=== PATIENT | female | born 1950 | race Caucasian/White ===

== ENCOUNTER 2018-04-03 22:12 | Emergency (ER) | payer MEDICAID ==
[~2018-04-03] VITALS: Ht 167.6 cm; Wt 90.7 kg
[~2018-04-03 22:12] MED LIST: ACHD5005 PO; ALBU8.5H4 IH; AMLO10TA2 PO; AMLO5TAB2 PO; AMOX-358 PO; AMOX500C2 PO; ASP81TEC PO; ATOR40TA PO; AZIT-21 PO; AZIT250T12 PO; Antivert; ENAL10TA PO; ENAL20TA76 PO; ENLP10T PO; FRSM20T PO; GLIP10TA13 PO; GLIP5TAB13 PO; HCT25T PO; HYDR-34 PO; HYDR200T46 PO; INSASP10V SC; INSU100C5 SC; INSU100I14 SQ; INSU100I16 SQ; INSU100V5 SQ; LEVE1U SQ; LEVO750T24 PO; METF500T8 PO; METH500T7 PO; METO10TA3 PO; MTF500T PO; MTP50T PO; OMEP20CA12 PO; POTA10TA36 PO; PRD10T PO; PRD20T PO; PRD50T PO; SERT50TA9 PO; SITA1TAB6; TICA90TA PO; TRAM50TA2 PO
[2018-04-03] MEDS ORDERED: KETOROLAC 30 MG/ML VIAL IVP STA (23:00)
[2018-04-03] MEDS ORDERED: NS IV 1000 ML 1,000 ML IV ONE (23:00)
[2018-04-03 23:15] LABS: BASOPHILS % (AUTO) 0 % (0-10); EOSINOPHILS # (AUTO) 0.1 10^3/uL (0.0-0.3); EOSINOPHILS % (AUTO) 1 % (0-10); HEMATOCRIT 36 % (35-52); HEMOGLOBIN 12.2 G/DL (11.5-16.0); LYMPHOCYTES # (AUTO) 0.7 X 10^3 (1.0-4.0); LYMPHOCYTES % (AUTO) 13 % (12-44); MEAN CORPUSCULAR HEMOGLOBIN 27 PG (25-34); MEAN CORPUSCULAR HGB CONC 34 G/DL (32-36); MEAN CORPUSCULAR VOLUME 79 FL (80-99); MEAN PLATELET VOLUME 9.9 FL (7.4-10.4); MONOCYTES # (AUTO) 0.6 X 10^3 (0.0-1.0); MONOCYTES % (AUTO) 11 % (0-12); NEUTROPHILS # (AUTO) 3.7 X 10^3 (1.8-7.8); NEUTROPHILS % (AUTO) 74 % (42-75); PLATELET COUNT 158 10^3/uL (130-400); RED BLOOD COUNT 4.57 10^6/uL (4.35-5.85); RED CELL DISTRIBUTION WIDTH 14.3 % (10.0-14.5)
--- OUTSIDE RECORDS SUMMARY | 2018-04-03 23:27 | XMS REPORT | Clinical Summary ---
Author Author [facility] Organization [facility] Address Unknown Phone Unavailable Care Team Providers Care Mental Health Specialist Name Role Phone Debo Dunne MD PCP Source Comments Some departments are not documenting in the electronic medical record. If you do not see the information that you expected, contact Release of Information in the Health Information Management department at [phone] for further assistance in locating additional records.[facility] Allergies Active Allergy Reactions Severity Noted Date Comments Metformin UNKNOWN Low 11/07/2017 Current Medications Prescription Sig. Disp. Refills Start End Date Status Date insulin detemir(+) Inject 60 Units under the Active (LEVEMIR) 100 unit/mL skin twice daily before soln meals. insulin aspart U-100 Inject 45 Units under the Active (NOVOLOG FLEXPEN U-100 skin three times daily INSULIN) 100 unit/mL with meals. injection PEN enalapril (VASOTEC) 10 mg Take 10 mg by mouth Active tablet daily. glipiZIDE (GLUCOTROL) 10 Take 10 mg by mouth twice Active mg tablet daily. sertraline (ZOLOFT) 50 mg Take 50 mg by mouth Active tablet daily. aspirin EC 81 mg tablet Take 81 mg by mouth Active daily. Take with food. omeprazole DR(+) Take 20 mg by mouth daily Active (PRILOSEC) 20 mg capsule before breakfast. QUEtiapine (SEROQUEL) 100 Take 100 mg by mouth at Active mg tablet bedtime daily. prednisone (DELTASONE) 5 Take 4 tabs po qd x 7 d, 109 tablet 1 Active mg tablet 3 tabs po qd x 7 d, then 18 2 tabs po qd until her follow up appointment. hydroxychloroquine Take with food. Take 1 60 tablet 2 12/03/19 Active (PLAQUENIL) 200 mg tablet tablet daily for 7 days 18 and then 1 tab BID. ergocalciferol (VITAMIN Take 1 capsule by mouth 12 capsule 0 12/03/19 Active D-2) 50,000 unit capsule every 7 days. 18 cholecalciferol(+) Take 1 tablet by mouth 90 tablet 0 12/03/19 Active (VITAMIN D3) 2,000 unit daily. 18 tablet Active Problems Problem Noted Date Coronary artery disease 11/18/2017 Type 2 diabetes mellitus (HCC) 11/18/2017 Fatigue 11/18/2017 Family History Medical History Relation Name Comments Cancer-Lung Other Coronary Artery Disease Other Diabetes Other Other Sister lupus Relation Name Status Comments Other Sister Social History Tobacco Use Types Packs/Day Years Used Date Current Every Day Smoker 1 45 Smokeless Tobacco: Never Used Sex Assigned at Date Recorded Not on file Last Filed Vital Signs Vital Sign Reading Time Taken Blood Pressure 161/77 11/18/2017 2:16 PM CDT Pulse 72 11/18/2017 2:16 PM CDT Temperature 36.5 C (97.7 F) 11/18/2017 2:16 PM CDT Respiratory Rate - - Oxygen Saturation - - Inhaled Oxygen - - Concentration Weight 80.3 kg (177 lb) 11/18/2017 2:16 PM CDT Height 160 cm (5' 3") 11/18/2017 2:16 PM CDT Body Mass Index 31.35 11/18/2017 2:16 PM CDT Plan of Treatment Health Maintenance Due Date Last Done Comments PHYSICAL (COMPREHENSIVE) 01/06/1959 EXAM PERTUSSIS VACCINE 01/06/1963 TETANUS VACCINE 01/06/1969 DILATED EYE EXAM 01/06/1970 FOOT EXAM 01/06/1970 HBA1C 01/06/1970 BREAST CANCER SCREENING 1992 COLORECTAL CANCER 01/06/2002 SCREENING SHINGLES RECOMBINANT 01/06/2002 VACCINE (1 of 2) OSTEOPOROSIS SCREENING 01/06/2017 PNEUMONIA (PCV13/PPSV23) 01/06/2017 VACCINES (1 of 2 - PCV13) INFLUENZA VACCINE 05/29/2018 HEPATITIS C SCREENING Completed 11/18/2017 Results Not on filefrom Last 3 Months
--- OUTSIDE RECORDS SUMMARY | 2018-04-03 23:32 | XMS REPORT | Continuity of Care Document ---
Author Author [facility] Organization [facility] Address Unknown Phone Unavailable Allergies Active Description Code Type Severity Reaction Onset Reported/Identified Relationship to Patient Clinical Status Yes METFORMIN UNKNOWN GI PROBLEMS - DIARRH Yes No Known Drug Allergies [id number] Drug Allergy Unknown N/A 10/02/2009 Yes atorvastatin [id number] Drug Allergy Unknown N/A 06/14/2015 Yes metformin [id number] Drug Allergy Unknown N/A 06/14/2015 Medications Medication Packaging Start Date Stop Date Route Dosage Sig AMOX-CLAV 875/125 TAB 875 MG-125MG (AUGMENTIN) TAB 07/07/2017 07/07/2017 ONCE&2115 KETOROLAC VIAL INJ 30 MG/CC (TORADOL VIAL) MG 07/07/2017 07/07/2017 PRN ONCE SMZ/TMP DS TAB (SEPTRA DS) (Bactrim DS) TAB 07/29/2017 07/29/2017 ONCE&2253 CEFTRIAXONE INJ 1 GM (ROCEPHIN) GM 07/29/2017 07/29/2017 ONCE&2258 Problems Date Dx Coded Attending Type Code Diagnosis Diagnosed By 09/06/2012 Ot 716.90 ARTHROPATHY NOS-UNSPEC 09/06/2012 Ot 723.5 TORTICOLLIS NOS 11/01/2012 Ot 250.00 DIAB ROJAS WO COMPL, TYPE II OR UNSPEC TY 11/01/2012 Ot 272.4 HYPERLIPIDEMIA NEC/NOS 11/01/2012 Ot 276.69 OTHER FLUID OVERLOAD 11/01/2012 Ot 278.00 OBESITY, NOS 11/01/2012 Ot 305.1 TOBACCO USE DISORDER 11/01/2012 Ot 401.9 HYPERTENSION NOS 11/01/2012 Ot 410.71 AC MYOCARDIAL INFARCT,SUBENDO INFARCT,IN 11/01/2012 Ot 414.01 CORONARY ATHEROSCLEROSIS OF [place] CORON 11/01/2012 Ot 486 PNEUMONIA, ORGANISM NOS 11/01/2012 Ot 496 CHR AIRWAY OBSTRUCT NEC 11/01/2012 Ot 716.90 ARTHROPATHY NOS-UNSPEC 11/01/2012 Ot V03.82 PROPHYLACTIC VACC AGAINST STREPTOCOCCUS 11/01/2012 Ot 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 11/01/2012 Ot V85.39 BODY MASS INDEX 39.0-39.9, ADULT 11/09/2012 Ot 719.42 JOINT PAIN- UP/ARM 11/09/2012 Ot 726.32 LATERAL EPICONDYLITIS 12/01/2012 Ot 780.79 OTH MALAISE FATIGUE 12/01/2012 Ot 924.8 MULTIPLE CONTUSIONS NEC 12/01/2012 Ot 959.4 HAND INJURY NOS 12/01/2012 Ot E000.8 OTHER EXTERNAL CAUSE STATUS 12/01/2012 Ot E849.0 ACCIDENT IN HOME 12/01/2012 Ot E885.9 FALL FROM SLIPPING, TRIPPING, OR STUMBLI 12/03/2012 Ot 276.8 HYPOPOTASSEMIA 12/03/2012 Ot 789.09 ABDOMINAL PAIN, OTHER SPECIFIED SITE 02/01/2013 FRANCESCA CHAVEZ MD Ot 240.9 GOITER NOS 02/01/2013 FRANCESCA CHAVEZ MD Ot 250.00 DIAB ROJAS WO COMPL, TYPE II OR UNSPEC TY 02/01/2013 FRANCESCA CHAVEZ MD Ot 272.4 HYPERLIPIDEMIA NEC/NOS 02/01/2013 FRANCESCA CHAVEZ MD Ot 276.1 HYPOSMOLALITY 02/01/2013 FRANCESCA CHAVEZ MD Ot 276.8 HYPOPOTASSEMIA 02/01/2013 FRANCESCA CHAVEZ MD Ot 278.00 OBESITY, NOS 02/01/2013 FRANCESCA CHAVEZ MD Ot 305.1 TOBACCO USE DISORDER 02/01/2013 FRANCESCA CHAVEZ MD Ot 311 DEPRESSIVE DISORDER NEC 02/01/2013 FRANCESCA CHAVEZ MD Ot 401.9 HYPERTENSION NOS 02/01/2013 FRANCESCA CHAVEZ MD Ot 412 OLD MYOCARDIAL INFARCT 02/01/2013 FRANCESCA CHAVEZ MD Ot 414.01 CORONARY ATHEROSCLEROSIS OF [place] CORON 02/01/2013 FRANCESCA CHAVEZ MD Ot 496 CHR AIRWAY OBSTRUCT NEC 02/01/2013 FRANCESCA CHAVEZ MD Ot 716.90 ARTHROPATHY NOS-UNSPEC 02/01/2013 FRANCESCA CHAVEZ MD Ot 728.88 RHABDOMYOLYSIS 02/01/2013 FRANCESCA CHAVEZ MD Ot V45.82 PERCUTANEOUS TRANSLUM CORON ANGIOPLASTY 02/01/2013 FRANCESCA CHAVEZ MD Ot V58.67 LONG-TERM (CURRENT) USE OF INSULIN 02/01/2013 FRANCESCA CHAVEZ MD Ot V85.37 BODY MASS INDEX 37.0-37.9, ADULT 02/08/2013 SINDY SIFUENTES OPAL E Ot 240.9 GOITER NOS 02/08/2013 SINDY SIFUENTES OPAL E Ot 250.00 DIAB ROJAS WO COMPL, TYPE II OR UNSPEC TY 02/08/2013 SINDY SIFUENTES OPAL E Ot 272.4 HYPERLIPIDEMIA NEC/NOS 02/08/2013 SINDY SIFUENTES OPAL E Ot 276.1 HYPOSMOLALITY 02/08/2013 SINDY SIFUENTES OPAL E Ot 276.8 HYPOPOTASSEMIA 02/08/2013 SINDY SIFUENTES OPAL E Ot 311 DEPRESSIVE DISORDER NEC 02/08/2013 SINDY SIFUENTES OPAL E Ot 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 02/08/2013 SINDY SIFUENTES OPAL E Ot 401.9 HYPERTENSION NOS 02/08/2013 SINDY SIFUENTES OPAL E Ot 414.01 CORONARY ATHEROSCLEROSIS OF [place] CORON 02/08/2013 SINDY SIFUENTES OPAL E Ot 710.0 SYST LUPUS ERYTHEMATOSIS 02/08/2013 SINDY SIFUENTES OPAL E Ot 715.35 LOC OSTEOARTH NOS-PELVIS 02/08/2013 SINDY SIFUENTES OPAL E Ot 781.2 ABNORMALITY OF GAIT 02/08/2013 MARLENE CALLAHAN MDIC E Ot 786.09 RESPIRATORY ABNORM NEC 02/08/2013 SINDY SIFUENTES OPAL E Ot 787.91 DIARRHEA 02/08/2013 MARLENE CALLAHAN MDIC E Ot V45.82 PERCUTANEOUS TRANSLUM CORON ANGIOPLASTY 02/08/2013 SINDY SIFUENTES OPAL E Ot V57.89 REHABILITATION PROC NEC 02/08/2013 OPAL CALLAHAN MD E Ot V58.67 LONG-TERM (CURRENT) USE OF INSULIN 08/23/2013 BHAVIN WRIGHT MD Ot 920 CONTUSION FACE/SCALP/NCK 08/23/2013 BHAVIN WRIGHT MD Ot 959.09 INJURY OF FACE AND NECK 08/23/2013 BHAVIN WRIGHT MD Ot E000.8 OTHER EXTERNAL CAUSE STATUS 08/23/2013 BRUEGGEMANN MD, BHAVIN T Ot E849.0 ACCIDENT IN HOME 08/23/2013 ADRIANA SIFUENTES, BHAVIN Davis Ot E880.9 FALL ON STAIR/STEP NEC 01/03/2015 HOLDEN DARBY MD Ot 719.49 JOINT PAIN-MULT JTS 01/03/2015 HOLDEN DARBY MD Ot V58.69 OTH MED,LT,CURRENT USE 02/10/2015 CONNIE DIEZ MD Ot 401.9 02/10/2015 CONNIE DIEZ MD Ot 414.00 02/10/2015 CONNIE DIEZ MD Ot 785.9 06/14/2015 Ot E11.9 TYPE 2 DIABETES MELLITUS WITHOUT COMPLIC 06/14/2015 Ot F17.210 NICOTINE DEPENDENCE, CIGARETTES, UNCOMPL 06/14/2015 Ot N93.9 ABNORMAL UTERINE AND VAGINAL BLEEDING, U 06/14/2015 Ot N95.0 POSTMENOPAUSAL BLEEDING 06/14/2015 Ot Z79.4 LONGTERM ( CURRENT) USE OF INSULIN 09/21/2015 MIAN YOON MD Ot 724.1 09/21/2015 MIAN YOON MD Ot V15.88 09/21/2015 CONNIE DIEZ MD Ot 401.9 09/21/2015 CONNIE DIEZ MD Ot 414.00 09/21/2015 CONNIE DIEZ MD Ot 785.9 09/21/2015 KATY WOLFE APRN Ot E11.65 TYPE 2 DIABETES MELLITUS WITH HYPERGLYCE 09/21/2015 KATY WOLFE APRN Ot F17.210 NICOTINE DEPENDENCE, CIGARETTES, UNCOMPL 09/21/2015 KATY WOLFE APRN Ot J40 BRONCHITIS, NOT SPECIFIED ACUTE OR CH 09/21/2015 KATY WOLFE APRN Ot Z79.4 CREDIT ADVISOR (CURRENT) USE OF INSULIN 09/21/2015 MIAN YOON MD Ot 724.1 09/21/2015 MIAN YOON MD Ot V15.88 09/21/2015 CONNIE DIEZ MD Ot 401.9 09/21/2015 CONNIE DIEZ MD Ot 414.00 09/21/2015 CONNIE DIEZ MD Ot 785.9 06/08/2016 MIAN YOON MD Ot 724.1 PAIN IN THORACIC SPINE 06/08/2016 MIAN YOON MD Ot V15.88 HISTORY OF FALL 06/08/2016 CONNIE DIEZ MD Ot 401.9 HYPERTENSION NOS 06/08/2016 CONNIE DIEZ MD Ot 414.00 CORON ATHEROSCLER NOS TYPE VESSEL, NATIV 06/08/2016 CONNIE DIEZ MD Ot 785.9 CARDIOVAS SYS SYMP NEC 06/08/2016 HOLDEN DARBY MD Ot E11.9 TYPE 2 DIABETES MELLITUS WITHOUT COMPLIC 06/08/2016 HOLDEN DARBY MD Ot F17.210 NICOTINE DEPENDENCE, CIGARETTES, UNCOMPL 06/08/2016 HOLDEN DARBY MD Ot H81.13 BENIGN PAROXYSMAL VERTIGO, BILATERAL 06/08/2016 HOLDEN DARBY MD Ot M32.9 SYSTEMIC LUPUS ERYTHEMATOSUS, UNSPECIFIE 06/08/2016 HOLDEN DARBY MD Ot R42 DIZZINESS AND GIDDINESS 06/08/2016 HOLDEN DARBY MD Ot Z79.4 CREDIT ADVISOR (CURRENT) USE OF INSULIN 06/08/2016 HOLDEN DARBY MD Ot Z79.82 CREDIT ADVISOR (CURRENT) USE OF ASPIRIN 06/08/2016 HOLDEN DARBY MD Ot Z79.899 OTHER LONGTERM (CURRENT) DRUG THERAPY 06/12/2016 HOLDEN DARBY MD Ot E11.9 TYPE 2 DIABETES MELLITUS WITHOUT COMPLIC 06/12/2016 HOLDEN DARBY MD Ot F17.210 NICOTINE DEPENDENCE, CIGARETTES, UNCOMPL 06/12/2016 HOLDEN DARBY MD Ot H81.13 BENIGN PAROXYSMAL VERTIGO, BILATERAL 06/12/2016 HOLDEN DARBY MD Ot M32.9 SYSTEMIC LUPUS ERYTHEMATOSUS, UNSPECIFIE 06/12/2016 HOLDEN DARBY MD Ot R42 DIZZINESS AND GIDDINESS 06/12/2016 HOLDEN DARBY MD Ot Z79.4 LONGTERM (CURRENT) USE OF INSULIN 06/12/2016 HOLDEN DARBY MD Ot Z79.82 CREDIT ADVISOR (CURRENT) USE OF ASPIRIN 06/12/2016 HOLDEN DARBY MD Ot Z79.899 OTHER LONGTERM (CURRENT) DRUG THERAPY 08/26/2016 MIAN YOON MD Ot 724.1 PAIN IN THORACIC SPINE 08/26/2016 MIAN YOON MD Ot V15.88 HISTORY OF FALL 08/26/2016 CONNIE DIEZ MD Ot 401.9 HYPERTENSION NOS 08/26/2016 CONNIE DIEZ MD Ot 414.00 CORON ATHEROSCLER NOS TYPE VESSEL, NATIV 08/26/2016 CONNIE DIEZ MD Ot 785.9 CARDIOVAS SYS SYMP NEC 08/26/2016 MIAN YOON MD Ot 724.1 PAIN IN THORACIC SPINE 08/26/2016 MIAN YOON MD Ot V15.88 HISTORY OF FALL 08/26/2016 CONNIE DIEZ MD Ot 401.9 HYPERTENSION NOS 08/26/2016 CONNIE DIEZ MD Ot 414.00 CORON ATHEROSCLER NOS TYPE VESSEL, NATIV 08/26/2016 CONNIE DIEZ MD Ot 785.9 CARDIOVAS SYS SYMP NEC 08/28/2016 YANG MIRELES MD, Ot B96.20 UNSP ESCHERICHIA COLI THE CAUSE OF DI 08/28/2016 YANG MIRELES MD, Ot E11.65 TYPE 2 DIABETES MELLITUS WITH HYPERGLYCE 08/28/2016 YANG MIRELES MD Ot E87.1 HYPO-OSMOLALITY AND HYPONATREMIA 08/28/2016 YANG MIRELES MD Ot K11.21 ACUTE SIALOADENITIS 08/28/2016 YANG MIRELES MD Ot N39.0 URINARY TRACT INFECTION, SITE NOT SPECIF 08/28/2016 YANG MIRELES MD Ot Z79.4 CREDIT ADVISOR (CURRENT) USE OF INSULIN 09/09/2016 YANG MIRELES MD Ot B96.20 UNSP ESCHERICHIA COLI THE CAUSE OF DI 09/09/2016 YANG MIRELES MD Ot E11.65 TYPE 2 DIABETES MELLITUS WITH HYPERGLYCE 09/09/2016 YANG MIRELES MD Ot E87.1 HYPO-OSMOLALITY AND HYPONATREMIA 09/09/2016 YANG MIRELES MD Ot K11.21 ACUTE SIALOADENITIS 09/09/2016 YANG MIRELES MD, Ot N39.0 URINARY TRACT INFECTION, SITE NOT SPECIF 09/09/2016 YANG MIRELES MD Ot Z79.4 CREDIT ADVISOR (CURRENT) USE OF INSULIN 09/09/2016 YANG MIRELES MD Ot B96.20 UNSP ESCHERICHIA COLI THE CAUSE OF DI 09/09/2016 YANG MIRELES MD Ot E11.65 TYPE 2 DIABETES MELLITUS WITH HYPERGLYCE 09/09/2016 YANG MIRELES MD Ot E87.1 HYPO-OSMOLALITY AND HYPONATREMIA 09/09/2016 YANG MIRELES MD Ot K11.21 ACUTE SIALOADENITIS 09/09/2016 YANG MIRELES MD Ot N39.0 URINARY TRACT INFECTION, SITE NOT SPECIF 09/09/2016 YANG MIRELES MD Ot Z79.4 CREDIT ADVISOR (CURRENT) USE OF INSULIN 07/07/2017 Elayne Lal W 241.0 NONTOXIC UNINODULAR GOITER 07/07/2017 Wesley Lalya W 250.01 DIABETES MELLITUS WITHOUT MENTION OF COMPLICATION, TYPE I [JUVENILE TYPE], NOT STATED UNCONTROLLED 07/07/2017 Wesley Lalya W 401.0 MALIGNANT ESSENTIAL HYPERTENSION 07/07/2017 Wesley Lalya A 527.2 SIALOADENITIS 07/07/2017 Elayne Lal W E04.1 NONTOXIC SINGLE THYROID NODULE 07/07/2017 Wesley Lalya W E10.9 TYPE 1 DIABETES MELLITUS WITHOUT COMPLICATIONS 07/07/2017 ZariabWesleyya W I10 ESSENTIAL (PRIMARY) HYPERTENSION 07/07/2017 Wesley Lalya A K11.21 ACUTE SIALOADENITIS 07/28/2017 ADIN OCONNELL W 250.80 DIABETES MELLITUS WITH OTHER SPECIFIED MANIFESTATIONS, TYPE II OR UNSPECIFIED TYPE, NOT STATED UNCONTROLLED 07/28/2017 ADIN OCONNELL W 272.4 OTHER AND UNSPECIFIED HYPERLIPIDEMIA 07/28/2017 ADIN OCONNELL W 401.0 MALIGNANT ESSENTIAL HYPERTENSION 07/28/2017 ADIN OCONNELL W E11.65 TYPE 2 DIABETES MELLITUS WITH HYPERGLYCEMIA 07/28/2017 ADIN OCONNELL W E78.5 HYPERLIPIDEMIA, UNSPECIFIED 07/28/2017 ADIN OCONNELL W I10 ESSENTIAL (PRIMARY) HYPERTENSION 07/28/2017 ADIN OCONNELL W 250.80 DIABETES MELLITUS WITH OTHER SPECIFIED MANIFESTATIONS, TYPE II OR UNSPECIFIED TYPE, NOT STATED UNCONTROLLED 07/28/2017 ADIN OCONNELL W 272.4 OTHER AND UNSPECIFIED HYPERLIPIDEMIA 07/28/2017 ADIN OCONNELL W 401.0 MALIGNANT ESSENTIAL HYPERTENSION 07/28/2017 ADIN OCONNELL W E11.65 TYPE 2 DIABETES MELLITUS WITH HYPERGLYCEMIA 07/28/2017 ADIN OCONNELL W E78.5 HYPERLIPIDEMIA, UNSPECIFIED 07/28/2017 ADIN OCONNELL W I10 ESSENTIAL (PRIMARY) HYPERTENSION 07/28/2017 LUIS OCONNELLHEL W 250.80 DIABETES MELLITUS WITH OTHER SPECIFIED MANIFESTATIONS, TYPE II OR UNSPECIFIED TYPE, NOT STATED UNCONTROLLED 07/28/2017 ADIN OCONNELL W 272.4 OTHER AND UNSPECIFIED HYPERLIPIDEMIA 07/28/2017 ADIN OCONNELL W 401.0 MALIGNANT ESSENTIAL HYPERTENSION 07/28/2017 LUIS OCONNELLHEL W E11.65 TYPE 2 DIABETES MELLITUS WITH HYPERGLYCEMIA 07/28/2017 ADIN OCONNELL W E78.5 HYPERLIPIDEMIA, UNSPECIFIED 07/28/2017 OCONNELLADIN LUNDBERG W I10 ESSENTIAL (PRIMARY) HYPERTENSION 07/29/2017 FRANNY JUNIOR A 599.0 URINARY TRACT INFECTION, SITE NOT SPECIFIED 07/29/2017 FRANNY JUNIOR A N39.0 URINARY TRACT INFECTION, SITE NOT SPECIFIED 02/02/2018 OCONNELLLUIS LUNDBERGHEL W 466.0 ACUTE BRONCHITIS 02/02/2018 OCONNELL, ADIN W 780.60 FEVER, UNSPECIFIED 02/02/2018 OCONNELL, ADIN W J20.9 ACUTE BRONCHITIS, UNSPECIFIED 02/02/2018 OCONNELL, ADIN W R50.9 FEVER, UNSPECIFIED 02/02/2018 OCONNELL, ADIN W 250.80 DIABETES MELLITUS WITH OTHER SPECIFIED MANIFESTATIONS, TYPE II OR UNSPECIFIED TYPE, NOT STATED UNCONTROLLED 02/02/2018 LUIS OCONNELLHEL W 401.0 MALIGNANT ESSENTIAL HYPERTENSION 02/02/2018 OCONNELLLUIS LUNDBERGHEL W 466.0 ACUTE BRONCHITIS 02/02/2018 OCONNELL, ADIN W 780.60 FEVER, UNSPECIFIED 02/02/2018 OCONNELLADIN LUNDBERG W E11.65 TYPE 2 DIABETES MELLITUS WITH HYPERGLYCEMIA 02/02/2018 OCONNELLLUIS LUNDBERGHEL W I10 ESSENTIAL (PRIMARY) HYPERTENSION 02/02/2018 OCONNELLLUIS LUNDBERGHEL W J20.9 ACUTE BRONCHITIS, UNSPECIFIED 02/02/2018 OCONNELL, ADIN W R50.9 FEVER, UNSPECIFIED 02/02/2018 OCONNELL, ADIN W 250.80 DIABETES MELLITUS WITH OTHER SPECIFIED MANIFESTATIONS, TYPE II OR UNSPECIFIED TYPE, NOT STATED UNCONTROLLED 02/02/2018 OCONNELLLUIS LUNDBERGHEL W 401.0 MALIGNANT ESSENTIAL HYPERTENSION 02/02/2018 OCONNELL, ADIN W 466.0 ACUTE BRONCHITIS 02/02/2018 OCONNELL, ADIN W 780.60 FEVER, UNSPECIFIED 02/02/2018 ADIN OCONNELL E11.65 TYPE 2 DIABETES MELLITUS WITH HYPERGLYCEMIA 02/02/2018 ADIN OCONNELL I10 ESSENTIAL (PRIMARY) HYPERTENSION 02/02/2018 ADIN OCONNELL J20.9 ACUTE BRONCHITIS, UNSPECIFIED 02/02/2018 ADIN OCONNELL R50.9 FEVER, UNSPECIFIED Procedures Code Description Performed By Performed On 00.40 PROCEDURE ON SINGLE VESSEL 10/30/2012 00.45 INSERTION OF ONE VASCULAR STENT 10/30/2012 00.66 PERCUTANEOUS TRANSLUMINAL CORONARY ANGIO 10/30/2012 36.07 INSRT OF DRUG-ELUTING CORON ARTERY STENT 10/30/2012 37.22 LEFT HEART CARDIAC CATH 10/30/2012 88.53 LT HEART ANGIOCARDIOGRAM 10/30/2012 88.56 CORONAR ARTERIOGR-2 CATH 10/30/2012 Results Test Result Range Complete blood count (CBC) with automated white blood cell (WBC) differential - 06/08/16 13:59 Blood leukocytes automated count (number/volume) 5.4 10*3/uL 4.3-11.0 Blood erythrocytes automated count (number/volume) 5.32 10*6/uL 4.35-5.85 Venous blood hemoglobin measurement (mass/volume) 13.7 g/dL 11.5-16.0 Blood hematocrit (volume fraction) 41 % 35-52 Automated erythrocyte mean corpuscular volume 76 [foz_us] 80-99 Automated erythrocyte mean corpuscular hemoglobin (mass per erythrocyte) 26 pg 25-34 Automated erythrocyte mean corpuscular hemoglobin concentration measurement ( mass/volume) 34 g/dL 32-36 Automated erythrocyte distribution width ratio 14.2 % 10.0-14.5 Automated blood platelet count (count/volume) 178 10*3/uL 130-400 Automated blood platelet mean volume measurement 11.5 [foz_us] 7.4-10.4 Automated blood neutrophils/100 leukocytes 76 % 42-75 Automated blood lymphocytes/100 leukocytes 12 % 12-44 Blood monocytes/100 leukocytes 11 % 0-12 Automated blood eosinophils/100 leukocytes 1 % 0-10 Automated blood basophils/100 leukocytes 0 % 0-10 Blood neutrophils automated count (number/volume) 4.1 10*3 1.8-7.8 Blood lymphocytes automated count (number/volume) 0.6 10*3 1.0-4.0 Blood monocytes automated count (number/volume) 0.6 10*3 0.0-1.0 Automated eosinophil count 0.1 10*3/uL 0.0-0.3 Automated blood basophil count (count/volume) 0.0 10*3/uL 0.0-0.1 Comprehensive metabolic panel - 06/08/16 13:59 Serum or plasma sodium measurement (moles/volume) 138 mmol/L 135-145 Serum or plasma potassium measurement (moles/volume) 4.0 mmol/L 3.6-5.0 Serum or plasma chloride measurement (moles/volume) 107 mmol/L 98-107 Carbon dioxide 19 mmol/L 21-32 Serum or plasma anion gap determination (moles/volume) 12 mmol/L 5-14 Serum or plasma urea nitrogen measurement (mass/volume) 11 mg/dL 7-18 Serum or plasma creatinine measurement (mass/volume) 0.80 mg/dL 0.60-1.30 Serum or plasma urea nitrogen/creatinine mass ratio 14 NRG Serum or plasma creatinine measurement with calculation of estimated glomerular filtration rate > NRG Serum or plasma glucose measurement (mass/volume) 322 mg/dL 70-105 Serum or plasma calcium measurement (mass/volume) 9.3 mg/dL 8.5-10.1 Serum or plasma total bilirubin measurement (mass/volume) 0.4 mg/dL 0.1-1.0 Serum or plasma alkaline phosphatase measurement (enzymatic activity/volume) 107 U/L 40-136 Serum or plasma aspartate aminotransferase measurement (enzymatic activity/ volume) 21 U/L 5-34 Serum or plasma alanine aminotransferase measurement (enzymatic activity/volume ) 20 U/L 0-55 Serum or plasma protein measurement (mass/volume) 7.1 g/dL 6.4-8.2 Serum or plasma albumin measurement (mass/volume) 3.9 g/dL 3.2-4.5 Complete blood count (CBC) with automated white blood cell (WBC) differential - 08/26/16 19:00 Blood leukocytes automated count (number/volume) 10.2 10*3/uL 4.3-11.0 Blood erythrocytes automated count (number/volume) 5.36 10*6/uL 4.35-5.85 Venous blood hemoglobin measurement (mass/volume) 13.6 g/dL 11.5-16.0 Blood hematocrit (volume fraction) 40 % 35-52 Automated erythrocyte mean corpuscular volume 75 [foz_us] 80-99 Automated erythrocyte mean corpuscular hemoglobin (mass per erythrocyte) 25 pg 25-34 Automated erythrocyte mean corpuscular hemoglobin concentration measurement ( mass/volume) 34 g/dL 32-36 Automated erythrocyte distribution width ratio 13.3 % 10.0-14.5 Automated blood platelet count (count/volume) 234 10*3/uL 130-400 Automated blood platelet mean volume measurement 10.5 [foz_us] 7.4-10.4 Automated blood neutrophils/100 leukocytes 79 % 42-75 Automated blood lymphocytes/100 leukocytes 10 % 12-44 Blood monocytes/100 leukocytes 11 % 0-12 Automated blood eosinophils/100 leukocytes 0 % 0-10 Automated blood basophils/100 leukocytes 0 % 0-10 Blood neutrophils automated count (number/volume) 8.0 10*3 1.8-7.8 Blood lymphocytes automated count (number/volume) 1.1 10*3 1.0-4.0 Blood monocytes automated count (number/volume) 1.1 10*3 0.0-1.0 Automated eosinophil count 0.0 10*3/uL 0.0-0.3 Automated blood basophil count (count/volume) 0.0 10*3/uL 0.0-0.1 Comprehensive metabolic panel - 08/26/16 19:00 Serum or plasma sodium measurement (moles/volume) 127 mmol/L 135-145 Serum or plasma potassium measurement (moles/volume) 3.7 mmol/L 3.6-5.0 Serum or plasma chloride measurement (moles/volume) 96 mmol/L 98-107 Carbon dioxide 19 mmol/L 21-32 Serum or plasma anion gap determination (moles/volume) 12 mmol/L 5-14 Serum or plasma urea nitrogen measurement (mass/volume) 14 mg/dL 7-18 Serum or plasma creatinine measurement (mass/volume) 0.86 mg/dL 0.60-1.30 Serum or plasma urea nitrogen/creatinine mass ratio 16 NRG Serum or plasma creatinine measurement with calculation of estimated glomerular filtration rate > NRG Serum or plasma glucose measurement (mass/volume) 367 mg/dL 70-105 Serum or plasma calcium measurement (mass/volume) 9.5 mg/dL 8.5-10.1 Serum or plasma total bilirubin measurement (mass/volume) 0.5 mg/dL 0.1-1.0 Serum or plasma alkaline phosphatase measurement (enzymatic activity/volume) 73 U/L 40-136 Serum or plasma aspartate aminotransferase measurement (enzymatic activity/ volume) 18 U/L 5-34 Serum or plasma alanine aminotransferase measurement (enzymatic activity/volume ) 13 U/L 0-55 Serum or plasma protein measurement (mass/volume) 7.8 g/dL 6.4-8.2 Serum or plasma albumin measurement (mass/volume) 3.6 g/dL 3.2-4.5 Serum or plasma amylase measurement (enzymatic activity/volume) - 08/26/16 19: 00 Serum or plasma amylase measurement (enzymatic activity/volume) 204 U/L 25-125 Lipase - 08/26/16 19:00 Lipase 17 U/L 8-78 MUMPS ANTIBODY IGG T M - 08/26/16 19:00 Serum mumps virus IgG antibody assay (units/volume) 2.93 0.00-0.89 Serum mumps virus IgM antibody assay (units/volume) <1:10 <1:10 Complete urinalysis with reflex to culture - 08/26/16 19:06 Urine color determination YELLOW NRG Urine clarity determination VERY CLOUDY NRG Urine pH measurement by test strip 6 5-9 Specific gravity of urine by test strip 1.015 1.016- 1.022 Urine protein assay by test strip, semi-quantitative 3+ NEGATIVE Urine glucose detection by automated test strip 4+ NEGATIVE Erythrocytes detection in urine sediment by light microscopy 2+ NEGATIVE Urine ketones detection by automated test strip 2+ NEGATIVE Urine nitrite detection by test strip POSITIVE NEGATIVE Urine total bilirubin detection by test strip NEGATIVE NEGATIVE Urine urobilinogen measurement by automated test strip (mass/volume) NORMAL NORMAL Urine leukocyte esterase detection by dipstick 3+ NEGATIVE Automated urine sediment erythrocyte count by microscopy (number/high power field) [HPF] NRG Automated urine sediment leukocyte count by microscopy (number/high power field ) > [HPF] NRG Bacteria detection in urine sediment by light microscopy LARGE NRG Crystals detection in urine sediment by light microscopy NONE NRG Casts detection in urine sediment by light microscopy NONE NRG Mucus detection in urine sediment by light microscopy NEGATIVE NRG Complete urinalysis with reflex to culture YES NRG Bacterial urine culture - 08/26/16 19:06 Bacterial urine culture [id number] NRG COLONY COUNT >100,000/ML NRG FTX;REPORTABLE SENSITIVITY REPORTED AT 1651, 08-27-16 NRG FREE TEXT ENTRY 2 PLUS, NRG FREE TEXT ENTRY 3 LACTOBACILLUS 10-100,000/ML NR Bacterial susceptibility panel - 08/26/16 19:06 Gentamicin susceptibility test by minimum inhibitory concentration < = NRG Trimethoprim/sulfamethoxazole susceptibility test by minimum inhibitoryconcentration <= NRG Ampicillin susceptibility test by minimum inhibitory concentration < = NRG Tobramycin susceptibility test by minimum inhibitory concentration < = NRG Cefazolin susceptibility test by minimum inhibitory concentration < = NRG Ceftriaxone susceptibility test by minimum inhibitory concentration <= NRG Ampicillin/sulbactam susceptibility test by minimum inhibitory concentration <= NRG Piperacillin/tazobactam susceptibility test by minimum inhibitory concentration <= NRG Ciprofloxacin susceptibility test by minimum inhibitory concentration <= NRG Meropenem susceptibility test by minimum inhibitory concentration < = NRG Nitrofurantoin susceptibility test by minimum inhibitory concentration <= NRG Aztreonam susceptibility test by minimum inhibitory concentration < = NRG Extended spectrum beta lactamase (ESBL) producing bacteria susceptibility test by minimum inhibitory concentration - NR Capillary blood glucose measurement by glucometer (mass/volume) - 08/26/16 23: 28 Capillary blood glucose measurement by glucometer (mass/volume) 327 mg/dL 70-110 Influenza virus A and B antigen detection - 08/26/16 23:41 FLU RESULT NEGATIVE FOR INFLUENZA A AND B ANTIGENS BY IA NR Capillary blood glucose measurement by glucometer (mass/volume) - 08/27/16 05: 47 Capillary blood glucose measurement by glucometer (mass/volume) 279 mg/dL 70-110 Complete blood count (CBC) with automated white blood cell (WBC) differential - 08/27/16 06:05 Blood leukocytes automated count (number/volume) 6.5 10*3/uL 4.3-11.0 Blood erythrocytes automated count (number/volume) 4.79 10*6/uL 4.35-5.85 Venous blood hemoglobin measurement (mass/volume) 12.3 g/dL 11.5-16.0 Blood hematocrit (volume fraction) 36 % 35-52 Automated erythrocyte mean corpuscular volume 75 [foz_us] 80-99 Automated erythrocyte mean corpuscular hemoglobin (mass per erythrocyte) 26 pg 25-34 Automated erythrocyte mean corpuscular hemoglobin concentration measurement ( mass/volume) 34 g/dL 32-36 Automated erythrocyte distribution width ratio 13.3 % 10.0-14.5 Automated blood platelet count (count/volume) 184 10*3/uL 130-400 Automated blood platelet mean volume measurement 10.6 [foz_us] 7.4-10.4 Automated blood neutrophils/100 leukocytes 75 % 42-75 Automated blood lymphocytes/100 leukocytes 11 % 12-44 Blood monocytes/100 leukocytes 13 % 0-12 Automated blood eosinophils/100 leukocytes 1 % 0-10 Automated blood basophils/100 leukocytes 0 % 0-10 Blood neutrophils automated count (number/volume) 4.9 10*3 1.8-7.8 Blood lymphocytes automated count (number/volume) 0.7 10*3 1.0-4.0 Blood monocytes automated count (number/volume) 0.8 10*3 0.0-1.0 Automated eosinophil count 0.1 10*3/uL 0.0-0.3 Automated blood basophil count (count/volume) 0.0 10*3/uL 0.0-0.1 Comprehensive metabolic panel - 08/27/16 06:05 Serum or plasma sodium measurement (moles/volume) 133 mmol/L 135-145 Serum or plasma potassium measurement (moles/volume) 3.2 mmol/L 3.6-5.0 Serum or plasma chloride measurement (moles/volume) 104 mmol/L 98-107 Carbon dioxide 19 mmol/L 21-32 Serum or plasma anion gap determination (moles/volume) 10 mmol/L 5-14 Serum or plasma urea nitrogen measurement (mass/volume) 13 mg/dL 7-18 Serum or plasma creatinine measurement (mass/volume) 0.79 mg/dL 0.60-1.30 Serum or plasma urea nitrogen/creatinine mass ratio 16 NRG Serum or plasma creatinine measurement with calculation of estimated glomerular filtration rate > NRG Serum or plasma glucose measurement (mass/volume) 275 mg/dL 70-105 Serum or plasma calcium measurement (mass/volume) 8.6 mg/dL 8.5-10.1 Serum or plasma total bilirubin measurement (mass/volume) 0.5 mg/dL 0.1-1.0 Serum or plasma alkaline phosphatase measurement (enzymatic activity/volume) 63 U/L 40-136 Serum or plasma aspartate aminotransferase measurement (enzymatic activity/ volume) 21 U/L 5-34 Serum or plasma alanine aminotransferase measurement (enzymatic activity/volume ) 12 U/L 0-55 Serum or plasma protein measurement (mass/volume) 6.2 g/dL 6.4-8.2 Serum or plasma albumin measurement (mass/volume) 3.0 g/dL 3.2-4.5 Serum or plasma amylase measurement (enzymatic activity/volume) - 08/27/16 06: 05 Serum or plasma amylase measurement (enzymatic activity/volume) 143 U/L 25-125 Lipase - 08/27/16 06:05 Lipase 13 U/L 8-78 Capillary blood glucose measurement by glucometer (mass/volume) - 08/27/16 10: 37 Capillary blood glucose measurement by glucometer (mass/volume) 311 mg/dL 70-110 Capillary blood glucose measurement by glucometer (mass/volume) - 08/27/16 17: 38 Capillary blood glucose measurement by glucometer (mass/volume) 236 mg/dL 70-110 Capillary blood glucose measurement by glucometer (mass/volume) - 08/27/16 20: 41 Capillary blood glucose measurement by glucometer (mass/volume) 172 mg/dL 70-110 Complete blood count (CBC) with automated white blood cell (WBC) differential - 08/28/16 05:08 Blood leukocytes automated count (number/volume) 4.9 10*3/uL 4.3-11.0 Blood erythrocytes automated count (number/volume) 4.67 10*6/uL 4.35-5.85 Venous blood hemoglobin measurement (mass/volume) 11.8 g/dL 11.5-16.0 Blood hematocrit (volume fraction) 35 % 35-52 Automated erythrocyte mean corpuscular volume 75 [foz_us] 80-99 Automated erythrocyte mean corpuscular hemoglobin (mass per erythrocyte) 25 pg 25-34 Automated erythrocyte mean corpuscular hemoglobin concentration measurement ( mass/volume) 34 g/dL 32-36 Automated erythrocyte distribution width ratio 13.6 % 10.0-14.5 Automated blood platelet count (count/volume) 201 10*3/uL 130-400 Automated blood platelet mean volume measurement 10.1 [foz_us] 7.4-10.4 Automated blood neutrophils/100 leukocytes 70 % 42-75 Automated blood lymphocytes/100 leukocytes 12 % 12-44 Blood monocytes/100 leukocytes 16 % 0-12 Automated blood eosinophils/100 leukocytes 1 % 0-10 Automated blood basophils/100 leukocytes 0 % 0-10 Blood neutrophils automated count (number/volume) 3.5 10*3 1.8-7.8 Blood lymphocytes automated count (number/volume) 0.6 10*3 1.0-4.0 Blood monocytes automated count (number/volume) 0.8 10*3 0.0-1.0 Automated eosinophil count 0.1 10*3/uL 0.0-0.3 Automated blood basophil count (count/volume) 0.0 10*3/uL 0.0-0.1 Whole blood basic metabolic panel - 08/28/16 05:08 Serum or plasma sodium measurement (moles/volume) 135 mmol/L 135-145 Serum or plasma potassium measurement (moles/volume) 3.4 mmol/L 3.6-5.0 Serum or plasma chloride measurement (moles/volume) 109 mmol/L 98-107 Carbon dioxide 19 mmol/L 21-32 Serum or plasma anion gap determination (moles/volume) 7 mmol/L 5-14 Serum or plasma urea nitrogen measurement (mass/volume) 8 mg/dL 7-18 Serum or plasma creatinine measurement (mass/volume) 0.67 mg/dL 0.60-1.30 Serum or plasma urea nitrogen/creatinine mass ratio 12 NRG Serum or plasma creatinine measurement with calculation of estimated glomerular filtration rate > NRG Serum or plasma glucose measurement (mass/volume) 125 mg/dL 70-105 Serum or plasma calcium measurement (mass/volume) 8.6 mg/dL 8.5-10.1 Sed Rate - 11/10/16 17:35 Sed Rate 25 mm/hr 9-15 Urinalysis - 03/22/17 15:35 Icotest Negative Negative Urine Volume Urine Volume Sufficient (10mL) Urine Yeast No Yeast present Urine-Appearance Cloudy Clear Urine-Bacteria 3+ Urine-Bilirubin 1+ Negative Urine-Blood Negative Negative Urine-Color Yellow Colorless-Lt. Yellow Urine-Epithelial Cells 0-5/HPF Urine-Glucose Trace Negative Urine-Ketones Trace Negative Urine-Leukocytes Negative Negative Urine-Nitrite Negative Negative Urine-Other Culture to follow Urine-pH 5.5 5-8.5 Urine-Protein 2+ Negative Urine-RBC Rare/HPF Urine-Specific [place] >1.030 1.000-1.030 Urine-WBC 0-2/HPF Urobilinogen 1.0 0.2-1.0 CBC with Auto Diff - 07/07/17 18:03 Baso% 0.20 % 0.00-2.50 Eos 0.0 K/uL 0.0-0.7 Eos% 0.4 % 0.0-7.0 Hct 37.3 % 36.0-46.0 Hgb 11.9 g/dL 13.0-15.0 Lym 0.68 K/uL 0.60-3.40 Lym% 13.7 % 10.0-50.0 MCH 25.6 pg 27.0-31.0 MCHC 31.9 g/dL 32.0-36.0 MCV 80.4 fL 80.0-97.0 [place]% 12.9 % 0.0-12.0 MPV 10.6 fL 7.4-10.0 [place]% 72.8 % 37.0-80.0 Plt 196 K/uL 150-400 RBC 4.64 M/uL 3.60-5.00 RDW 14.8 % 11.6-14.8 WBC 4.97 K/uL 5.00-10.00 [place] 3.62 K/uL 2.00-6.90 [place] 0.6 K/uL 0.0-0.9 Baso 0.0 K/uL 0.0-0.2 Comprehensive Metabolic Panel - 07/07/17 18:03 Albumin 3.3 g/dL 3.6-5.1 ALP 61 U/L 35-130 ALT 11 U/L 6-45 Anion Gap 14 6-14 AST 22 U/L 2-40 BUN 10 mg/dL 5-25 Calcium 8.8 mg/dL 8.3-10.4 Chloride 104 mmol/L 95-114 CO2 22 mEq/L 22-33 Creat 0.66 mg/dL 0.50-1.50 eGFR 90 mL/min/1.73m2 >59 Globulin 3.7 g/dL 2.3-3.5 Glucose 172 mg/dL 70-110 Osmo 284 280-295 Potassium 3.5 mmol/L 3.5-5.3 Sodium 136 mmol/L 134-148 TBil 0.5 mg/dL 0.2-1.2 TP 7.0 g/dL 6.0-8.3 Blood Culture - 07/07/17 18:03 PRELIM CULTURE RESULTS Blood Culture Negative, No Growth Day 1 FINAL CULTURE RESULTS Blood Culture Negative, No Growth Day 5 MEDIA PLATED Blood Culture Media Position B36 CULTURE SOURCE RIGHT ARM Blood Culture - 07/07/17 18:03 PRELIM CULTURE RESULTS Blood Culture Negative, No Growth Day 1 FINAL CULTURE RESULTS Blood Culture Negative, No Growth Day 5 MEDIA PLATED Blood Culture Media Position C43 CULTURE SOURCE IV START LEFT ARM Lipid Panel - 07/28/17 15:49 C/HDL 6.7 3.7-6.7 Cholesterol 154 mg/dL 100-240 HDL 23 mg/dL 30-85 LDL-Calculated 95 mg/dL 0-100 Trig 179 mg/dL 35-160 VLDL 36 mg/dL 0-42 Urinalysis - 07/29/17 22:40 Icotest N/A Negative Urine Volume Urine Volume Sufficient (10mL) Urine Yeast No Yeast present Urine-Appearance Slightly Cloudy Clear Urine-Bacteria 2+ Urine-Bilirubin Negative Negative Urine-Blood 3+ Negative Urine-Color Yellow Colorless-Lt. Yellow Urine-Epithelial Cells 0-5/HPF Urine-Glucose Negative Negative Urine-Ketones Negative Negative Urine-Leukocytes 1+ Negative Urine-Nitrite Negative Negative Urine-Other Culture to follow Urine-pH 6.0 5-8.5 Urine-Protein 1+ Negative Urine-RBC TNTC Urine-Specific [place] 1.015 1.000-1.030 Urine-WBC 10-20/HPF Urobilinogen 0.2 0.2-1.0 Urine Culture - 07/29/17 22:40 PRELIM CULTURE RESULTS >100,000 Gram Negative CARLOZ / ID to Follow FINAL CULTURE RESULTS >100,000 mixed gram pos and gram neg [id number] to obtain [id number] recollect if needed MEDIA PLATED Setup at 22:53 on 07/29/2017 CULTURE SOURCE void Hemoglobin A1C - 02/02/18 13:50 % A1C 6.60 % 5.40-6.60 AvGlu 158 mg/dL 70-110 Encounters ACCT No. Visit Date/Time Discharge Status Pt. Type Provider Facility Loc./Unit Complaint [id number] 08/26/2016 17:07:00 08/28/2016 09:44:00 DIS Inpatient CHI SIFUENTES, YANG Meneses [facility] CSD BRONCHITIS; COUGH; PAROTITIS [id number] 06/08/2016 13:29:00 06/08/2016 16:29:00 DIS Emergency MEHNAZ SIFUENTES, HOLDEN Ledesma [facility] ER DIZZINESS VOMITING [id number] 09/21/2015 16:59:00 09/21/2015 20:38:00 DIS Emergency WOLFEKATY APRN [facility] ER COUGH/HOARSE THROAT [id number] 02/05/2015 12:15:00 02/05/2015 23:59:59 CLS Preadmit SHIREEN HASKINS, BORIS Ledesma [facility] CARD HTN,CAROTID BRUIT [id number] 01/16/2015 13:35:00 01/16/2015 23:59:59 CLS Outpatient RG SIFUENTES, CONNIE Keller [facility] CARD CAROTID BRUIT,HTN,CAD [id number] 01/03/2015 15:28:00 01/03/2015 18:03:00 DIS Emergency HOLDEN DARBY MD [facility] ER JOINT PAIN [id number] 09/18/2013 15:27:00 09/18/2013 23:59:59 CLS Outpatient KARRIE SIFUENTES, MIAN Wallace [facility] RAD MID BACK PAIN,RECENT FALL [id number] 08/23/2013 00:06:00 08/23/2013 02:35:00 DIS Emergency ADRIANA SIFUENTES, BHAVIN Davis [facility] ER FALL,FACIAL INJURY [id number] 02/01/2013 14:58:00 02/08/2013 14:15:00 DIS Inpatient SINDY SIFUENTES, OPAL Long [facility] IRF WEAKNESS [id number] 01/23/2013 13:10:00 02/01/2013 12:50:00 DIS Inpatient SCOTT SIFUENTES, FRANCESCA Calderon [facility] 4TH RHABDOMYOLYSIS GENERALIZED WEAKNESS [id number] 06/15/2015 03:13:00 Document Registration [id number] 12/03/2012 19:21:00 Document Registration [id number] 12/01/2012 21:26:00 Document Registration [id number] 11/09/2012 09:52:00 Document Registration [id number] 10/29/2012 19:36:00 Document Registration [id number] 09/06/2012 13:11:00 Document Registration [id number] 02/02/2018 17:25:00 02/02/2018 23:59:00 DIS Outpatient ADIN OCONNELL [id number] 07/29/2017 21:48:00 07/29/2017 23:26:00 DIS Outpatient FRANNY JUNIOR [id number] 07/28/2017 19:10:00 07/28/2017 23:59:00 DIS Outpatient ADIN OCONNELL [id number] 07/07/2017 17:29:00 07/07/2017 21:39:00 DIS Outpatient [facility] [id number] 03/31/2017 15:44:00 03/31/2017 23:59:00 DIS Outpatient ADIN OCONNELL [id number] 03/22/2017 16:33:00 03/22/2017 23:59:00 DIS Outpatient ADIN OCONNELL [id number] 11/10/2016 17:35:00 11/10/2016 23:59:00 DIS Outpatient ADIN OCONNELL [id number] 07/07/2017 21:19:44 Document Registration
[2018-04-03 23:33] LABS: ALANINE AMINOTRANSFERASE 21 U/L (0-55); ALBUMIN 3.6 GM/DL (3.2-4.5); ALKALINE PHOSPHATASE 77 U/L (40-136); AMYLASE 95 U/L (25-125); BILIRUBIN,TOTAL 0.2 MG/DL (0.1-1.0); BUN/CREATININE RATIO 23; CALCIUM 9.5 MG/DL (8.5-10.1); CARBON DIOXIDE 24 MMOL/L (21-32); CHLORIDE 106 MMOL/L (98-107); CREATININE SERUM 0.66 MG/DL (0.60-1.30); GFR ESTIMATED > 60; GLUCOSE 111 MG/DL (70-105); LIPASE 24 U/L (8-78); POTASSIUM 3.9 MMOL/L (3.6-5.0); SODIUM 138 MMOL/L (135-145)
[2018-04-04 00:24] LABS: BILIRUBIN,URINE NEGATIVE (NEGATIVE); CLARITY,URINE SLIGHTLY CLOUDY; COLOR,URINE YELLOW; GLUCOSE, URINE (UA) NEGATIVE (NEGATIVE); KETONES,URINE NEGATIVE (NEGATIVE); LEUKOCYTE ESTERASE ,URINE 2+ (NEGATIVE); NITRITE,URINE NEGATIVE (NEGATIVE); PH,URINE 6 (5-9); PROTEIN,URINE 2+ (NEGATIVE); UROBILINOGEN,URINE NORMAL (NORMAL)
[2018-04-04 00:31] LABS: BACTERIA,URINE TRACE /HPF; RBC,URINE 25-50 /HPF; WBC,URINE RARE /HPF
[2018-04-04] MEDS ORDERED: RX-NITROFURANTOIN 100 MG (MACROBID) CAP PPK#2 PO STA (00:41)
[2018-04-04] MEDS ORDERED: RX-NAPROXEN (NAPROSYN) 250 MG TAB PPK#4 PO STA (00:41)
[2018-04-04] MEDS ORDERED: NITR-65 PO (00:45)
[2018-04-04] MEDS ORDERED: KETO10TA PO (00:45)
--- NOTE | 2018-04-04 00:45 | ED Back Pain ---
General Chief Complaint: Back Problems Stated Complaint: BACK AND SIDE PAIN Nursing Triage Note: PT VERBALIZED RT FLANK PAIN SINCE LAST NIGHT. DENIES URINARY ISSUES Nursing Sepsis Screen: No Definite Risk Allergies and Home Medications Allergies Coded Allergies: atorvastatin (Unverified Adverse Reaction, Unknown, 06/14/15) metformin (Unverified Adverse Reaction, Unknown, 06/14/15) Home Medications Amoxicillin/Potassium Clav 1 Each Tablet, 1 EACH PO BID Prescribed by: CHRISTINA THOMAS on 08/28/16 0942 Enalapril Maleate 10 Mg Tablet, 10 MG PO DAILY, (Reported) Insulin Determir 1,000 Units/10 Ml Soln, 25 UNIT SQ HS Prescribed by: CHRISTINA THOMAS on 08/28/16 0942 Sertraline HCl 50 Mg Tablet, 50 MG PO DAILY, (Reported) Past Oisufmz-Ofjkeh-Mwmhme Hx Patient Social History Type Used: Cigarettes Recent Foreign Travel: No Contact w/Someone Who Travel: No Recent Infectious Disease Expo: No Recent Hopitalizations: No Immunizations Up To Date Tetanus Booster (TDap): More than 5yrs Date of Pneumonia Vaccine: Oct 29, 2012 Date of Influenza Vaccine: May 31, 2013 Seasonal Allergies Seasonal Allergies: No Past Medical History Appendectomy, Cardiac, Section, Coronary Stent, Gallbladder Pneumonia, Chronic Bronchitis Currently Using CPAP: No Currently Using BIPAP: No Heart Attack, Hypertension Reproductive Disorders: No Female Reproductive Disorders: Ovarian Cyst Gastroesophageal Reflux, Chronic Constipation, Hemorrhoids, Chronic Diarrhea, Polyps, Gall Bladder Disease Arthritis, Back Injury, Chronic Back Pain, Fractures Diabetes, Insulin dep, Lupus Tinnitis Skin Depression Family Medical History Diabetes mellitus 19 MOTHER FH: lung cancer 19 FATHER Hypertension 19 MOTHER Heart Disease, Cancer, CAD Under 55 Years Old, Diabetes, Hypertension Physical Exam Vital Signs Vital Signs - First Documented 04/03/18 22:57 Temp 98.9 Pulse 89 Resp 20 B/P (MAP) 154/72 (99) Pulse Ox 99 O2 Delivery Room Air Capillary Refill : Less Than 3 Seconds Height, Weight, BMI Height: 5'6.00" Weight: 200lbs. 0.0oz. [id number]; 34.8 BMI Method:Estimated Progress/Results/Core Measures Results/Orders Lab Results Laboratory Tests Test 04/03/18 23:05 04/04/18 00:15 Range/Units White Blood Count 5.0 4.3-11.0 10^3/uL Red Blood Count 4.57 4.35-5.85 10^6/uL Hemoglobin 12.2 11.5-16.0 G/DL Hematocrit 36 35-52 % Mean Corpuscular Volume 79 L 80-99 FL Mean Corpuscular Hemoglobin 27 25-34 PG Mean Corpuscular Hemoglobin Concent 34 32-36 G/DL Red Cell Distribution Width 14.3 10.0-14.5 % Platelet Count 158 130-400 10^3/uL Mean Platelet Volume 9.9 7.4-10.4 FL Neutrophils (%) (Auto) 74 42-75 % Lymphocytes (%) (Auto) 13 12-44 % Monocytes (%) (Auto) 11 0-12 % Eosinophils (%) (Auto) 1 0-10 % Basophils (%) (Auto) 0 0-10 % Neutrophils # (Auto) 3.7 1.8-7.8 X 10^3 Lymphocytes # (Auto) 0.7 L 1.0-4.0 X 10^3 Monocytes # (Auto) 0.6 0.0-1.0 X 10^3 Eosinophils # (Auto) 0.1 0.0-0.3 10^3/uL Basophils # (Auto) 0.0 0.0-0.1 10^3/uL Sodium Level 138 135-145 MMOL/L Potassium Level 3.9 3.6-5.0 MMOL/L Chloride Level 106 98-107 MMOL/L Carbon Dioxide Level 24 21-32 MMOL/L Anion Gap 8 5-14 MMOL/L Blood Urea Nitrogen 15 7-18 MG/DL Creatinine 0.66 0.60-1.30 MG/DL Estimat Glomerular Filtration Rate > 60 BUN/Creatinine Ratio 23 Glucose Level 111 H 70-105 MG/DL Calcium Level 9.5 8.5-10.1 MG/DL Total Bilirubin 0.2 0.1-1.0 MG/DL Aspartate Amino Transf (AST/SGOT) 20 5-34 U/L Alanine Aminotransferase (ALT/SGPT) 21 0-55 U/L Alkaline Phosphatase 77 40-136 U/L Total Protein 7.0 6.4-8.2 GM/DL Albumin 3.6 3.2-4.5 GM/DL Amylase Level 95 25-125 U/L Lipase 24 8-78 U/L Urine Color YELLOW Urine Clarity SLIGHTLY CLOUDY Urine pH 6 5-9 Urine Specific [place] 1.020 1.016-1.022 Urine Protein 2+ H NEGATIVE Urine Glucose (UA) NEGATIVE NEGATIVE Urine Ketones NEGATIVE NEGATIVE Urine Nitrite NEGATIVE NEGATIVE Urine Bilirubin NEGATIVE NEGATIVE Urine Urobilinogen NORMAL NORMAL MG/DL Urine Leukocyte Esterase 2+ H NEGATIVE Urine RBC (Auto) 5+ H NEGATIVE Urine RBC 25-50 H /HPF Urine WBC RARE /HPF Urine Squamous Epithelial Cells 2-5 /HPF Urine Crystals NONE /LPF Urine Bacteria TRACE /HPF Urine Casts NONE /LPF Urine Mucus SMALL H /LPF Urine Culture Indicated NO My Orders Orders - ARCHIE APONTE DO Saline Lock/Iv-Start (04/03/18 22:50) Ct Abd/Pelvis Wo(Kidney Stone) (04/03/18 22:50) Amylase (04/03/18 22:50) Cbc With Automated Diff (04/03/18 22:50) Comprehensive Metabolic Panel (04/03/18 22:50) Lipase (04/03/18 22:50) Ua Culture If Indicated (04/03/18 22:50) Abdomen, Flat & Upright/Decub (04/03/18 22:50) Ketorolac Injection (Toradol Injection) (04/03/18 23:00) Saline Lock/Iv-Start (04/03/18 23:00) Ns Iv 1000 Ml (Sodium Chloride 0.9%) (04/03/18 23:00) Urine Culture (04/04/18 00:41) Medications Given in ED Current Medications Medications Dose Ordered Sig/Arnold Route Start Time Stop Time Status Last Admin Dose Admin Sodium Chloride 1,000 ml @ 0 mls/hr Q0M ONCE IV 04/03/18 23:00 04/03/18 23:01 DC 04/03/18 23:11 0 MLS/HR Vital Signs/I&O 04/03/18 22:57 Temp 98.9 Pulse 89 Resp 20 B/P (MAP) 154/72 (99) Pulse Ox 99 O2 Delivery Room Air Blood Pressure Mean: 99 Departure Impression Primary Impression: Right flank pain Additional Impressions: UTI (urinary tract infection) Microscopic hematuria Disposition: HOME, SELF-CARE Condition: Improved Departure-Patient Inst. Referrals: [facility] (PCP/Family) Primary Care Physician Patient Instructions: Blood in the Urine (Hematuria), Adult (DC), Flank Pain ( DC), Urinary Tract Infection, Adult (DC) Add. Discharge Instructions: LOTS OF CLEAR LIQUIDS TYLENOL NEEDED FOR PAIN FOLLOW UP WITH [facility] THIS WEEK FOR FURTHER CARE All discharge instructions reviewed with patient and/or family. Voiced understanding. Scripts Ketorolac Tromethamine (Ketorolac Tromethamine) 10 Mg Tablet 10 MG PO Q6H for Pain, #15 TAB Prov: ARCHIE APONTE DO 04/04/18 Nitrofurantoin Monohyd/M-Cryst (Macrobid 100 mg Capsule) 100 Mg Capsule 100 MG PO BID, #20 CAP Prov: ARCHIE APONTE DO 04/04/18 ARCHIE APONTE DO Apr 04, 2018 00:45
[2018-04-04] MEDS ORDERED: RX-NITROFURANTOIN 100 MG (MACROBID) CAP PPK#2 PO ONE (00:48)
[2018-04-04] MEDS ORDERED: RX-NAPROXEN (NAPROSYN) 250 MG TAB PPK#4 PO ONE (00:48)
[2018-04-04 00:57] VITALS: BP 154/72
--- NOTE | 2018-04-04 06:50 | Diagnostic Imaging Report ---
PROCEDURE: CT urinary tract, rule out kidney stone. TECHNIQUE: Multiple contiguous axial images were obtained through the abdomen and pelvis without the use of intravenous contrast. INDICATION: One-day history of right flank pain. Exam compared 12/03/2012 FINDINGS: There is a minute nonobstructing stone within the left renal upper pole calyx seen on image 36. I cannot identify an opaque right renal stone. No opaque ureteral calculi are apparent. There are multiple pelvic and gonadal vein phleboliths. The unopacified urinary bladder had an unremarkable appearance. Uterus unremarkable. Some chronic appearing adnexal calcifications and surgical changes in the right lower quadrant. The gallbladder absent. No pathological bile duct dilatation. There is a small hiatal hernia. The spleen, adrenals and pancreas were unremarkable. The aorta is nonaneurysmal. There is no ascites, abscess, hematoma, fluid collection or free air. IMPRESSION: Punctate nonobstructing left renal upper pole calculus, negative nonfocal right kidney. No opaque ureteral stone or hydronephrosis. Small hiatal hernia. No obstructive features, inflammatory process or acute abnormalities are identified. I agree with preliminary with the exception I believed the preliminary report confuses left and right regarding the tiny nonobstructing kidney stone mentioned above. Dictated by: Dictated on workstation # [id number]
--- NOTE | 2018-04-04 07:19 | Diagnostic Imaging Report ---
EXAMINATION: Abdomen flat and upright at 1140 PM INDICATION: Abdominal pain Supine and erect views were obtained. There is some gas in both the large and small bowel in a nonspecific fashion. This appearance is similar to the prior CT abdomen/pelvis exam of 12/03/2012. There is no evidence for bowel obstruction. There is no mass, organomegaly or pathological calcification. The small calculus within the right kidney seen on the CT abdomen/pelvis exam performed prior to the study is not well visualized. The osseous structures are intact. Surgical clips are evident overlying the right upper quadrant consistent with a prior cholecystectomy. IMPRESSION: The bowel gas pattern is nonspecific. There is no acute abnormality identified. Dictated by: Dictated on workstation # [id number]
== END 2018-04-04 00:58 | disposition home or self-care (01) ==
LOC: EDUNIT# 22:12 → ER 22:13
DX: N39.0 Urinary tract infection, site not specified (principal); I10 Essential (primary) hypertension; I25.2 Old myocardial infarction; K21.9 Gastro-esophageal reflux disease without esophagitis; E11.9 Type 2 diabetes mellitus without complications; F32.9 Major depressive disorder, single episode, unspecified; Z87.19 Personal history of other diseases of the digestive system; Z87.448 Personal history of other diseases of urinary system; Z79.4 Long term (current) use of insulin; Z88.8 Allergy status to other drugs, medicaments and biological substances; Z80.1 Family history of malignant neoplasm of trachea, bronchus and lung; Z87.59 Personal history of other complications of pregnancy, childbirth and the puerperium; Z95.5 Presence of coronary angioplasty implant and graft; Z87.01 Personal history of pneumonia (recurrent)
CPT/HCPCS: 36415; 74019; 74176; 80053; 81000; 82150; 83690; 85025; 87088; 96361; 96374

== ENCOUNTER 2018-06-28 16:14 | Emergency (ER) | payer MEDICAID ==
[~2018-06-28] VITALS: Ht 160 cm; Wt 82.6 kg
[~2018-06-28 16:14] MED LIST changes: -AMLO10TA2 PO; +AMLO10TA6 PO; +KETO10TA PO; +NITR-65 PO
[2018-06-28] MEDS ORDERED: meTOprolol TARTRATE 50 MG (LOPRESSOR) TAB PO ONE (16:45)
[2018-06-28] MEDS ORDERED: lisINopril 20 MG (PRINIVIL) TABLET PO ONE (16:45)
[2018-06-28 16:55] LABS: BASOPHILS % (AUTO) 0 % (0-10); EOSINOPHILS % (AUTO) 1 % (0-10); HEMATOCRIT 41 % (35-52); HEMOGLOBIN 13.4 G/DL (11.5-16.0); LYMPHOCYTES # (AUTO) 0.5 X 10^3 (1.0-4.0); LYMPHOCYTES % (AUTO) 15 % (12-44); MEAN CORPUSCULAR HEMOGLOBIN 26 PG (25-34); MEAN CORPUSCULAR HGB CONC 33 G/DL (32-36); MEAN CORPUSCULAR VOLUME 79 FL (80-99); MEAN PLATELET VOLUME 11.1 FL (7.4-10.4); MONOCYTES # (AUTO) 0.4 X 10^3 (0.0-1.0); MONOCYTES % (AUTO) 12 % (0-12); NEUTROPHILS # (AUTO) 2.6 X 10^3 (1.8-7.8); NEUTROPHILS % (AUTO) 72 % (42-75); PLATELET COUNT 153 10^3/uL (130-400); RED BLOOD COUNT 5.16 10^6/uL (4.35-5.85); RED CELL DISTRIBUTION WIDTH 13.8 % (10.0-14.5); WHITE BLOOD COUNT 3.6 10^3/uL (4.3-11.0)
[2018-06-28 17:13] LABS: ALANINE AMINOTRANSFERASE 14 U/L (0-55); ALBUMIN 3.7 GM/DL (3.2-4.5); ALKALINE PHOSPHATASE 68 U/L (40-136); BILIRUBIN,TOTAL 0.5 MG/DL (0.1-1.0); BUN/CREATININE RATIO 12; CALCIUM 9.7 MG/DL (8.5-10.1); CARBON DIOXIDE 24 MMOL/L (21-32); CHLORIDE 103 MMOL/L (98-107); CREATININE SERUM 0.78 MG/DL (0.60-1.30); GFR ESTIMATED > 60; GLUCOSE 233 MG/DL (70-105); POTASSIUM 3.7 MMOL/L (3.6-5.0); SODIUM 137 MMOL/L (135-145); TOTAL PROTEIN 7.3 GM/DL (6.4-8.2)
[2018-06-28 17:14] LABS: FIBRIN DEGRADATION PRODUCTS 2.16 UG/ML (0.00-0.49); PROTHROMBIN TIME PATIENT 13.2 SEC (12.2-14.7)
[2018-06-28] MEDS ORDERED: IOHEXOL 350 MG/ML 100 ML (OMNIPAQUE 350) VIAL IV ONE (17:30)
[2018-06-28] MEDS ORDERED: NS 250 ML (IVPB) BAG IV ONE (17:30)
[2018-06-28] MEDS ORDERED: RECEIVED CONTRAST (Hold Metformin) IV SCH (17:30)
--- NOTE | 2018-06-28 17:30 | ED Neurological Problem ---
General Chief Complaint: Neurological Problems Stated Complaint: HIGH BP, WORRIED ABOUT STROKE Source: patient Exam Limitations: no limitations (LIDIA HERNANDEZ MD) History of Present Illness Date Seen by Provider: Jun 28, 2018 Time Seen by Provider: 16:31 Initial Comments Here with family members were worried about the patient because she has had some difficulty with walking with her right leg not moving as well over the past couple weeks and she seems more confused. Also her blood pressure was quite high and this was noted in the clinic today. Patient admits that she did not take her blood pressure medicines this morning because she was in a hurry to get to the doctor to talk to her about the other things mentioned. She went to the clinic today and they referred her here due to the blood pressure problems. Denies dysuria or diarrhea. Denies breathing problems or chest pain. Does admit to some confusion. Also admits to increased stress about family members. Complains about chronic neck pain that seems to be worse over the last several days. Timing/Duration: other Severity: moderate Associated Symptoms: confusion; No fever/chills, No nausea/vomiting, No slurred speech; trouble walking; No vision changes; weakness (LIDIA HERNANDEZ MD) Allergies and Home Medications Allergies Coded Allergies: atorvastatin (Unverified Adverse Reaction, Unknown, 06/14/15) metformin (Unverified Adverse Reaction, Unknown, 06/14/15) Home Medications Enalapril Maleate 10 Mg Tablet, 10 MG PO DAILY, (Reported) Insulin Determir 1,000 Units/10 Ml Soln, 25 UNIT SQ HS Prescribed by: CHRISTINA THOMAS on 08/28/16 0942 Ketorolac Tromethamine 10 Mg Tablet, 10 MG PO Q6H Prescribed by: ARCHIE APONTE on 04/04/18 0045 Sertraline HCl 50 Mg Tablet, 50 MG PO DAILY, (Reported) Patient Home Medication List Home Medication List Reviewed: Yes (LIDIA HERNANDEZ MD) Home Medication List Reviewed: Yes (ARCHIE APONTE DO) Review of Systems Review of Systems Constitutional: see HPI; No chills, No fever Eyes: No Symptoms Reported Ears, Nose, Mouth, Throat: no symptoms reported Respiratory: no symptoms reported Cardiovascular: see HPI; No chest pain, No edema Gastrointestinal: No abdominal pain, No nausea, No vomiting Genitourinary: no symptoms reported Musculoskeletal: see HPI, muscle weakness, neck pain Skin: no symptoms reported Psychiatric/Neurological: See HPI, Headache, Weakness Endocrine: No Symptoms Reported (LIDIA HERNANDEZ MD) All Other Systems Reviewed Negative Unless Noted: Yes (LIDIA HERNANDEZ MD) Past Vnvfcjp-Tsmhya-Mbayvz Hx Past Med/Social Hx: Reviewed Nursing Past Med/Soc Hx (LIDIA HERNANDEZ MD) Patient Social History Alcohol Use: Denies Use Recreational Drug Use: No Smoking Status: Current Everyday Smoker Type Used: Cigarettes Recent Foreign Travel: No Contact w/Someone Who Travel: No Recent Hopitalizations: No (LIDIA HERNANDEZ MD) Immunizations Up To Date Tetanus Booster (TDap): More than 5yrs Date of Pneumonia Vaccine: Oct 29, 2012 Date of Influenza Vaccine: May 31, 2013 (LIDIA HERNANDEZ MD) Seasonal Allergies Seasonal Allergies: No (LIDIA HERNANDEZ MD) Past Medical History Surgeries: Yes (CARDIAC CATH--STENT X 1) Appendectomy, Cardiac, Section, Coronary Stent, Gallbladder Respiratory: Yes Pneumonia, Chronic Bronchitis Currently Using CPAP: No Currently Using BIPAP: No Cardiac: Yes Coronary Artery Disease, Heart Attack, Hypertension Neurological: Yes Neuropathy Reproductive Disorders: No Female Reproductive Disorders: Ovarian Cyst Genitourinary: No Gastrointestinal: Yes Gastroesophageal Reflux, Chronic Constipation, Hemorrhoids, Chronic Diarrhea, Polyps, Gall Bladder Disease Musculoskeletal: Yes (LUPUS; CHRONIC NECK AND BACK PAIN AND KNEE PAIN ) Arthritis, Back Injury, Chronic Back Pain, Fractures Endocrine: Yes Diabetes, Insulin dep, Lupus HEENT: Yes Tinnitis Cancer: No Skin Psychosocial: Yes Depression Integumentary: No Blood Disorders: No (LIDIA HERNANDEZ MD) Family Medical History Reviewed Nursing Family Hx (LIDIA HERNANDEZ MD) Diabetes mellitus 19 MOTHER FH: lung cancer 19 FATHER Hypertension 19 MOTHER Heart Disease, Cancer, CAD Under 55 Years Old, Diabetes, Hypertension (LIDIA HERNANDEZ MD) Physical Exam Vital Signs Vital Signs - First Documented 06/28/18 16:23 Temp 98.9 Pulse 87 Resp 18 B/P (MAP) 201/91 (127) Pulse Ox 97 O2 Delivery Room Air (FAY,ARCHIE K DO) Vital Signs Capillary Refill : (LIDIA HERNANDEZ MD) Height, Weight, BMI Height: 5'6.00" Weight: 200lbs. 0.0oz. [id number]; 34.8 BMI Method:Estimated General Appearance: WD/WN, no apparent distress HEENT: PERRL/EOMI, pharynx normal Neck: supple, tender lateral (left greater than right); No tender midline Respiratory: lungs clear, normal breath sounds Cardiovascular: regular rate, rhythm, no murmur Peripheral Pulses: 2+ Dorsalis Pedis (R), 2+ Left Dors-Pedis (L), 2+ Radial Pulses (R), 2+ Radial Pulses (L) Gastrointestinal: non tender, soft Back: normal inspection, no CVA tenderness, no vertebral tenderness Extremities: non-tender, normal inspection Neurologic/Psychiatric: alert, oriented x 3 Crainal Nerves: normal hearing, normal speech, PERRL Coordination/Gait: normal finger to nose, abnormal gait (weak but able to move from wheelchair to bed with minimal assistance.) Motor/Sensory: no sensory deficit, no pronator drift, weak motor strength RUE, weak motor strength LUE, weak motor strength RLE, weak motor strength LLE Skin: normal color, warm/dry (LIDIA HERNANDEZ MD) Progress/Results/Core Measures Results/Orders Lab Results Laboratory Tests Test 06/28/18 16:41 06/28/18 16:43 06/28/18 18:00 Range/Units White Blood Count 3.6 L 4.3-11.0 10^3/uL Red Blood Count 5.16 4.35-5.85 10^6/uL Hemoglobin 13.4 11.5-16.0 G/DL Hematocrit 41 35-52 % Mean Corpuscular Volume 79 L 80-99 FL Mean Corpuscular Hemoglobin 26 25-34 PG Mean Corpuscular Hemoglobin Concent 33 32-36 G/DL Red Cell Distribution Width 13.8 10.0-14.5 % Platelet Count 153 130-400 10^3/uL Mean Platelet Volume 11.1 H 7.4-10.4 FL Neutrophils (%) (Auto) 72 42-75 % Lymphocytes (%) (Auto) 15 12-44 % Monocytes (%) (Auto) 12 0-12 % Eosinophils (%) (Auto) 1 0-10 % Basophils (%) (Auto) 0 0-10 % Neutrophils # (Auto) 2.6 1.8-7.8 X 10^3 Lymphocytes # (Auto) 0.5 L 1.0-4.0 X 10^3 Monocytes # (Auto) 0.4 0.0-1.0 X 10^3 Eosinophils # (Auto) 0.0 0.0-0.3 10^3/uL Basophils # (Auto) 0.0 0.0-0.1 10^3/uL Prothrombin Time 13.2 12.2-14.7 SEC INR Comment 1.0 0.8-1.4 Activated Partial Thromboplast Time 31 24-35 SEC D-Dimer 2.16 H 0.00-0.49 UG/ML Sodium Level 137 135-145 MMOL/L Potassium Level 3.7 3.6-5.0 MMOL/L Chloride Level 103 98-107 MMOL/L Carbon Dioxide Level 24 21-32 MMOL/L Anion Gap 10 5-14 MMOL/L Blood Urea Nitrogen 9 7-18 MG/DL Creatinine 0.78 0.60-1.30 MG/DL Estimat Glomerular Filtration Rate > 60 BUN/Creatinine Ratio 12 Glucose Level 233 H 70-105 MG/DL Calcium Level 9.7 8.5-10.1 MG/DL Corrected Calcium 9.9 8.5-10.1 MG/DL Total Bilirubin 0.5 0.1-1.0 MG/DL Aspartate Amino Transf (AST/SGOT) 18 5-34 U/L Alanine Aminotransferase (ALT/SGPT) 14 0-55 U/L Alkaline Phosphatase 68 40-136 U/L Troponin I < 0.30 <0.30 NG/ML Total Protein 7.3 6.4-8.2 GM/DL Albumin 3.7 3.2-4.5 GM/DL Glucometer 209 H 70-110 MG/DL Urine Color YELLOW Urine Clarity SLIGHTLY CLOUDY Urine pH 6.5 5-9 Urine Specific Shubert 1.015 L 1.016-1.022 Urine Protein 3+ H NEGATIVE Urine Glucose (UA) NEGATIVE NEGATIVE Urine Ketones NEGATIVE NEGATIVE Urine Nitrite NEGATIVE NEGATIVE Urine Bilirubin NEGATIVE NEGATIVE Urine Urobilinogen NORMAL NORMAL MG/DL Urine Leukocyte Esterase 1+ H NEGATIVE Urine RBC (Auto) NEGATIVE NEGATIVE Urine RBC NONE /HPF Urine WBC 2-5 /HPF Urine Squamous Epithelial Cells 10-25 H /HPF Urine Crystals PRESENT H /LPF Urine Amorphous Sediment MOD MARLON URATES H /LPF Urine Bacteria NONE /HPF Urine Casts NONE /LPF Urine Mucus NEGATIVE /LPF Urine Culture Indicated NO (ARCHIE APONTE DO) My Orders Orders - ARCHIE APONTE DO Hydralazine Injection (Apresoline Inject (06/28/18 19:30) (ARCHIE APONTE DO) Medications Given in ED Current Medications Medications Dose Ordered Sig/Arnold Route Start Time Stop Time Status Last Admin Dose Admin Iohexol 75 ml ONCE ONCE IV 06/28/18 17:30 06/28/18 17:31 DC 06/28/18 17:37 75 ML Lisinopril 40 mg ONCE ONCE PO 06/28/18 16:45 06/28/18 16:46 DC 06/28/18 17:12 40 MG Metoprolol Tartrate 50 mg ONCE ONCE PO 06/28/18 16:45 06/28/18 16:46 DC 06/28/18 17:12 50 MG Sodium Chloride 250 ml ONCE ONCE IV 06/28/18 17:30 06/28/18 17:31 DC 06/28/18 17:37 80 ML (ARCHIE APONTE DO) Vital Signs/I&O 06/28/18 06/28/18 06/28/18 16:23 18:07 18:54 Temp 98.9 Pulse 87 68 68 Resp 18 18 18 B/P (MAP) 201/91 (127) 187/80 (115) 186/78 (114) Pulse Ox 97 96 95 O2 Delivery Room Air Room Air (ARCHIE APONTE DO) Progress Progress Note : Progress Note Seen and evaluated. IV, labs, EKG and chest x-ray ordered. CT head and C- spine ordered given neck pain and patient reports history of chronic neck problems. Patient did not take her blood pressure medicines today so we will go ahead and give her her normal dose of lisinopril 40 mg by mouth and metoprolol 50 mg by mouth. Monitor patient. 0730: D-dimer is markedly elevated. She does not have shortness of breath and is not hypoxic nor is she tachycardic. We will get CT angiogram of the head and neck. (LDIIA HERNANDEZ MD) Progress Note : Progress Note BP DOWN, PT STATES SHE FEELS MUCH BETTER PT ABLE TO WALK TO AND FROM BATHROOM WITH OUT DIFFICULTY PT AND DAUGHTER ANXIOUS TO GO HOME. PT WILL BE STAYING WITH DAUGHTER [facility] (ARCHIE APONTE DO) Initial ECG Impression Date: Jun 28, 2018 Initial ECG Impression Time: 16:56 Initial ECG Rate: 77 Initial ECG Rhythm: Normal Sinus Comment Sinus rhythm with left axis deviation. No evidence of ST elevation IA. Left axis deviation new from previous of 23 Jan 2013. Interpreted by me. (LIDIA HERNANDEZ MD) Diagnostic Imaging Comments CT ANGIOGRAM HEAD/NECK --NO ACUTE PROCESS, OR LARGE VESSEL OCCLUSION --PER RADIOLOGIST REPORT @ 1924 Reviewed: Reviewed by Me (ARCHIE APONTE DO) Departure Impression Primary Impression: Generalized weakness Additional Impression: Uncontrolled hypertension Disposition: HOME, SELF-CARE Condition: Improved Departure-Patient Inst. Referrals: [facility] (PCP/Family) Primary Care Physician Patient Instructions: Controlling Your Blood Pressure Through Lifestyle, DASH Diet, Generalized Weakness (DC), High Blood Pressure (DC) Add. Discharge Instructions: TAKE YOUR MEDICATIONS PRESCRIBED--DO NOT MISS DOSES FOLLOW UP WITH YOUR DR THIS WEEK FOR RECHECK RETURN TO ER IF SYMPTOMS WORSEN All discharge instructions reviewed with patient and/or family. Voiced understanding. LIDIA HERNANDEZ MD Jun 28, 2018 17:30 ARCHIE APONTE DO Jun 28, 2018 19:29
[2018-06-28] MEDS ORDERED: GLIP10TA13 (17:34)
[2018-06-28] MEDS ORDERED: LISI40TA (17:34)
[2018-06-28] MEDS ORDERED: ASPI-983 (17:34)
[2018-06-28] MEDS ORDERED: METO50TA15 (17:34)
[2018-06-28] MEDS ORDERED: QUET100T69 (17:37)
[2018-06-28] MEDS ORDERED: OMEP20CA12 (17:37)
[2018-06-28] MEDS ORDERED: INSU100I29 (17:37)
--- NOTE | 2018-06-28 17:47 | Diagnostic Imaging Report ---
PROCEDURE: CT head and neck without contrast. TECHNIQUE: Contiguous axial images were obtained from the skull base through the vertex. Noncontrast axial images were then obtained of the soft tissue of the neck. INDICATION: Hypertension. Dizziness with altered mental status. Aphasia. COMPARISON: 08/26/2016. CT HEAD: There is diffuse cortical atrophy. There is no intracranial hemorrhage or mass effect. No extra-axial fluid collection. Basal cisterns are clear. Mastoid air cells are clear. No evidence of calvarial lesions. IMPRESSION: Diffuse cortical atrophy and chronic white matter changes. There has been no significant change when compared with previous exam. CT CERVICAL SPINE: Sagittal and coronal reformatted images. Good alignment of the vertebral bodies. Body heights are well maintained as well as disc spaces. The atlantoaxial joint appears normal. Facets are in good alignment. There are mild degenerative changes. The surrounding soft tissues are normal. IMPRESSION: Degenerative cervical disc and facet disease without acute change. Dictated by: Dictated on workstation # [id number]
--- NOTE | 2018-06-28 18:06 | Diagnostic Imaging Report ---
PROCEDURE: CT angiography of the head and CT angiography of the neck with and without contrast. TECHNIQUE: Contiguous noncontrast images were obtained from the skull base through the vertex. After intravenous contrast administration, helical CT angiography of the neck was performed. Source data was reformatted into multiple MIP projections. Delayed post contrast acquisition was also obtained. INDICATION: Dizziness and confusion. Altered mental status. FINDINGS: There is good opacification of the carotid and vertebral arteries with normal takeoff from the arch. There is no evidence of hemodynamic stenosis. No evidence of carotid or vertebral dissection. Both vertebral arteries supply the basilar artery with the left vertebral artery dominant. Both internal carotid arteries are widely patent to the carotid siphon. Intracranial images show normal-appearing [place]. The anterior, middle and posterior cerebral arteries show good opacification. There are no occlusive lesions. No evidence of spasm or stenosis. The cerebellar arteries appear normal. There is noted a large goiter with large complex mass in the left lobe of the thyroid. IMPRESSION: 1. No hemodynamic changes noted throughout the neck. 2. Intracranial vessels are widely patent with no evidence of stenosis or aneurysm. Dictated by: Dictated on workstation # [id number]
[2018-06-28 18:07] VITALS: BP 187/80
--- NOTE | 2018-06-28 18:07 | Diagnostic Imaging Report ---
INDICATION: Respiratory distress. FINDINGS: The lungs are clear. Heart and vessels are normal. There is no effusion or pneumothorax. IMPRESSION: No acute appearing abnormality. Dictated by: Dictated on workstation # [id number]
[2018-06-28 18:08] LABS: BILIRUBIN,URINE NEGATIVE (NEGATIVE); CLARITY,URINE SLIGHTLY CLOUDY; COLOR,URINE YELLOW; GLUCOSE, URINE (UA) NEGATIVE (NEGATIVE); KETONES,URINE NEGATIVE (NEGATIVE); LEUKOCYTE ESTERASE ,URINE 1+ (NEGATIVE); NITRITE,URINE NEGATIVE (NEGATIVE); PH,URINE 6.5 (5-9); PROTEIN,URINE 3+ (NEGATIVE); UROBILINOGEN,URINE NORMAL (NORMAL)
[2018-06-28 18:18] LABS: AMORPHOUS SEDIMENT,UR MOD AMOR URATES /LPF
[2018-06-28 18:54] VITALS: BP 186/78
[2018-06-28] MEDS ORDERED: hydrALAZINE (APESOLINE) 20 MG/ML VIAL IV ONE (19:30)
[2018-06-28 19:42] VITALS: BP 176/85
== END 2018-06-28 19:42 | disposition home or self-care (01) ==
LOC: EDUNIT# 16:14 → ER 16:15
DX: R53.1 Weakness (principal); I10 Essential (primary) hypertension; I25.10 Atherosclerotic heart disease of native coronary artery without angina pectoris; I25.2 Old myocardial infarction; K21.9 Gastro-esophageal reflux disease without esophagitis; E11.40 Type 2 diabetes mellitus with diabetic neuropathy, unspecified; M32.9 Systemic lupus erythematosus, unspecified; F32.9 Major depressive disorder, single episode, unspecified; F17.210 Nicotine dependence, cigarettes, uncomplicated; Z88.8 Allergy status to other drugs, medicaments and biological substances; Z85.828 Personal history of other malignant neoplasm of skin; Z80.1 Family history of malignant neoplasm of trachea, bronchus and lung; Z82.49 Family history of ischemic heart disease and other diseases of the circulatory system; Z87.19 Personal history of other diseases of the digestive system; Z86.010 Personal history of colon polyps; Z87.448 Personal history of other diseases of urinary system; Z79.4 Long term (current) use of insulin; Z98.890 Other specified postprocedural states; Z95.5 Presence of coronary angioplasty implant and graft; Z90.89 Acquired absence of other organs; Z87.01 Personal history of pneumonia (recurrent)
CPT/HCPCS: 36415; 70450; 70490; 70496; 70498; 71045; 80053; 81000; 82962; 84484; 85025; 85379; 85610; 85730; 93005; 93041

== ENCOUNTER 2018-08-15 10:35 | Day surgery (SDC) | payer MEDICAID ==
[2018-08-15] VITALS (15 sets, daily range): BP systolic 123–212; BP diastolic 49–85
[~2018-08-15] VITALS: Ht 160 cm; Wt 85.8 kg
[~2018-08-15 10:35] MED LIST changes: +ASPI-983 PO; +INSU100I29 SC; +LISI40TA PO; +METO50TA15 PO; +QUET100T69 PO
--- OUTSIDE RECORDS SUMMARY | 2018-08-15 10:38 | XMS REPORT | Clinical Summary ---
Author Author [facility] Organization [facility] Address Unknown Phone Unavailable Care Team Providers Care Director Of Restaurants Name Role Phone Debo Dunne MD PCP Source Comments Some departments are not documenting in the electronic medical record. If you do not see the information that you expected, contact Release of Information in the Health Information Management department at [phone] for further assistance in locating additional records.[facility] Allergies Comments Active Allergy Reactions Severity Noted Date Metformin UNKNOWN Low 11/07/2017 Medications End Date Status Medication Sig Dispensed Refills Start Date Active insulin detemir(+) Inject 60 0 (LEVEMIR) 100 unit/mL Units under soln the skin twice daily before meals. Active insulin aspart U-100 Inject 45 0 (NOVOLOG FLEXPEN U-100 Units under INSULIN) 100 unit/mL the skin injection PEN three times daily with meals. Active enalapril (VASOTEC) 10 mg Take 10 mg by 0 tablet mouth daily. Active glipiZIDE (GLUCOTROL) 10 Take 10 mg by 0 mg tablet mouth twice daily. Active sertraline (ZOLOFT) 50 mg Take 50 mg by 0 tablet mouth daily. Active aspirin EC 81 mg tablet Take 81 mg by 0 mouth daily. Take with food. Active omeprazole DR(+) Take 20 mg by 0 (PRILOSEC) 20 mg capsule mouth daily before breakfast. Active QUEtiapine (SEROQUEL) 100 Take 100 mg 0 mg tablet by mouth at bedtime daily. Active prednisone (DELTASONE) 5 Take 4 tabs 109 tablet 1 11/18/201 mg tablet po qd x 7 d, 8 3 tabs po qd x 7 d, then 2 tabs po qd until her follow up appointment. Active hydroxychloroquine Take with 60 tablet 2 (PLAQUENIL) 200 mg tablet food. Take 1 8 tablet daily for 7 days and then 1 tab BID. Active ergocalciferol (VITAMIN Take 1 12 capsule 0 D-2) 50,000 unit capsule capsule by 8 mouth every 7 days. Active cholecalciferol(+) Take 1 tablet 90 tablet 0 (VITAMIN D3) 2,000 unit by mouth 8 tablet daily. Active Problems Problem Noted Date Coronary artery disease 11/18/2017 Type 2 diabetes mellitus 11/18/2017 Fatigue 11/18/2017 Family History Medical History Relation Name Comments Cancer-Lung Other Coronary Artery Disease Other Diabetes Other Other Sister lupus Relation Name Status Comments Other Sister Social History Date Tobacco Use Types Packs/Day Years Used Current Every Day Smoker 1 45 Smokeless Tobacco: Never Used Sex Assigned at Date Recorded Not on file Industry Job Start Date Occupation Not on file Not on file Not on file Travel End Travel History Travel Start No recent travel history available. Last Filed Vital Signs Time Taken Vital Sign Reading 11/18/2017 2:16 PM CDT Blood Pressure 161/77 11/18/2017 2:16 PM CDT Pulse 72 11/18/2017 2:16 PM CDT Temperature 36.5 C (97.7 F) - Respiratory Rate - - Oxygen Saturation - - Inhaled Oxygen - Concentration 11/18/2017 2:16 PM CDT Weight 80.3 kg (177 lb) 11/18/2017 2:16 PM CDT Height 160 cm (5' 3") 11/18/2017 2:16 PM CDT Body Mass Index 31.35 Plan of Treatment Health Maintenance Due Date Last Done Comments PHYSICAL (COMPREHENSIVE) 01/06/1959 EXAM DILATED EYE EXAM 01/06/1970 DTAP/TDAP VACCINES (1 - 01/06/1970 Tdap) FOOT EXAM 01/06/1970 HBA1C 01/06/1970 BREAST CANCER SCREENING 1992 COLORECTAL CANCER 01/06/2002 SCREENING SHINGLES RECOMBINANT 01/06/2002 VACCINE (1 of 2) OSTEOPOROSIS 01/06/2017 SCREENING/MONITORING PNEUMONIA (PCV13/PPSV23) 01/06/2017 VACCINES (1 of 2 - PCV13) INFLUENZA VACCINE 03/29/2018 HEPATITIS C SCREENING Completed 11/18/2017 Results Not on filefrom Last 3 Months Insurance Payer Benefit Subscriber ID Type Phone Address Plan / Group [employer] [place] [employer] xxxxxxxxxxx Medicaid [employer] Advance Directives Patient has advance care planning documents on file. For more information, please contact: [facility] [address] [place] [address]
--- OUTSIDE RECORDS SUMMARY | 2018-08-15 10:42 | XMS REPORT | Continuity of Care Document ---
Author Author [facility] Organization [facility] Address Unknown Phone Unavailable Allergies Active Description Code Type Severity Reaction Onset Reported/Identified Relationship to Patient Clinical Status Yes METFORMIN UNKNOWN GI PROBLEMS - DIARRH Yes No Known Drug Allergies [id number] Drug Allergy Unknown N/A 10/02/2009 Yes atorvastatin [id number] Drug Allergy Unknown N/A 06/14/2015 Yes metformin [id number] Drug Allergy Unknown N/A 06/14/2015 Medications Medication [...] INFARCT,IN 11/01/2012 Ot 414.01 CORONARY ATHEROSCLEROSIS OF AUGUSTINE CORON 11/01/2012 Ot 486 PNEUMONIA, ORGANISM NOS [...] CHAVEZ MD Ot 240.9 GOITER NOS 02/01/2013 FRACNESCA CHAVEZ MD Ot 250.00 DIAB ROJAS WO [...] Ot 412 OLD MYOCARDIAL INFARCT 02/01/2013 FRANCESCA CHAEVZ MD Ot 414.01 CORONARY ATHEROSCLEROSIS OF AUGUSTINE CORON 02/01/2013 FRANCESCA CHAVEZ MD Ot 496 [...] E Ot 272.4 HYPERLIPIDEMIA NEC/NOS 02/08/2013 SINDY SIFUENETS OPAL E Ot 276.1 HYPOSMOLALITY 02/08/2013 SINDY SIFUENTES OPAL E Ot 276.8 HYPOPOTASSEMIA 02/08/2013 SINDY SIFUENTES OPAL E Ot 311 DEPRESSIVE DISORDER NEC 02/08/2013 SINDY SIFUENTES OPAL E Ot 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 02/08/2013 SINDY SIFUENTES OPAL E Ot 401.9 HYPERTENSION NOS 02/08/2013 SINDY SIFUENTES OPAL E Ot 414.01 CORONARY ATHEROSCLEROSIS OF AUGUSTINE CORON 02/08/2013 SINDY SIFUENTES OPAL E Ot [...] Ot N95.0 POSTMENOPAUSAL BLEEDING 06/14/2015 Ot Z79.4 [facility] ( CURRENT) USE OF INSULIN 09/21/2015 MIAN [...] CH 09/21/2015 KATY WOLFE APRN Ot Z79.4 [employer] (CURRENT) USE OF INSULIN 09/21/2015 MIAN YOON [...] Ot H81.13 BENIGN PAROXYSMAL VERTIGO, BILATERAL 06/08/2016 HLODEN DARBY MD Ot M32.9 SYSTEMIC LUPUS ERYTHEMATOSUS, UNSPECIFIE 06/08/2016 HOLDEN DARBY MD Ot R42 DIZZINESS AND GIDDINESS 06/08/2016 HOLDEN DARBY MD Ot Z79.4 [employer] (CURRENT) USE OF INSULIN 06/08/2016 HOLDEN DARBY MD Ot Z79.82 [employer] (CURRENT) USE OF ASPIRIN 06/08/2016 HOLDEN DARBY MD Ot Z79.899 OTHER [facility] (CURRENT) DRUG THERAPY 06/12/2016 HOLDEN DARBY MD Ot E11.9 TYPE 2 DIABETES MELLITUS WITHOUT COMPLIC 06/12/2016 HOLDEN DARBY MD Ot F17.210 NICOTINE DEPENDENCE, CIGARETTES, UNCOMPL 06/12/2016 HOLDEN DARBY MD Ot H81.13 BENIGN PAROXYSMAL VERTIGO, BILATERAL 06/12/2016 HOLDEN DARBY MD Ot M32.9 SYSTEMIC LUPUS ERYTHEMATOSUS, UNSPECIFIE 06/12/2016 HOLDEN DARBY MD Ot R42 DIZZINESS AND GIDDINESS 06/12/2016 HOLDEN DARBY MD Ot Z79.4 [facility] (CURRENT) USE OF INSULIN 06/12/2016 HOLDEN DARBY MD Ot Z79.82 [employer] (CURRENT) USE OF ASPIRIN 06/12/2016 HOLDEN DARBY MD Ot Z79.899 OTHER [facility] (CURRENT) DRUG THERAPY 08/26/2016 MIAN YOON MD [...] SPECIF 08/28/2016 YANG MIRELES MD Ot Z79.4 [employer] (CURRENT) USE OF INSULIN 09/09/2016 YANG MIRELES [...] SPECIF 09/09/2016 YANG MIRELES MD Ot Z79.4 [employer] (CURRENT) USE OF INSULIN 09/09/2016 YANG MIRELES [...] SPECIF 09/09/2016 YANG MIRELES MD Ot Z79.4 [employer] (CURRENT) USE OF INSULIN 07/07/2017 Elayne Lal [...] culture - 08/26/16 19:06 Bacterial urine culture [id number] NRG COLONY COUNT >100,000/ML NRG FTX;REPORTABLE SENSITIVITY [...] 5-8.5 Urine-Protein 2+ Negative Urine-RBC Rare/HPF Urine-Specific [place] >1.030 1.000-1.030 Urine-WBC 0-2/HPF Urobilinogen 1.0 0.2-1.0 CBC with Auto Diff - 07/07/17 18:03 Baso% 0.20 % 0.00-2.50 Eos 0.0 K/uL 0.0-0.7 Eos% 0.4 % 0.0-7.0 Hct 37.3 % 36.0-46.0 Hgb 11.9 g/dL 13.0-15.0 Lym 0.68 K/uL 0.60-3.40 Lym% 13.7 % 10.0-50.0 MCH 25.6 pg 27.0-31.0 MCHC 31.9 g/dL 32.0-36.0 MCV 80.4 fL 80.0-97.0 [place]% 12.9 % 0.0-12.0 MPV 10.6 fL 7.4-10.0 [place]% 72.8 % 37.0-80.0 Plt 196 K/uL 150-400 RBC 4.64 M/uL 3.60-5.00 RDW 14.8 % 11.6-14.8 WBC 4.97 K/uL 5.00-10.00 [place] 3.62 K/uL 2.00-6.90 [place] 0.6 K/uL 0.0-0.9 Baso 0.0 K/uL 0.0-0.2 [...] 5-8.5 Urine-Protein 1+ Negative Urine-RBC TNTC Urine-Specific [place] 1.015 1.000-1.030 Urine-WBC 10-20/HPF Urobilinogen 0.2 0.2-1.0 Urine Culture - 07/29/17 22:40 PRELIM CULTURE RESULTS >100,000 Gram Negative CARLOZ / ID to Follow FINAL CULTURE RESULTS >100,000 mixed gram pos and gram neg [id number] to obtain [id number] recollect if needed MEDIA PLATED Setup at 22:53 on 07/29/2017 CULTURE SOURCE void Hemoglobin A1C - 02/02/18 13:50 % A1C 6.60 % 5.40-6.60 AvGlu 158 mg/dL 70-110 Complete blood count (CBC) with automated white blood cell (WBC) differential - 04/03/18 23:05 Blood leukocytes automated count (number/volume) 5.0 10*3/uL 4.3-11.0 Blood erythrocytes automated count (number/volume) 4.57 10*6/uL 4.35-5.85 Venous blood hemoglobin measurement (mass/volume) 12.2 g/dL 11.5-16.0 Blood hematocrit (volume fraction) 36 % 35-52 Automated erythrocyte mean corpuscular volume 79 [foz_us] 80-99 Automated erythrocyte mean corpuscular hemoglobin (mass per erythrocyte) 27 pg 25-34 Automated erythrocyte mean corpuscular hemoglobin concentration measurement ( mass/volume) 34 g/dL 32-36 Automated erythrocyte distribution width ratio 14.3 % 10.0-14.5 Automated blood platelet count (count/volume) 158 10*3/uL 130-400 Automated blood platelet mean volume measurement 9.9 [foz_us] 7.4-10.4 Automated blood neutrophils/100 leukocytes 74 % 42-75 Automated blood lymphocytes/100 leukocytes 13 % 12-44 Blood monocytes/100 leukocytes 11 % 0-12 Automated blood eosinophils/100 leukocytes 1 % 0-10 Automated blood basophils/100 leukocytes 0 % 0-10 Blood neutrophils automated count (number/volume) 3.7 10*3 1.8-7.8 Blood lymphocytes automated count (number/volume) 0.7 10*3 1.0-4.0 Blood monocytes automated count (number/volume) 0.6 10*3 0.0-1.0 Automated eosinophil count 0.1 10*3/uL 0.0-0.3 Automated blood basophil count (count/volume) 0.0 10*3/uL 0.0-0.1 Comprehensive metabolic panel - 04/03/18 23:05 Serum or plasma sodium measurement (moles/volume) 138 mmol/L 135-145 Serum or plasma potassium measurement (moles/volume) 3.9 mmol/L 3.6-5.0 Serum or plasma chloride measurement (moles/volume) 106 mmol/L 98-107 Carbon dioxide 24 mmol/L 21-32 Serum or plasma anion gap determination (moles/volume) 8 mmol/L 5-14 Serum or plasma urea nitrogen measurement (mass/volume) 15 mg/dL 7-18 Serum or plasma creatinine measurement (mass/volume) 0.66 mg/dL 0.60-1.30 Serum or plasma urea nitrogen/creatinine mass ratio 23 NRG Serum or plasma creatinine measurement with calculation of estimated glomerular filtration rate > NRG Serum or plasma glucose measurement (mass/volume) 111 mg/dL 70-105 Serum or plasma calcium measurement (mass/volume) 9.5 mg/dL 8.5-10.1 Serum or plasma total bilirubin measurement (mass/volume) 0.2 mg/dL 0.1-1.0 Serum or plasma alkaline phosphatase measurement (enzymatic activity/volume) 77 U/L 40-136 Serum or plasma aspartate aminotransferase measurement (enzymatic activity/ volume) 20 U/L 5-34 Serum or plasma alanine aminotransferase measurement (enzymatic activity/volume ) 21 U/L 0-55 Serum or plasma protein measurement (mass/volume) 7.0 g/dL 6.4-8.2 Serum or plasma albumin measurement (mass/volume) 3.6 g/dL 3.2-4.5 Serum or plasma amylase measurement (enzymatic activity/volume) - 04/03/18 23: 05 Serum or plasma amylase measurement (enzymatic activity/volume) 95 U /L 25-125 Lipase - 04/03/18 23:05 Lipase 24 U/L 8-78 Complete urinalysis with reflex to culture - 04/04/18 00:15 Urine color determination YELLOW NRG Urine clarity determination SLIGHTLY CLOUDY NRG Urine pH measurement by test strip 6 5-9 Specific gravity of urine by test strip 1.020 1.016- 1.022 Urine protein assay by test strip, semi-quantitative 2+ NEGATIVE Urine glucose detection by automated test strip NEGATIVE NEGATIVE Erythrocytes detection in urine sediment by light microscopy 5+ NEGATIVE Urine ketones detection by automated test strip NEGATIVE NEGATIVE Urine nitrite detection by test strip NEGATIVE NEGATIVE Urine total bilirubin detection by test strip NEGATIVE NEGATIVE Urine urobilinogen measurement by automated test strip (mass/volume) NORMAL NORMAL Urine leukocyte esterase detection by dipstick 2+ NEGATIVE Automated urine sediment erythrocyte count by microscopy (number/high power field) [HPF] NRG Automated urine sediment leukocyte count by microscopy (number/high power field ) RARE NRG Bacteria detection in urine sediment by light microscopy TRACE NRG Squamous epithelial cells detection in urine sediment by light microscopy 2-5 NRG Crystals detection in urine sediment by light microscopy NONE NRG Casts detection in urine sediment by light microscopy NONE NRG Mucus detection in urine sediment by light microscopy SMALL NRG Complete urinalysis with reflex to culture NO NRG Bacterial urine culture - 04/04/18 00:15 Bacterial urine culture RML NRG COLONY COUNT . NRG Complete blood count (CBC) with automated white blood cell (WBC) differential - 06/28/18 16:41 Blood leukocytes automated count (number/volume) 3.6 10*3/uL 4.3-11.0 Blood erythrocytes automated count (number/volume) 5.16 10*6/uL 4.35-5.85 Venous blood hemoglobin measurement (mass/volume) 13.4 g/dL 11.5-16.0 Blood hematocrit (volume fraction) 41 % 35-52 Automated erythrocyte mean corpuscular volume 79 [foz_us] 80-99 Automated erythrocyte mean corpuscular hemoglobin (mass per erythrocyte) 26 pg 25-34 Automated erythrocyte mean corpuscular hemoglobin concentration measurement ( mass/volume) 33 g/dL 32-36 Automated erythrocyte distribution width ratio 13.8 % 10.0-14.5 Automated blood platelet count (count/volume) 153 10*3/uL 130-400 Automated blood platelet mean volume measurement 11.1 [foz_us] 7.4-10.4 Automated blood neutrophils/100 leukocytes 72 % 42-75 Automated blood lymphocytes/100 leukocytes 15 % 12-44 Blood monocytes/100 leukocytes 12 % 0-12 Automated blood eosinophils/100 leukocytes 1 % 0-10 Automated blood basophils/100 leukocytes 0 % 0-10 Blood neutrophils automated count (number/volume) 2.6 10*3 1.8-7.8 Blood lymphocytes automated count (number/volume) 0.5 10*3 1.0-4.0 Blood monocytes automated count (number/volume) 0.4 10*3 0.0-1.0 Automated eosinophil count 0.0 10*3/uL 0.0-0.3 Automated blood basophil count (count/volume) 0.0 10*3/uL 0.0-0.1 Comprehensive metabolic panel - 06/28/18 16:41 Serum or plasma sodium measurement (moles/volume) 137 mmol/L 135-145 Serum or plasma potassium measurement (moles/volume) 3.7 mmol/L 3.6-5.0 Serum or plasma chloride measurement (moles/volume) 103 mmol/L 98-107 Carbon dioxide 24 mmol/L 21-32 Serum or plasma anion gap determination (moles/volume) 10 mmol/L 5-14 Serum or plasma urea nitrogen measurement (mass/volume) 9 mg/dL 7-18 Serum or plasma creatinine measurement (mass/volume) 0.78 mg/dL 0.60-1.30 Serum or plasma urea nitrogen/creatinine mass ratio 12 NRG Serum or plasma creatinine measurement with calculation of estimated glomerular filtration rate > NRG Serum or plasma glucose measurement (mass/volume) 233 mg/dL 70-105 Serum or plasma calcium measurement (mass/volume) 9.7 mg/dL 8.5-10.1 Serum or plasma total bilirubin measurement (mass/volume) 0.5 mg/dL 0.1-1.0 Serum or plasma alkaline phosphatase measurement (enzymatic activity/volume) 68 U/L 40-136 Serum or plasma aspartate aminotransferase measurement (enzymatic activity/ volume) 18 U/L 5-34 Serum or plasma alanine aminotransferase measurement (enzymatic activity/volume ) 14 U/L 0-55 Serum or plasma protein measurement (mass/volume) 7.3 g/dL 6.4-8.2 Serum or plasma albumin measurement (mass/volume) 3.7 g/dL 3.2-4.5 CALCIUM CORRECTED 9.9 mg/dL 8.5-10.1 PT panel in platelet poor plasma by coagulation assay - 06/28/18 16:41 Prothrombin time (PT) in platelet poor plasma by coagulation assay 13.2 s 12.2-14.7 INR in platelet poor plasma or blood by coagulation assay 1.0 0.8-1.4 Activated partial thromboplastin time (aPTT) in platelet poor plasma bycoagulation assay - 06/28/18 16:41 Activated partial thromboplastin time (aPTT) in platelet poor plasma bycoagulation assay 31 s 24-35 Fibrin D-dimer FEU measurement in platelet poor plasma (mass/volume) - 16:41 Fibrin D-dimer FEU measurement in platelet poor plasma (mass/volume) 2.16 ug/mL 0.00-0.49 Serum or plasma troponin i.cardiac measurement (mass/volume) - 06/28/18 16:41 Serum or plasma troponin i.cardiac measurement (mass/volume) < ng/ mL <0.30 Capillary blood glucose measurement by glucometer (mass/volume) - 06/28/18 16: 43 Capillary blood glucose measurement by glucometer (mass/volume) 209 mg/dL 70-110 Complete urinalysis with reflex to culture - 06/28/18 18:00 Urine color determination YELLOW NRG Urine clarity determination SLIGHTLY CLOUDY NRG Urine pH measurement by test strip 6.5 5-9 Specific gravity of urine by test strip 1.015 1.016- 1.022 Urine protein assay by test strip, semi-quantitative 3+ NEGATIVE Urine glucose detection by automated test strip NEGATIVE NEGATIVE Erythrocytes detection in urine sediment by light microscopy NEGATIVE NEGATIVE Urine ketones detection by automated test strip NEGATIVE NEGATIVE Urine nitrite detection by test strip NEGATIVE NEGATIVE Urine total bilirubin detection by test strip NEGATIVE NEGATIVE Urine urobilinogen measurement by automated test strip (mass/volume) NORMAL NORMAL Urine leukocyte esterase detection by dipstick 1+ NEGATIVE Automated urine sediment erythrocyte count by microscopy (number/high power field) NONE NRG Automated urine sediment leukocyte count by microscopy (number/high power field ) [HPF] NRG Bacteria detection in urine sediment by light microscopy NONE NRG Squamous epithelial cells detection in urine sediment by light microscopy 10-25 NRG Crystals detection in urine sediment by light microscopy PRESENT NRG Casts detection in urine sediment by light microscopy NONE NRG Mucus detection in urine sediment by light microscopy NEGATIVE NRG Complete urinalysis with reflex to culture NO NRG Amorphous sediment detection in urine sediment by light microscopy MOD MARLON URATES NRG Encounters ACCT No. Visit Date/Time Discharge Status Pt. Type Provider Facility Loc./Unit Complaint [id number] 06/28/2018 16:15:00 06/28/2018 19:42:00 DIS Emergency FAY DO, ARCHIE K [facility] ER HIGH BP, WORRIED ABOUT STROKE [id number] 08/26/2016 17:07:00 08/28/2016 09:44:00 DIS Inpatient YANG MIRELES MD [facility] CSD BRONCHITIS; COUGH; PAROTITIS [id number] 06/08/2016 13:29:00 06/08/2016 16:29:00 DIS Emergency HOLDEN DARBY MD [facility] ER DIZZINESS VOMITING [id number] 09/21/2015 16:59:00 09/21/2015 20:38:00 DIS Emergency KATY WOLFE APRN [facility] ER COUGH/HOARSE THROAT [id number] 02/05/2015 12:15:00 02/05/2015 23:59:59 CLS Preadmit BORIS RODRIGUEZ [facility] CARD HTN,CAROTID BRUIT [id number] 01/16/2015 13:35:00 01/16/2015 23:59:59 CLS Outpatient RG SIFUENTES, CONNIE Keller [facility] CARD CAROTID BRUIT,HTN,CAD [id number] 01/03/2015 15:28:00 01/03/2015 18:03:00 DIS Emergency MEHNAZ SIFUENTES, HOLDEN Ledesma [facility] ER JOINT PAIN [id number] 09/18/2013 15:27:00 09/18/2013 23:59:59 CLS Outpatient KARRIE SIFUENTES, MIAN Wallace [facility] RAD MID BACK PAIN,RECENT FALL [id number] 08/23/2013 00:06:00 08/23/2013 02:35:00 DIS Emergency ADRIANA SIFUENTES, BHAVIN Davis [facility] ER FALL,FACIAL INJURY [id number] 02/01/2013 14:58:00 02/08/2013 14:15:00 DIS Inpatient SINDY SIFUENTES, OPAL Long [facility] IRF WEAKNESS [id number] 01/23/2013 13:10:00 02/01/2013 12:50:00 DIS Inpatient SCOTT SIFUENTES, FRANCESCA Calderon [facility] 4TH RHABDOMYOLYSIS GENERALIZED WEAKNESS [id number] 04/03/2018 23:15:00 Document Registration [id number] 06/15/2015 03:13:00 Document Registration [id number] 12/03/2012 19:21:00 Document Registration [id number] 12/01/2012 21:26:00 Document Registration [id number] 11/09/2012 09:52:00 Document Registration [id number] 10/29/2012 19:36:00 Document Registration [id number] 09/06/2012 13:11:00 Document Registration [id number] 02/02/2018 17:25:00 02/02/2018 23:59:00 DIS Outpatient ADIN OCONNELL [id number] 07/29/2017 21:48:00 07/29/2017 23:26:00 DIS Outpatient FRANNY JUNIOR [id number] 07/28/2017 19:10:00 07/28/2017 23:59:00 DIS Outpatient ADIN OCONNELL [id number] 07/07/2017 17:29:00 07/07/2017 21:39:00 DIS Outpatient Brokob, [facility] [id number] 03/31/2017 15:44:00 03/31/2017 23:59:00 DIS Outpatient ADIN OCONNELL [id number] 03/22/2017 16:33:00 03/22/2017 23:59:00 DIS Outpatient ADIN OCONNELL [id number] 11/10/2016 17:35:00 11/10/2016 23:59:00 DIS Outpatient ADIN OCONNELL [id number] 07/07/2017 21:19:44 Document Registration
[2018-08-15] MEDS ORDERED: LIDOCAINE 1% INJ 20 ML 20 ML VIAL ONE (10:52)
[2018-08-15] MEDS ORDERED: NS IV 1000 ML 1,000 ML ONE (10:52)
[2018-08-15] MEDS ORDERED: HEParin (CATH LAB) 2,000 ML IV ONE (10:52)
[2018-08-15] MEDS: NS IV 1000 ML 1,000 ML IV SCH ×3 (11:00→21:29)
[2018-08-15 11:29] LABS: HEMOGLOBIN 13.6 G/DL (11.5-16.0); MEAN PLATELET VOLUME 10.5 FL (7.4-10.4); RED BLOOD COUNT 5.09 10^6/uL (4.35-5.85); RED CELL DISTRIBUTION WIDTH 14.5 % (10.0-14.5); WHITE BLOOD COUNT 4.6 10^3/uL (4.3-11.0)
[2018-08-15 11:38] LABS: PROTHROMBIN TIME PATIENT 13.3 SEC (12.2-14.7)
[2018-08-15 11:48] LABS: ALANINE AMINOTRANSFERASE 18 U/L (0-55); ALBUMIN 3.7 GM/DL (3.2-4.5); ALKALINE PHOSPHATASE 72 U/L (40-136); BILIRUBIN,TOTAL 0.5 MG/DL (0.1-1.0); BUN/CREATININE RATIO 15; CALCIUM 9.4 MG/DL (8.5-10.1); CARBON DIOXIDE 24 MMOL/L (21-32); CHLORIDE 105 MMOL/L (98-107); CHOLESTEROL 147 MG/DL (< 200); CREATININE SERUM 0.73 MG/DL (0.60-1.30); GFR ESTIMATED > 60; GLUCOSE 192 MG/DL (70-105); HDL CHOLESTEROL 30 MG/DL (40-60); POTASSIUM 4.1 MMOL/L (3.6-5.0); SODIUM 138 MMOL/L (135-145); TOTAL PROTEIN 7.4 GM/DL (6.4-8.2); TRIGLYCERIDES 129 MG/DL (<150); VLDL CHOLESTEROL 26 MG/DL (5-40)
[2018-08-15] MEDS ORDERED: FLU QUADRIvalent (5+ YOA) 2018-2019 (AFLURIA) 0.5 ML IM ONE (12:00)
[2018-08-15] MEDS ORDERED: CLON0.1T PO (12:21)
[2018-08-15] MEDS ORDERED: MELO15TA39 PO (12:21)
[2018-08-15] MEDS ORDERED: AMLO10TA6 PO (12:21)
[2018-08-15] MEDS ORDERED: INSU100I14 SQ (12:21)
[2018-08-15] MEDS ORDERED: INSU100I13 SQ (12:32)
[2018-08-15] MEDS ORDERED: fentaNYL INJECTION 100 MCG/2 ML AMP ONE (13:06)
[2018-08-15] MEDS ORDERED: MIDAZOLAM 5 MG/5 ML (VERSED) VIAL ONE (13:06)
--- NOTE | 2018-08-15 13:14 | Cardiac Procedure Note-CS/ASA ---
Pre-Procedure Note Pre-Op Procedure Note H&P Reviewed The H&P was reviewed, patient examined and no changes noted. Date H&P Reviewed: Aug 15, 2018 Time H&P Reviewed: 13:14 Conscious Sedation Pre-Proced Time 13:14 ASA Score 3 For ASA 3 and 4: Consider anesthesia and medical clearance. Also, for patients with a history of failed moderate sedation consider anesthesia. Airway Lungs Heart ASA score ASA 1: a normal healthy patient ASA 2: a patient with a mild systemic disease (mid diabetes, controlled hypertension, obesity ASA 3: a patient with a severe systemic disease that limits activity (angina , COPD, prior Myocardial infarction) ASA 4: a patient with an incapacitating disease that is a constant threat to life (CHF, renal failure) ASA 5: a moribund patient not expected to survive 24 hrs. (ruptured aneurysm) ASA 6: a declared brain patient whose organs are being harvested. For emergent operations, add the letter E after the classification Mallampati Classification Grade 2 Sedation Plan Analgesia, Amnesia, Plan communicated to team members, Discussed options with patient/fam, Discussed risks with patient/fam The patient is an appropriate candidate to undergo the planned procedure, sedation, and anesthesia. The patient immediately re-assessed prior to indication. HELEN ADKINS MD FACP FAC CCDS Aug 15, 2018 13:14
[2018-08-15] MEDS ORDERED: EPTIFIBATIDE BOLUS 20 ML IV ONE (13:41)
[2018-08-15] MEDS ORDERED: NITRO DRIP 25000 MCG/D5W 250 ML IV ONE (13:41)
[2018-08-15] MEDS ORDERED: HEParin 1000 UNIT/ML (10ML VIAL) FOR BOLUS ONE (13:41)
[2018-08-15] MEDS ORDERED: meTOprolol 5 MG/5 ML (LOPRESSOR) VIAL ONE (14:23)
[2018-08-15] MEDS ORDERED: ENALAPRILAT 2.5 MG/2 ML (VASOTEC) VIAL IV ONE (14:24)
[2018-08-15] MEDS ORDERED: CLOPIDOGREL 300 MG (PLAVIX) TABLET PO ONE (14:38)
[2018-08-15] MEDS ORDERED: ASPIRIN 81 MG CHEW (CHILDREN'S ASA) ONE (14:38)
[2018-08-15] MEDS ORDERED: ACETAMINOPHEN 325 MG TABLET PO PRN (15:15)
[2018-08-15] MEDS ORDERED: PATIENT MAY USE OWN MEDS, ALL PO SCH (15:15)
[2018-08-15] MEDS ORDERED: NON-FORMULARY MEDICATION 1 EA EA (Insuln Asp Prt/Insulin Aspart (Novolog Mix 70-30 Flexpen SQ SCH (16:00)
--- NOTE | 2018-08-15 17:41 | CARDIAC CATHETERIZATION ---
DATE OF SERVICE: 08/15/2018 CARDIAC CATHETERIZATION AND CORONARY INTERVENTION REPORT The patient is a 68-year-old lady with known coronary artery disease and multiple continuing coronary artery disease risk factors. She also has severe uncontrolled hypertension despite multiple medications and has symptoms of bilateral leg claudication. Cardiac catheterization was recommended. We also recommended abdominal aortic angiography with renal artery evaluation and bilateral leg artery angiography for evaluation of leg claudication. Informed consent was also obtained for ad hoc percutaneous intervention, if needed. PROCEDURE: She was brought to the cardiac catheterization laboratory in a fasting state. Right groin was prepared and draped in the usual sterile fashion. Lidocaine 1% was used for local anesthesia. Modified Seldinger technique was used to advance a 5-Emirati sheath into the left femoral artery. A 5-Emirati JL4 catheter was used for left coronary angiography. A 5-Emirati JR4 catheter was used for right coronary angiography. A 5-Emirati pigtail catheter was used for left heart catheterization and left ventricular angiography. Subsequently, percutaneous intervention was carried out to the left anterior descending artery that is described below. Following completion of the interventional procedure, we carried out abdominal aortic angiography with 5-Emirati pigtail catheter placed at the level of L1. We then performed bilateral leg artery angiography with the pigtail catheter placed just cephalic to the aortoiliac bifurcation. Runoff was performed down to the level of the ankles. The catheter was removed and angiography of the left femoral artery was carried out through the sheath and Mynx was used to achieve hemostasis. She tolerated the procedure well. PERCUTANEOUS INTERVENTION TO THE LEFT ANTERIOR DESCENDING ARTERY: Following completion of the diagnostic coronary angiography and left ventricular angiography, we carried out percutaneous intervention of the left anterior descending artery. We exchanged the sheath over a wire for a 6-Emirati sheath in the left femoral artery. We used a 6-Emirati JL4 guide catheter to engage the left coronary artery. We advanced a BMW wire across the lesions in the proximal left anterior descending artery and the tip was placed in the distal vessel. We carried out balloon angioplasty with Emerge 2.5 x 30 mm balloon. This reduced the stenosis (originally up to 95%) to less than 70%. The balloon was removed. We advanced a Xience Sinai 2.75 x 33 mm stent. Decision was made to slightly overlap the proximal edge of an old stent in the mid left anterior descending artery and the stent was deployed at 16 atmospheres within the proximal left anterior descending artery. The site of slight overlap was again ballooned with the stent balloon. After the stent balloon had been advanced a little more such that it was partly in the old stent with this middle at the overlap and the rest of balloon in the new stent. The balloon was inflated to 20 atmospheres. The balloon was then collapsed and removed. Subsequent angiography revealed 0% residual stenosis at the site of up to 95% stenosis in the proximal left anterior descending artery. Flow throughout the vessel is normal. The distal left anterior descending artery has multiple moderate to moderately severe stenoses, but the vessel is of a small caliber at the site and these were not intervened on. LEFT VENTRICULAR ANGIOGRAPHY: Left ventricular angiography was carried out in the right anterior oblique projection. Global left ventricular systolic function was normal. Left ventricular ejection fraction is estimated to be 65 to 70%. There does not appear to be significant mitral regurgitation. HEMODYNAMICS: Left ventricular end-diastolic pressure following coronary angiography was 10 mmHg. There was no significant pressure gradient on pullback across the aortic valve. Ascending aortic pressure was 180/66 with a mean of 106 mmHg. CORONARY ANGIOGRAPHY: Coronary calcification is seen involving all coronary vessels. Left main coronary artery is free of significant disease. Left anterior descending artery had a long up to 95% stenosis in its proximal portion, proximal to a stent in the mid left anterior descending artery that is known to be a drug-eluting stent measuring 2.75 x 16 mm that was placed several years ago. This stenosis was successfully intervened on, following deployment of Xience Sinai 2.75 x 33 mm stent, there is 0% residual stenosis. The new stent slightly overlaps the old stent. The left circumflex artery is dominant and has diffuse mild to moderate disease. The right coronary artery is small and nondominant and has a long stenosis in its proximal and mid portions and that is up to 80%. ABDOMINAL AORTIC ANGIOGRAPHY: Abdominal aortic angiography did not indicate any abdominal aortic aneurysm or any significant enlargement. No significant calcification is seen. Renal arteries are identified and do not exhibit any significant stenosis. The aortoiliac bifurcation is intact and does not exhibit significant disease. BILATERAL LEG ARTERY ANGIOGRAPHY: Bilateral leg artery angiography was performed. The iliac arteries, femoral arteries, popliteal arteries are intact on both sides without significant stenosis. A 30 to 40% stenosis is seen in the distal portion of the right superficial femoral artery. Both popliteal arteries trifurcate normally into three vessels and the vessels have a good runoff. CONCLUSIONS: 1. Coronary artery disease, multivessel. The most significant lesion was a long stenosis in the proximal left anterior descending artery (up to 95%) that was successfully stented with Sinai 2.75 x 33 mm stent and this stent slightly overlaps an old stent that is known to be a drug-eluting stent measuring 2.75 x 16 mm. The distal left anterior descending artery has moderate to moderately severe disease and is of a small caliber. The left circumflex artery is dominant and has mild disease. The right coronary artery is small and nondominant and has a long stenosis in its proximal and mid portion of up to 80%. 2. Normal global left ventricular systolic function with ejection fraction of 65 to 70%. 3. Normal left ventricular end-diastolic pressure. 4. No significant mitral regurgitation. 5. No significant renal artery stenosis. 6. Mild peripheral arterial disease consisting of 30 to 40% stenosis in the right superficial femoral artery. DISCUSSION AND RECOMMENDATIONS: Dual antiplatelet therapy has been initiated. Previous cardiac regimen is being continued. She has once again been advised to quit smoking immediately and completely. She is being hospitalized for overnight observation after today's procedure. Job ID: [id number] DocumentID: [id number] Dictated Date: 08/15/2018 14:57:30 [employer] Date: 08/15/2018 17:40:34 Dictated By: HELEN ADKINS MD, MA, FACP, FACC, MTDD
[2018-08-15] MEDS ORDERED: MELOXICAM 7.5 MG (MOBIC) TABLET PO PRN (18:15)
[2018-08-15] MEDS: cloNIDine 0.1 MG (CATAPRES) TAB PO SCH (20:22)
[2018-08-15] MEDS: meTOprolol TARTRATE 50 MG (LOPRESSOR) TAB PO SCH (20:22)
[2018-08-15] MEDS ORDERED: QUEtiapine 25 MG (SEROquel) TAB IMMEDIATE RELEASE PO PRN (21:00)
[2018-08-15] MEDS ORDERED: inSUlin DETERMIR 1 UNIT/0.01 ML (LEVEMIR) CHARGE PER UNIT SQ SCH (21:00)
[2018-08-15] MEDS: glipiZIDE 5 MG (GLUCOTROL) TAB PO SCH (21:10)
[2018-08-16 00:22] VITALS: BP 178/73
[2018-08-16] MEDS: NS IV 1000 ML 1,000 ML IV SCH ×2 (01:09→06:33)
[2018-08-16 03:52] LABS: HEMOGLOBIN 12.6 G/DL (11.5-16.0); MEAN PLATELET VOLUME 10.9 FL (7.4-10.4); RED BLOOD COUNT 4.71 10^6/uL (4.35-5.85); RED CELL DISTRIBUTION WIDTH 14.4 % (10.0-14.5); WHITE BLOOD COUNT 4.6 10^3/uL (4.3-11.0)
[2018-08-16 04:04] VITALS: BP_SYST 179; BP_SYST 196; BP_DIAS 84; BP_DIAS 85
[2018-08-16 04:16] LABS: BUN/CREATININE RATIO 18; CALCIUM 9.1 MG/DL (8.5-10.1); CARBON DIOXIDE 18 MMOL/L (21-32); CHLORIDE 106 MMOL/L (98-107); CREATININE SERUM 0.72 MG/DL (0.60-1.30); GFR ESTIMATED > 60; GLUCOSE 169 MG/DL (70-105); POTASSIUM 4.2 MMOL/L (3.6-5.0); SODIUM 134 MMOL/L (135-145)
[2018-08-16] MEDS: inSUlin ASPART (NovoLOG) 1 UNIT/0.01 ML (CHARGE PER UNIT) SC SCH ×2 (06:33→11:48)
--- NOTE | 2018-08-16 08:03 | Progress Note-Cardiology ---
Cardiology SOAP Progress Note Subjective: Sitting up in a recliner at the bedside. No c/o CP, dyspnea or palpitations. No c/o groin pain. Objective: I&O/Vital Signs Weight (Pounds): 189 Weight (Ounces): 3.2 Weight (Calculated Kilograms): 85.601300 Side: left Condition: DP/PT pulses palpable, extremity w/d/p Bruising: mild bruising Constitutional: AAO x 3, well-developed, well-nourished Respiratory: No accessory muscle use, No respiratory distress; chest expansion is symmetric, chest is bilaterally symmetric, lungs clear to auscultation Cardiovascular: regular rate-rhythm; No JVD; S1 and S2, systolic murmur Gastrointestional: No tender; soft, round, audible bowel sounds Extremities: no lower extremity edema bilateral Neurologic/Psychiatric: power is 5/5 both on sides Skin: No rash, No ulcerations Results/Procedures: Labs Microbiology 08/15/18 MRSA Screen - Final, Complete MRSA not isolated Procedures S/P cardiac cath with successful intervention on 08-15-18. Please refer to Dr. Tee's cardiac cath for details. A/P: Assessment: CAD. Coronary artery disease, multivessel. The most significant lesion was a long stenosis in the proximal left anterior descending artery (up to 95%) that was successfully stented with Sinai 2.75 x 33 mm stent and this stent slightly overlaps an old stent that is known to be a drug-eluting stent measuring 2.75 x 16 mm. The distal left anterior descending artery has moderate to moderately severe disease that is of a small caliber. The left circumflex artery is dominant and has mild disease. The right coronary artery is small and nondominant and has a long stenosis in its proximal and mid portion of up to 80% . Normal global left ventricular systolic function with ejection fraction of 65 to 70%. Normal left ventricular end diastolic pressure. No significant mitral regurgitation. No significant renal artery stenosis. Per cardiac cath of Jul Mild peripheral arterial disease consisting of 30 to 40% stenosis in the right superficial femoral artery per peripheral angiogram of Aug 15, 2018 Reported intolerance to statin tx Last echo of 01/16/15: LVEF 50%, mild to mod conc LVH, mild MR, mild TR, PASP 20 mmHg DM II Chronic tobacco use (smoking) SLE, by history, on chronic low dose prednisone Hypertension, uncontrolled Abnormal ECG: ECG of 08/11/18 shows NSR with nonspecific ST-T abn in the lateral leads Plan: S/P cardiac cath with successful intervention OK to discharge home today Continue current medication regimen Ideally we would like to have her on statin tx, but she has been unable to tolerate them Out pt f/u ALEX HERRERA Aug 16, 2018 08:03
[2018-08-16 08:21] VITALS: BP 159/72
[2018-08-16 09:00] VITALS: BP 159/72
[2018-08-16] MEDS ORDERED: PANTOPRAZOLE 20 MG TABLET (PROTONIX) PO SCH (09:00)
[2018-08-16] MEDS ORDERED: lisINopril 40 MG (PRINIVIL) TABLET PO SCH (09:00)
[2018-08-16] MEDS ORDERED: SERTRALINE 50 MG (ZOLOFT) TABLET PO SCH (09:00)
[2018-08-16] MEDS ORDERED: CLOPIDOGREL 75 MG (PLAVIX) TABLET PO SCH (09:00)
[2018-08-16] MEDS ORDERED: amLODIPine 10 MG (NORVASC) TAB PO SCH (09:00)
[2018-08-16] MEDS ORDERED: CLOP75TA28 PO (09:19)
[2018-08-16] MEDS ORDERED: ASPI-999 PO (09:19)
--- NOTE | 2018-08-16 09:21 | Discharge Inst-Cardiology ---
Discharge Inst-Cardiac Discharge Medications New Medications: Aspirin (Aspirin) 81 Mg Tab.chew 81 MG PO DAILY, #30 TAB Clopidogrel Bisulfate (Clopidogrel) 75 Mg Tablet 75 MG PO DAILY, #30 TAB 5 Refills Continued Medications: Amlodipine Besylate (Amlodipine Besylate) 10 Mg Tablet 10 MG PO DAILY, TAB NOT PICKED UP YET Clonidine HCl (Clonidine HCl) 0.1 Mg Tablet 0.1 MG PO BID, TAB LAST FILLED #60 07-05-18 Glipizide (Glipizide) 10 Mg Tablet 10 MG PO BID, TAB LAST FILLED #60 18 Insulin Detemir (Levemir Flextouch) 100 Unit/1 Ml Insuln.pen 30 UNITS SC HS, EA LAST FILLED 07-05-18 Insuln Asp Prt/Insulin Aspart (Novolog Mix 70-30 Flexpen Syrn) 300 Units/3 Ml Solution 20-30 UNITS SQ AC, EA LAST FILLED 07-05-18 Lisinopril (Lisinopril) 40 Mg Tablet 40 MG PO DAILY, TAB LAST FILLED #30 18 Meloxicam (Meloxicam) 15 Mg Tablet 15 MG PO DAILY PRN for NECK PAIN, TAB Metoprolol Tartrate (Metoprolol Tartrate) 50 Mg Tablet 100 MG PO BID, TAB Omeprazole (Omeprazole) 20 Mg Capsule.dr 20 MG PO DAILY, CAP LAST FILLED #30 18 Quetiapine Fumarate (Quetiapine Fumarate) 100 Mg Tablet 50 MG PO HS PRN for SLEEP, TAB Sertraline HCl (Sertraline HCl) 50 Mg Tablet 50 MG PO DAILY, TAB LAST FILLED #30 06-15-18 Discontinued Medications: Aspirin (Aspirin EC) 81 Mg Tablet.dr 81 MG PO DAILY, TAB LAST FILLED #30 18 New, Converted or Re-Newed RX: Transmitted to Pharmacy Patient Instructions Patient Instructions: Please schedule follow up appointment to see Dr. Tee in 3-4 weeks Orders-Post D/C & Referrals Pneu Vac Indicated: Yes ALEX HERRERA Aug 16, 2018 09:21
[2018-08-16] MEDS: glipiZIDE 5 MG (GLUCOTROL) TAB PO SCH (09:31)
[2018-08-16] MEDS: cloNIDine 0.1 MG (CATAPRES) TAB PO SCH (09:31)
[2018-08-16] MEDS: meTOprolol TARTRATE 50 MG (LOPRESSOR) TAB PO SCH (09:32)
[2018-08-16] MEDS: ASPIRIN 81 MG CHEW (CHILDREN'S ASA) PO SCH ×2 (09:32→10:02)
--- NOTE | 2018-08-16 12:55 | Progress Note-Cardiology ---
Cardiology SOAP Progress Note Subjective: No cp or palp or syncope or shortness of breath at rest. Mild soreness in the R groin. Able to ambulate w/o difficulty. Wishes to go home Objective: I&O/Vital Signs 08/16/18 08/16/18 08/16/18 08/16/18 01:00 04:00 04:04 04:09 Temp 99.0 Pulse 56 62 Resp 18 B/P (MAP) 179/85 (116) Pulse Ox 100 93 O2 Delivery Room Air Room Air 08/16/18 08/16/18 08/16/18 08/16/18 07:00 08:00 08:21 09:00 Temp 100.5 Pulse 64 68 Resp 24 B/P (MAP) 159/72 (101) Pulse Ox 100 98 98 O2 Delivery Room Air Room Air Room Air 08/16/18 08/16/18 09:00 11:03 Pulse 75 58 Resp 29 B/P (MAP) 159/72 (101) O2 Delivery Room Air 08/16/18 00:00 Intake Total 150 ml Output Total 700 ml Balance -550 ml Weight (Pounds): 189 Weight (Ounces): 3.2 Weight (Calculated Kilograms): 85.016352 Side: left Condition: DP/PT pulses palpable, extremity w/d/p Bruising: mild bruising Constitutional: AAO x 3, well-developed, well-nourished Respiratory: No accessory muscle use, No respiratory distress; chest expansion is symmetric, chest is bilaterally symmetric, lungs clear to auscultation Cardiovascular: regular rate-rhythm; No JVD; S1 and S2, systolic murmur Gastrointestional: No tender; soft, round, audible bowel sounds Extremities: no lower extremity edema bilateral Neurologic/Psychiatric: power is 5/5 both on sides Skin: No rash, No ulcerations Results/Procedures: Labs Laboratory Tests 08/15/18 17:34: Glucometer 124H 08/15/18 20:58: Glucometer 141H 08/16/18 03:35: White Blood Count 4.6, Red Blood Count 4.71, Hemoglobin 12.6, Hematocrit 37, Mean Corpuscular Volume 79L, Mean Corpuscular Hemoglobin 27, Mean Corpuscular Hemoglobin Concent 34, Red Cell Distribution Width 14.4, Platelet Count 154, Mean Platelet Volume 10.9H, Sodium Level 134L, Potassium Level 4.2, Chloride Level 106, Carbon Dioxide Level 18L, Anion Gap 10, Blood Urea Nitrogen 13, Creatinine 0.72, Estimat Glomerular Filtration Rate > 60, BUN/Creatinine Ratio 18, Glucose Level 169H, Calcium Level 9.1 08/16/18 06:30: Glucometer 148H Laboratory Tests 08/15/18 11:22 08/16/18 03:35 A/P: Assessment: CAD. Card cath of 08/15/18: Coronary artery disease, multivessel. The most significant lesion was a long stenosis in the proximal left anterior descending artery (up to 95%) that was successfully stented with Sinai 2.75 x 33 mm stent and this stent slightly overlaps an old stent that is known to be a drug- eluting stent measuring 2.75 x 16 mm. The distal left anterior descending artery has moderate to moderately severe disease and is of a small caliber. The left circumflex artery is dominant and has mild disease. The right coronary artery is small and nondominant and has a long stenosis in its proximal and mid portion of up to 80%. Normal global left ventricular systolic function with ejection fraction of 65 to 70%. Normal left ventricular end diastolic pressure. No significant mitral regurgitation. No significant renal artery stenosis Mild peripheral arterial disease consisting of 30 to 40% stenosis in the right superficial femoral artery per peripheral angiogram of Aug 15, 2018 Reported intolerance to statin tx Last echo of 01/16/15: LVEF 50%, mild to mod conc LVH, mild MR, mild TR, PASP 20 mmHg DM II Chronic tobacco use (smoking) SLE, by history, on chronic low dose prednisone Hypertension, uncontrolled Abnormal ECG: ECG of 08/11/18 shows NSR with nonspecific ST-T abn in the lateral leads Plan: We reviewed and discussed cath findings and interventions undertaken We reviewed risk factor mod Continue current medication regimen. We advised compliance with meds, in particular the extreme importance of compliance with DAP We have advised immediate and complete smoking cessation Ideally we would like to have her on statin tx, but she has been unable to tolerate them We answered questions in detail and advised outpt f/u HELEN ADKINS MD FACP [facility] Aug 16, 2018 12:54
== END 2018-08-16 11:30 | disposition home or self-care (01) ==
LOC: CARD 10:35 → ICU 15:04 → CATH 08-16 11:30
PROVIDERS: ATTEND Internal Medicine Cardiovascular Disease
DX: I25.10 Atherosclerotic heart disease of native coronary artery without angina pectoris (principal); I70.203 Unspecified atherosclerosis of native arteries of extremities, bilateral legs; E11.9 Type 2 diabetes mellitus without complications; F17.210 Nicotine dependence, cigarettes, uncomplicated; M32.9 Systemic lupus erythematosus, unspecified; I10 Essential (primary) hypertension; J44.9 Chronic obstructive pulmonary disease, unspecified; E78.5 Hyperlipidemia, unspecified; R53.83 Other fatigue
CPT/HCPCS: 36415; 75625; 75716; 80048; 80053; 80061; 82962; 85027; 85610; 85730; 87081; 93005; 93458

== ENCOUNTER 2018-08-26 14:08 | Emergency (ER) | payer MEDICAID ==
[~2018-08-26] VITALS: Ht 160 cm; Wt 85.3 kg
[~2018-08-26 14:08] MED LIST changes: +ASPI-999 PO; +CLON0.1T PO; +CLOP75TA28 PO; +INSU100I13 SQ; +MELO15TA39 PO
[2018-08-26] MEDS ORDERED: hydrALAZINE (APESOLINE) 20 MG/ML VIAL IV ONE (15:15)
--- NOTE | 2018-08-26 15:21 | ED General ---
General Stated Complaint: HIGH BP Source of Information: Patient Exam Limitations: No Limitations History of Present Illness Date Seen by Provider: Aug 26, 2018 Time Seen by Provider: 15:19 Initial Comments To ER for vertigo reports hypertension. This is been ongoing for about a week. She states that she took all of her medications at noon. I discussed with her that her medication list includes lisinopril 40 mg, amlodipine 10 mg, clonidine 0.1 mg and metoprolol 50 mg. All of these are for blood pressure. Patient states she only took 2 of these but she is not sure which two she took. She denies any chest pain or shortness of breath. She does complain of a headache. She follows with Dr. Salvador. Timing/Duration: 1 Week Severity: Moderate Associated Systoms: No Chest Pain Allergies and Home Medications Allergies Coded Allergies: atorvastatin (Unverified Adverse Reaction, Unknown, 06/14/15) metformin (Unverified Adverse Reaction, Unknown, 06/14/15) Home Medications Amlodipine Besylate 10 Mg Tablet, 10 MG PO DAILY, (Reported) NOT PICKED UP YET Aspirin 81 Mg Tab.chew, 81 MG PO DAILY Prescribed by: ALEX HERRERA on 08/16/18918 Clonidine HCl 0.1 Mg Tablet, 0.1 MG PO BID, (Reported) LAST FILLED #60 07-05-18 Clopidogrel Bisulfate 75 Mg Tablet, 75 MG PO DAILY Prescribed by: ALEX HERRERA on 08/16/18918 Glipizide 10 Mg Tablet, 10 MG PO BID, (Reported) LAST FILLED #60 06-15-18 Insulin Detemir 100 Unit/1 Ml Insuln.pen, 30 UNITS SC HS, (Reported) LAST FILLED 07-05-18 Insuln Asp Prt/Insulin Aspart 300 Units/3 Ml Solution, 20-30 UNITS SQ AC, ( Reported) LAST FILLED 07-05-18 Lisinopril 40 Mg Tablet, 40 MG PO DAILY, (Reported) LAST FILLED #30 06-15-18 Meloxicam 15 Mg Tablet, 15 MG PO DAILY PRN for NECK PAIN, (Reported) Metoprolol Tartrate 50 Mg Tablet, 100 MG PO BID, (Reported) Omeprazole 20 Mg Capsule.dr, 20 MG PO DAILY, (Reported) LAST FILLED #30 06-15-18 Quetiapine Fumarate 100 Mg Tablet, 50 MG PO HS PRN for SLEEP, (Reported) Sertraline HCl 50 Mg Tablet, 50 MG PO DAILY, (Reported) LAST FILLED #30 06-15-18 Patient Home Medication List Home Medication List Reviewed: Yes Review of Systems Review of Systems Constitutional: see HPI EENTM: see HPI Respiratory: no symptoms reported Cardiovascular: no symptoms reported Genitourinary: no symptoms reported Musculoskeletal: no symptoms reported Skin: no symptoms reported Psychiatric/Neurological: See HPI, Headache Hematologic/Lymphatic: No Symptoms Reported Past Xsbnjwn-[id number] Hx Patient Social History Type Used: Cigarettes Recent Foreign Travel: No Contact w/Someone Who Travel: No Recent Hopitalizations: No Immunizations Up To Date Tetanus Booster (TDap): More than 5yrs Date of Pneumonia Vaccine: Oct 29, 2012 Date of Influenza Vaccine: May 31, 2013 Seasonal Allergies Seasonal Allergies: No Past Medical History Surgeries: Yes (CARDIAC CATH--STENT X 1) Appendectomy, Cardiac, Section, Coronary Stent, Gallbladder Respiratory: Yes Pneumonia, Chronic Bronchitis Currently Using CPAP: No Currently Using BIPAP: No Cardiac: Yes Coronary Artery Disease, Heart Attack, Hypertension Neurological: Yes Neuropathy Reproductive Disorders: No Female Reproductive Disorders: Ovarian Cyst Genitourinary: No Gastrointestinal: Yes Gastroesophageal Reflux, Chronic Constipation, Hemorrhoids, Chronic Diarrhea, Polyps, Gall Bladder Disease Musculoskeletal: Yes (LUPUS; CHRONIC NECK AND BACK PAIN AND KNEE PAIN ) Arthritis, Back Injury, Chronic Back Pain, Fractures Endocrine: Yes Diabetes, Insulin dep, Lupus HEENT: Yes Tinnitis Cancer: No Skin Psychosocial: Yes Depression Integumentary: No Blood Disorders: No Family Medical History Diabetes mellitus 19 MOTHER FH: lung cancer 19 FATHER Hypertension 19 MOTHER Heart Disease, Cancer, CAD Under 55 Years Old, Diabetes, Hypertension Physical Exam Vital Signs Vital Signs - First Documented 08/26/18 14:31 Temp 98.4 Pulse 58 Resp 10 B/P (MAP) 228/96 (140) Pulse Ox 95 O2 Delivery Room Air Capillary Refill : Height, Weight, BMI Height: 5'3.00" Weight: 189lbs. 3.2oz. [id number]; 33.3 BMI Method:Stated General Appearance: No Apparent Distress, WD/WN Eyes: Bilateral Eye Normal Inspection, Bilateral Eye PERRL (your welcome), Bilateral Eye EOMI HEENT: PERRL/EOMI, TMs Normal Neck: Full Range of Motion, Normal Inspection Respiratory: Normal Breath Sounds, No Accessory Muscle Use, No Respiratory Distress Cardiovascular: Regular Rate, Rhythm, Normal Peripheral Pulses Gastrointestinal: Normal Bowel Sounds, Non Tender, Soft Extremity: Normal Capillary Refill, Normal Inspection Neurologic/Psychiatric: Alert, Oriented x3 Skin: Normal Color, Warm/Dry, Other (erythematous patchy pruritic rash to both upper extremities and chest) Progress/Results/Core Measures Suspected Sepsis SIRS Temperature: Pulse: Respiratory Rate: Laboratory Tests 08/26/18 15:15: White Blood Count 3.3L Blood Pressure / Mean: Laboratory Tests 08/26/18 15:15: Creatinine 0.74, Platelet Count 192, Total Bilirubin 0.5 Results/Orders Lab Results Laboratory Tests Test 08/26/18 15:15 08/26/18 16:16 Range/Units White Blood Count 3.3 L 4.3-11.0 10^3/uL Red Blood Count 4.62 4.35-5.85 10^6/uL Hemoglobin 12.1 11.5-16.0 G/DL Hematocrit 36 35-52 % Mean Corpuscular Volume 78 L 80-99 FL Mean Corpuscular Hemoglobin 26 25-34 PG Mean Corpuscular Hemoglobin Concent 34 32-36 G/DL Red Cell Distribution Width 14.4 10.0-14.5 % Platelet Count 192 130-400 10^3/uL Mean Platelet Volume 10.3 7.4-10.4 FL Neutrophils (%) (Auto) 67 42-75 % Lymphocytes (%) (Auto) 16 12-44 % Monocytes (%) (Auto) 13 H 0-12 % Eosinophils (%) (Auto) 3 0-10 % Basophils (%) (Auto) 0 0-10 % Neutrophils # (Auto) 2.2 1.8-7.8 X 10^3 Lymphocytes # (Auto) 0.5 L 1.0-4.0 X 10^3 Monocytes # (Auto) 0.4 0.0-1.0 X 10^3 Eosinophils # (Auto) 0.1 0.0-0.3 10^3/uL Basophils # (Auto) 0.0 0.0-0.1 10^3/uL Sodium Level 138 135-145 MMOL/L Potassium Level 3.9 3.6-5.0 MMOL/L Chloride Level 106 98-107 MMOL/L Carbon Dioxide Level 22 21-32 MMOL/L Anion Gap 10 5-14 MMOL/L Blood Urea Nitrogen 10 7-18 MG/DL Creatinine 0.74 0.60-1.30 MG/DL Estimat Glomerular Filtration Rate > 60 BUN/Creatinine Ratio 14 Glucose Level 223 H 70-105 MG/DL Calcium Level 9.4 8.5-10.1 MG/DL Corrected Calcium 9.6 8.5-10.1 MG/DL Total Bilirubin 0.5 0.1-1.0 MG/DL Aspartate Amino Transf (AST/SGOT) 26 5-34 U/L Alanine Aminotransferase (ALT/SGPT) 17 0-55 U/L Alkaline Phosphatase 68 40-136 U/L Total Protein 7.5 6.4-8.2 GM/DL Albumin 3.7 3.2-4.5 GM/DL Urine Color YELLOW Urine Clarity SLIGHTLY CLOUDY Urine pH 6.5 5-9 Urine Specific [place] 1.010 L 1.016-1.022 Urine Protein 2+ H NEGATIVE Urine Glucose (UA) NEGATIVE NEGATIVE Urine Ketones NEGATIVE NEGATIVE Urine Nitrite NEGATIVE NEGATIVE Urine Bilirubin NEGATIVE NEGATIVE Urine Urobilinogen NORMAL NORMAL MG/DL Urine Leukocyte Esterase NEGATIVE NEGATIVE Urine RBC (Auto) NEGATIVE NEGATIVE Urine RBC NONE /HPF Urine WBC NONE /HPF Urine Squamous Epithelial Cells 0-2 /HPF Urine Crystals PRESENT H /LPF Urine Amorphous Sediment MOD MARLON URATES H /LPF Urine Bacteria FEW H /HPF Urine Casts NONE /LPF Urine Mucus NEGATIVE /LPF Urine Culture Indicated NO My Orders Orders - KATY WOLFE APRN Cbc With Automated Diff (08/26/18 15:09) Comprehensive Metabolic Panel (08/26/18 15:09) Ua Culture If Indicated (08/26/18 15:09) Iv Heplock-Insert (Order) (08/26/18 15:09) Hydralazine Injection (Apresoline Inject (08/26/18 15:15) Chest 1 View, Ap/Pa Only (08/26/18 15:11) Methylprednisolone Sod Succ (Solu-Medrol (08/26/18 15:30) Diphenhydramine Injection (Benadryl Inje (08/26/18 15:30) Hydrochlorothiazide Cap/Tablet (Hctz Cap (08/26/18 16:00) Clonidine Tablet (Catapres Tablet) (08/26/18 16:15) Ct Abdomen/Pelvis Wo (08/26/18 16:08) Medications Given in ED Current Medications Medications Dose Ordered Sig/Arnold Route Start Time Stop Time Status Last Admin Dose Admin Clonidine HCl 0.2 mg ONCE ONCE PO 08/26/18 16:15 08/26/18 16:16 DC 08/26/18 16:25 0.2 MG Diphenhydramine HCl 25 mg ONCE ONCE IVP 08/26/18 15:30 08/26/18 15:31 DC 08/26/18 16:01 25 MG Hydralazine HCl 10 mg ONCE ONCE IV 08/26/18 15:15 08/26/18 15:16 DC 08/26/18 15:23 10 MG Hydrochlorothiazide 25 mg ONCE ONCE PO 08/26/18 16:00 08/26/18 16:01 DC 08/26/18 16:19 25 MG Methylprednisolone Sodium Succinate 125 mg ONCE ONCE IVP 08/26/18 15:30 08/26/18 15:31 DC 08/26/18 16:03 125 MG Vital Signs/I&O 08/26/18 14:31 Temp 98.4 Pulse 58 Resp 10 B/P (MAP) 228/96 (140) Pulse Ox 95 O2 Delivery Room Air Capillary Refill : Diagnostic Imaging Diagonstic Imaging: CT Comments NAME: ANJU CABRERA Arianna [facility] REC#: [id number] PT STATUS: REG ER : 1950 PHYSICIAN: KATY WOLFE IN HOME SALES REPRESENTATIVE ADMIT DATE: 08/26/18/ER Draft Date of Exam:08/26/18 CT ABDOMEN/PELVIS WO PROCEDURE: CT abdomen and pelvis without contrast. TECHNIQUE: Multiple contiguous axial images were obtained through the abdomen and pelvis without the use of intravenous contrast. INDICATION: Hypertension began last night along with hives beginning this morning. Confusion. Groin pain post recent cardiac stent placement 1-1/2 weeks ago. CORRELATION STUDY: 04/03/2018. FINDINGS: Limited by lack of contrast. LOWER THORAX: Minimal dependent atelectasis. Small hiatal hernia. LIVER: Unremarkable. GALLBLADDER: Cholecystectomy. SPLEEN: Mildly elongated, 13.3 cm in craniocaudal length. PANCREAS: Unremarkable. ADRENAL GLANDS: Unremarkable. KIDNEYS: Normal configuration. No hydronephrosis. There are calcifications adjacent to the distal left ureter which appears to be vascular. No definitive ureteral calcification. ABDOMINAL AORTA: Unremarkable, nonaneurysmal. GASTROINTESTINAL TRACT: Stomach with a small amount of fluid. Small bowel without obstruction. There is mild severity fecal retention. No obstruction or inflammation. No findings to suggest acute appendicitis. No significant abdominal ascites. Uncomplicated retro-umbilical fat-containing hernia. URINARY BLADDER: Unremarkable. REPRODUCTIVE: The uterus is mildly prominent. In addition, the adnexal structures, likely ovaries, are also prominent for the patient's age. However, this appears relatively stable from prior imaging. No significant free pelvic fluid. OSSEOUS STRUCTURES: No acute abnormality. OTHER: There is slight haziness about the left inguinal region. However, definitive fluid collection or hematoma is not otherwise suggested. Additionally, there is no significant retroperitoneal fluid collection. Prominent vessel is noted in this region. IMPRESSION: 1. Slight haziness about the left inguinal region along with slightly prominent vessels. The possibility of small pseudoaneurysm would be difficult to exclude. No appreciable hematoma or significant retroperitoneal fluid collection. If further assessment is desired, left inguinal ultrasound imaging recommended. 2. Borderline splenomegaly. 3. Incidental note made of a somewhat prominent uterus and adnexal structures for the patient's age. Consideration should be given to nonemergent follow-up pelvic ultrasound evaluation. Dictated on workstation # [id number] Dict: 08/26/18 1702 Trans: 08/26/18 1756 [facility] [id number] Interpreted by: SHANNON JAMES DO Electronically signed by: Departure Communication (Admissions) 5563- CT scan shows inflammation of the left inguinal region which would make it difficult to exclude a pseudoaneurysm. Patient did have a recent cardiac catheterization using the left femoral artery as access. Her pain is gone in the left side of the abdomen. She has little tender in the left inguinal region but there is no palpable hematoma or mass, no thrill. We do not have ultrasound available currently. Discussed with her that if she has any pain in this area again she should have this evaluated with ultrasound. Her blood pressures down to 141/87. Impression Primary Impression: High blood pressure Qualified Codes: I10 - Essential (primary) hypertension Disposition: 01 HOME, SELF-CARE Condition: Stable Departure-Patient Inst. Decision time for Depature: 17:18 Referrals: NO,LOCAL PHYSICIAN (PCP) Primary Care Physician ELISA,PATRICIA R IN HOME SALES REPRESENTATIVE (Family) Primary Care Physician Patient Instructions: High Blood Pressure (DC) Add. Discharge Instructions: 1.. Take all of your blood pressure medications as directed. Your uterus is a bit more prominent than expected for age, follow-up with primary care doctor to obtain a pelvic ultrasound in the next few weeks. KATY WOLFE APRN Aug 26, 2018 15:20
[2018-08-26 15:25] LABS: BASOPHILS % (AUTO) 0 % (0-10); EOSINOPHILS # (AUTO) 0.1 10^3/uL (0.0-0.3); EOSINOPHILS % (AUTO) 3 % (0-10); HEMATOCRIT 36 % (35-52); HEMOGLOBIN 12.1 G/DL (11.5-16.0); LYMPHOCYTES # (AUTO) 0.5 X 10^3 (1.0-4.0); LYMPHOCYTES % (AUTO) 16 % (12-44); MEAN CORPUSCULAR HEMOGLOBIN 26 PG (25-34); MEAN CORPUSCULAR HGB CONC 34 G/DL (32-36); MEAN CORPUSCULAR VOLUME 78 FL (80-99); MEAN PLATELET VOLUME 10.3 FL (7.4-10.4); MONOCYTES # (AUTO) 0.4 X 10^3 (0.0-1.0); MONOCYTES % (AUTO) 13 % (0-12); NEUTROPHILS # (AUTO) 2.2 X 10^3 (1.8-7.8); NEUTROPHILS % (AUTO) 67 % (42-75); PLATELET COUNT 192 10^3/uL (130-400); RED BLOOD COUNT 4.62 10^6/uL (4.35-5.85); RED CELL DISTRIBUTION WIDTH 14.4 % (10.0-14.5); WHITE BLOOD COUNT 3.3 10^3/uL (4.3-11.0)
[2018-08-26] MEDS ORDERED: diphenhydrAMINE 50 MG/ML INJ (BENADRYL) IVP ONE (15:30)
[2018-08-26] MEDS ORDERED: methylPREDNISolone 125 MG (Solu-MEDROL) VIAL IVP ONE (15:30)
[2018-08-26 15:42] LABS: ALANINE AMINOTRANSFERASE 17 U/L (0-55); ALBUMIN 3.7 GM/DL (3.2-4.5); ALKALINE PHOSPHATASE 68 U/L (40-136); BILIRUBIN,TOTAL 0.5 MG/DL (0.1-1.0); BUN/CREATININE RATIO 14; CALCIUM 9.4 MG/DL (8.5-10.1); CARBON DIOXIDE 22 MMOL/L (21-32); CHLORIDE 106 MMOL/L (98-107); CREATININE SERUM 0.74 MG/DL (0.60-1.30); GFR ESTIMATED > 60; GLUCOSE 223 MG/DL (70-105); POTASSIUM 3.9 MMOL/L (3.6-5.0); SODIUM 138 MMOL/L (135-145); TOTAL PROTEIN 7.5 GM/DL (6.4-8.2)
--- NOTE | 2018-08-26 15:53 | Diagnostic Imaging Report ---
CHEST 1 VIEW, AP/PA ONLY Indication: Elevated blood pressure with hives. Altered mental status Comparison: 06/28/2018 Findings: No focal airspace disease in the visualized lungs. Please note that the posterior lower lobes are poorly evaluated by portable radiography. No pleural effusion or pneumothorax. Normal cardiomediastinal silhouette. Impression: No acute cardiopulmonary process by portable radiography. Dictated by: Dictated on workstation # [id number]
[2018-08-26] MEDS ORDERED: HYDROCHLOROTHIAZIDE 25 MG (HCTZ) TAB PO ONE (16:00)
[2018-08-26] MEDS ORDERED: cloNIDine 0.1 MG (CATAPRES) TAB PO ONE (16:15)
[2018-08-26 16:20] LABS: BILIRUBIN,URINE NEGATIVE (NEGATIVE); CLARITY,URINE SLIGHTLY CLOUDY; COLOR,URINE YELLOW; GLUCOSE, URINE (UA) NEGATIVE (NEGATIVE); KETONES,URINE NEGATIVE (NEGATIVE); LEUKOCYTE ESTERASE ,URINE NEGATIVE (NEGATIVE); NITRITE,URINE NEGATIVE (NEGATIVE); PH,URINE 6.5 (5-9); PROTEIN,URINE 2+ (NEGATIVE); UROBILINOGEN,URINE NORMAL (NORMAL)
[2018-08-26 16:27] LABS: BACTERIA,URINE FEW /HPF; SQUAMOUS EPITHELIAL CELL,UR 0-2 /HPF
[2018-08-26 16:28] LABS: AMORPHOUS SEDIMENT,UR MOD AMOR URATES /LPF
--- NOTE | 2018-08-26 17:56 | Diagnostic Imaging Report ---
PROCEDURE: CT abdomen and pelvis without contrast. TECHNIQUE: Multiple contiguous axial images were obtained through the abdomen and pelvis without the use of intravenous contrast. INDICATION: Hypertension began last night along with hives beginning this morning. Confusion. Groin pain post recent cardiac stent placement 1-1/2 weeks ago. CORRELATION STUDY: 04/03/2018. FINDINGS: Limited by lack of contrast. LOWER THORAX: Minimal dependent atelectasis. Small hiatal hernia. LIVER: Unremarkable. GALLBLADDER: Cholecystectomy. SPLEEN: Mildly elongated, 13.3 cm in craniocaudal length. PANCREAS: Unremarkable. ADRENAL GLANDS: Unremarkable. KIDNEYS: Normal configuration. No hydronephrosis. There are calcifications adjacent to the distal left ureter which appears to be vascular. No definitive ureteral calcification. ABDOMINAL AORTA: Unremarkable, nonaneurysmal. GASTROINTESTINAL TRACT: Stomach with a small amount of fluid. Small bowel without obstruction. There is mild severity fecal retention. No obstruction or inflammation. No findings to suggest acute appendicitis. No significant abdominal ascites. Uncomplicated retro-umbilical fat-containing hernia. URINARY BLADDER: Unremarkable. REPRODUCTIVE: The uterus is mildly prominent. In addition, the adnexal structures, likely ovaries, are also prominent for the patient's age. However, this appears relatively stable from prior imaging. No significant free pelvic fluid. OSSEOUS STRUCTURES: No acute abnormality. OTHER: There is slight haziness about the left inguinal region. However, definitive fluid collection or hematoma is not otherwise suggested. Additionally, there is no significant retroperitoneal fluid collection. Prominent vessel is noted in this region. IMPRESSION: 1. Slight haziness about the left inguinal region along with slightly prominent vessels. The possibility of small pseudoaneurysm would be difficult to exclude. No appreciable hematoma or significant retroperitoneal fluid collection. If further assessment is desired, left inguinal ultrasound imaging recommended. 2. Borderline splenomegaly. 3. Incidental note made of a somewhat prominent uterus and adnexal structures for the patient's age. Consideration should be given to nonemergent follow-up pelvic ultrasound evaluation. Dictated by: Dictated on workstation # [id number]
[2018-08-26 18:05] VITALS: BP 146/61
== END 2018-08-26 18:15 | disposition home or self-care (01) ==
LOC: EDUNIT# 14:08 → ER 14:09
DX: I10 Essential (primary) hypertension (principal); I25.10 Atherosclerotic heart disease of native coronary artery without angina pectoris; I25.2 Old myocardial infarction; K21.9 Gastro-esophageal reflux disease without esophagitis; E11.40 Type 2 diabetes mellitus with diabetic neuropathy, unspecified; M32.9 Systemic lupus erythematosus, unspecified; Z86.010 Personal history of colon polyps; Z80.1 Family history of malignant neoplasm of trachea, bronchus and lung; Z82.49 Family history of ischemic heart disease and other diseases of the circulatory system; Z85.828 Personal history of other malignant neoplasm of skin; Z87.19 Personal history of other diseases of the digestive system; Z88.8 Allergy status to other drugs, medicaments and biological substances; Z87.448 Personal history of other diseases of urinary system; Z79.82 Long term (current) use of aspirin; Z79.02 Long term (current) use of antithrombotics/antiplatelets; Z79.4 Long term (current) use of insulin; Z95.5 Presence of coronary angioplasty implant and graft; Z90.49 Acquired absence of other specified parts of digestive tract; Z98.890 Other specified postprocedural states; Z87.01 Personal history of pneumonia (recurrent); Z87.09 Personal history of other diseases of the respiratory system
CPT/HCPCS: 36415; 71045; 74176; 80053; 81000; 85025

== ENCOUNTER → 2019-07-04 | Outpatient (CLI) | payer MEDICAID ==
[~2019-07-04] MED LIST changes: -AMLO10TA6 PO; +AMLO10TA7 PO; +OMEP20CA13 PO; +RT-ALBUTEROL SULF 2.5 MG/3 ML PRE-MIX VIAL INH ONE
== END ==
LOC: RAD 11:00
PROVIDERS: ATTEND Internal Medicine Cardiovascular Disease
DX: I25.10 Atherosclerotic heart disease of native coronary artery without angina pectoris (principal); J44.9 Chronic obstructive pulmonary disease, unspecified; E11.9 Type 2 diabetes mellitus without complications; Z72.0 Tobacco use
CPT/HCPCS: 94060; 94726; 94729

== ENCOUNTER → 2019-07-04 | Outpatient (CLI) | payer MEDICAID ==
[~2019-07-04] MED LIST changes: -RT-ALBUTEROL SULF 2.5 MG/3 ML PRE-MIX VIAL INH ONE
[2019-07-04 12:29] LABS: ALANINE AMINOTRANSFERASE 15 U/L (0-55); ALBUMIN 3.8 GM/DL (3.2-4.5); ALKALINE PHOSPHATASE 73 U/L (40-136); BILIRUBIN,TOTAL 0.3 MG/DL (0.1-1.0); BUN/CREATININE RATIO 25; CALCIUM 9.5 MG/DL (8.5-10.1); CARBON DIOXIDE 26 MMOL/L (21-32); CHLORIDE 106 MMOL/L (98-107); CHOLESTEROL 143 MG/DL (< 200); CREATININE SERUM 0.73 MG/DL (0.60-1.30); GFR ESTIMATED > 60; GLUCOSE 127 MG/DL (70-105); HDL CHOLESTEROL 34 MG/DL (40-60); POTASSIUM 4.5 MMOL/L (3.6-5.0); SODIUM 140 MMOL/L (135-145); TOTAL PROTEIN 7.1 GM/DL (6.4-8.2); TRIGLYCERIDES 130 MG/DL (<150); VLDL CHOLESTEROL 26 MG/DL (5-40)
== END ==
LOC: LAB 11:03
PROVIDERS: ATTEND Nurse Practitioner Family
DX: I25.10 Atherosclerotic heart disease of native coronary artery without angina pectoris (principal); E78.5 Hyperlipidemia, unspecified
CPT/HCPCS: 36415; 80053; 80061

== ENCOUNTER 2021-01-04 23:34 | Emergency (ER) | payer MEDICAID ==
[~2021-01-04] VITALS: Ht 157 cm; Wt 77.0 kg
[~2021-01-04 23:34] MED LIST changes: +AMLO-251 PO; -AMLO10TA7 PO; +ASPI-1238 PO; -ASPI-983 PO; +CLN.1T PO; -CLON0.1T PO; +ENAL10TA16 PO; -LISI40TA PO; +LISI40TA9 PO; -OMEP20CA13 PO; +OMEP20CA18 PO; +QUET100T33 PO; -QUET100T69 PO; +SERT-413 PO
[2021-01-04] MEDS ORDERED: LIDOCAINE 2% VISCOUS 15 ML UDC PO ONE (23:45)
--- NOTE | 2021-01-05 00:20 | ED Cardiac General ---
History of Present Illness General Chief Complaint: Cardiac/General Problems Stated Complaint: HIGH BP;SOB Source: patient Exam Limitations: no limitations (YOKASTA HOOKER STUDENT) History of Present Illness Date Seen by Provider: January 05, 2021 Time Seen by Provider: 00:05 Initial Comments Pt presents to ED via private vehicle with complaint of high blood pressure. She says that just prior to arriving she measured her BP at home with SBP in the 230's. She feels depressed and feels like the high BP is due to anxiety from the holiday and thinking about her children and her mortality. She also states that there is a 30yo male in her neighborhood that comes around her house and brings her anxiety. She takes Amlodipine and state that she took her medication before arriving. She has history of HTN, [place] 6years ago with 2x stents placed, depression, SLE. She denies current symptoms of chest pain, abd pain, N/V, palpitations, lightheadedness. Timing/Duration: 1-3 hours Severity: severe (severely elevated BP, asymptomatic) Location: other (denies pain) Activities at Onset: emotional stress Prior CP/Workup: heart attack (6 years ago) Associated Systoms: Denies Symptoms (YOKASTA HOOKER STUDENT) Allergies and Home Medications Allergies Coded Allergies: atorvastatin (Unverified Adverse Reaction, Unknown, 06/14/15) metformin (Unverified Adverse Reaction, Unknown, 06/14/15) Home Medications Amlodipine Besylate 10 Mg Tablet, 10 MG PO DAILY, (Reported) NOT PICKED UP YET Aspirin 81 Mg Tab.chew, 81 MG PO DAILY Prescribed by: ALEX HERRERA on 08/16/18918 Clonidine HCl 0.1 Mg Tablet, 0.1 MG PO BID, (Reported) LAST FILLED #60 07-05-18 Clopidogrel Bisulfate 75 Mg Tablet, 75 MG PO DAILY Prescribed by: ALEX HERRERA on 08/16/18918 Glipizide 10 Mg Tablet, 10 MG PO BID, (Reported) LAST FILLED #60 06-15-18 Insulin Detemir 100 Unit/1 Ml Insuln.pen, 30 UNITS SC HS, (Reported) LAST FILLED 07-05-18 Insuln Asp Prt/Insulin Aspart 300 Units/3 Ml Solution, 20-30 UNITS SQ AC, (Reported) LAST FILLED 07-05-18 Lisinopril 40 Mg Tablet, 40 MG PO DAILY, (Reported) LAST FILLED #30 06-15-18 Meloxicam 15 Mg Tablet, 15 MG PO DAILY PRN for NECK PAIN, (Reported) Metoprolol Tartrate 50 Mg Tablet, 100 MG PO BID, (Reported) Omeprazole 20 Mg Capsule.dr, 20 MG PO DAILY, (Reported) LAST FILLED #30 06-15-18 Quetiapine Fumarate 100 Mg Tablet, 50 MG PO HS PRN for SLEEP, (Reported) Sertraline HCl 50 Mg Tablet, 50 MG PO DAILY, (Reported) LAST FILLED #30 06-15-18 Patient Home Medication List Home Medication List Reviewed: Yes (WESTLEY SAWANT) Review of Systems Review of Systems Constitutional: No chills, No fever EENTM: No Blurred Vision, No Double Vision, No Eye Pain, No Ear Pain Respiratory: Denies Cough, Denies Shortness of Air Cardiovascular: Denies Chest Pain, Denies Edema, Denies Lightheadedness, Denies Palpitations Gastrointestinal: Denies Abdominal Pain, Denies Constipated, Denies Diarrhea, Denies Nausea, Denies Vomiting Genitourinary: Denies Burning, Denies Frequency, Denies Hematuria Musculoskeletal: No back pain, No muscle pain Skin: No change in color, No lesions, No rash Psychiatric/Neurological: Anxiety, Depressed; Denies Headache, Denies Numbness, Denies Paresthesia, Denies Tingling, Denies Weakness Endocrine: Denies Excessive Sweating, Denies Flushing (YOKASTA HOOKER) All Other Systems Reviewed Negative Unless Noted: Yes (YOKASTA HOOKER) Past Nenokla-Dsgpmr-Pedzkq Hx Past Med/Social Hx: Reviewed Nursing Past Med/Soc Hx (YOKASTA HOOKER) Patient Social History Alcohol Use: Denies Use Type Used: Cigarettes 2nd Hand Smoke Exposure: Yes Recent Hopitalizations: No (YOKASTA HOOKER) Alcohol Use: Denies Use Smoking Status: Never a Smoker (WESTLEY SAWANT) Immunizations Up To Date Tetanus Booster (TDap): More than 5yrs Date of Pneumonia Vaccine: Oct 29, 2012 Date of Influenza Vaccine: May 31, 2013 (YOKASTA HOOKER) Seasonal Allergies Seasonal Allergies: No (YOKASTA HOOKER) Past Medical History Surgeries: Yes (CARDIAC CATH--STENT X 1, EXCISION OF LESION LEFT NOSTRIL WITH FS AND GRAFT) Appendectomy, Cardiac, Section, Coronary Stent, Gallbladder Respiratory: Yes ("BREATHING PROBLEMS" ) Pneumonia, Chronic Bronchitis Currently Using CPAP: No Currently Using BIPAP: No Cardiac: Yes (STENT IN GROIN rt side, cardiac stent x 1) Coronary Artery Disease, Heart Attack, Hypertension Neurological: Yes Neuropathy Reproductive Disorders: No Female Reproductive Disorders: Ovarian Cyst Genitourinary: No Gastrointestinal: Yes Gastroesophageal Reflux, Chronic Constipation, Hemorrhoids, Chronic Diarrhea, Polyps, Gall Bladder Disease Musculoskeletal: Yes (LUPUS; CHRONIC NECK AND BACK PAIN AND KNEE PAIN ) Arthritis, Back Injury, Chronic Back Pain, Fractures Endocrine: Yes Diabetes, Insulin dep, Lupus HEENT: Yes Tinnitis Cancer: No Skin Psychosocial: Yes Depression Integumentary: No Blood Disorders: No (YOKASTA HOOKER STUDENT) Family Medical History Diabetes mellitus 19 MOTHER FH: lung cancer 19 FATHER Hypertension 19 MOTHER Heart Disease, Cancer, CAD Under 55 Years Old, Diabetes, Hypertension (YOKASTA HOOKER) Physical Exam Vital Signs Vital Signs - First Documented 01/05/21 00:30 Temp 36.0 Pulse 88 Resp 16 B/P (MAP) 186/83 (117) Pulse Ox 93 O2 Delivery Room Air (WESTLEY SAWANT) Vital Signs Capillary Refill : (YOKASTA HOOKER STUDENT) Height, Weight, BMI Height: 5'3.00" Weight: 188lbs. 3.2oz. [id number]; 33.3 BMI Method:Stated General Appearance: No Apparent Distress, Chronically ill, Obese HEENT: PERRL/EOMI, Normal ENT Inspection Neck: Full Range of Motion, Normal Inspection, Non Tender, Supple Respiratory: Chest Non Tender, Lungs Clear, Normal Breath Sounds, No Accessory Muscle Use, No Respiratory Distress Cardiovascular: Regular Rate, Rhythm, No Edema, Normal Peripheral Pulses Gastrointestinal: Normal Bowel Sounds, Non Tender, Soft Rectal: Deferred Extremity: Normal Capillary Refill, Normal Inspection, Normal Range of Motion, Non Tender, No Pedal Edema Neurologic/Psychiatric: Alert, Oriented x3, No Motor/Sensory Deficits, Depressed Affect Skin: Normal Color, Warm/Dry Lymphatic: No Adenopathy (YOKASTA HOOKER STUDENT) Progress/Results/Core Measures Results/Orders My Orders Orders - WESTLEY SAWANT Lidocaine 2% Viscous 15 Ml (Xylocaine Vi (01/04/21 23:45) Continuous Ekg Monitoring (01/04/21 23:54) Ekg Tracing (01/04/21 23:54) (WESTLYE SAWANT) Vital Signs/I&O 01/05/21 01/05/21 00:30 01:27 Temp 36.0 Pulse 88 83 Resp 16 16 B/P (MAP) 186/83 (117) 187/96 Pulse Ox 93 100 O2 Delivery Room Air Room Air (WESTLEY SAWANT) Progress Progress Note #1: Time: 00:41 Progress Note I attest that I saw this patient alongside the medical student and agree with his documented history, physical exam and review of systems except as otherwise noted. History hypertension, depression, coronary artery disease with stents. Letter psychiatric issues including depression and she checked her blood pressure it was elevated. She did take 10 mg of amlodipine and now her blood pressure is apparently lower than what she reported at home. Progress Note #2: Time: 00:58 Progress Note Did offer to do some labs chest x-ray EKG. Patient says she is asymptomatic. She was having a little shortness of air earlier and when she demonstrated it kind of look like she was sighing more than being short of air. She certainly has no evidence of shortness of air at this time. We did recommend to her that if she is asymptomatic and her blood pressure has stayed consistently for the past half hour around 180s about a 10% drop after she took the amlodipine then this needs to be addressed outpatient. She declined doing any lab at this time saying she just want to go home and go to bed. We discussed return precautions. Patient and her son are okay with this plan for now. (WESTLEY SAWANT) Initial ECG Impression Date: January 04, 2021 Initial ECG Impression Time: 23:52 Initial ECG Rate: 82 Initial ECG Rhythm: Normal Sinus Initial ECG Intervals: QT (482) Initial ECG Impression: Normal, Nonspecific Changes Comment Right bundle branch block with normal sinus rhythm. No clinically relevant ST changes (WESTLEY SAWANT) Departure Impression Primary Impression: Asymptomatic hypertension Disposition: 01 HOME, SELF-CARE Condition: Stable Departure-Patient Inst. Decision time for Depature: 01:00 (WESTLEY SAWANT) Referrals: NO,LOCAL PHYSICIAN (PCP) Primary Care Physician PATRICIA PÉREZ APRN (Family) Primary Care Physician Patient Instructions: High Blood Pressure (DC) Add. Discharge Instructions: Your blood pressure is significantly elevated tonight. It is important that you and family work together over the next week to make sure that your medications are being set up and taken correctly and that they are correct times. When you first get up out of bed in the morning before you do anything else would be a good time to check your resting blood pressure. Write that number down 3-5 times a week and take that information with you to your appointment in the next couple weeks with Dr. North. You will have to call for a follow-up appointment. Promptly return to the nearest ER if you experience any chest pain, nausea, shortness of breath, weakness, slurred speech or other emergent, worrisome symptoms. All discharge instructions reviewed with patient and/or family. Voiced understanding. Copy Copies To 1: CHRISTINA THOMAS JOHNNY MED STUDENT January 05, 2021 00:20 WETSLEY SAWANT January 05, 2021 00:46
[2021-01-05 01:27] VITALS: BP 187/96
== END 2021-01-05 01:15 | disposition home or self-care (01) ==
LOC: EDUNIT# 23:34 → ER 23:35
DX: I10 Essential (primary) hypertension (principal); E66.9 Obesity, unspecified; F32.9 Major depressive disorder, single episode, unspecified; I25.2 Old myocardial infarction; K21.9 Gastro-esophageal reflux disease without esophagitis; E11.9 Type 2 diabetes mellitus without complications; I25.10 Atherosclerotic heart disease of native coronary artery without angina pectoris; Z68.33 Body mass index [BMI] 33.0-33.9, adult; Z77.22 Contact with and (suspected) exposure to environmental tobacco smoke (acute) (chronic); Z88.8 Allergy status to other drugs, medicaments and biological substances; Z79.82 Long term (current) use of aspirin; Z79.4 Long term (current) use of insulin; Z79.899 Other long term (current) drug therapy
CPT/HCPCS: 93005

== ENCOUNTER 2022-02-03 21:31 | Emergency (ER) | payer MEDICAID ==
[~2022-02-03] VITALS: Ht 160 cm; Wt 72.6 kg
--- NOTE | 2022-02-03 21:56 | ED Upper Extremity ---
General Stated Complaint: HAND INJURY Source: patient History of Present Illness Date Seen by Provider: Feb 03, 2022 Time Seen by Provider: 21:45 Initial Comments PT ARRIVES VIA POV FROM HOME WITH SON STATES YESTERDAY AFTERNOON, SHE WAS WALKING TO THE BATHROOM AND LOST HER BALANCE AND FELL ON HER RIGHT ARM C/O PAIN AROUND RIGHT WRIST AND DISTAL FOREARM. NO PARESTHESIAS OR MOTOR DEFICITS NO HEAD INJURY OR LOSS OF CONSCIOUSNESS NO OTHER INJURIES FROM THE INCIDENT OR AREAS OF PAIN PT IS RIGHT HANDED NO PRIOR INJURY OR SURGERY TO THIS HAND/WRIST/ARM PT HAS NOT TAKEN ANYTHING FOR PAIN OR APPLIED ICE, ETC. SYMPTOMS NO DIFFERENT TONIGHT HAS NOT SOUGHT CARE UNTIL TONIGHT PT TAKES 81 MG ASPIRIN DAILY, NO OTHER BLOOD THINNERS PCP:DR. YOON AT [facility] Allergies and Home Medications Allergies Coded Allergies: atorvastatin (Unverified Adverse Reaction, Unknown, 06/14/15) metformin (Unverified Adverse Reaction, Unknown, 06/14/15) Patient Home Medication List Home Medication List Reviewed: Yes Amlodipine Besylate (Amlodipine Besylate) 10 Mg Tablet, 10 MG PO DAILY, (Reported) Entered as Reported by: PEPITO FRANZ on 08/15/18 1221 Aspirin (Aspirin) 81 Mg Tab.chew, 81 MG PO DAILY Prescribed by: ALEX HERRERA on 08/16/18 0919 Clonidine HCl (Clonidine HCl) 0.1 Mg Tablet, 0.1 MG PO BID, (Reported) Entered as Reported by: PEPITO FRANZ on 08/15/18 1221 Clopidogrel Bisulfate (Clopidogrel) 75 Mg Tablet, 75 MG PO DAILY Prescribed by: ALEX HERRERA on 08/16/18 0919 Glipizide (Glipizide) 10 Mg Tablet, 10 MG PO BID, (Reported) Entered as Reported by: CHRISS GA on 06/28/18 1734 Hydrocodone/Acetaminophen (Hydrocodone-Acetamin 5-325 mg) 5 Mg-325 Mg Tablet, 1 EACH PO Q4-6 HOURS PRN for PAIN Prescribed by: ARCHIE APONTE on 02/03/22 2215 Insulin Detemir (Levemir Flextouch) 100 Unit/1 Ml Insuln.pen, 30 UNITS SC HS, (Reported) Entered as Reported by: CHRISS GA on 06/28/18 1737 Insuln Asp Prt/Insulin Aspart (Novolog Mix 70-30 Flexpen Syrn) 300 Units/3 Ml Solution, 20-30 UNITS SQ AC, (Reported) Entered as Reported by: PEPITO FRANZ on 08/15/18 1232 Lisinopril (Lisinopril) 40 Mg Tablet, 40 MG PO DAILY, (Reported) Entered as Reported by: CHRISS GA on 06/28/18 1734 Meloxicam (Meloxicam) 15 Mg Tablet, 15 MG PO DAILY PRN for NECK PAIN, (Reported) Entered as Reported by: PEPITO FRANZ on 08/15/18 1221 Metoprolol Tartrate (Metoprolol Tartrate) 50 Mg Tablet, 100 MG PO BID, (Reported) Entered as Reported by: CHRISS GA on 06/28/18 173 Omeprazole (Omeprazole) 20 Mg Capsule.dr, 20 MG PO DAILY, (Reported) Entered as Reported by: CHRISS GA on 06/28/18 173 Quetiapine Fumarate (Quetiapine Fumarate) 100 Mg Tablet, 50 MG PO HS PRN for SLEEP, (Reported) Entered as Reported by: CHRISS GA on 06/28/18 173 Sertraline HCl (Sertraline HCl) 50 Mg Tablet, 50 MG PO DAILY, (Reported) Entered as Reported by: JOVI SOL on 08/27/16 1042 Review of Systems Constitutional: no symptoms reported Musculoskeletal: see HPI Skin: no symptoms reported Psychiatric/Neurological: No Symptoms Reported Past Ojqecuu-Bmszwc-Mxvdto Hx Patient Social History Tobacco Use?: Yes Tobacco type used: Cigarettes Smoking Status: Current Everyday Smoker Substance use?: No Alcohol Use?: No Immunizations Up To Date Tetanus Booster (TDap): More than 5yrs Seasonal Allergies Seasonal Allergies: No Past Medical History Surgeries: Yes (CARDIAC CATH--STENT X 2; EXCISION OF LESION LEFT NOSTRIL WITH FS & GRAFT) Appendectomy, Cardiac, Section, Coronary Stent, Gallbladder, Vascular Surgery Respiratory: Yes ("BREATHING PROBLEMS" ) Pneumonia, Chronic Bronchitis Currently Using CPAP: No Currently Using BIPAP: No Cardiac: Yes (CARDIAC CATHS WITH STENTS X 2 TO LAD) Coronary Artery Disease, Heart Attack, Hypertension, Peripheral Vascular Neurological: Yes Neuropathy Reproductive Disorders: No Female Reproductive Disorders: 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 Genitourinary: No Gastrointestinal: Yes Gastroesophageal Reflux, Chronic Constipation, Hemorrhoids, Chronic Diarrhea, Polyps, Gall Bladder Disease Musculoskeletal: Yes (LUPUS; CHRONIC NECK AND BACK PAIN AND KNEE PAIN ) Arthritis, Back Injury, Chronic Back Pain, Fractures Endocrine: Yes Diabetes, Insulin dep, Lupus HEENT: Yes Tinnitis Cancer: No Skin Psychosocial: Yes Depression Integumentary: No Blood Disorders: No Family Medical History Diabetes mellitus 19 MOTHER FH: lung cancer 19 FATHER Hypertension 19 MOTHER Heart Disease, Cancer, CAD Under 55 Years Old, Diabetes, Hypertension PT WITH HISTORY OF NON-COMPLIANCE IN ALL ASPECTS OF CARE SOCIAL HISTORY: -SMOKES 1 PPD -DENIES ETOH USE -DENIES DRUG USE PAST SURGICAL HISTORY: -CARDIAC CATH 10/[address] DIEZ: ANGIOPLASTY + STENT X 1 TO LAD -CARDIAC CATH 07/[address] ADIKNS MULTIVESSEL DISEASE ANGIOOPLASTY + STENT X 1 TO LAD EF 65-70% MILD PERIPHERAL ARTERY DISEASE 30-40% STENOSIS TO RIGHT [place]A. NO INTERVENTION NO SIGNIFICANT RENAL ARTERY DISEASE Physical Exam Vital Signs Vital Signs - First Documented 02/03/22 02/03/22 21:41 22:25 Temp 36.0 Pulse 85 Resp 16 B/P (MAP) 189/117 (141) Pulse Ox 98 O2 Delivery Room Air Capillary Refill : Height, Weight, BMI Height: 5'3.00" Weight: 188lbs. 3.2oz. [id number]; 31.00 BMI Method:Stated General Appearance: WD/WN, no apparent distress Shoulder: normal inspection Elbow/Forearm: Right (TENDERNESS AND SWELLING AND MILD ERYTHEMA TO DISTAL RIGHT FOREARM AND WRIST AND PROXIMAL HAND AREA. MOTOR/SENSORY/VASCULAR INTACT DISTALLY. LIMITED ROM AT WRIST DUE TO PAIN. ) Wrist: Yes bone tenderness, Yes limited ROM, Yes pain, Yes soft tissue tenderness, Yes swelling Hand: bone tenderness, limited ROM, soft tissue tenderness, swelling Neurologic/Tendon: normal sensation, normal motor functions, normal tendon functions Neurologic/Psychiatric: speech pathologist assistant II-XII nml as tested, no motor/sensory deficits, alert, normal mood/affect, oriented x 3 Skin: normal color, warm/dry Procedures/Interventions Splinting and Joint Reduction : Arm Sling: [place] Hand-Made Type: orthoglass Splint Application: Short Arm Progress/Results/Core Measures Results/Orders My Orders Orders - ARCHIE APONTE DO Forearm, Right, 2 Views (02/03/22 21:49) Hand, Right, 3 Views (02/03/22 21:49) Ed Ortho/Other Supplies Order (02/03/22 22:05) Rx-Hydrocodone/Apap 5-325 Mg (Rx-Vicodin (02/03/22 22:15) Vital Signs/I&O 02/03/22 02/03/22 21:41 22:25 Temp 36.0 36.0 Pulse 85 74 Resp 16 16 B/P (MAP) 189/117 (141) 175/99 Pulse Ox 98 O2 Delivery Room Air Room Air Progress Progress Note : Progress Note SPLINT AND SLING APPLIED SON IS WITH PT AND PT CAN STAY WITH HIM AND HIS FAMILY. Diagnostic Imaging Comments XRAYS RIGHT HAND AND FOREARM--PER RADIOLOGIST REPORT AT 2216 AP and lateral views of the right forearm show an impacted fracture of the distal radius at the level of the growth plate scar. The ulna appears to be intact. There is no displacement or angular deformity. IMPRESSION: Transverse impacted fracture of the distal radius. FINDINGS: Three views of the right hand show an impacted fracture of the distal radius which is nondisplaced and not evaluated. The hand appears to be grossly intact. IMPRESSION: Impacted transverse fracture of the distal radius. Reviewed: Reviewed by Me Departure Impression Primary Impression: Closed fracture of right distal radius Disposition: 01 HOME, SELF-CARE Condition: Stable Departure-Patient Inst. Decision time for Depature: 22:13 Referrals: NO,LOCAL PHYSICIAN (PCP) Primary Care Physician PATRICIA PÉREZ APRN (Family) Primary Care Physician MIAN YOON MD, JUSTIN S MD Patient Instructions: Forearm and Wrist Fractures ED, How to Use a Shoulder Sli ng, SPLINT CARE Add. Discharge Instructions: WEAR SPLINT AND SLING AT ALL TIMES ICE TO AREA AT 20 MINUTE INTERVALS. FOLLOW UP WITH DR. MANSFIELD, ORTHOPEDIC SURGEON, THIS WEEK FOR FURTHER CARE--CALL IN THE MORNING TO SCHEDULE APPOINTMENT Scripts Hydrocodone/Acetaminophen (Hydrocodone-Acetamin 5-325 mg) 5 Mg-325 Mg Tablet 1 EACH PO Q4-6 HOURS PRN for PAIN, #20 TAB Prov: ARCHIE APONTE DO 02/03/22 ARCHIE APONTE DO Feb 03, 2022 21:56
--- NOTE | 2022-02-03 22:13 | Diagnostic Imaging Report ---
INDICATION: Right hand pain. FINDINGS: Three views of the right hand show an impacted fracture of the distal radius which is nondisplaced and not evaluated. The hand appears to be grossly intact. IMPRESSION: Impacted transverse fracture of the distal radius. Dictated by: Dictated on workstation # [id number]
[2022-02-03] MEDS ORDERED: ACHD5005 PO (22:14)
--- NOTE | 2022-02-03 22:14 | Diagnostic Imaging Report ---
INDICATION: Right forearm injury. AP and lateral views of the right forearm show an impacted fracture of the distal radius at the level of the growth plate scar. The ulna appears to be intact. There is no displacement or angular deformity. IMPRESSION: Transverse impacted fracture of the distal radius. Dictated by: Dictated on workstation # [id number]
[2022-02-03 22:25] VITALS: BP 175/99
== END 2022-02-03 22:25 | disposition home or self-care (01) ==
LOC: EDUNIT# 21:31 → ER 21:33
DX: S52.591A Other fractures of lower end of right radius, initial encounter for closed fracture (principal); E11.40 Type 2 diabetes mellitus with diabetic neuropathy, unspecified; F17.210 Nicotine dependence, cigarettes, uncomplicated; Z79.82 Long term (current) use of aspirin; Z79.4 Long term (current) use of insulin; W18.30XA Fall on same level, unspecified, initial encounter
CPT/HCPCS: 29125; 73090; 73130

== ENCOUNTER → 2022-02-09 | Outpatient (CLI) | payer MEDICAID | LOC: ORTHO 13:36 | PROVIDERS: ATTEND Orthopaedic Surgery | DX: S52.531A Colles' fracture of right radius, initial encounter for closed fracture (principal); X58.XXXA Exposure to other specified factors, initial encounter | CPT/HCPCS: 29075; G0463 ==

== ENCOUNTER → 2022-02-23 | Outpatient (CLI) | payer MEDICAID ==
--- NOTE | 2022-02-23 15:47 | Diagnostic Imaging Report ---
INDICATION: Followup wrist fracture. COMPARISON: 02/03/2022. FINDINGS: Multiple radiographic views of the right wrist were obtained. Since the previous exam, there has been interval placement of radiopaque cast material. As a result, there is partial obscuration of the underlying osseous structures. The nonacute fracture of the distal radius is again noted. The fracture fragments appear to be stable in alignment. The radiocarpal joint space is maintained. No unexpected radiopaque foreign bodies are seen. IMPRESSION: Redemonstration of nonacute fracture of the right wrist as above. Dictated by: Dictated on workstation # [id number]
== END ==
LOC: ORTHO 14:41
PROVIDERS: ATTEND Orthopaedic Surgery
DX: S52.531A Colles' fracture of right radius, initial encounter for closed fracture (principal); X58.XXXA Exposure to other specified factors, initial encounter
CPT/HCPCS: 73110; G0463; 99213

== ENCOUNTER → 2022-04-06 | Outpatient (CLI) | payer MEDICAID ==
--- NOTE | 2022-04-06 13:18 | Diagnostic Imaging Report ---
INDICATION: Followup right wrist fracture. TIME OF EXAM: 11:15 AM. COMPARISON: Correlation is made with the prior radiograph from 02/23/2022. FINDINGS: Overlying cast material obscures bone detail. Continued healing of the distal radius fracture is noted. There appears to be some increase in the amount of sclerosis as well as blurring of the fracture line. The fracture line does remain partially visible. Overall alignment is anatomic. The distal ulna is intact. The carpal bones do suggest some slight widening of the scapholunate space. No fractures are seen. The metacarpals are intact. IMPRESSION: Continued healing distal radius fracture since the exam from 02/23/2022. Dictated by: Dictated on workstation # [id number]
== END ==
LOC: ORTHO 11:08
PROVIDERS: ATTEND Orthopaedic Surgery
DX: S52.501D Unspecified fracture of the lower end of right radius, subsequent encounter for closed fracture with routine healing (principal); X58.XXXD Exposure to other specified factors, subsequent encounter
CPT/HCPCS: 73110; G0463; 99213

== ENCOUNTER → 2022-05-11 | Outpatient (CLI) | payer MEDICAID ==
--- NOTE | 2022-05-11 16:31 | Diagnostic Imaging Report ---
INDICATION: Followup fracture. EXAMINATION: Right wrist 05/11/2022 COMPARISON: 04/06/2022. FINDINGS: 3 views of the wrist. The overlying cast has been removed in the interval. There is a predominantly transverse dorsally angulated fracture of the distal radius with surrounding callus formation. Vague residual lucency is noted. There is a displaced ulnar styloid fracture fragment also present. The remaining osseous structures intact. No dislocations. A small mechanical erosion is noted along the ulnar border of the distal radius. There are mild degenerative changes at the 1st carpal metacarpal joint. IMPRESSION: 1. Healing distal radius and ulnar fractures. Dictated by: Dictated on workstation # [id number]
== END ==
LOC: ORTHO 12:49
PROVIDERS: ATTEND Orthopaedic Surgery
DX: S52.601D Unspecified fracture of lower end of right ulna, subsequent encounter for closed fracture with routine healing (principal); S52.501D Unspecified fracture of the lower end of right radius, subsequent encounter for closed fracture with routine healing; X58.XXXD Exposure to other specified factors, subsequent encounter
CPT/HCPCS: 73110; G0463; 99213

== ENCOUNTER 2022-08-14 18:54 | Inpatient (IN) | payer MEDICAID ==
[~2022-08-14] VITALS: Ht 160 cm; Wt 60.0 kg
[2022-08-14] MEDS ORDERED: NITROGLYCERIN 0.4 MG SL TABS BTL 25'S SL PRN ×2 (19:00→22:00)
[2022-08-14] MEDS ORDERED: ASPIRIN 81 MG CHEW (CHILDREN'S ASA) PO ONE (19:00)
--- NOTE | 2022-08-14 19:05 | ED Chest Pain ---
General Chief Complaint: Chest Pain Stated Complaint: CHEST PAIN Nursing Triage Note: patient states chest pain started 1700 this evening. hx of heart stents. 1 baby ASA today Source: patient Exam Limitations: no limitations (SARITA CHAHAL APRN) History of Present Illness Date Seen by Provider: Aug 14, 2022 Time Seen by Provider: 19:05 Initial Comments Patient is a 9-year-old female who presents to the emergency department for evaluation of chest pain that began approximately 2 hours prior to arrival. Patient states she is also having some shortness of air. Patient has a history of coronary artery disease and has had 2 stents placed in the past. Her primary viscosity inspector is Dr. Tee. Denies any diaphoresis. States the pain waxes and wanes seemingly spontaneously. Patient has had no medicines today for the symptoms other than her normal 81 mg aspirin. Patient currently is a smoker and has a history of diabetes. (SARITA CHAHAL APRN) Allergies and Home Medications Allergies Coded Allergies: atorvastatin (Unverified Adverse Reaction, Unknown, 06/14/15) metformin (Unverified Adverse Reaction, Unknown, 06/14/15) Patient Home Medication List Home Medication List Reviewed: Yes (SARITA CHAHAL APRN) Amlodipine Besylate (Amlodipine Besylate) 10 Mg Tablet, 10 MG PO DAILY, (Reported) Entered as Reported by: PEPITO FRANZ on 08/15/18 1221 Aspirin (Aspirin) 81 Mg Tab.chew, 81 MG PO DAILY Prescribed by: ALEX HERRERA on 08/16/18918 Atorvastatin Calcium (Atorvastatin Calcium) 40 Mg Tablet, 40 MG PO DAILY Prescribed by: HELEN TEE on 08/16/22 0928 Clopidogrel Bisulfate (Clopidogrel) 75 Mg Tablet, 75 MG PO DAILY Prescribed by: ALEX HERRERA on 08/16/18918 Glipizide (Glipizide) 10 Mg Tablet, 10 MG PO BID, (Reported) Entered as Reported by: CHRISS GA on 06/28/18 1734 Hydrocodone/Acetaminophen (Hydrocodone-Acetamin 5-325 mg) 5 Mg-325 Mg Tablet, 1 EACH PO Q4-6 HOURS PRN for PAIN Prescribed by: ARCHIE APONTE on 02/03/22 2215 Insulin Detemir (Levemir Flextouch) 100 Unit/1 Ml Insuln.pen, 30 UNITS SC HS, (Reported) Entered as Reported by: CHRISS GA on 06/28/18 173 Insuln Asp Prt/Insulin Aspart (Novolog Mix 70-30 Flexpen Syrn) 300 Units/3 Ml Solution, 20-30 UNITS SQ AC, (Reported) Entered as Reported by: PEPITO FRANZ on 08/15/18 1232 Lisinopril (Lisinopril) 40 Mg Tablet, 40 MG PO DAILY, (Reported) Entered as Reported by: CHRISS GA on 06/28/18 173 Metoprolol Tartrate (Metoprolol Tartrate) 50 Mg Tablet, 100 MG PO BID, (Reported) Entered as Reported by: CHRISS GA on 06/28/18 173 Omeprazole (Omeprazole) 20 Mg Capsule.dr, 20 MG PO DAILY, (Reported) Entered as Reported by: CHRISS GA on 06/28/18 173 Quetiapine Fumarate (Quetiapine Fumarate) 100 Mg Tablet, 50 MG PO HS PRN for SLEEP, (Reported) Entered as Reported by: CHRISS GA on 06/28/18 173 Sertraline HCl (Sertraline HCl) 50 Mg Tablet, 50 MG PO DAILY, (Reported) Entered as Reported by: JOVI SOL on 08/27/16 1042 Discontinued Medications Clonidine HCl (Clonidine HCl) 0.1 Mg Tablet, 0.1 MG PO BID, (Reported) Entered as Reported by: PEPITO FRANZ on 08/15/18 1221 Meloxicam (Meloxicam) 15 Mg Tablet, 15 MG PO DAILY PRN for NECK PAIN, (Reported) Entered as Reported by: PEPITO FRANZ on 08/15/18 1221 Review of Systems Review of Systems Constitutional: no symptoms reported EENTM: No Symptoms Reported Respiratory: See HPI, Shortness of Air Cardiovascular: See HPI, Chest Pain Gastrointestinal: No Symptoms Reported Genitourinary: No Symptoms Reported Musculoskeletal: no symptoms reported Skin: no symptoms reported Psychiatric/Neurological: No Symptoms Reported Endocrine: No Symptoms Reported Hematologic/Lymphatic: No Symptoms Reported (SARITA CHAHAL APRN) Past Ijnydwu-Boenft-Htikkl Hx Immunizations Up To Date Tetanus Booster (TDap): More than 5yrs (SARITA CHAHAL APRN) Seasonal Allergies Seasonal Allergies: No (SARITA CHAHAL APRN) Past Medical History Surgery/Hospitalization HX: TYPE 2 DM LUPUS HTN Surgeries: Yes (CARDIAC CATH--STENT X 2; EXCISION OF LESION LEFT NOSTRIL WITH FS & GRAFT) Appendectomy, Cardiac, Section, Coronary Stent, Gallbladder, Vascular Surgery Respiratory: Yes ("BREATHING PROBLEMS" ) Pneumonia, Chronic Bronchitis Currently Using CPAP: No Currently Using BIPAP: No Cardiac: Yes (CARDIAC CATHS WITH STENTS X 2 TO LAD) Coronary Artery Disease, Heart Attack, Hypertension, Peripheral Vascular Neurological: Yes Neuropathy Reproductive Disorders: No Female Reproductive Disorders: Ovarian Cyst 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 History: Menopausal Genitourinary: No Gastrointestinal: Yes Gastroesophageal Reflux, Chronic Constipation, Hemorrhoids, Chronic Diarrhea, Polyps, Gall Bladder Disease Musculoskeletal: Yes (LUPUS; CHRONIC NECK AND BACK PAIN AND KNEE PAIN ) Arthritis, Back Injury, Chronic Back Pain, Fractures Endocrine: Yes Diabetes, Insulin dep, Lupus HEENT: Yes Tinnitis Cancer: No Skin Psychosocial: Yes Depression Integumentary: No Blood Disorders: No (SARITA CHAHAL APRN) Family Medical History Diabetes mellitus 19 MOTHER FH: lung cancer 19 FATHER Hypertension 19 MOTHER Heart Disease, Cancer, CAD Under 55 Years Old, Diabetes, Hypertension PT WITH HISTORY OF NON-COMPLIANCE IN ALL ASPECTS OF CARE SOCIAL HISTORY: -SMOKES 1 PPD -DENIES ETOH USE -DENIES DRUG USE PAST SURGICAL HISTORY: -CARDIAC CATH 10/[address] DIEZ: ANGIOPLASTY + STENT X 1 TO LAD -CARDIAC CATH 07/[address] TEE MULTIVESSEL DISEASE ANGIOOPLASTY + STENT X 1 TO LAD EF 65-70% MILD PERIPHERAL ARTERY DISEASE 30-40% STENOSIS TO RIGHT S.F.A. NO INTERVENTION NO SIGNIFICANT RENAL ARTERY DISEASE (SARITA CHAHAL APRN) Physical Exam Vital Signs Vital Signs - First Documented 08/14/22 18:59 Temp 36.9 Pulse 84 Resp 22 B/P (MAP) 192/100 (130) Pulse Ox 99 O2 Delivery Room Air (FAY,ARCHIE K DO) Vital Signs Capillary Refill : Less Than 3 Seconds (SARITA CHAHAL APRN) Height, Weight, BMI Height: 5'3.00" Weight: 188lbs. 3.2oz. [id number]; 26.00 BMI Method:Stated General Appearance: No Apparent Distress, WD/WN HEENT: PERRL/EOMI, TMs Normal, Normal ENT Inspection, Pharynx Normal Neck: Full Range of Motion, Normal Inspection, Non Tender, Supple Respiratory: Chest Non Tender, Lungs Clear Cardiovascular: Regular Rate, Rhythm Gastrointestinal: Non Tender, Soft Neurologic/Psychiatric: Alert, Oriented x3, No Motor/Sensory Deficits, Normal Mood/Affect Skin: Normal Color, Warm/Dry (SARITA CHAHAL APRN) Progress/Results/Core Measures Results/Orders Lab Results Laboratory Tests Test 08/14/22 18:58 Range/Units White Blood Count 5.2 4.3-11.0 10^3/uL Red Blood Count 5.46 H 3.80-5.11 10^6/uL Hemoglobin 14.5 11.5-16.0 g/dL Hematocrit 45 35-52 % Mean Corpuscular Volume 82 80-99 fL Mean Corpuscular Hemoglobin 27 25-34 pg Mean Corpuscular Hemoglobin Concent 33 32-36 g/dL Red Cell Distribution Width 13.3 10.0-14.5 % Platelet Count 204 130-400 10^3/uL Mean Platelet Volume 10.1 9.0-12.2 fL Immature Granulocyte % (Auto) 0 % Neutrophils (%) (Auto) 74 42-75 % Lymphocytes (%) (Auto) 14 12-44 % Monocytes (%) (Auto) 10 0-12 % Eosinophils (%) (Auto) 2 0-10 % Basophils (%) (Auto) 0 0-10 % Neutrophils # (Auto) 3.8 1.8-7.8 10^3/uL Lymphocytes # (Auto) 0.7 L 1.0-4.0 10^3/uL Monocytes # (Auto) 0.5 0.0-1.0 10^3/uL Eosinophils # (Auto) 0.1 0.0-0.3 10^3/uL Basophils # (Auto) 0.0 0.0-0.1 10^3/uL Immature Granulocyte # (Auto) 0.0 0.0-0.1 10^3/uL Prothrombin Time 13.2 12.2-14.7 SEC INR Comment 1.0 0.8-1.4 Activated Partial Thromboplast Time 33 24-35 SEC D-Dimer <= 0.27 0.00-0.49 UG/ML Sodium Level 140 135-145 MMOL/L Potassium Level 3.5 L 3.6-5.0 MMOL/L Chloride Level 110 H 98-107 MMOL/L Carbon Dioxide Level 19 L 21-32 MMOL/L Anion Gap 11 5-14 MMOL/L Blood Urea Nitrogen 8 7-18 MG/DL Creatinine 0.79 0.60-1.30 MG/DL Estimat Glomerular Filtration Rate 80 BUN/Creatinine Ratio 10 Glucose Level 164 H 70-105 MG/DL Calcium Level 9.5 8.5-10.1 MG/DL Corrected Calcium 9.7 8.5-10.1 MG/DL Magnesium Level 1.8 1.6-2.4 MG/DL Total Bilirubin 0.3 0.1-1.0 MG/DL Aspartate Amino Transf (AST/SGOT) 25 5-34 U/L Alanine Aminotransferase (ALT/SGPT) 12 0-55 U/L Alkaline Phosphatase 81 40-136 U/L Total Creatine Kinase 123 29-168 U/L Creatine Kinase MB 17.5 *H <6.6 NG/ML Myoglobin 241.4 H 10.0-92.0 NG/ML Troponin I 2.556 *H <0.028 NG/ML B-Type Natriuretic Peptide 282.6 H <100.0 PG/ML Total Protein 7.5 6.4-8.2 GM/DL Albumin 3.8 3.2-4.5 GM/DL Amylase Level 81 25-125 U/L Lipase 20 8-78 U/L (ARCHIE APONTE DO) My Orders Orders - ARCHIE APONTE DO Ekg Tracing (08/14/22 18:56) Cbc With Automated Diff (08/14/22 18:57) Magnesium (08/14/22 18:57) Chest 1 View, Ap/Pa Only (08/14/22 18:57) Comprehensive Metabolic Panel (08/14/22 18:57) Myoglobin Serum (08/14/22 18:57) Protime With Inr (08/14/22 18:57) Partial Thromboplastin Time (08/14/22 18:57) O2 (08/14/22 18:57) Monitor-Rhythm Ecg Trace Only (08/14/22 18:57) Ed Iv/Invasive Line Start (08/14/22 18:57) Creatine Kinase (08/14/22 18:57) Creatine Kinase Mb (08/14/22 18:57) Lipase (08/14/22 18:57) Amylase (08/14/22 18:57) Bnp Pranay (08/14/22 18:57) Fibrin Degradation Products (08/14/22 18:57) Troponin I [place] (08/14/22 18:57) Nitroglycerin 0.4 Mg Btl 25's (Nitrostat (08/14/22 19:00) Aspirin Chewable Tablet (Baby Aspirin Ch (08/14/22 19:00) (ARCHIE APONTE DO) Vital Signs/I&O 08/14/22 18:59 Temp 36.9 Pulse 84 Resp 22 B/P (MAP) 192/100 (130) Pulse Ox 99 O2 Delivery Room Air (ARCHIE APONTE DO) Blood Pressure Mean: 130 Progress Progress Note : Progress Note Patient is nontoxic and well-hydrated on exam. No adventitious lung sounds or increased work of breathing noted. Vital signs are reassuring. Laboratory evaluation notable for markedly elevated troponin. Chest x-ray acutely negative. EKG without acute ischemic change or arrhythmia. There are some new T wave inversions noted in V3 and V4. Cardiology was consulted who agreed that patient needed admission. I spoke with hospitalist who kindly agreed to admit the patient. Patient updated on plan of care and understanding verbalized. (SARITA CHAHAL APRN) EKG : EKG Time: 19:01 Rate: 77 Rhythm: Normal Sinus ECG Impression: Nonspecific Changes Comment New T wave inversions in V3 and V4 (SARITA CHAHAL APRN) Departure Impression Primary Impression: NSTEMI (non-ST elevated myocardial infarction) Disposition: ADMITTED INPATIENT Condition: Stable Admissions Decision to Admit Reason: Admit from ER (General) Decision to Admit/Date: Aug 14, 2022 Time/Decision to Admit Time: 19:55 (SARITA CHAHAL APRN) Departure-Patient Inst. Referrals: MIAN YOON MD (PCP/Family) Primary Care Physician Scripts Atorvastatin Calcium (Atorvastatin Calcium) 40 Mg Tablet 40 MG PO DAILY for 30 Days, #30 TAB 5 Refills Prov: HELEN TEE MD FACP LOCATED WITHIN [facility] 08/16/22 ATTENDING PHYSICIAN NOTE: I WAS PHYSICALLY PRESENT ER PHYSICIAN, BUT I WAS NOT INVOLVED IN ANY DECISION MAKING OR ANY CARE OF THIS PATIENT, AND I AM NOT COLLABORATING PHYSICIAN. (ARCHIE APONTE DO) SARITA CHAHAL APRN Aug 14, 2022 19:04 ARCHIE APONTE DO Aug 18, 2022 06:40
[2022-08-14 19:11] LABS: BASOPHILS % (AUTO) 0 % (0-10); EOSINOPHILS # (AUTO) 0.1 10^3/uL (0.0-0.3); EOSINOPHILS % (AUTO) 2 % (0-10); HEMATOCRIT 45 % (35-52); HEMOGLOBIN 14.5 g/dL (11.5-16.0); LYMPHOCYTES # (AUTO) 0.7 10^3/uL (1.0-4.0); LYMPHOCYTES % (AUTO) 14 % (12-44); MEAN CORPUSCULAR HEMOGLOBIN 27 pg (25-34); MEAN CORPUSCULAR HGB CONC 33 g/dL (32-36); MEAN CORPUSCULAR VOLUME 82 fL (80-99); MEAN PLATELET VOLUME 10.1 fL (9.0-12.2); MONOCYTES # (AUTO) 0.5 10^3/uL (0.0-1.0); MONOCYTES % (AUTO) 10 % (0-12); NEUTROPHILS # (AUTO) 3.8 10^3/uL (1.8-7.8); NEUTROPHILS % (AUTO) 74 % (42-75); PLATELET COUNT 204 10^3/uL (130-400); WHITE BLOOD COUNT 5.2 10^3/uL (4.3-11.0)
[2022-08-14 19:23] LABS: PROTHROMBIN TIME PATIENT 13.2 SEC (12.2-14.7)
[2022-08-14 19:25] LABS: ALBUMIN 3.8 GM/DL (3.2-4.5); POTASSIUM 3.5 MMOL/L (3.6-5.0)
[2022-08-14 19:26] LABS: CALCIUM 9.5 MG/DL (8.5-10.1)
[2022-08-14 19:28] LABS: TOTAL PROTEIN 7.5 GM/DL (6.4-8.2)
--- NOTE | 2022-08-14 19:28 | Diagnostic Imaging Report ---
CHEST 1 VIEW, AP/PA ONLY Indication: Chest pain. Comparison: 08/26/2018 Findings: No focal airspace disease in the visualized lungs. No pleural effusion or pneumothorax. Normal cardiomediastinal silhouette. Impression: 1. No acute cardiopulmonary process by portable radiography. Dictated by: Dictated on workstation # [id number]
[2022-08-14 19:29] LABS: BILIRUBIN,TOTAL 0.3 MG/DL (0.1-1.0)
[2022-08-14 19:31] LABS: CREATININE SERUM 0.79 MG/DL (0.60-1.30)
[2022-08-14 19:34] LABS: MAGNESIUM 1.8 MG/DL (1.6-2.4)
[2022-08-14 19:46] LABS: CREATINE KINASE MB 17.5 NG/ML (<6.6)
[2022-08-14] MEDS ORDERED: meTOprolol SUCCINATE 100 MG (TOPROL XL) TAB PO ONE (20:00)
[2022-08-14] MEDS ORDERED: NITROGLYCERIN 2% OINT 1 GM UNIT DOSE PACKET TOP ONE (20:00)
[2022-08-14] MEDS ORDERED: CLOPIDOGREL 75 MG (PLAVIX) TABLET PO ONE (20:00)
[2022-08-14] MEDS ORDERED: ACETAMINOPHEN 325 MG TABLET PO PRN (22:00)
[2022-08-14] MEDS ORDERED: ONDANSETRON 4 MG (ZOFRAN) ORAL DISSOLVE TAB PO PRN (22:00)
[2022-08-14] MEDS ORDERED: diphenhydrAMINE 25 MG TAB (BENADRYL) PO PRN (22:00)
[2022-08-14] MEDS ORDERED: ALPRAZolam 1 MG (XANAX) TAB PO PRN (22:00)
[2022-08-14] MEDS ORDERED: PATIENT MAY USE OWN MEDS, ALL PO SCH (22:00)
[2022-08-14] MEDS ORDERED: MELATONIN 3 MG TABLET PO PRN (22:00)
[2022-08-14] MEDS ORDERED: LACTULOSE SYRUP 10GM/15ML (ENULOSE) 30ML UDC PO PRN (22:00)
[2022-08-14] MEDS ORDERED: MILK OF MAGNESIA 400 MG/5 ML 30 ML UDC PO PRN (22:00)
[2022-08-14] MEDS ORDERED: morphine INJ 4 MG/ML 1 ML (VIAL/SYRINGE) IV PRN (22:00)
[2022-08-14] MEDS ORDERED: polyethylene glycoL POWDER 17 GM (MIRALAX) PACK PO PRN (22:00)
[2022-08-14] MEDS ORDERED: CALCIUM CARBONATE 500 MG (TUMS) TAB.CHEW PO PRN (22:00)
[2022-08-14] MEDS ORDERED: cloNIDine 0.1 MG (CATAPRES) TAB PO PRN (22:00)
[2022-08-14] MEDS ORDERED: ONDANSETRON 4 MG/2 ML (SDV) Z0FRAN IV PRN (22:00)
[2022-08-14] MEDS ORDERED: diphenhydrAMINE 50 MG/ML INJ (BENADRYL) IVP PRN (22:00)
[2022-08-14] MEDS ORDERED: BISACODYL 10 MG SUPP (DULCOLAX) PR PRN (22:00)
[2022-08-14] MEDS ORDERED: ANTACID SUSP 30 ML UDC (MYLANTA) PO PRN (22:00)
[2022-08-14 23:01] VITALS: BP 160/79
[2022-08-14 23:09] VITALS: BP 130/67
[2022-08-14] MEDS ORDERED: RT-ALBUTEROL/IPRATROPIUM 3 ML (DUONEB) VIAL INH PRN (23:15)
[2022-08-14] MEDS: NS IV 1000 ML 1,000 ML IV SCH (23:27)
[2022-08-14] MEDS: NITROGLYCERIN 2% OINT 1 GM UNIT DOSE PACKET TOP SCH (23:27)
[2022-08-14] MEDS: ENOXAPARIN 40 MG/0.4 ML (LOVENOX) SYR SC SCH (23:27)
[2022-08-15] VITALS (15 sets, daily range): BP systolic 109–151; BP diastolic 58–98
[2022-08-15 04:46] LABS: BASOPHILS % (AUTO) 0 % (0-10); EOSINOPHILS # (AUTO) 0.1 10^3/uL (0.0-0.3); EOSINOPHILS % (AUTO) 2 % (0-10); HEMATOCRIT 39 % (35-52); HEMOGLOBIN 12.8 g/dL (11.5-16.0); LYMPHOCYTES # (AUTO) 0.8 10^3/uL (1.0-4.0); LYMPHOCYTES % (AUTO) 16 % (12-44); MEAN CORPUSCULAR HEMOGLOBIN 27 pg (25-34); MEAN CORPUSCULAR HGB CONC 33 g/dL (32-36); MEAN CORPUSCULAR VOLUME 81 fL (80-99); MEAN PLATELET VOLUME 11.1 fL (9.0-12.2); MONOCYTES # (AUTO) 0.6 10^3/uL (0.0-1.0); MONOCYTES % (AUTO) 12 % (0-12); NEUTROPHILS # (AUTO) 3.7 10^3/uL (1.8-7.8); NEUTROPHILS % (AUTO) 71 % (42-75); PLATELET COUNT 193 10^3/uL (130-400); WHITE BLOOD COUNT 5.3 10^3/uL (4.3-11.0)
[2022-08-15 04:58] LABS: ALBUMIN 3.4 GM/DL (3.2-4.5)
[2022-08-15 05:00] LABS: TOTAL PROTEIN 6.5 GM/DL (6.4-8.2)
[2022-08-15] MEDS: NITROGLYCERIN 2% OINT 1 GM UNIT DOSE PACKET TOP SCH ×2 (05:01→12:00)
[2022-08-15 05:02] LABS: BILIRUBIN,TOTAL 0.5 MG/DL (0.1-1.0)
[2022-08-15] MEDS: inSUlin ASPART (NovoLOG) 1 UNIT/0.01 ML (CHARGE PER UNIT) SC SCH ×4 (05:02→20:26)
[2022-08-15 05:04] LABS: CREATININE SERUM 0.65 MG/DL (0.60-1.30)
--- NOTE | 2022-08-15 06:32 | History & Physical-Hospitalist ---
History of Present Illness HPI/Chief Complaint Chief complaint: NSTEMI with chest pain HPI: This is a 72-year-old female with known history of CAD who presented with chest pain and found to have elevated troponin. Dr. Tee performed cardiac catheterization today. Currently she is without chest pain. Source: patient Exam Limitations: no limitations Date Seen 08/15/22 Time Seen by a Provider: 11:00 Attending Physician Ry Little MD PCP Admitting Physician: Marian Davenport DO Attending Physician: Marian Davenport DO Referring Physician Date of Admission Aug 14, 2022 at 20:03 Home Medications & Allergies Home Medications Reviewed patient Home Medication Reconciliation performed by pharmacy medication reconciliations service technician and/or nursing. Patients Allergies have been reviewed. Allergies Allergies Coded Allergies atorvastatin (Unverified Adverse Reaction, Unknown, 06/14/15) metformin (Unverified Adverse Reaction, Unknown, 06/14/15) Past Iqxeszb-Lgatqh-Xxgmpm Hx Patient Social History Marrital Status: single Employed/Student: retired Tobacco Use?: Yes Tobacco type used: Cigarettes Smoking Status: Current Everyday Smoker Use of E-Cig and/or Vaping dev: No Substance use?: No Alcohol Use?: No Pt feels they are or have been: No Immunizations Up To Date Date of Influenza Vaccine: May 31, 2013 First/Initial COVID19 Vaccinat: no Second COVID19 Vaccination [place]: no Tetanus Booster (TDap): Unknown Hepatitis A: No Hepatitis B: No Date of Pneumonia Vaccine: Oct 29, 2012 Seasonal Allergies Seasonal Allergies: No Current Status status: No status: No Advance Directives: No Communicates: Verbally Primary Language: Mongolian Preferred Spoken Language: Mongolian Is interpretation needed?: No Sensory deficits: Vision impairment Implanted or Applied Medical D: None Past Medical History Surgeries: Appendectomy, Cardiac, Section, Coronary Stent, Gallbladder, Vascular Surgery Pneumonia, Chronic Bronchitis Currently Using CPAP: No Currently Using BIPAP: No Coronary Artery Disease, Heart Attack, Hypertension, Peripheral Vascular Neuropathy COUNTRY [employer]ER History: Menopausal Gastroesophageal Reflux, Chronic Constipation, Hemorrhoids, Chronic Diarrhea, Polyps, Gall Bladder Disease Arthritis, Back Injury, Chronic Back Pain, Fractures Diabetes, Insulin dep, Lupus Tinnitis Skin Depression Blood Disorders: No Family Medical History Diabetes mellitus 19 MOTHER FH: lung cancer 19 FATHER Hypertension 19 MOTHER Heart Disease, Cancer, CAD Under 55 Years Old, Diabetes, Hypertension PT WITH HISTORY OF NON-COMPLIANCE IN ALL ASPECTS OF CARE SOCIAL HISTORY: -SMOKES 1 PPD -DENIES ETOH USE -DENIES DRUG USE PAST SURGICAL HISTORY: -CARDIAC CATH 10/[address] DIEZ: ANGIOPLASTY + STENT X 1 TO LAD -CARDIAC CATH 07/[address] TEE MULTIVESSEL DISEASE ANGIOOPLASTY + STENT X 1 TO LAD EF 65-70% MILD PERIPHERAL ARTERY DISEASE 30-40% STENOSIS TO RIGHT S.F.A. NO INTERVENTION NO SIGNIFICANT RENAL ARTERY DISEASE Review of Systems Constitutional: see HPI Cardiovascular: chest pain Physical Exam Physical Exam Vital Signs Vital Signs - First Documented 08/14/22 08/15/22 18:59 08:55 Temp 36.9 Pulse 84 Resp 22 B/P (MAP) 192/100 (130) Pulse Ox 99 O2 Delivery Room Air O2 Flow Rate 0.00 Capillary Refill : Less Than 3 Seconds Height, Weight, BMI Height: 5'3.00" Weight: 188lbs. 3.2oz. 85.388211db; 23.47 BMI Method:Stated General Appearance: No Apparent Distress Eyes: Right Eye Normal Inspection, Right Eye PERRL HEENT: PERRL/EOMI, Normal ENT Inspection, Pharynx Normal, Moist Mucous Membranes Neck: Full Range of Motion, Normal Inspection, Non Tender Respiratory: Chest Non Tender, Lungs Clear, Normal Breath Sounds, No Accessory Muscle Use, No Respiratory Distress Cardiovascular: Regular Rate, Rhythm, No Edema, No Gallop, No JVD, No Murmur, Normal Peripheral Pulses Gastrointestinal: Normal Bowel Sounds, No Organomegaly, No Pulsatile Mass, Non Tender, Soft Back: Normal Inspection, No CVA Tenderness, No Vertebral Tenderness Extremity: Normal Capillary Refill, Normal Inspection, Normal Range of Motion, Non Tender, No Calf Tenderness, No Pedal Edema Neurologic/Psychiatric: Alert, Oriented x3, No Motor/Sensory Deficits, Normal Mood/Affect Skin: Normal Color, Warm/Dry Lymphatic: No Adenopathy Results Results/Procedures Labs Laboratory Tests 08/14/22 18:58 08/15/22 04:23 Patient resulted labs reviewed. Assessment/Plan Admission Diagnosis Assessment: Chest pain NSTEMI Known CAD Smoker Hypertension Hyperlipidemia Plan: Supportive care Monitor closely Admission Status: Inpatient Order (span 2 midnights) Reason for Inpatient Admission: NSTEMI with intervention Diagnosis/Problems Diagnosis/Problems (1) NSTEMI (non-ST elevated myocardial infarction) Clinical Quality Measures AMI/AHF: ASA po Prior to arrival: Yes (81 MG) MARIAN DAVENPORT DO Aug 15, 2022 06:32
[2022-08-15] MEDS: DOCUSATE SODIUM 100 MG (COLACE) CAP PO SCH ×2 (07:24→20:26)
[2022-08-15] MEDS: SENNOSIDES 8.6 MG (SENOKOT) TAB PO SCH ×2 (07:24→20:26)
[2022-08-15] MEDS: RT-ALBUTEROL/IPRATROPIUM 3 ML (DUONEB) VIAL INH SCH ×2 (08:54→19:52)
[2022-08-15] MEDS ORDERED: ASPIRIN E.C. 81 MG (ECOTRIN) TAB PO SCH (09:00)
[2022-08-15] MEDS: CLOPIDOGREL 75 MG (PLAVIX) TABLET PO SCH (10:02)
[2022-08-15] MEDS: meTOprolol SUCCINATE 100 MG (TOPROL XL) TAB PO SCH (10:02)
[2022-08-15] MEDS ORDERED: HEParin 1000 UNIT/ML (10ML VIAL) FOR BOLUS ONE (10:44)
[2022-08-15] MEDS ORDERED: fentaNYL INJ 100 MCG/2 ML AMP ONE (10:44)
[2022-08-15] MEDS ORDERED: HEParin (CATH LAB) 2,000 ML IV ONE (10:44)
[2022-08-15] MEDS ORDERED: MIDAZOLAM 5 MG/5 ML (VERSED) VIAL ONE (10:44)
[2022-08-15] MEDS ORDERED: NS IV 1000 ML 1,000 ML ONE (10:44)
[2022-08-15] MEDS ORDERED: LIDOCAINE 1% INJ 30 ML (XYLOCAINE) VIAL ONE (10:49)
[2022-08-15] MEDS ORDERED: EPTIFIBATIDE BOLUS 10 ML IV ONE ×2 (11:30→11:32)
[2022-08-15] MEDS: NS IV 1000 ML 1,000 ML IV SCH ×3 (11:42→17:13)
[2022-08-15] MEDS ORDERED: ASPIRIN 81 MG CHEW (CHILDREN'S ASA) ONE (11:54)
[2022-08-15] MEDS ORDERED: CLOPIDOGREL 75 MG (PLAVIX) TABLET ONE (11:54)
--- NOTE | 2022-08-15 12:00 | Consultation-Cardiology ---
HPI-Cardiology Cardiology Consultation: Date of Consultation 08/15/22 Time Seen by a Provider: 09:40 Date of Admission Attending Physician Ry Little MD Admitting Physician Admitting Physician: Marian Fuller DO Attending Physician: Marian Fuller DO Consulting Physician HELEN ADKINS MD, MA, FACP, FACC, FSCAI, CCDS HPI: Chief Complaint: Chest pain 72 yo woman who was admitted with chest pain last night and troponin was elevated, indicating NSTEMI. She has been having intermittent chest discomfort: present nearly daily for several day, lasting minutes to an hour, pressure in the chest, mild to severe, worse with exertion, improved with rest, w/o associated symptoms, sometimes radiating to both shoulders. Has chronic, slowly progressive, exertional shortness of breath. Denies palp or syncope or swelling. Chronic smoker of cigs, continues to smoke Review of Systems-Cardiology Review of Systems Constitutional: malaise, tiredness; No weight loss, No weight gain Eyes: No vision change Ears/Nose/Throat: No ear discharge, No mouth swelling, No recent hearing loss Respiratory: As described under HPI Cardiovascular: As described under HPI Gastrointestinal: No diarrhea, No nausea, No vomiting Genitourinary: No dysuria, No hematuria, No urine frequency changes Musculoskeletal: back pain (chronic); No joint pain Skin: No rash, No ulcerations Psychiatric/Neurological: No seizure, No focal weakness, No syncope Hematologic: No bleeding abnormalities FJS-[id number]-Ttylrt Hx Patient Social History Smoking Status: Current Everyday Smoker Former smoker/When Quit: Oct 27, 2012 2nd Hand Smoke Exposure: Yes Have you traveled recently?: No Alcohol Use?: No Pt feels they are or have been: No Tobacco type used: Cigarettes Immunizations Up To Date Tetanus Booster (TDap): More than 5yrs Date of Pneumonia Vaccine: Oct 29, 2012 Date of Influenza Vaccine: May 31, 2013 Past Medical History PMH As described under Assessment. Family Medical History Family History: Diabetes mellitus 19 MOTHER FH: lung cancer 19 FATHER Hypertension 19 MOTHER Allergies and Home Medications Allergies Coded Allergies: atorvastatin (Unverified Adverse Reaction, Unknown, 06/14/15) metformin (Unverified Adverse Reaction, Unknown, 06/14/15) Patient Home Medication List Home Medication List Reviewed: Yes Amlodipine Besylate (Amlodipine Besylate) 10 Mg Tablet, 10 MG PO DAILY, (Reported) Entered as Reported by: PEPITO FRANZ on 08/15/18 1221 Aspirin (Aspirin) 81 Mg Tab.chew, 81 MG PO DAILY Prescribed by: ALEX HERRERA on 08/16/18 09 Clonidine HCl (Clonidine HCl) 0.1 Mg Tablet, 0.1 MG PO BID, (Reported) Entered as Reported by: PEPITO FRANZ on 08/15/18 1221 Clopidogrel Bisulfate (Clopidogrel) 75 Mg Tablet, 75 MG PO DAILY Prescribed by: ALEX HERRERA on 08/16/18918 Glipizide (Glipizide) 10 Mg Tablet, 10 MG PO BID, (Reported) Entered as Reported by: CHRISS GA on 06/28/18 173 Hydrocodone/Acetaminophen (Hydrocodone-Acetamin 5-325 mg) 5 Mg-325 Mg Tablet, 1 EACH PO Q4-6 HOURS PRN for PAIN Prescribed by: ARCHIE APONTE on 02/03/222214 Insulin Detemir (Levemir Flextouch) 100 Unit/1 Ml Insuln.pen, 30 UNITS SC HS, (Reported) Entered as Reported by: CHRISS GA on 06/28/18 173 Insuln Asp Prt/Insulin Aspart (Novolog Mix 70-30 Flexpen Syrn) 300 Units/3 Ml Solution, 20-30 UNITS SQ AC, (Reported) Entered as Reported by: PEPITO FRANZ on 08/15/18 1232 Lisinopril (Lisinopril) 40 Mg Tablet, 40 MG PO DAILY, (Reported) Entered as Reported by: CHRISS GA on 06/28/18 173 Meloxicam (Meloxicam) 15 Mg Tablet, 15 MG PO DAILY PRN for NECK PAIN, (Reported) Entered as Reported by: PEPITO FRANZ on 08/15/18 1221 Metoprolol Tartrate (Metoprolol Tartrate) 50 Mg Tablet, 100 MG PO BID, (Reported) Entered as Reported by: CHRISS GA on 06/28/18 173 Omeprazole (Omeprazole) 20 Mg Capsule.dr, 20 MG PO DAILY, (Reported) Entered as Reported by: CHRISS GA on 06/28/18 173 Quetiapine Fumarate (Quetiapine Fumarate) 100 Mg Tablet, 50 MG PO HS PRN for SLEEP, (Reported) Entered as Reported by: CHRISS HARMEET on 06/28/18 2367 Sertraline HCl (Sertraline HCl) 50 Mg Tablet, 50 MG PO DAILY, (Reported) Entered as Reported by: JOVI SOL on 08/27/16 1042 Physical Exam-Cardiology Physical Exam Vital Signs/I&O 08/15/22 08/15/22 08/15/22 08/15/22 00:00 01:00 03:12 07:00 Temp 37.5 Pulse 60 55 Pulse Ox 99 O2 Delivery Room Air 08/15/22 08/15/22 08/15/22 08/15/22 08:00 08:10 08:10 08:55 Temp 36.2 37.4 Pulse 77 Resp 25 B/P (MAP) 141/98 (112) Pulse Ox 99 93 100 O2 Delivery Room Air Room Air O2 Flow Rate 0.00 08/15/22 10:02 Pulse 62 B/P (MAP) 128/65 (86) Capillary Refill : Less Than 3 Seconds Constitutional: AAO x 3, well-developed, well-nourished HEENT: EOMI, hearing is well preserved; No xanthelasmas are seen Neck: carotid pulses are 2 + bilaterally, with good upstrokes Respiratory: No accessory muscle use; chest expansion is symmetric, other (fair air entry, prolonged exp) Cardiovascular: regular rate-rhythm, S1 and S2, systolic murmur (soft SRINIVASAN at card base) Gastrointestinal: No tender; soft; No guarding, No rebound; audible bowel sounds Extremities: No clubbing, No cyanosis, No significant edema Neurologic/Psychiatric: oriented x 3, other (moves all limbs equally) Skin: warm/dry; No cyanosis, No cool, No rash, No ulcerations Data Review Labs Laboratory Tests 08/14/22 18:58: White Blood Count 5.2, Red Blood Count 5.46H, Hemoglobin 14.5, Hematocrit 45, Mean Corpuscular Volume 82, Mean Corpuscular Hemoglobin 27, Mean Corpuscular Hemoglobin Concent 33, Red Cell Distribution Width 13.3, Platelet Count 204, Mean Platelet Volume 10.1, Immature Granulocyte % (Auto) 0, Neutrophils (%) (Auto) 74, Lymphocytes (%) (Auto) 14, Monocytes (%) (Auto) 10, Eosinophils (%) (Auto) 2, Basophils (%) (Auto) 0, Neutrophils # (Auto) 3.8, Lymphocytes # (Auto) 0.7L, Monocytes # (Auto) 0.5, Eosinophils # (Auto) 0.1, Basophils # (Auto) 0.0, Immature Granulocyte # (Auto) 0.0, Prothrombin Time 13.2, INR Comment 1.0, Activated Partial Thromboplast Time 33, D-Dimer <= 0.27, Sodium Level 140, Potassium Level 3.5L, Chloride Level 110H, Carbon Dioxide Level 19L, Anion Gap 11, Blood Urea Nitrogen 8, Creatinine 0.79, Estimat Glomerular Filtration Rate 80, BUN/Creatinine Ratio 10, Glucose Level 164H, Calcium Level 9.5, Corrected Calcium 9.7, Magnesium Level 1.8, Total Bilirubin 0.3, Aspartate Amino Transf (AST/SGOT) 25, Alanine Aminotransferase (ALT/SGPT) 12, Alkaline Phosphatase 81, Total Creatine Kinase 123, Creatine Kinase MB 17.5*H, Myoglobin 241.4H, Troponin I 2.556*H, B-Type Natriuretic Peptide 282.6H, Total Protein 7.5, Albumin 3.8, Amylase Level 81, Lipase 20 08/15/22 04:23: White Blood Count 5.3, Red Blood Count 4.79, Hemoglobin 12.8, Hematocrit 39, Mean Corpuscular Volume 81, Mean Corpuscular Hemoglobin 27, Mean Corpuscular Hemoglobin Concent 33, Red Cell Distribution Width 13.1, Platelet Count 193, Mean Platelet Volume 11.1, Immature Granulocyte % (Auto) 0, Neutrophils (%) (Auto) 71, Lymphocytes (%) (Auto) 16, Monocytes (%) (Auto) 12, Eosinophils (%) (Auto) 2, Basophils (%) (Auto) 0, Neutrophils # (Auto) 3.7, Lymphocytes # (Auto) 0.8L, Monocytes # (Auto) 0.6, Eosinophils # (Auto) 0.1, Basophils # (Auto) 0.0, Immature Granulocyte # (Auto) 0.0, Sodium Level 140, Potassium Level 4.0, Chloride Level 113H, Carbon Dioxide Level 19L, Anion Gap 8, Blood Urea Nitrogen 9, Creatinine 0.65, Estimat Glomerular Filtration Rate 95, BUN/Creatinine Ratio 14, Glucose Level 116H, Calcium Level 9.0, Corrected Calcium 9.5, Total Bilirubin 0.5, Aspartate Amino Transf (AST/SGOT) 42H, Alanine Aminotransferase (ALT/SGPT) 13, Alkaline Phosphatase 67, Total Protein 6.5, Albumin 3.4, Triglycerides Level 75, Cholesterol Level 138, LDL Cholesterol Direct 89, VLDL Cholesterol 15, HDL Cholesterol 31L Laboratory Tests 08/14/22 18:58 08/15/22 04:23 A/P-Cardiology Assessment/Admission Diagnosis Acute NSTEMI, treated with PCI to prox LAD (see below) CAD - Card cath of 08/15/18: Coronary artery disease, multivessel. The most significant lesion was a long stenosis in the proximal left anterior descending artery (up to 95%) that was successfully stented with Sinai 2.75 x 33 mm stent and this stent slightly overlaps an old stent that is known to be a drug-eluting stent measuring 2.75 x 16 mm. The distal left anterior descending artery has moderate to moderately severe disease and is of a small caliber. The left circumflex artery is dominant and has mild disease. The right coronary artery is small and nondominant and has a long stenosis in its proximal and mid portion of up to 80%. Normal global left ventricular systolic function with ejection fraction of 65 to 70%. Normal left ventricular end diastolic pressure. No significant mitral regurgitation. No significant renal artery stenosis - Card cath of 08/09/2022: LMCA Ok. LAD 99% prox instent that was successfully treated with PTCA with reduction of stenosis to 0% and improvement of flow from LESLIE 1 to LESLIE 3. Multiple up to 50% in mid and distal LAD. LCX dominant with diffuse mild to mod disease. RCA small and nondominant with diffuse severe disease (not amenable to intervention). LVEDP 5 mmHg. LVEF 60% PAD - Mild peripheral arterial disease consisting of 30 to 40% stenosis in the right superficial femoral artery per peripheral angiogram of Aug 15, 2018 Reported intolerance to statin tx DM II Chronic tobacco use (smoking) SLE, per patient report Hypertension Chronically abnormal ECG: NSR, nonspecific IVCD, nonspecific ST-T abnormality Discussion and Recomendations * Advised to quit smoking * Treat with DAPT and statin and beta-vargas * Monitor labs * I discussed her CV issues with her in detail before and after the cath and intervention. Rationale, procedure, risks, benefits, potential complications, and alternatives of card cath and possible ad hoc PCI were reviewed with her in detail before the procedure and informed consent obtained. The findings and interventions were reviewed after the procedure and questions answered Clinical Quality Measures AMI/AHF: ASA po Prior to arrival: Yes (81 MG) HELEN ADKINS MD FACP FAC CCDS Aug 15, 2022 12:00
[2022-08-15] MEDS ORDERED: PATIENT MAY USE OWN MEDS, ALL PO SCH (12:30)
--- NOTE | 2022-08-15 13:35 | CARDIAC CATHETERIZATION ---
DATE OF SERVICE: 08/15/2022 CARDIAC CATHETERIZATION AND CORONARY INTERVENTION REPORT INDICATION: The patient is a 72-year-old lady who has a history of coronary artery disease, who presents with an acute non-ST elevation myocardial infarction and unstable angina. Cardiac catheterization was carried out after having obtained informed consent for cardiac catheterization and coronary intervention. DESCRIPTION OF PROCEDURE: She was brought to the cardiac catheterization laboratory. Right groin was prepared and draped in the usual sterile fashion. 1% lidocaine as local anesthesia. Modified Seldinger technique was used to advance a 5-Egyptian sheath in the right femoral artery, 5-Egyptian JL4 catheter in left coronary angiography. A 5-Egyptian JR4 catheter in right coronary angiography. A 5-Egyptian pigtail catheter was used for left heart catheterization, left ventricular angiography. Subsequently, percutaneous intervention was carried out to the left anterior descending artery and it is described below. Percutaneous intervention of the left anterior descending: We exchanged the sheath over a guidewire for a 6-Egyptian sheath. We gave 4000 units of intravenous heparin and a double bolus of Integrilin was also given. We used a 6-Egyptian JL3.5 guide catheter to engage the left coronary artery. We advanced a ChoICE extra support wire across 99% stenosis in the proximal portion of the stented segment of the left anterior descending. The tip was placed in the distal vessel. Prior to the intervention, the stenosis was 99% and the distal flow was LESLIE 1. Following advancement of the wire, we carried out balloon angioplasty with a 2.75 x 15 mm balloon. Multiple balloon inflations were carried out up to 20 atmospheres. Subsequent angiography revealed 0% residual stenosis at the previous site of 99% stenosis. The flow improved from LESLIE 1 to LESLIE 3. The patient tolerated the procedure well. Angioplasty equipment was removed. Angiography of the right femoral artery was carried out through the sheath. Mynx was used to achieve hemostasis. HEMODYNAMICS: Left ventricular end diastolic pressure following coronary angiography was 5 mmHg. There is no significant pressure gradient on pullback across the aortic valve. LEFT VENTRICULAR ANGIOGRAPHY: Left ventricular angiography was carried out in the right anterior oblique projection. Global left ventricular systolic function is normal. Left ventricular ejection fraction is approximately 60%. CORONARY ANGIOGRAPHY: Left main coronary artery is free of significant disease. Left anterior descending artery has a long stented segment in its proximal and mid portions. The proximal part of the stented segment has 99% stenosis of the vessel. Flow was LESLIE 1. We carried out balloon angioplasty, which reduced the stenosis to 0% and improved the flow to LESLIE 3. The mid and distal left anterior descending artery has multiple stenoses of approximately 50%. Left circumflex artery is dominant. It has diffuse mild to moderate disease. Right coronary artery is small and nondominant. It has diffuse severe disease and is not amenable to intervention because of its small caliber. CONCLUSION: 1. Coronary artery disease consisting of 99% in-stent restenosis of the proximal portion of the left anterior descending. 2. Successful balloon angioplasty reduced the stenosis to 0% and improved the flow from LESLIE 1 to LESLIE 3. The mid and distal left anterior descending artery has multiple stenoses of 50%. Left circumflex artery is dominant and has [id number] diffuse disease. Right coronary artery is very small caliber and is not dominant and has severe diffuse disease. 3. Normal left ventricular end-diastolic pressure. 4. Normal global left ventricular systolic function with ejection fraction approximately 60%. 5. We have advised immediate and complete cessation of tobacco use. She states she will try. RECOMMENDATIONS: We have advised statin therapy. She refuses because of nonspecific, but severe intolerance. We have advised dual antiplatelet therapy. She agrees. We have advised beta vargas therapy. She agrees. Job ID: [id number] DocumentID: [id number] Dictated Date: 08/15/2022 12:25:30 Wildlife Biology Technician Date: 08/15/2022 13:33:00 Dictated By: HELEN ADKINS MD; WHITNEY; FACP; FACC;
[2022-08-15] MEDS: ENOXAPARIN 40 MG/0.4 ML (LOVENOX) SYR SC SCH (21:08)
[2022-08-16] VITALS (7 sets, daily range): BP systolic 142–156; BP diastolic 63–89
[2022-08-16] MEDS: inSUlin ASPART (NovoLOG) 1 UNIT/0.01 ML (CHARGE PER UNIT) SC SCH ×2 (04:22→11:04)
[2022-08-16 05:10] LABS: BASOPHILS % (AUTO) 0 % (0-10); EOSINOPHILS # (AUTO) 0.1 10^3/uL (0.0-0.3); EOSINOPHILS % (AUTO) 2 % (0-10); HEMATOCRIT 36 % (35-52); HEMOGLOBIN 11.6 g/dL (11.5-16.0); LYMPHOCYTES # (AUTO) 0.8 10^3/uL (1.0-4.0); LYMPHOCYTES % (AUTO) 17 % (12-44); MEAN CORPUSCULAR HEMOGLOBIN 26 pg (25-34); MEAN CORPUSCULAR HGB CONC 33 g/dL (32-36); MEAN CORPUSCULAR VOLUME 81 fL (80-99); MEAN PLATELET VOLUME 10.6 fL (9.0-12.2); MONOCYTES # (AUTO) 0.5 10^3/uL (0.0-1.0); MONOCYTES % (AUTO) 12 % (0-12); NEUTROPHILS # (AUTO) 3.2 10^3/uL (1.8-7.8); NEUTROPHILS % (AUTO) 69 % (42-75); PLATELET COUNT 152 10^3/uL (130-400); WHITE BLOOD COUNT 4.6 10^3/uL (4.3-11.0)
[2022-08-16 05:20] LABS: ALBUMIN 3.1 GM/DL (3.2-4.5)
[2022-08-16 05:21] LABS: CALCIUM 8.5 MG/DL (8.5-10.1)
[2022-08-16 05:22] LABS: TOTAL PROTEIN 6.1 GM/DL (6.4-8.2)
[2022-08-16 05:24] LABS: BILIRUBIN,TOTAL 0.4 MG/DL (0.1-1.0)
[2022-08-16 05:26] LABS: CREATININE SERUM 0.71 MG/DL (0.60-1.30)
[2022-08-16 05:29] LABS: MAGNESIUM 1.7 MG/DL (1.6-2.4)
[2022-08-16] MEDS: RT-ALBUTEROL/IPRATROPIUM 3 ML (DUONEB) VIAL INH SCH (07:53)
[2022-08-16] MEDS: CLOPIDOGREL 75 MG (PLAVIX) TABLET PO SCH (08:35)
[2022-08-16] MEDS: DOCUSATE SODIUM 100 MG (COLACE) CAP PO SCH (08:36)
[2022-08-16] MEDS: NS IV 1000 ML 1,000 ML IV SCH (08:36)
[2022-08-16] MEDS: SENNOSIDES 8.6 MG (SENOKOT) TAB PO SCH (08:37)
[2022-08-16] MEDS: meTOprolol SUCCINATE 100 MG (TOPROL XL) TAB PO SCH (08:49)
[2022-08-16] MEDS ORDERED: ASPIRIN 81 MG CHEW (CHILDREN'S ASA) PO SCH (09:00)
--- NOTE | 2022-08-16 09:07 | Progress Note - Cardiology ---
Cardiology SOAP Progress Note Subjective: Lying in bed No c/o CP, SOB, palpitations No c/o right groin discomfort Objective: I&O/Vital Signs 08/16/22 08/16/22 08/16/22 08/16/22 01:00 03:50 07:15 07:16 Temp 36.2 Pulse 56 55 52 53 Resp 22 B/P (MAP) 153/80 (104) 143/63 (89) Pulse Ox 92 97 O2 Delivery Nasal Cannula Room Air O2 Flow Rate 2.00 08/16/22 08/16/22 08/16/22 08/16/22 07:36 07:53 08:30 08:30 Temp 36.3 Pulse 56 B/P (MAP) 156/70 (98) Pulse Ox 97 O2 Delivery Room Air Room Air Room Air O2 Flow Rate 0.00 08/16/22 12: Pulse 53 08/16/22 00:00 Intake Total 2105 ml Balance 2105 ml Weight (Pounds): 188 Weight (Ounces): 3.2 Weight (Calculated Kilograms): 85.472372 Side: right Groin site without hematoma: Yes Condition: DP/PT pulses palpable, extremity w/d/p Bruising: mild bruising Constitutional: AAO x 3, well-developed, well-nourished Respiratory: No accessory muscle use; chest expansion is symmetric, other (fair air entry, prolonged exp) Cardiovascular: regular rate-rhythm, S1 and S2, systolic murmur (soft SRINIVASAN at card base) Gastrointestional: No tender; soft; No guarding, No rebound; audible bowel soun ds Extremities: No clubbing, No cyanosis, No significant edema Neurologic/Psychiatric: oriented x 3, other (moves all limbs equally) Skin: warm/dry; No cyanosis, No cool, No rash, No ulcerations Results/Procedures: Labs Laboratory Tests 08/15/22 15:42: Glucometer 136H 08/15/22 20:54: Glucometer 109 08/16/22 05:00: White Blood Count 4.6, Red Blood Count 4.39, Hemoglobin 11.6, Hematocrit 36, Mean Corpuscular Volume 81, Mean Corpuscular Hemoglobin 26, Mean Corpuscular Hemoglobin Concent 33, Red Cell Distribution Width 13.2, Platelet Count 152, Mean Platelet Volume 10.6, Immature Granulocyte % (Auto) 0, Neutrophils (%) (Auto) 69, Lymphocytes (%) (Auto) 17, Monocytes (%) (Auto) 12, Eosinophils (%) (Auto) 2, Basophils (%) (Auto) 0, Neutrophils # (Auto) 3.2, Lymphocytes # (Auto) 0.8L, Monocytes # (Auto) 0.5, Eosinophils # (Auto) 0.1, Basophils # (Auto) 0.0, Immature Granulocyte # (Auto) 0.0, Sodium Level 140, Potassium Level 4.0, Chloride Level 115H, Carbon Dioxide Level 18L, Anion Gap 7, Blood Urea Nitrogen 13, Creatinine 0.71, Estimat Glomerular Filtration Rate 91, BUN/Creatinine Ratio 18, Glucose Level 103, Calcium Level 8.5, Corrected Calcium 9.2, Magnesium Level 1.7, Total Bilirubin 0.4, Aspartate Amino Transf (AST/SGOT) 24, Alanine Aminotransferase (ALT/SGPT) 11, Alkaline Phosphatase 61, Total Protein 6.1L, Albumin 3.1L, Thyroid Stimulating Hormone (TSH) 0.76 08/16/22 11:03: Glucometer 121H A/P: Assessment: Acute NSTEMI, treated with PCI to prox LAD (see below) CAD - Card cath of 08/15/18: Coronary artery disease, multivessel. The most significant lesion was a long stenosis in the proximal left anterior descending artery (up to 95%) that was successfully stented with Sinai 2.75 x 33 mm stent and this stent slightly overlaps an old stent that is known to be a drug-eluting stent measuring 2.75 x 16 mm. The distal left anterior descending artery has moderate to moderately severe disease and is of a small caliber. The left circumflex artery is dominant and has mild disease. The right coronary artery is small and nondominant and has a long stenosis in its proximal and mid portion of up to 80%. Normal global left ventricular systolic function with ejection fraction of 65 to 70%. Normal left ventricular end diastolic pressure. No significant mitral regurgitation. No significant renal artery stenosis - Card cath of 08/09/2022: LMCA Ok. LAD 99% prox instent that was successfully treated with PTCA with reduction of stenosis to 0% and improvement of flow from LESLIE 1 to LESLIE 3. Multiple up to 50% in mid and distal LAD. LCX dominant with diffuse mild to mod disease. RCA small and nondominant with diffuse severe disease (not amenable to intervention). LVEDP 5 mmHg. LVEF 60% PAD - Mild peripheral arterial disease consisting of 30 to 40% stenosis in the right superficial femoral artery per peripheral angiogram of Aug 15, 2018 Reported intolerance to statin tx DM II Chronic tobacco use (smoking) SLE, per patient report Hypertension Chronically abnormal ECG: NSR, nonspecific IVCD, nonspecific ST-T abnormality Plan: * Advised to quit smoking * Continue DAPT and statin and beta-vargas * Monitor labs * Increase ambulation today Clinical Quality Measures AMI/AHF: ASA po Prior to arrival: Yes (81 MG) ALEX HERRERA Aug 16, 2022 09:07
[2022-08-16] MEDS ORDERED: ATOR40TA70 PO (09:28)
--- NOTE | 2022-08-16 09:32 | Progress Note - Cardiology ---
Cardiology SOAP Progress Note Subjective: No cp or palp or syncope Shortness of breath is chronic. It is currently at its usual baseline She says she is willing to try statins again No n/v/d No focal weakness No groin or leg discomfort or discoloration Wishes to go home Objective: I&O/Vital Signs 08/15/22 08/15/22 08/16/22 08/16/22 22:27 23:19 01:00 03:50 Temp 37.1 36.2 Pulse 60 56 55 Resp 21 26 B/P (MAP) 153/80 (104) Pulse Ox 96 92 O2 Delivery Nasal Cannula Nasal Cannula O2 Flow Rate 2.00 2.00 08/16/22 08/16/22 08/16/22 07:16 07:36 07:53 Temp 36.3 Pulse 53 Pulse Ox 97 O2 Delivery Room Air O2 Flow Rate 0.00 08/16/22 00:00 Intake Total 2105 ml Balance 2105 ml Weight (Pounds): 188 Weight (Ounces): 3.2 Weight (Calculated Kilograms): 85.206792 Side: right Groin site without hematoma: Yes Condition: DP/PT pulses palpable, extremity w/d/p Bruising: mild bruising Constitutional: AAO x 3, well-developed, well-nourished Respiratory: No accessory muscle use; chest expansion is symmetric, other (fair air entry, prolonged exp) Cardiovascular: regular rate-rhythm, S1 and S2, systolic murmur (soft SRINIVASAN at card base) Gastrointestional: No tender; soft; No guarding, No rebound; audible bowel sounds Extremities: No clubbing, No cyanosis, No significant edema Neurologic/Psychiatric: oriented x 3, other (moves all limbs equally) Skin: warm/dry; No cyanosis, No cool, No rash, No ulcerations Results/Procedures: Labs Laboratory Tests 08/15/22 15:42: Glucometer 136H 08/15/22 20:54: Glucometer 109 08/16/22 05:00: White Blood Count 4.6, Red Blood Count 4.39, Hemoglobin 11.6, Hematocrit 36, Mean Corpuscular Volume 81, Mean Corpuscular Hemoglobin 26, Mean Corpuscular Hemoglobin Concent 33, Red Cell Distribution Width 13.2, Platelet Count 152, Mean Platelet Volume 10.6, Immature Granulocyte % (Auto) 0, Neutrophils (%) (Auto) 69, Lymphocytes (%) (Auto) 17, Monocytes (%) (Auto) 12, Eosinophils (%) (Auto) 2, Basophils (%) (Auto) 0, Neutrophils # (Auto) 3.2, Lymphocytes # (Auto) 0.8L, Monocytes # (Auto) 0.5, Eosinophils # (Auto) 0.1, Basophils # (Auto) 0.0, Immature Granulocyte # (Auto) 0.0, Sodium Level 140, Potassium Level 4.0, Chloride Level 115H, Carbon Dioxide Level 18L, Anion Gap 7, Blood Urea Nitrogen 13, Creatinine 0.71, Estimat Glomerular Filtration Rate 91, BUN/Creatinine Ratio 18, Glucose Level 103, Calcium Level 8.5, Corrected Calcium 9.2, Magnesium Level 1.7, Total Bilirubin 0.4, Aspartate Amino Transf (AST/SGOT) 24, Alanine Aminotransferase (ALT/SGPT) 11, Alkaline Phosphatase 61, Total Protein 6.1L, Albumin 3.1L, Thyroid Stimulating Hormone (TSH) 0.76 Laboratory Tests 08/14/22 18:58 08/15/22 04:23 08/16/22 05:00 A/P: Assessment: Acute NSTEMI, treated with PCI to prox LAD (see below) CAD - Card cath of 08/15/18: Coronary artery disease, multivessel. The most significant lesion was a long stenosis in the proximal left anterior descending artery (up to 95%) that was successfully stented with Sinai 2.75 x 33 mm stent and this stent slightly overlaps an old stent that is known to be a drug-eluting stent measuring 2.75 x 16 mm. The distal left anterior descending artery has moderate to moderately severe disease and is of a small caliber. The left circumflex artery is dominant and has mild disease. The right coronary artery is small and nondominant and has a long stenosis in its proximal and mid portion of up to 80%. Normal global left ventricular systolic function with ejection fraction of 65 to 70%. Normal left ventricular end diastolic pressure. No significant mitral regurgitation. No significant renal artery stenosis - Card cath of 08/09/2022: LMCA Ok. LAD 99% prox instent that was successfully treated with PTCA with reduction of stenosis to 0% and improvement of flow from LESLIE 1 to LESLIE 3. Multiple up to 50% in mid and distal LAD. LCX dominant with diffuse mild to mod disease. RCA small and nondominant with diffuse severe disease (not amenable to intervention). LVEDP 5 mmHg. LVEF 60% PAD - Mild peripheral arterial disease consisting of 30 to 40% stenosis in the right superficial femoral artery per peripheral angiogram of Aug 15, 2018 Reported intolerance to statin tx DM II Chronic tobacco use (smoking) SLE, per patient report Hypertension Chronically abnormal ECG: NSR, nonspecific IVCD, nonspecific ST-T abnormality Plan: * We discussed her cath findings and interventions undertaken and future treat ment plan with her in detail and answered questions * Again advised to quit smoking * Continue DAPT and statin and beta-vargas * We discussed statins. She says she is willing to try them again. We are o rdering atorvastatin and have advised outpt f/u Clinical Quality Measures AMI/AHF: ASA po Prior to arrival: Yes (81 MG) HELEN ADKINS MD FACP FAC CCDS Aug 16, 2022 09:32
--- NOTE | 2022-08-16 11:01 | Discharge Summary ---
Diagnosis/Chief Complaint Date of Admission Aug 14, 2022 at 20:03 Date of Discharge Discharge Summary-Simple/Stand Consultations Discharge Physical Examination Allergies: Coded Allergies: atorvastatin (Unverified Adverse Reaction, Unknown, 06/14/15) metformin (Unverified Adverse Reaction, Unknown, 06/14/15) Vitals & I&Os Vital Sign - Last 12Hours Date Time Temp Pulse Resp B/P (MAP) Pulse Ox O2 Delivery O2 Flow Rate FiO2 08/16/22 08:30 56 156/70 (98) Room Air 08/16/22 07:53 97 0.00 08/16/22 07:36 36.3 08/16/22 07:15 22 Intake and Output 08/16/22 00:00 Intake Total 2105 ml Balance 2105 ml Hospital Course See final discharge diagnosis. Discharge Instructions to patient/family Please see electronic discharge instructions given to patient. Discharge Medications Reviewed and agree with Discharge Medication list on patient's Discharge Instruction sheet Clinical Quality Measures AMI/AHF: ASA po Prior to arrival: Yes (81 MG) HUGO WOLFF MD Aug 16, 2022 11:01
--- NOTE | 2022-08-16 11:40 | Discharge Summary ---
Discharge [facility] Reconcile Patient Problems Problems Reviewed?: Yes Discharge Medications New, Converted or Re-Newed RX: Transmitted to Pharmacy New Medications: Atorvastatin Calcium (Atorvastatin Calcium) 40 Mg Tablet 40 MG PO DAILY for 30 Days, #30 TAB 5 Refills Continued Medications: Amlodipine Besylate (Amlodipine Besylate) 10 Mg Tablet 10 MG PO DAILY, TAB NOT PICKED UP YET Aspirin (Aspirin) 81 Mg Tab.chew 81 MG PO DAILY, #30 TAB Clopidogrel Bisulfate (Clopidogrel) 75 Mg Tablet 75 MG PO DAILY, #30 TAB 5 Refills Glipizide (Glipizide) 10 Mg Tablet 10 MG PO BID, TAB LAST FILLED #60 06-15-18 Hydrocodone/Acetaminophen (Hydrocodone-Acetamin 5-325 mg) 5 Mg-325 Mg Tablet 1 EACH PO Q4-6 HOURS PRN for PAIN, #20 TAB Insulin Detemir (Levemir Flextouch) 100 Unit/1 Ml Insuln.pen 30 UNITS SC HS, EA LAST FILLED 18 Insuln Asp Prt/Insulin Aspart (Novolog Mix 70-30 Flexpen Syrn) 300 Units/3 Ml Solution 20-30 UNITS SQ AC, EA LAST FILLED 07-05-18 Lisinopril (Lisinopril) 40 Mg Tablet 40 MG PO DAILY, TAB LAST FILLED #30 06-15-18 Metoprolol Tartrate (Metoprolol Tartrate) 50 Mg Tablet 100 MG PO BID, TAB Omeprazole (Omeprazole) 20 Mg Capsule.dr 20 MG PO DAILY, CAP LAST FILLED #30 18 Quetiapine Fumarate (Quetiapine Fumarate) 100 Mg Tablet 50 MG PO HS PRN for SLEEP, TAB Sertraline HCl (Sertraline HCl) 50 Mg Tablet 50 MG PO DAILY, TAB LAST FILLED #30 18 Discontinued Medications: Clonidine HCl (Clonidine HCl) 0.1 Mg Tablet 0.1 MG PO BID, TAB LAST FILLED #60 18 Meloxicam (Meloxicam) 15 Mg Tablet 15 MG PO DAILY PRN for NECK PAIN, TAB Patient Instructions Goal/Follow Up Appt: Dr Nguyen in 1-2 weeks Activity & Diet Discharge Diet: ADA Diet, Cardiac Diet Activity as Tolerated: Yes HUGO WOLFF MD Aug 16, 2022 11:40
== END 2022-08-16 15:02 | disposition home or self-care (01) | DRG 247 ==
LOC: EDUNIT# 18:54 → ER 18:56 → CSD 20:03
PROVIDERS: ADMIT Internal Medicine; ATTEND Family Medicine
PROC: 027034Z Dilation of Coronary Artery, One Artery with Drug-eluting Intraluminal Device, Percutaneous Approach (ICD-10-PCS; principal; 2022-08-15)
PROC: 4A023N7 Measurement of Cardiac Sampling and Pressure, Left Heart, Percutaneous Approach (ICD-10-PCS; 2022-08-15)
PROC: B2101ZZ Fluoroscopy of Single Coronary Artery using Low Osmolar Contrast (ICD-10-PCS; 2022-08-15)
PROC: B2151ZZ Fluoroscopy of Left Heart using Low Osmolar Contrast (ICD-10-PCS; 2022-08-15)
DX: I21.4 Non-ST elevation (NSTEMI) myocardial infarction (principal); T82.855A Stenosis of coronary artery stent, initial encounter; I25.110 Atherosclerotic heart disease of native coronary artery with unstable angina pectoris; M32.9 Systemic lupus erythematosus, unspecified; F17.210 Nicotine dependence, cigarettes, uncomplicated; I10 Essential (primary) hypertension; E78.5 Hyperlipidemia, unspecified; I25.2 Old myocardial infarction; E11.42 Type 2 diabetes mellitus with diabetic polyneuropathy; K21.9 Gastro-esophageal reflux disease without esophagitis; M19.90 Unspecified osteoarthritis, unspecified site; G89.29 Other chronic pain; M54.9 Dorsalgia, unspecified; F32.A Depression, unspecified; E11.51 Type 2 diabetes mellitus with diabetic peripheral angiopathy without gangrene
CPT/HCPCS: 36415; 71045; 80053; 80061; 82150; 82550; 82553; 82947; 83690; 83735; 83874; 83880; 84443; 84484; 85025; 85379; 85610; 85730; 93005; 93041; 93306; 93458; 94640; 94760

== ENCOUNTER 2022-10-12 03:25 | Inpatient (IN) | payer MEDICAID ==
[~2022-10-12] VITALS: Ht 160 cm; Wt 85.4 kg
[~2022-10-12 03:25] MED LIST changes: +ATOR40TA70 PO
[2022-10-12] MEDS ORDERED: NS IV 1000 ML 1,000 ML IV SCH (03:45)
[2022-10-12] MEDS ORDERED: ACETAMINOPHEN 650 MG SUPP (TYLENOL) PR ONE (03:45)
[2022-10-12 03:46] LABS: BASOPHILS % (AUTO) 0 % (0-10); EOSINOPHILS % (AUTO) 0 % (0-10); HEMATOCRIT 41 % (35-52); HEMOGLOBIN 13.8 g/dL (11.5-16.0); LYMPHOCYTES # (AUTO) 0.4 10^3/uL (1.0-4.0); LYMPHOCYTES % (AUTO) 4 % (12-44); MEAN CORPUSCULAR HEMOGLOBIN 27 pg (25-34); MEAN CORPUSCULAR HGB CONC 34 g/dL (32-36); MEAN CORPUSCULAR VOLUME 80 fL (80-99); MEAN PLATELET VOLUME 10.3 fL (9.0-12.2); MONOCYTES % (AUTO) 0 % (0-12); NEUTROPHILS # (AUTO) 8.5 10^3/uL (1.8-7.8); NEUTROPHILS % (AUTO) 95 % (42-75); PLATELET COUNT 205 10^3/uL (130-400)
[2022-10-12 03:57] LABS: ALBUMIN 3.8 GM/DL (3.2-4.5)
[2022-10-12 03:58] LABS: CALCIUM 9.2 MG/DL (8.5-10.1)
[2022-10-12 03:59] LABS: TOTAL PROTEIN 7.5 GM/DL (6.4-8.2)
[2022-10-12 04:00] LABS: BILIRUBIN,URINE NEGATIVE (NEGATIVE); CLARITY,URINE SL CLOUDY; COLOR,URINE YELLOW; GLUCOSE, URINE (UA) NEGATIVE (NEGATIVE); KETONES,URINE NEGATIVE (NEGATIVE); LEUKOCYTE ESTERASE ,URINE NEGATIVE (NEGATIVE); NITRITE,URINE NEGATIVE (NEGATIVE); PROTEIN,URINE 2+ (NEGATIVE)
[2022-10-12 04:00] LABS: PROTHROMBIN TIME PATIENT 13.6 SEC (12.2-14.7)
[2022-10-12 04:01] LABS: BILIRUBIN,TOTAL 0.6 MG/DL (0.1-1.0)
[2022-10-12 04:03] LABS: CREATININE SERUM 0.79 MG/DL (0.60-1.30); MAGNESIUM 1.7 MG/DL (1.6-2.4)
[2022-10-12 04:09] LABS: BACTERIA,URINE LARGE /HPF; RBC,URINE 0-2 /HPF; SQUAMOUS EPITHELIAL CELL,UR RARE /HPF
[2022-10-12 04:10] LABS: HYALINE CASTS, URINE 0-2 /LPF
[2022-10-12 04:38] LABS: BAND NEUTROPHILS 74 %; ELLIPT/OVALOCYTES MODERATE; EOSINOPHILS % (MANUAL) 1 %; LYMPHOCYTES % (MANUAL) 5 %; MICROCYTOSIS SLIGHT; MONOCYTES % (MANUAL) 1 %; NEUTROPHILS % (MANUAL) 89 %
[2022-10-12] MEDS ORDERED: morphine INJ 10 MG/ML 1ML (SYR OR VIAL) IVP STA (04:40)
[2022-10-12] MEDS ORDERED: PIPERACILLIN SODIUM/TAZOBACTAM 4.5 GM in NS (IVPB) 100 ML IV ONE (04:45)
[2022-10-12] MEDS ORDERED: ASPIRIN 81 MG CHEW (CHILDREN'S ASA) PO ONE (04:45)
--- NOTE | 2022-10-12 04:49 | ED General ---
General Chief Complaint: Altered Mental Status Stated Complaint: CP Nursing Triage Note: TO ED ROOM 7 VIA [facility] FROM [facility]PROX 2 BLOCKS FROM ER. PER EMS PT SON THINKS SHE IS HAVING A HEART ATTACK, BUT WILL NOT ANSWER QUESTIONS FOR EMS. ON ARRIVAL TO ER PT EYES OPEN, BUT WILL NOT ANSWER QUESTIONS. PT SKIN WARM TO TOUCH, SKIN PALE, AND IS LETHARGIC. SINUS TACHY ON 3 LEAD BEDSIDE MONITOR 130s WITH SUSPICIOUS RHYTHM AND ZOLL PATCHES APPLIED TO PT. DR. DÍAZ AT BEDSIDE DURING ARRIVAL. UNABLE TO OBTAIN PMH FROM PT AT THIS TIME, OLD RECORDS USED. PT BROUGHT BY [facility], NO IV OR EKG OBTAINED EN ROUTE. Source of Information: Patient, EMS, Family Exam Limitations: Other (Clinical condition, confused with fever) History of Present Illness Date Seen by Provider: Oct 12, 2022 Time Seen by Provider: 03:26 Initial Comments This is a 72-year-old woman presents to the emergency room via EMS with complaints of possible heart attack per patient's son. Patient is not talking at the time of arrival. She is found to be febrile with a temperature of 103.2 and tachycardia. She does respond to voice and touch but does not answer questions. Later, as she becomes more cognizant, she complains of chest pain. Patient has history of NSTEMI in July of last year. She had balloon angioplasty of an in-stent restenosis at that time. She has not been feeling well for a few days and complained of achiness in her legs. Allergies and Home Medications Allergies Coded Allergies: atorvastatin (Unverified Adverse Reaction, Unknown, 06/14/15) metformin (Unverified Adverse Reaction, Unknown, 06/14/15) Patient Home Medication List Home Medication List Reviewed: Yes Amlodipine Besylate (Amlodipine Besylate) 10 Mg Tablet, 10 MG PO DAILY, (Reported) Entered as Reported by: PEPITO FRANZ on 08/15/18 1221 Last Action: Reviewed Insulin Detemir (Levemir Flextouch) 100 Unit/Ml (3 Ml) Insuln.pen, 20 UNITS SC BID PRN for HYPERGLYCEMIA, (Reported) Entered as Reported by: CHRISS GA on 06/28/18 7117 Last Action: Reviewed Meloxicam (Meloxicam) 15 Mg Tablet, 15 MG PO DAILY, (Reported) Entered as Reported by: FORREST VIVAR on 10/12/22 1421 Last Action: Reviewed Metoprolol Tartrate (Metoprolol Tartrate) 50 Mg Tablet, 50 MG PO BID, (Reported) Entered as Reported by: CHRISS GA on 06/28/181733 Last Action: Reviewed Discontinued Medications Aspirin (Aspirin) 81 Mg Tab.chew, 81 MG PO DAILY Discontinued Reason: No Longer Taking Prescribed by: ALEX HERRERA on 08/16/18918 Last Action: Discontinued Atorvastatin Calcium (Atorvastatin Calcium) 40 Mg Tablet, 40 MG PO DAILY Discontinued Reason: No Longer Taking Prescribed by: HELEN ADKINS on 08/16/22927 Last Action: Discontinued Clopidogrel Bisulfate (Clopidogrel) 75 Mg Tablet, 75 MG PO DAILY Discontinued Reason: No Longer Taking Prescribed by: ALEX HERRERA on 08/16/18918 Last Action: Discontinued Glipizide (Glipizide) 10 Mg Tablet, 10 MG PO BID, (Reported) Discontinued Reason: No Longer Taking Entered as Reported by: CHRISS GA on 06/28/181733 Last Action: Discontinued Hydrocodone/Acetaminophen (Hydrocodone-Acetamin 5-325 mg) 5 Mg-325 Mg Tablet, 1 EACH PO Q4-6 HOURS PRN for PAIN Discontinued Reason: No Longer Taking Prescribed by: ARCHIE APONTE on 02/03/225 Last Action: Discontinued Insuln Asp Prt/Insulin Aspart (Novolog Mix 70-30 Flexpen Syrn) 300 Units/3 Ml Solution, 20-30 UNITS SQ AC, (Reported) Discontinued Reason: No Longer Taking Entered as Reported by: PEPITO FRANZ on 08/15/18 1232 Last Action: Discontinued Lisinopril (Lisinopril) 40 Mg Tablet, 40 MG PO DAILY, (Reported) Discontinued Reason: No Longer Taking Entered as Reported by: CHRISS GA on 06/28/181733 Last Action: Discontinued Omeprazole (Omeprazole) 20 Mg Capsule.dr, 20 MG PO DAILY, (Reported) Discontinued Reason: No Longer Taking Entered as Reported by: CHRISS GA on 06/28/181736 Last Action: Discontinued Quetiapine Fumarate (Quetiapine Fumarate) 100 Mg Tablet, 50 MG PO HS PRN for SLEEP, (Reported) Discontinued Reason: No Longer Taking Entered as Reported by: CHRISS GA on 10/31/18 1737 Last Action: Discontinued Sertraline HCl (Sertraline HCl) 50 Mg Tablet, 50 MG PO DAILY, (Reported) Discontinued Reason: No Longer Taking Entered as Reported by: JOVI SOL on 08/27/16 1042 Last Action: Discontinued Review of Systems Review of Systems Constitutional: see HPI EENTM: no symptoms reported Respiratory: no symptoms reported Cardiovascular: see HPI Gastrointestinal: no symptoms reported Genitourinary: no symptoms reported : No Musculoskeletal: see HPI Skin: no symptoms reported Psychiatric/Neurological: See HPI Hematologic/Lymphatic: No Symptoms Reported Immunological/Allergic: no symptoms reported Past Jqnlhym-Pcvkek-Nojeuu Hx Patient Social History Tobacco Use?: Yes Tobacco type used: Cigarettes Smoking Status: Current Everyday Smoker Immunizations Up To Date Tetanus Booster (TDap): More than 5yrs First/Initial COVID19 Vaccinat: no Second COVID19 Vaccination Jordan: no Third COVID19 Vaccination Date: no Seasonal Allergies Seasonal Allergies: No Past Medical History Surgery/Hospitalization HX: APPY, CARDIAC CATH Surgeries: Yes (CARDIAC CATH--STENT X 2; EXCISION OF LESION LEFT NOSTRIL WITH FS & GRAFT) Appendectomy, Cardiac, Section, Coronary Stent, Gallbladder, Vascular Surgery Respiratory: Yes ("BREATHING PROBLEMS" ) Pneumonia, Chronic Bronchitis Currently Using CPAP: No Currently Using BIPAP: No Cardiac: Yes (CARDIAC CATHS WITH STENTS X 2 TO LAD) Coronary Artery Disease, Heart Attack, Hypertension, Peripheral Vascular Neurological: Yes Neuropathy Reproductive Disorders: No Female Reproductive Disorders: Ovarian Cyst [employer]TING [employer]ACHINE [employer] History: Menopausal Genitourinary: No Gastrointestinal: Yes Gastroesophageal Reflux, Chronic Constipation, Hemorrhoids, Chronic Diarrhea, Polyps, Gall Bladder Disease Musculoskeletal: Yes (LUPUS; CHRONIC NECK AND BACK PAIN AND KNEE PAIN ) Arthritis, Back Injury, Chronic Back Pain, Fractures Endocrine: Yes Diabetes, Insulin dep, Lupus HEENT: Yes Tinnitis Cancer: No Skin Psychosocial: Yes Depression Integumentary: No Blood Disorders: No Family Medical History Diabetes mellitus 19 MOTHER FH: lung cancer 19 FATHER Hypertension 19 MOTHER Heart Disease, Cancer, CAD Under 55 Years Old, Diabetes, Hypertension PT WITH HISTORY OF NON-COMPLIANCE IN ALL ASPECTS OF CARE SOCIAL HISTORY: -SMOKES 1 PPD -DENIES ETOH USE -DENIES DRUG USE PAST SURGICAL HISTORY: -CARDIAC CATH 10/[address] BRAY: ANGIOPLASTY + STENT X 1 TO LAD -CARDIAC CATH 07/[address] ADKINS MULTIVESSEL DISEASE ANGIOOPLASTY + STENT X 1 TO LAD EF 65-70% MILD PERIPHERAL ARTERY DISEASE 30-40% STENOSIS TO RIGHT S.F.A. NO INTERVENTION NO SIGNIFICANT RENAL ARTERY DISEASE Physical Exam-Suspected Sepsis Physical Exam Vital Signs Vital Signs - First Documented 10/12/22 05:26 O2 Flow Rate 2.00 Capillary Refill : Less Than 3 Seconds Blood Pressure Mean: 104 Height, Weight, BMI Height: 5'3.00" Weight: 188lbs. 3.2oz. 85.057541bf; 23.47 BMI Method:Stated General Appearance: WD/WN, Mild Distress HEENT: PERRL/EOMI, Normal ENT Inspection Neck: Normal Inspection; No JVD Respiratory: Lungs Clear, No Accessory Muscle Use, No Respiratory Distress, Decreased Breath Sounds Cardiovascular: No Edema, No Murmur, Tachycardia (Regular) Gastrointestinal: Non Tender, Soft Extremity: Normal Inspection, No Pedal Edema Neurologic/Psychiatric: Alert, Oriented x3, No Motor/Sensory Deficits, Normal Mood/Affect, member of the [employer] II-XII Norm as Tested Skin: normal color, warm/dry Focused Exam Sepsis Stage: Severe Sepsis Possible Source: Pulmonary Lactate Level 10/12/22 03:35: Lactic Acid Level 5.13*H 10/12/22 05:10: Lactic Acid Level 2.64*H 10/12/22 07:11: Lactic Acid Level 1.24 Time of Focused Exam: 04:40 Respiratory: Lungs Clear, Decreased Breath Sounds Cardiovascular: No Edema, No Murmur, Tachycardia Skin: normal color, warm/dry Lactic Acid Level Within 3hrs of presentation: Admin fluids, Admin ABX, Blood cultures prior to ABX's, Focus exam, Lactate level Progress/Results/Core Measures Suspected Sepsis SIRS Temperature: Pulse: 130 Respiratory Rate: 14 Laboratory Tests 10/12/22 03:35: White Blood Count 9.0 10/13/22 03:28: White Blood Count 4.8 10/14/22 03:55: White Blood Count 5.1 Blood Pressure 142 /86 Mean: 104 10/12/22 03:35: Lactic Acid Level 5.13*H 10/12/22 05:10: Lactic Acid Level 2.64*H 10/12/22 07:11: Lactic Acid Level 1.24 Laboratory Tests 10/12/22 03:35: Creatinine 0.79, INR Comment 1.0, Platelet Count 205, Total Bilirubin 0.6 10/13/22 03:28: Creatinine 0.73, Platelet Count 133, Total Bilirubin 0.4 10/14/22 03:55: Creatinine 0.64, Platelet Count 122L, Total Bilirubin 0.3 Results/Orders Lab Results Laboratory Tests Test 10/12/22 20:31 10/13/22 03:28 10/13/22 05:59 10/13/22 11:09 Range/Units Glucometer 119 H 120 H 119 H 70-110 MG/DL White Blood Count 4.8 4.3-11.0 10^3/uL Red Blood Count 3.99 3.80-5.11 10^6/uL Hemoglobin 10.6 #L 11.5-16.0 g/dL Hematocrit 33 L 35-52 % Mean Corpuscular Volume 82 80-99 fL Mean Corpuscular Hemoglobin 27 25-34 pg Mean Corpuscular Hemoglobin Concent 33 32-36 g/dL Red Cell Distribution Width 13.9 10.0-14.5 % Platelet Count 133 130-400 10^3/uL Mean Platelet Volume 11.4 9.0-12.2 fL Immature Granulocyte % (Auto) 0 % Neutrophils (%) (Auto) 69 42-75 % Lymphocytes (%) (Auto) 17 12-44 % Monocytes (%) (Auto) 11 0-12 % Eosinophils (%) (Auto) 2 0-10 % Basophils (%) (Auto) 0 0-10 % Neutrophils # (Auto) 3.3 1.8-7.8 10^3/uL Lymphocytes # (Auto) 0.8 L 1.0-4.0 10^3/uL Monocytes # (Auto) 0.5 0.0-1.0 10^3/uL Eosinophils # (Auto) 0.1 0.0-0.3 10^3/uL Basophils # (Auto) 0.0 0.0-0.1 10^3/uL Immature Granulocyte # (Auto) 0.0 0.0-0.1 10^3/uL Sodium Level 141 135-145 MMOL/L Potassium Level 3.6 3.6-5.0 MMOL/L Chloride Level 114 H 98-107 MMOL/L Carbon Dioxide Level 18 L 21-32 MMOL/L Anion Gap 9 5-14 MMOL/L Blood Urea Nitrogen 13 7-18 MG/DL Creatinine 0.73 0.60-1.30 MG/DL Estimat Glomerular Filtration Rate 88 BUN/Creatinine Ratio 18 Glucose Level 131 H 70-105 MG/DL Calcium Level 8.3 L 8.5-10.1 MG/DL Corrected Calcium 9.3 8.5-10.1 MG/DL Phosphorus Level 2.5 2.3-4.7 MG/DL Magnesium Level 1.7 1.6-2.4 MG/DL Total Bilirubin 0.4 0.1-1.0 MG/DL Aspartate Amino Transf (AST/SGOT) 134 H 5-34 U/L Alanine Aminotransferase (ALT/SGPT) 58 H 0-55 U/L Alkaline Phosphatase 65 40-136 U/L Troponin I 40.142 *H <0.028 NG/ML Total Protein 5.6 L 6.4-8.2 GM/DL Albumin 2.7 L 3.2-4.5 GM/DL Triglycerides Level 97 <150 MG/DL Cholesterol Level 94 < 200 MG/DL LDL Cholesterol Direct 50 1-129 MG/DL VLDL Cholesterol 19 5-40 MG/DL HDL Cholesterol 22 L 40-60 MG/DL Test 10/13/22 15:26 10/13/22 20:09 10/14/22 03:55 10/14/22 11:05 Range/Units Glucometer 162 H 126 H 102 70-110 MG/DL White Blood Count 5.1 4.3-11.0 10^3/uL Red Blood Count 3.96 3.80-5.11 10^6/uL Hemoglobin 10.6 L 11.5-16.0 g/dL Hematocrit 32 L 35-52 % Mean Corpuscular Volume 81 80-99 fL Mean Corpuscular Hemoglobin 27 25-34 pg Mean Corpuscular Hemoglobin Concent 33 32-36 g/dL Red Cell Distribution Width 13.8 10.0-14.5 % Platelet Count 122 L 130-400 10^3/uL Mean Platelet Volume 11.6 9.0-12.2 fL Immature Granulocyte % (Auto) 0 % Neutrophils (%) (Auto) 77 H 42-75 % Lymphocytes (%) (Auto) 11 L 12-44 % Monocytes (%) (Auto) 10 0-12 % Eosinophils (%) (Auto) 2 0-10 % Basophils (%) (Auto) 0 0-10 % Neutrophils # (Auto) 3.9 1.8-7.8 10^3/uL Lymphocytes # (Auto) 0.6 L 1.0-4.0 10^3/uL Monocytes # (Auto) 0.5 0.0-1.0 10^3/uL Eosinophils # (Auto) 0.1 0.0-0.3 10^3/uL Basophils # (Auto) 0.0 0.0-0.1 10^3/uL Immature Granulocyte # (Auto) 0.0 0.0-0.1 10^3/uL Percent Immature Platelet Fraction 5.4 0.0-7.6 % Sodium Level 140 135-145 MMOL/L Potassium Level 3.7 3.6-5.0 MMOL/L Chloride Level 113 H 98-107 MMOL/L Carbon Dioxide Level 19 L 21-32 MMOL/L Anion Gap 8 5-14 MMOL/L Blood Urea Nitrogen 7 7-18 MG/DL Creatinine 0.64 0.60-1.30 MG/DL Estimat Glomerular Filtration Rate 95 BUN/Creatinine Ratio 11 Glucose Level 143 H 70-105 MG/DL Calcium Level 8.2 L 8.5-10.1 MG/DL Corrected Calcium 9.1 8.5-10.1 MG/DL Phosphorus Level 2.2 L 2.3-4.7 MG/DL Magnesium Level 2.0 1.6-2.4 MG/DL Total Bilirubin 0.3 0.1-1.0 MG/DL Aspartate Amino Transf (AST/SGOT) 61 H 5-34 U/L Alanine Aminotransferase (ALT/SGPT) 40 0-55 U/L Alkaline Phosphatase 64 40-136 U/L Total Protein 5.9 L 6.4-8.2 GM/DL Albumin 2.9 L 3.2-4.5 GM/DL Test 10/14/22 17:05 Range/Units Glucometer 95 70-110 MG/DL My Orders Medications Given in ED Vital Signs/I&O 10/14/22 10/14/22 10/14/22 10/14/22 06:00 07:00 07:00 07:00 Pulse 74 89 86 Resp 28 25 B/P (MAP) 165/84 (111) Pulse Ox 96 100 O2 Delivery Room Air Nasal Cannula Room Air O2 Flow Rate 5.00 2/1610/14/22 10/14/22 10/14/22 07:45 07:58 08:00 09:00 Temp 36.9 Pulse 84 92 Resp 34 20 B/P (MAP) 168/94 (140) 171/90 (113) Pulse Ox 96 97 O2 Delivery Nasal Cannula Room Air Room Air O2 Flow Rate 2.00 10/14/22 10/14/22 10/14/22 10/14/22 09:42 12:00 12:00 12:00 Temp 36.7 Pulse 80 B/P (MAP) 143/84 (103) Pulse Ox 90 O2 Delivery Nasal Cannula Nasal Cannula Nasal Cannula O2 Flow Rate 4.00 4.00 4.00 10/14/22 10/14/22 10/14/22 12:52 14:00 16:03 Temp 36.7 Pulse 82 81 Resp 20 B/P (MAP) 148/78 (101) Pulse Ox 91 95 O2 Delivery Room Air Room Air Capillary Refill : Less Than 3 Seconds Blood Pressure Mean: 104 Point of Care Testing Finger Stick Blood Glucose: 157 Blood Glucose Action Taken: DR. WRIGHT NOTIFIED. Progress Note #1: Time: 04:50 Progress Note Patient was interviewed and examined upon arrival. Report was received from EMS and later from patient's son. Septic work-up was pursued. Influenza and COVID screens were negative. Patient was treated with Tylenol suppository and IV fluids. She was found to have significantly elevated lactic acid and a bump to troponin. As she became more alert she complained more of chest pain. This is being treated with aspirin and morphine. Patient was found to have probable pneumonia with lower lobe infiltrates. There was also suggestion of urinary tract infection. Initial antibiotic therapy is being administered with Zosyn. Progress Note #2: Time: 05:[address] Bray's recommendations, Lovenox and nitroglycerin are being administered. Patient is being admitted to the fifth floor. DuoNeb is being administered by nebulizer for decreased air movement. Systolic blood pressure is now 113. We will hold off on the nitroglycerin for the time being and initiate the second liter of IV fluid. Patient will need a total bolus of 2500 mL to complete 30 mL/kg milligram and boluses. ECG Initial ECG Impression Date: Oct 12, 2022 Initial ECG Impression Time: 03:31 Initial ECG Rate: 131 Initial ECG Rhythm: S.Tach Comment Sinus tachycardia with no STEMI or ischemic ST depression. Right bundle branch block with widening of the QRS. No axis deviation. EKG : EKG Time: 07:10 Rate: 91 Rhythm: Normal Sinus Comment Sinus rhythm with no ST elevation or depression. Right bundle branch block. No axis deviation. PVCs noted. Diagnostic Imaging Diagonstic Imaging: Xray Plain Films/CT/US/NM/MRI: chest Comments Chest x-ray reviewed by me. There appeared to be bilateral lower lobe infiltrates consistent with pneumonia. Radiologist's report not yet available. Departure Communication (Admissions) Time/Spoke to Admitting Phy: 05:06 Dr. Briones Time/Spoke to Consulting Phy: 05:04 Dr. Bray Impression Primary Impression: Severe sepsis Additional Impressions: Pneumonia Qualified Codes: J18.9 - Pneumonia, unspecified organism NSTEMI (non-ST elevated myocardial infarction) Altered mental status Qualified Codes: R41.82 - Altered mental status, unspecified Urinary tract infection Qualified Codes: N39.0 - Urinary tract infection, site not specified Disposition: ADMITTED INPATIENT Condition: Stable Admissions Decision to Admit Reason: Admit from ER (General) Decision to Admit/Date: Oct 12, 2022 Time/Decision to Admit Time: 05:04 Departure-Patient Inst. Referrals: MIAN YOON MD (PCP/Family) Primary Care Physician Copy Copies To 1: MIAN YOON MD, JOSHUA T MD Oct 12, 2022 04:49
[2022-10-12] MEDS ORDERED: RT-ALBUTEROL/IPRATROPIUM 3 ML (DUONEB) VIAL INH ONE (05:00)
[2022-10-12] MEDS ORDERED: ENOXAPARIN 80 MG/0.8 ML (LOVENOX) SYR SC ONE (05:15)
[2022-10-12] MEDS ORDERED: LACTATED RINGERS 1,000 ML IV ONE (05:15)
[2022-10-12] MEDS ORDERED: NITROGLYCERIN 0.4 MG SL TABS BTL 25'S SL PRN (05:15)
--- NOTE | 2022-10-12 06:43 | Diagnostic Imaging Report ---
INDICATION: Tachycardia, fever. COMPARISON: 08/14/2022 FINDINGS: No convincing alveolar consolidation. There may be early patchy infiltrate developing in the right greater than left lung bases laterally. The heart size upper limits but stable. No overt failure pattern. No vascular congestion, effusion or pneumothorax. IMPRESSION: Equivocal findings for early patchy developing right greater than left basilar infiltrates but no other potential interval change found from prior. Dictated by: Dictated on workstation # [id number]
[2022-10-12 07:53] VITALS: BP 104/58
--- NOTE | 2022-10-12 08:27 | Consultation-Cardiology ---
HPI-Cardiology Cardiology Consultation Date of Consultation 10/12/22 Date of Admission Time Seen by Provider: 08:21 Indication: Chest pain HPI Patient is a 72 y/o female with history of CAD, HTN, HLP, DM. Presented to ER with complaints of increased dyspnea, fever and cough x 2 days. Reports intermittent episode of chest pain for the past 2 days. Denies any dizziness or lightheadedness. Home Medications & Allergies Allergies: Coded Allergies: atorvastatin (Unverified Adverse Reaction, Unknown, 06/14/15) metformin (Unverified Adverse Reaction, Unknown, 06/14/15) Home Medication List Reviewed: Yes [id number]-Dtadpr Hx Patient Social History Marital Status: single Smoking Status: Current Everyday Smoker Former smoker/When Quit: Oct 27, 2012 Type Used: Cigarettes 2nd Hand Smoke Exposure: Yes Recent Hopitalizations: No Immunizations Up To Date Tetanus Booster (TDap): More than 5yrs Date of Pneumonia Vaccine: Oct 29, 2012 Date of Influenza Vaccine: May 31, 2013 Past Medical History CAD, HTN, HLP, DM Family Medical History Significant Family History: Heart Disease, Cancer, CAD Under 55 Years Old, Diabetes, Hypertension Family History: Diabetes mellitus 19 MOTHER FH: lung cancer 19 FATHER Hypertension 19 MOTHER Review of Systems-General Review of Systems Constitutional: see HPI, malaise, weakness EENTM: no symptoms reported; No blurred vision, No double vision Respiratory: no symptoms reported, cough, dyspnea on exertion, short of breath Cardiovascular: see HPI, chest pain, Hx of Intervention, palpitations, vascular heart diseas Gastrointestinal: no symptoms reported Genitourinary: no symptoms reported : No Musculoskeletal: see HPI Skin: no symptoms reported Psychiatric/Neurological: See HPI Reviewed Test Results Reviewed Test Results Lab Laboratory Tests 10/12/22 03:31: Glucometer 157H 10/12/22 03:35: White Blood Count 9.0, Red Blood Count 5.16H, Hemoglobin 13.8, Hematocrit 41, Mean Corpuscular Volume 80, Mean Corpuscular Hemoglobin 27, Mean Corpuscular Hemoglobin Concent 34, Red Cell Distribution Width 13.4, Platelet Count 205, Mean Platelet Volume 10.3, Immature Granulocyte % (Auto) 0, Neutrophils (%) (Auto) 95H, Lymphocytes (%) (Auto) 4L, Monocytes (%) (Auto) 0, Eosinophils (%) (Auto) 0, Basophils (%) (Auto) 0, Neutrophils # (Auto) 8.5H, Lymphocytes # (Auto) 0.4L, Monocytes # (Auto) 0.0, Eosinophils # (Auto) 0.0, Basophils # (Au to) 0.0, Immature Granulocyte # (Auto) 0.0, Neutrophils % (Manual) 89, Lymphocytes % (Manual) 5, Monocytes % (Manual) 1, Eosinophils % (Manual) 1, Band Neutrophils 74, Microcytosis SLIGHT, Elliptocytes MODERATE, Prothrombin Time 13.6, INR Comment 1.0, Activated Partial Thromboplast Time 32, Sodium Level 139, Potassium Level 4.0, Chloride Level 109H, Carbon Dioxide Level 16L, Anion Gap 14, Blood Urea Nitrogen 17, Creatinine 0.79, Estimat Glomerular Filtration Rate 80, BUN/Creatinine Ratio 22, Glucose Level 187H, Lactic Acid Level 5.13*H, Calcium Level 9.2, Corrected Calcium 9.4, Magnesium Level 1.7, Total Bilirubin 0.6, Aspartate Amino Transf (AST/SGOT) 22, Alanine Aminotransferase (ALT/SGPT) 13, Alkaline Phosphatase 76, Myoglobin 462.5H, Troponin I 0.240H, C-Reactive Protein High Sensitivity 0.49, B-Type Natriuretic Peptide 51.0, Total Protein 7.5, Albumin 3.8 10/12/22 03:40: Influenza Type A (RT-PCR) Not Detected, Influenza Type B (RT-PCR) Not Detected, SARS-CoV-2 RNA (RT-PCR) Not Detected 10/12/22 03:45: Urine Color YELLOW, Urine Clarity SL CLOUDY, Urine pH 6.0, Urine Specific Gravi ty 1.025H, Urine Protein 2+H, Urine Glucose (UA) NEGATIVE, Urine Ketones NEGATIVE, Urine Nitrite NEGATIVE, Urine Bilirubin NEGATIVE, Urine Urobilinogen 1.0, Urine Leukocyte Esterase NEGATIVE, Urine RBC (Auto) NEGATIVE, Urine RBC 0- 2, Urine WBC 2-5, Urine Squamous Epithelial Cells RARE, Urine Crystals NONE, Urine Bacteria LARGEH, Urine Casts PRESENT, Urine Hyaline Casts 0-2H, Urine Mucus NEGATIVE, Urine Culture Indicated CULTURE PENDING 10/12/22 05:10: Lactic Acid Level 2.64*H 10/12/22 07:11: Lactic Acid Level 1.24 10/12/22 07:59: ECG Impression ECG Initial ECG Rhythm: S.Tach Physical Exam Physical Exam Vital Signs Vital Signs - First Documented 10/12/22 05:26 O2 Flow Rate 2.00 Capillary Refill : Less Than 3 Seconds Height, Weight, BMI Height: 5'3.00" Weight: 188lbs. 3.2oz. 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 Initial EKG showing sinus tachycardia, repeat EKG with SR with PVCs, PAC, RBBB, nondiagnostic changes. Currently denies any chest pain, will continue to monitor. Non-ST elevation myocardial infarction, EKG showing minimal changes Patient has been having waxing and waning chest pain Cardiac catheterization done in July 2022 with severe disease in the small right coronary artery and moderate disease in the distal LAD that is inoperable. Patient has balloon angioplasty for in-stent restenosis in the proximal LAD. I will continue with conservative management, restart aspirin and Plavix and add Lovenox and monitor. CAD - Card cath of 08/15/18: Coronary artery disease, multivessel. The most significant lesion was a long stenosis in the proximal left anterior descending artery (up to 95%) that was successfully stented with [facility] 2.75 x 33 mm stent and this stent slightly overlaps an old stent that is known to be a drug-eluting stent measuring 2.75 x 16 mm. The distal left anterior descending artery has moderate to moderately severe disease and is of a small caliber. The left circumflex artery is dominant and has mild disease. The right coronary artery is small and nondominant and has a long stenosis in its proximal and mid portion of up to 80%. Normal global left ventricular systolic function with ejection fraction of 65 to 70%. Normal left ventricular end diastolic pressure. No signif icant mitral regurgitation. No significant renal artery stenosis - Card cath of 08/09/2022: LMCA Ok. LAD 99% prox instent that was successfully treated with PTCA with reduction of stenosis to 0% and improvement of flow from LESLIE 1 to LESLIE 3. Multiple up to 50% in mid and distal LAD. LCX dominant with diffuse mild to mod disease. RCA small and nondominant with diffuse severe disease (not amenable to intervention). LVEDP 5 mmHg. LVEF 60% Has been maintained on Plavix and ASA Pneumonia with sepsis, management per medical services UTI, management per medical services. PAD, Mild peripheral arterial disease consisting of 30 to 40% stenosis in the right superficial femoral artery per peripheral angiogram of Aug 15, 2018 Hyperlipidemia, Reported intolerance to statin tx. I will evaluate lipid profile. DM II Chronic tobacco use (smoking) SLE, per patient report Hypertension, restart home blood pressure medication and continue to monitor. Chronic RBBB Thank you for allowing us to participate in the management of Ms Vincent. This is Jennifer Ventura PA-C as a scribe for DR Bray. Patient was seen and evaluated with Jennifer, I interviewed and examined the patient, discussed the management plan with Jennifer, made few modification to the note using Italic font Patient has non-ST elevation myocardial infarction, conservative management is recommended as described above Started on antibiotic for her pneumonia, UTI and sepsis Monitor blood pressure Continue to monitor JENNIFER IYER Oct 12, 2022 08:27 CONNIE BRAY MD Oct 12, 2022 08:48
[2022-10-12] MEDS ORDERED: morphine INJ 4 MG/ML 1 ML (VIAL/SYRINGE) IV PRN (08:30)
[2022-10-12] MEDS ORDERED: LACTATED RINGERS 1,000 ML IV SCH (08:30)
[2022-10-12] MEDS ORDERED: ONDANSETRON 4 MG/2 ML (SDV) Z0FRAN IV PRN (08:30)
[2022-10-12] MEDS ORDERED: VANCOMYCIN INJECTION 0.1 MG in NS (IVPB) 250 ML IV SCH (08:45)
[2022-10-12] MEDS: LACTATED RINGERS 1,000 ML IV SCH ×3 (08:48→23:36)
[2022-10-12] MEDS ORDERED: VANCOMYCIN 1250 MG/NS 250 ML IVPB IV NR ×2 (09:00)
[2022-10-12] MEDS: CLOPIDOGREL 75 MG (PLAVIX) TABLET PO SCH (09:42)
[2022-10-12] MEDS: ASPIRIN E.C. 81 MG (ECOTRIN) TAB PO SCH (09:42)
[2022-10-12] MEDS: PANTOPRAZOLE 40 MG (PROTONIX) TAB PO SCH (09:42)
--- NOTE | 2022-10-12 10:09 | Tele-ICU Consult ---
History of Present Illness History of Present Illness Date Seen by Provider: Oct 12, 2022 Time Seen by Provider: 10:08 Reason for Visit: Chest pain History of Present Illness (Tele-ICU Physician , consultation as per request of PCP Service provided via interactive audio and video telecommunications E-CARE system to a patient admitted to ICU bed in [facility]. Available chart/ vitals / labs / Images reviewed H&P is from ER notes Patient's information available about PMH, Shx, Fhx allergy reviewed inEMR. ROS as per chart and RN report Now in ICU, hemodynamically stable Video assessment done using teleICU camera, rest of exam as per RN Discussed with RN. Consultants: Hospital course: 10/12 72 y/o female with history of CAD, HTN, HLP, DM. Presented to ER with complaints of increased dyspnea, fever and cough x 2 days. A/P NSTEMI ( recent PTCA to LAD 07/2022) - on plavix and ASA - recent ECHO with EF 60% - as per cards Possible PNA - minmal changes on CXR , but presented with fever and coug- started on Tx for HAP ( was in hospital 2 m ago ) ( NEG covid and flu ) - follow cx Elve lactate - Sepsis ? vs cardiogenic hypotension - 2 L +500 - vital stable now , lactate normalized ( last EF 60 % - monitor DM - ISS SLE reported - not on immunomodifying meds PAD Lines : , (Central Line Necessity Reviewed) [place]: OG: Nutrition: Analgesia: Anxiety/ delirium VTE Prophylaxis: Stress Ulcer Prophylaxis: Glycemic Control: Plans in collaboration with bedside consultants and IM MDs. Discussed with RN to reach out if any questions or concerns A total of 31 minutes of critical care time was devoted to this patient today, required to treat and/or prevent further deterioration of critical care condition ( as above ) . I am remotely monitoring this patient from another state. I am unable to do the bedside exam, and history/physical and pertinent information is taken from other notes in the computer and bedside staff. . Allergies and Home Medications Allergies Coded Allergies: atorvastatin (Unverified Adverse Reaction, Unknown, 06/14/15) metformin (Unverified Adverse Reaction, Unknown, 06/14/15) Home Medications Amlodipine Besylate 10 Mg Tablet, 10 MG PO DAILY, (Reported) NOT PICKED UP YET Aspirin 81 Mg Tab.chew, 81 MG PO DAILY Prescribed by: ALEX HERRERA on 08/16/18918 Atorvastatin Calcium 40 Mg Tablet, 40 MG PO DAILY Prescribed by: HELEN ADKINS on 08/16/22 09 Clopidogrel Bisulfate 75 Mg Tablet, 75 MG PO DAILY Prescribed by: ALEX HERRERA on 08/16/18918 Glipizide 10 Mg Tablet, 10 MG PO BID, (Reported) LAST FILLED #60 06-15-18 Hydrocodone/Acetaminophen 5 Mg-325 Mg Tablet, 1 EACH PO Q4-6 HOURS PRN for PAIN Prescribed by: ARCHIE APONTE on 02/03/222214 Insulin Detemir 100 Unit/1 Ml Insuln.pen, 30 UNITS SC HS, (Reported) LAST FILLED 07-05-18 Insuln Asp Prt/Insulin Aspart 300 Units/3 Ml Solution, 20-30 UNITS SQ AC, (Reported) LAST FILLED 07-05-18 Lisinopril 40 Mg Tablet, 40 MG PO DAILY, (Reported) LAST FILLED #30 06-15-18 Metoprolol Tartrate 50 Mg Tablet, 100 MG PO BID, (Reported) Omeprazole 20 Mg Capsule.dr, 20 MG PO DAILY, (Reported) LAST FILLED #30 06-15-18 Quetiapine Fumarate 100 Mg Tablet, 50 MG PO HS PRN for SLEEP, (Reported) Sertraline HCl 50 Mg Tablet, 50 MG PO DAILY, (Reported) LAST FILLED #30 06-15-18 Past Medical/Social/Family Hx Patient Social History Marrital Status: single Tobacco Use?: Yes Tobacco type used: Cigarettes Smoking Status: Current Everyday Smoker Immunizations Up To Date Influenza Vaccine Up-to-Date: No; Not Current First/Initial COVID19 Vaccinat: no Second COVID19 Vaccination Jordan: no Tetanus Booster (TDap): Unknown Hepatitis A: No Hepatitis B: No TB Skin Test: None Date of Pneumonia Vaccine: Oct 29, 2012 Current Status Primary Language: Emirati Preferred Spoken Language: Emirati Family Medical History Family Hx: PT WITH HISTORY OF NON-COMPLIANCE IN ALL ASPECTS OF CARE SOCIAL HISTORY: -SMOKES 1 PPD -DENIES ETOH USE -DENIES DRUG USE PAST SURGICAL HISTORY: -CARDIAC CATH 10/[address] DIEZ: ANGIOPLASTY + STENT X 1 TO LAD -CARDIAC CATH 07/[address] ADKINS MULTIVESSEL DISEASE ANGIOOPLASTY + STENT X 1 TO LAD EF 65-70% MILD PERIPHERAL ARTERY DISEASE 30-40% STENOSIS TO RIGHT S.F.A. NO INTERVENTION NO SIGNIFICANT RENAL ARTERY DISEASE Review of Systems Constitutional: see HPI Focused Exam Lactate Level 10/12/22 03:35: Lactic Acid Level 5.13*H 10/12/22 05:10: Lactic Acid Level 2.64*H 10/12/22 07:11: Lactic Acid Level 1.24 Height, Weight, BMI Height: 5'3.00" Weight: 188lbs. 3.2oz. 85.533886xq; 23.47 BMI Method:Stated Time of Focused Exam: 04:40 Lactic Acid Level Laboratory Tests Test 10/12/22 07:11 Lactic Acid Level 1.24 MMOL/L (0.50-2.00) Exam Exam Patient acknowledged, consented, and participated in this virtual visit which was conducted using real time audio/video Vital Signs Date Time Temp Pulse Resp B/P (MAP) Pulse Ox O2 Delivery O2 Flow Rate FiO2 10/12/22 09:45 77 16 110/64 (79) 99 Nasal Cannula 2.00 10/12/22 09:30 74 23 101/60 (74) 95 Nasal Cannula 2.00 10/12/22 09:15 75 23 110/54 (72) 94 Nasal Cannula 2.00 10/12/22 09:00 81 11 102/61 (75) 97 Nasal Cannula 2.00 10/12/22 08:45 84 23 106/61 (76) 96 Nasal Cannula 2.00 10/12/22 08:31 84 10/12/22 08:30 81 17 104/64 (77) 97 Nasal Cannula 2.00 10/12/22 08:15 93 105/74 (84) Nasal Cannula 2.00 10/12/22 07:53 37.7 82 20 104/58 96 Nasal Cannula 2.00 10/12/22 05:27 37.7 95 113/59 (77) 92 Nasal Cannula 2.00 10/12/22 05:26 Nasal Cannula 2.00 10/12/22 03:26 Room Air 10/12/22 03:26 39.6 130 14 142/86 (104) 95 Room Air I & O 10/12/22 07:00 Intake Total 2100 ml Balance 2100 ml Height & Weight Height: 5'3.00" Weight: 188lbs. 3.2oz. 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
[2022-10-12] MEDS ORDERED: FLU QUAD HIGH DOSE 240 MCG/0.7 ML 2022-23 (FLUZONE) IM ONE (10:15)
--- NOTE | 2022-10-12 11:48 | History & Physical ---
HPI History of Present Illness: 72 yo F with extensive cardiac disease that presented with chest pain on and off for the last week. States that she was also having a cough and shortness of breath during this time. Denies any fever or chills. Denies any sick contacts. Patient had a previous admission in [facility] that showed severe blockage of RCA that required intervention. At this time patient is no longer having any chest pain. Source: patient Exam Limitations: no limitations Date seen by provider: Oct 12, 2022 Time Seen by Provider: 10:45 Attending Physician Ry Yoon MD PCP Admitting Physician: Madeline Briones MD Attending Physician: Madeline Briones MD Consult Date of Admission Oct 12, 2022 at 07:57 Home Medications Home Medications Reviewed patient Home Medication Reconciliation performed by pharmacy medication reconciliations line technician and/or nursing. Patients Allergies have been reviewed. Allergies Coded Allergies: atorvastatin (Unverified Adverse Reaction, Unknown, 06/14/15) metformin (Unverified Adverse Reaction, Unknown, 06/14/15) [id number]-Fdlyja Hx Patient Social History Marrital Status: single Smoking Status: Current Everyday Smoker Former smoker/When Quit: Oct 27, 2012 2nd Hand Smoke Exposure: Yes Recent Hopitalizations: No Alcohol Use?: No Tobacco type used: Cigarettes Have you traveled recently?: No Immunizations Up To Date Tetanus Booster (TDap): More than 5yrs Influenza Vaccine Up-to-Date: No; Not Current First/Initial COVID19 Vaccinat: no Second COVID19 Vaccination Jordan: no Third COVID19 Vaccination Date: no Past Medical History CAD PAD IDDM HTN HLD Tobacco use SLE Family Medical History Significant Family History: Heart Disease, Cancer, CAD Under 55 Years Old, Diabetes, Hypertension Other Significan Family Hx: PT WITH HISTORY OF NON-COMPLIANCE IN ALL ASPECTS OF CARE SOCIAL HISTORY: -SMOKES 1 PPD -DENIES ETOH USE -DENIES DRUG USE PAST SURGICAL HISTORY: -CARDIAC CATH 10/[address] DIEZ: ANGIOPLASTY + STENT X 1 TO LAD -CARDIAC CATH 07/[address] ADKINS MULTIVESSEL DISEASE ANGIOOPLASTY + STENT X 1 TO LAD EF 65-70% MILD PERIPHERAL ARTERY DISEASE 30-40% STENOSIS TO RIGHT S.F.A. NO INTERVENTION NO SIGNIFICANT RENAL ARTERY DISEASE Family History: Diabetes mellitus 19 MOTHER FH: lung cancer 19 FATHER Hypertension 19 MOTHER Review of Systems (CHC) Constitutional: No chills, No fever; malaise, weakness EENTM: no symptoms reported; No mouth pain, No nose congestion Respiratory: cough, short of breath Cardiovascular: chest pain; No edema, No palpitations Gastrointestinal: no symptoms reported; No abdominal pain, No constipation, No diarrhea, No nausea, No vomiting Genitourinary: no symptoms reported; No dysuria, No frequency, No hematuria : No Musculoskeletal: no symptoms reported Skin: no symptoms reported Psychiatric/Neurological: No Symptoms Reported Reviewed Test Results Reviewed Test Results Lab Laboratory Tests Test 10/12/22 03:31 10/12/22 03:35 10/12/22 03:40 10/12/22 03:45 Range/Units Glucometer 157 H 70-110 MG/DL White Blood Count 9.0 4.3-11.0 10^3/uL Red Blood Count 5.16 H 3.80-5.11 10^6/uL Hemoglobin 13.8 11.5-16.0 g/dL Hematocrit 41 35-52 % Mean Corpuscular Volume 80 80-99 fL Mean Corpuscular Hemoglobin 27 25-34 pg Mean Corpuscular Hemoglobin Concent 34 32-36 g/dL Red Cell Distribution Width 13.4 10.0-14.5 % Platelet Count 205 130-400 10^3/uL Mean Platelet Volume 10.3 9.0-12.2 fL Immature Granulocyte % (Auto) 0 % Neutrophils (%) (Auto) 95 H 42-75 % Lymphocytes (%) (Auto) 4 L 12-44 % Monocytes (%) (Auto) 0 0-12 % Eosinophils (%) (Auto) 0 0-10 % Basophils (%) (Auto) 0 0-10 % Neutrophils # (Auto) 8.5 H 1.8-7.8 10^3/uL Lymphocytes # (Auto) 0.4 L 1.0-4.0 10^3/uL Monocytes # (Auto) 0.0 0.0-1.0 10^3/uL Eosinophils # (Auto) 0.0 0.0-0.3 10^3/uL Basophils # (Auto) 0.0 0.0-0.1 10^3/uL Immature Granulocyte # (Auto) 0.0 0.0-0.1 10^3/uL Neutrophils % (Manual) 89 % Lymphocytes % (Manual) 5 % Monocytes % (Manual) 1 % Eosinophils % (Manual) 1 % Band Neutrophils 74 % Microcytosis SLIGHT Elliptocytes MODERATE Prothrombin Time 13.6 12.2-14.7 SEC INR Comment 1.0 0.8-1.4 Activated Partial Thromboplast Time 32 24-35 SEC Sodium Level 139 135-145 MMOL/L Potassium Level 4.0 3.6-5.0 MMOL/L Chloride Level 109 H 98-107 MMOL/L Carbon Dioxide Level 16 L 21-32 MMOL/L Anion Gap 14 5-14 MMOL/L Blood Urea Nitrogen 17 7-18 MG/DL Creatinine 0.79 0.60-1.30 MG/DL Estimat Glomerular Filtration Rate 80 BUN/Creatinine Ratio 22 Glucose Level 187 H 70-105 MG/DL Lactic Acid Level 5.13 *H 0.50-2.00 MMOL/L Calcium Level 9.2 8.5-10.1 MG/DL Corrected Calcium 9.4 8.5-10.1 MG/DL Magnesium Level 1.7 1.6-2.4 MG/DL Total Bilirubin 0.6 0.1-1.0 MG/DL Aspartate Amino Transf (AST/SGOT) 22 5-34 U/L Alanine Aminotransferase (ALT/SGPT) 13 0-55 U/L Alkaline Phosphatase 76 40-136 U/L Myoglobin 462.5 H 10.0-92.0 NG/ML Troponin I 0.240 H <0.028 NG/ML C-Reactive Protein High Sensitivity 0.49 0.00-0.50 MG/DL B-Type Natriuretic Peptide 51.0 <100.0 PG/ML Total Protein 7.5 6.4-8.2 GM/DL Albumin 3.8 3.2-4.5 GM/DL Influenza Type A (RT-PCR) Not Detected Not Detecte Influenza Type B (RT-PCR) Not Detected Not Detecte SARS-CoV-2 RNA (RT-PCR) Not Detected Not Detecte Urine Color YELLOW Urine Clarity SL CLOUDY Urine pH 6.0 5-9 Urine Specific [place] 1.025 H 1.016-1.022 Urine Protein 2+ H NEGATIVE Urine Glucose (UA) NEGATIVE NEGATIVE Urine Ketones NEGATIVE NEGATIVE Urine Nitrite NEGATIVE NEGATIVE Urine Bilirubin NEGATIVE NEGATIVE Urine Urobilinogen 1.0 < = 1.0 MG/DL Urine Leukocyte Esterase NEGATIVE NEGATIVE Urine RBC (Auto) NEGATIVE NEGATIVE Urine RBC 0-2 /HPF Urine WBC 2-5 /HPF Urine Squamous Epithelial Cells RARE /HPF Urine Crystals NONE /LPF Urine Bacteria LARGE H /HPF Urine Casts PRESENT /LPF Urine Hyaline Casts 0-2 H /LPF Urine Mucus NEGATIVE /LPF Urine Culture Indicated CULTURE PENDING Test 10/12/22 05:10 10/12/22 07:11 10/12/22 07:59 Range/Units Lactic Acid Level 2.64 *H 1.24 0.50-2.00 MMOL/L Troponin I 20.574 *H <0.028 NG/ML Physical Exam-(CHC) Physical Exam Vital Signs VS - Last 72 Hours, by Label 10/12/22 10/12/22 10/12/22 10/12/22 03:26 03:26 05:26 05:27 Temp 39.6 37.7 Pulse 130 95 Resp 14 B/P (MAP) 142/86 (104) 113/59 (77) Pulse Ox 95 92 O2 Delivery Room Air Room Air Nasal Cannula Nasal Cannula O2 Flow Rate 2.00 2.00 10/12/22 10/12/22 10/12/22 10/12/22 07:53 08:15 08:15 08:20 Temp 37.7 36.4 Pulse 82 93 Resp 20 B/P (MAP) 104/58 105/74 (84) 105/74 (84) Pulse Ox 96 O2 Delivery Nasal Cannula Room Air Nasal Cannula O2 Flow Rate 2.00 2.00 10/12/22 10/12/22 10/12/22 10/12/22 08:30 08:30 08:31 08:45 Pulse 81 81 84 84 Resp 17 17 23 B/P (MAP) 104/64 (77) 104/64 (77) 106/61 (76) Pulse Ox 97 97 96 O2 Delivery Nasal Cannula Room Air Room Air O2 Flow Rate 2.00 10/12/22 10/12/22 10/12/22 10/12/22 08:45 09:00 09:00 09:15 Pulse 84 81 81 75 Resp 23 11 11 23 B/P (MAP) 106/61 (76) 102/61 (75) 102/61 (75) 110/54 (72) Pulse Ox 96 97 97 94 O2 Delivery Nasal Cannula Nasal Cannula Room Air Nasal Cannula O2 Flow Rate 2.00 2.00 2.00 10/12/22 10/12/22 10/12/22 10/12/22 09:15 09:30 09:30 09:45 Pulse 75 74 74 77 Resp 23 16 B/P (MAP) 110/54 (72) 101/60 (74) 101/60 (74) 110/64 (79) Pulse Ox 94 95 95 99 O2 Delivery Room Air Room Air Nasal Cannula Room Air O2 Flow Rate 2.00 10/12/22 10/12/22 10/12/22 10/12/22 09:45 10:00 10:15 10:30 Pulse 77 74 72 73 Resp 16 22 19 19 B/P (MAP) 110/64 (79) 108/66 (80) 110/61 (77) 103/63 (76) Pulse Ox 99 94 95 94 O2 Delivery Nasal Cannula Room Air Room Air Room Air O2 Flow Rate 2.00 10/12/22 10/12/22 11:00 11:23 Temp 36.3 Pulse 70 Resp 26 B/P (MAP) 106/62 (77) Pulse Ox 93 O2 Delivery Room Air Capillary Refill : Less Than 3 Seconds General Appearance: WD/WN HEENT: PERRL/EOMI Respiratory: chest non-tender, lungs clear, normal breath sounds, no respiratory distress, no accessory muscle use Cardiovascular: normal peripheral pulses, regular rate, rhythm, no edema, no murmur Gastrointestinal: normal bowel sounds, non tender, soft Back: no CVA tenderness, no vertebral tenderness Extremities: no pedal edema, no calf tenderness, normal capillary refill Neurologic/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 as tested, alert, oriented x 3 Skin: normal color, warm/dry Lymphatic: no adenopathy Assessment/Plan Assessment/Plan Admission Status: Inpatient Order (span 2 midnights) Reason for Inpatient Admission: High risk of decompensation and requires close monitoring with consultation with cardiology (1) Severe sepsis Status: Acute Assessment & Plan: - Started on broad spectrum antibiotics, trending LA, will continue to monitor, HDS at this time, holding blood pressure meds at this time (2) Pneumonia Status: Acute Qualifiers: Qualified Codes: J18.9 - Pneumonia, unspecified organism (3) NSTEMI (non-ST elevated myocardial infarction) Status: Acute Assessment & Plan: - Cardiology consulted, appreciate recommendations, aggressive conservative management at this time with DAPT (4) Insulin dependent diabetes mellitus with complications Status: Chronic Assessment & Plan: - A1c pending, SSI (5) HTN (hypertension) Status: Chronic Assessment & Plan: - Holding home BP meds at this time due to normotension and sepsis (6) HLD (hyperlipidemia) Status: Chronic (7) CAD (coronary artery disease) Status: Chronic Qualifiers: Qualified Codes: I25.110 - Atherosclerotic heart disease of [place] coronary artery with unstable angina pectoris (8) Tobacco abuse Status: Chronic Assessment & Plan: - Discussed the importance of cessation given severe PVD an CAD Copy Copies To 1: RY YOON MD, HOLLY R MD Oct 12, 2022 11:48
[2022-10-12] MEDS: PIPERACILLIN SODIUM/TAZOBACTAM 4.5 GM in NS (IVPB) 100 ML IV SCH ×2 (12:19→20:33)
[2022-10-12] MEDS ORDERED: MELO15TA39 PO (14:21)
[2022-10-12] MEDS ORDERED: NS IV 500 ML 500 ML IV PRN (17:00)
[2022-10-12] MEDS: inSUlin ASPART (NovoLOG) 1 UNIT/0.01 ML (CHARGE PER UNIT) SQ SCH (21:00)
[2022-10-13 04:15] LABS: BASOPHILS % (AUTO) 0 % (0-10); EOSINOPHILS # (AUTO) 0.1 10^3/uL (0.0-0.3); EOSINOPHILS % (AUTO) 2 % (0-10); HEMATOCRIT 33 % (35-52); HEMOGLOBIN 10.6 g/dL (11.5-16.0); LYMPHOCYTES # (AUTO) 0.8 10^3/uL (1.0-4.0); LYMPHOCYTES % (AUTO) 17 % (12-44); MEAN CORPUSCULAR HEMOGLOBIN 27 pg (25-34); MEAN CORPUSCULAR HGB CONC 33 g/dL (32-36); MEAN CORPUSCULAR VOLUME 82 fL (80-99); MEAN PLATELET VOLUME 11.4 fL (9.0-12.2); MONOCYTES # (AUTO) 0.5 10^3/uL (0.0-1.0); MONOCYTES % (AUTO) 11 % (0-12); NEUTROPHILS # (AUTO) 3.3 10^3/uL (1.8-7.8); NEUTROPHILS % (AUTO) 69 % (42-75); PLATELET COUNT 133 10^3/uL (130-400); WHITE BLOOD COUNT 4.8 10^3/uL (4.3-11.0)
[2022-10-13 04:32] LABS: ALBUMIN 2.7 GM/DL (3.2-4.5); POTASSIUM 3.6 MMOL/L (3.6-5.0)
[2022-10-13 04:33] LABS: CALCIUM 8.3 MG/DL (8.5-10.1)
[2022-10-13 04:35] LABS: TOTAL PROTEIN 5.6 GM/DL (6.4-8.2)
[2022-10-13 04:36] LABS: BILIRUBIN,TOTAL 0.4 MG/DL (0.1-1.0)
[2022-10-13 04:38] LABS: CREATININE SERUM 0.73 MG/DL (0.60-1.30); PHOSPHORUS 2.5 MG/DL (2.3-4.7)
[2022-10-13 04:41] LABS: MAGNESIUM 1.7 MG/DL (1.6-2.4)
[2022-10-13] MEDS: PIPERACILLIN SODIUM/TAZOBACTAM 4.5 GM in NS (IVPB) 100 ML IV SCH (05:50)
[2022-10-13] MEDS: LACTATED RINGERS 1,000 ML IV SCH ×4 (05:57→20:53)
[2022-10-13] MEDS: MAGNESIUM 1 GM/100 ML IVPB 100 ML IV SCH ×5 (06:06→13:49)
[2022-10-13] MEDS: inSUlin ASPART (NovoLOG) 1 UNIT/0.01 ML (CHARGE PER UNIT) SQ SCH ×4 (06:06→20:31)
[2022-10-13] MEDS: KCL 20 MEQ TAB (K-DUR) PO SCH (06:06)
[2022-10-13] MEDS: POTASSIUM CL 10MEQ/50ML IVPB 50 ML IV SCH (06:06)
[2022-10-13] MEDS ORDERED: HEParin (CATH LAB) 2,000 ML IV ONE (08:20)
[2022-10-13] MEDS ORDERED: LIDOCAINE 1% INJ 20 ML VIAL ONE (08:20)
[2022-10-13] MEDS: PANTOPRAZOLE 40 MG (PROTONIX) TAB PO SCH (08:44)
[2022-10-13] MEDS: ASPIRIN E.C. 81 MG (ECOTRIN) TAB PO SCH (08:44)
[2022-10-13] MEDS: CLOPIDOGREL 75 MG (PLAVIX) TABLET PO SCH (08:44)
[2022-10-13] MEDS ORDERED: fentaNYL INJ 100 MCG/2 ML AMP ONE (08:53)
[2022-10-13] MEDS ORDERED: MIDAZOLAM 5 MG/5 ML (VERSED) VIAL ONE (08:53)
[2022-10-13] MEDS ORDERED: VANCOMYCIN 1 GM/NS 250 ML IVPB IV SCH ×2 (09:00)
[2022-10-13] MEDS ORDERED: NS IV 1000 ML 1,000 ML ONE (09:00)
[2022-10-13] MEDS ORDERED: NITRO DRIP 25000 MCG/D5W 250 ML IV ONE (09:05)
[2022-10-13] MEDS ORDERED: HEParin 1000 UNIT/ML (10ML VIAL) FOR BOLUS ONE (09:05)
[2022-10-13] MEDS ORDERED: VERAPAMIL 5 MG/2 ML (CALAN) VIAL IV ONE (09:05)
--- NOTE | 2022-10-13 09:06 | Cardiology Progress Note ---
Subjective Date Seen by Provider: Oct 13, 2022 Time Seen by Provider: 09:04 Subjective/Events-last exam Patient was seen at bedside, laying down comfortably, denied any chest pain Had significant elevation in troponin Review of Systems General: No Chills, No Night Sweats, No Fatigue, No Malaise, No Appetite, No Other HEENT: No Head Aches, No Visual Changes, No Eye Pain, No Ear Pain, No Dysphasia, No Sinus Congestion, No Post Nasal Drip, No Sore Throat, No Other Pulmonary: No Dyspnea, No Cough, No Pleuritic Chest Pain, No Other Cardiovascular: No: Chest Pain, Palpitations, Orthopnea, Paroxysmal Noc. Dyspnea, Edema, Lt Headedness, Other Focused Exam Lactate Level 10/12/22 03:35: Lactic Acid Level 5.13*H 10/12/22 05:10: Lactic Acid Level 2.64*H 10/12/22 07:11: Lactic Acid Level 1.24 Time of Focused Exam: 04:40 Objective-Cardiology Exam Last Set of Vital Signs Vital Signs 10/13/22 10/13/22 07:36 08:00 Temp 36.8 Pulse 68 Resp 32 B/P (MAP) 141/77 (91) Pulse Ox 99 O2 Delivery Room Air I&O Intake and Output 10/13/22 00:00 Intake Total 4262.5 ml Output Total 1525 ml Balance 2737.5 ml Intake Oral 300 ml IV Total 3962.5 ml Output Urine Total 1525 ml Daily Weight Change Yes, Greater than 33 lbs General: Alert, Oriented X3, Cooperative HEENT: Atraumatic, PERRLA Neck: Supple, No JVD, No Thyromegaly Lungs: Clear to Auscultation, Normal Air Movement Heart: Regular Rate, Normal S1, Normal S2, Other (Systolic murmur) Abdomen: Normal Bowel Sounds, Soft, No Tenderness, No Hepatosplenomegaly, No Masses Extremities: No Clubbing, No Cyanosis, No Edema, Normal Pulses, No Tenderness/Swelling Skin: No Rashes, No Breakdown, No Significant Lesion Neuro: Normal Speech, Strength at 5/5 X4 Ext, Normal Tone, Sensation Intact Psych/Mental Status: Mental Status NL, Mood NL Results Lab Laboratory Tests 10/13/22 03:28 A/P-Cardiology Admission Diagnosis Chest pain Elevated troponin CAD UTI Pneumonia Assessment/Plan Chest pain, nonspecific etiology. Initial EKG showing sinus tachycardia, repeat EKG with SR with PVCs, PAC, RBBB, nondiagnostic changes. Currently denies any chest pain, had elevation in troponin, planning to proceed with cardiac catheterization. Non-ST elevation myocardial infarction, EKG showing minimal changes Patient has been having waxing and waning chest pain Cardiac catheterization done in July 2022 with severe disease in the small right coronary artery and moderate disease in the distal LAD that is inoperable. Patient has balloon angioplasty for in-stent restenosis in the proximal LAD. Continues to have persistent increase in troponin level. Denied any active c hest pain, I will proceed with left heart catheterization possible PTCA CAD - Card cath of 08/15/18: Coronary artery disease, multivessel. The most significant lesion was a long stenosis in the proximal left anterior descending artery (up to 95%) that was successfully stented with Sinai 2.75 x 33 mm stent and this stent slightly overlaps an old stent that is known to be a drug-eluting stent measuring 2.75 x 16 mm. The distal left anterior descending artery has moderate to moderately severe disease and is of a small caliber. The left circumflex artery is dominant and has mild disease. The right coronary artery is small and nondominant and has a long stenosis in its proximal and mid portion of up to 80%. Normal global left ventricular systolic function with ejection fraction of 65 to 70%. Normal left ventricular end diastolic pressure. No sig nificant mitral regurgitation. No significant renal artery stenosis - Card cath of 08/09/2022: LMCA Ok. LAD 99% prox instent that was successfully treated with PTCA with reduction of stenosis to 0% and improvement of flow from LESLIE 1 to LESLIE 3. Multiple up to 50% in mid and distal LAD. LCX dominant with diffuse mild to mod disease. RCA small and nondominant with diffuse severe disease (not amenable to intervention). LVEDP 5 mmHg. LVEF 60% Has been maintained on Plavix and ASA Pneumonia with sepsis, management per medical services UTI, management per medical services. PAD, Mild peripheral arterial disease consisting of 30 to 40% stenosis in the right superficial femoral artery per peripheral angiogram of Aug 15, 2018 Hyperlipidemia, Reported intolerance to statin tx. I will evaluate lipid profile. DM II Chronic tobacco use (smoking) SLE, per patient report Hypertension, restart home blood pressure medication and continue to monitor. Chronic RBBB CONNIE DIEZ MD Oct 13, 2022 09:06
--- NOTE | 2022-10-13 09:07 | Cardiac Procedure Note-CS/ASA ---
Pre-Procedure Note Pre-Op Procedure Note Date of Available H&P: Oct 13, 2022 Date H&P Reviewed: Oct 13, 2022 Time H&P Reviewed: 09:06 History & Physical: H&P Reviewed, Patient Examed, No changes noted Pre-Operative Diagnosis: Non-ST LA Conscious Sedation Pre-Proced Time 09:06 ASA Score 3 For ASA 3 and 4: Consider anesthesia and medical clearance. Also, for patients with a history of failed moderate sedation consider anesthesia. Airway Lungs Heart ASA score ASA 1: a normal healthy patient ASA 2: a patient with a mild systemic disease (mid diabetes, controlled hypertension, obesity ASA 3: a patient with a severe systemic disease that limits activity (angina, COPD, prior Myocardial infarction) ASA 4: a patient with an incapacitating disease that is a constant threat to life (CHF, renal failure) ASA 5: a moribund patient not expected to survive 24 hrs. (ruptured aneurysm) ASA 6: a declared brain- patient whose organs are being harvested. For emergent operations, add the letter E after the classification Mallampati Classification Grade 3 Sedation Plan Analgesia, Amnesia, Plan communicated to team members, Discussed options with patient/fam, Discussed risks with patient/fam The patient is an appropriate candidate to undergo the planned procedure, sedation, and anesthesia. The patient immediately re-assessed prior to indication. CONNIE DIEZ MD Oct 13, 2022 09:07
--- NOTE | 2022-10-13 09:28 | Tele-ICU Progress Note ---
Subjective Date Seen by a Provider: Oct 13, 2022 Time Seen by a Provider: 09:28 Subjective/Events-last exam (Tele-ICU Physician , Progress Note ) Service provided via interactive audio and video telecommunications E-CARE system to a patient admitted to ICU bed in [facility]. Patient is seen today due to persistent need of ICU care Available chart/ vitals / labs / Images reviewed Video assessment done using teleICU camera, rest of exam as per RN Discussed with RN Events overnight : Afebrile hemodynamically stable Respiratory - I/O = + 4 L Drips: ns Pressors- no Consultants: Hospital course: 10/12 72 y/o female with history of CAD, HTN, HLP, DM. Presented to ER with complaints of increased dyspnea, fever and cough x 2 days. A/P NSTEMI ( recent PTCA to LAD 07/2022) - on plavix and ASA - recent ECHO with EF 60% - as per cards- to medical laboratory technical officer today Possible PNA - very minmal changes on CXR , but presented with fever and coug- started on Tx for HAP ( was in hospital 2 m ago ) ( NEG covid and flu ) - follow cx UTI with GNR - cont zosym , stop vanco ? Elve lactate - Sepsis ? vs cardiogenic hypotension - received 4200 ml IVF , lactate normalized ( last EF 60 % - to stop IVF when back from medical laboratory technical officer Anemia - suspect delutuonal , no bleeding DM - ISS SLE reported - not on immunomodifying meds PAD Lines : , (Central Line Necessity Reviewed) [place]: OG: Nutrition: Analgesia: Anxiety/ delirium VTE Prophylaxis: Stress Ulcer Prophylaxis: Glycemic Control: Plans in collaboration with bedside consultants and IM MDs. Discussed with RN to reach out if any questions or concerns A total of 31 minutes of critical care time was devoted to this patient today, required to treat and/or prevent further deterioration of critical care co ndition ( as above ) . I am remotely monitoring this patient from another state. I am unable to do the bedside exam, and history/physical and pertinent information is taken from other notes in the computer and bedside staff. . Sepsis Event Evaluation Height, Weight, BMI Height: 5'3.00" Weight: 188lbs. 3.2oz. [id number]; 28.51 BMI Method:Stated Focused Exam Lactate Level 10/12/22 03:35: Lactic Acid Level 5.13*H 10/12/22 05:10: Lactic Acid Level 2.64*H 10/12/22 07:11: Lactic Acid Level 1.24 Time of Focused Exam: 04:40 Exam Exam Patient acknowledged, consented, and participated in this virtual visit which was conducted using real time audio/video Vital Signs Date Time Temp Pulse Resp B/P (MAP) Pulse Ox O2 Delivery O2 Flow Rate FiO2 10/13/22 08:00 68 32 141/77 (91) 99 Room Air 10/13/22 08:00 Nasal Cannula 2.00 97 10/13/22 07:36 36.8 10/13/22 07:00 63 10/13/22 07:00 58 28 139/75 (97) 99 Room Air 10/13/22 06:00 62 28 143/68 (100) 99 Room Air 10/13/22 05:00 66 31 137/72 (100) 100 Room Air 10/13/22 04:00 56 30 132/66 (90) 99 Room Air 10/13/22 03:15 97 Room Air 2.00 10/13/22 03:15 36.3 Room Air 10/13/22 03:00 56 23 130/63 (81) 99 Room Air 10/13/22 02:00 58 30 124/61 (87) 98 Room Air 10/13/22 01:00 72 10/13/22 01:00 61 29 129/68 (94) 98 Room Air 10/13/22 00:00 97 Room Air 2.00 10/13/22 00:00 36.5 Room Air 10/13/22 00:00 60 31 127/72 (96) 98 Room Air 10/12/22 23:00 60 28 116/62 (86) 97 Room Air 10/12/22 22:00 75 30 127/102 (115) Room Air 10/12/22 21:00 62 26 109/63 (88) 98 Room Air 10/12/22 20:00 60 28 107/50 (86) 98 Room Air 10/12/22 20:00 99 Room Air 2.00 10/12/22 20:00 36.5 Room Air 10/12/22 19:00 72 10/12/22 19:00 66 11 122/88 (100) 100 Room Air 10/12/22 18:00 68 9 128/70 (89) 99 Room Air 10/12/22 17:00 63 21 118/55 (76) 94 Room Air 10/12/22 16:00 65 23 119/63 (81) 98 Room Air 10/12/22 16:00 99 Nasal Cannula 2.00 10/12/22 15:56 36.6 10/12/22 15:00 61 22 108/56 (73) 96 Room Air 10/12/22 14:00 62 30 109/61 (77) 98 Room Air 10/12/22 13:00 61 29 110/64 (79) 95 Room Air 10/12/22 12:59 67 10/12/22 12:00 94 Nasal Cannula 2.00 10/12/22 12:00 66 13 106/76 (86) 95 Room Air 10/12/22 11:23 36.3 10/12/22 11:00 70 26 106/62 (77) 93 Room Air 10/12/22 10:30 73 19 103/63 (76) 94 Room Air 10/12/22 10:15 72 19 110/61 (77) 95 Room Air 10/12/22 10:00 74 22 108/66 (80) 94 Room Air 10/12/22 09:45 77 16 110/64 (79) 99 Nasal Cannula 2.00 10/12/22 09:45 77 16 110/64 (79) 99 Room Air 10/12/22 09:30 74 23 101/60 (74) 95 Nasal Cannula 2.00 10/12/22 09:30 74 23 101/60 (74) 95 Room Air I & O 10/13/22 07:00 Intake Total 2162.5 ml Output Total 2075 ml Balance 87.5 ml Height & Weight Height: 5'3.00" Weight: 188lbs. 3.2oz. [id number]; 28.51 BMI Method:Stated General Appearance: No Apparent Distress, WD/WN, Mild Distress HEENT: PERRL/EOMI, Normal ENT Inspection Neck: Normal Inspection; No JVD Respiratory: Lungs Clear, Decreased Breath Sounds Cardiovascular: No Edema, No Murmur, Tachycardia Capillary Refill: Less Than 3 Seconds Gastrointestinal: normal bowel sounds, non tender, soft Extremity: Normal Inspection, No Pedal Edema Neurologic/Psychiatric: Alert, Oriented x3, No Motor/Sensory Deficits, Normal Mood/Affect, care management associate II-XII Norm as Tested Results Lab Laboratory Tests 10/12/22 03:35 10/13/22 03:28 Assessment/Plan Assessment/Plan 1 THOMAS DAI MD Oct 13, 2022 09:28
[2022-10-13] MEDS ORDERED: ASPIRIN 325 MG (5 GR) TABLET ONE (10:38)
[2022-10-13] MEDS ORDERED: CLOPIDOGREL 300 MG (PLAVIX) TABLET PO ONE (10:38)
--- NOTE | 2022-10-13 10:55 | Cardiac Cath Report ---
Cardiac Cath Report Physician (s)/Crime Prevention Worker (s) Physician CONNIE DIEZ MD Pre-Procedure Diagnosis Pre-Procedure Diagnosis: Non-ST MS Post-Procedure Note Procedure Start Date: Oct 13, 2022 Name of Procedure: Left heart cath authorization PTCA to the LAD Findings/Procedure Note PROCEDURE NOTE: 72-year-old lady with history of coronary artery disease. Had recent balloon angioplasty, was not compliant with her aspirin and Plavix, came in with acute c hest pain, has significant elevation in troponin. I decided to proceed with cardiac catheterization. After explaining the procedure to the patient, all pros and cons were explained, all questions were answered. The patient signed the consent and then she was placed in the cardiac catheterization laboratory. Groin was prepped in SL fashion local anesthesia was used. Sheath placed in the right radial artery, [place] catheter was advanced to the left ventricle, pressure was measured, pullback LV to aorta was done, engage the right and left coronary system. Patient had subtotal occlusion 95% at the proximal LAD within the stent. I at tempted with a EBU guide without success then used Cindy left 3.5 guide engage the left system, BMW wire was advanced then used noncompliant 3 x 20 mm balloon, did multiple inflation up to 15 agnieszka, post balloon inflation had excellent results with 0% residual stenosis. At the end of the procedure the sheath was removed. Vascular band was used FINDINGS: Hemodynamics LV 108/17, end-diastolic pressure of 17 Aorta 115/67 mean of 47 ANATOMY: Left Main is free of obstructive disease Left Anterior Descending has 95% in-stent restenosis, successful balloon angioplasty using a trek noncompliant 3 x 20 with multiple inflation up to 15 agnieszka with 0% residual stenosis, the distal LAD is very small artery with 50% stenosis at multiple segment Left Circumflex is dominant artery, moderate in size. 40 to 50% stenosis at the midportion nonobstructive disease Right Coronary Artery is very small nondominant artery with multiple area of stenosis up to 70%, it is too small for intervention. LV Gram was not done, pressure was measured PERCUTANEOUS INTERVENTION: Pre stenosis 95% Post Stenosis 0% Pre LESLIE flow 1 Post LESLIE flow 3 Dominance left circumflex CONCLUSION: 1. Severe stenosis/subtotal occlusion in the proximal LAD, successful balloon angioplasty with excellent results with 0% residual stenosis 2. Moderate disease at multiple segment in the distal LAD and circumflex artery, severe stenosis at multiple segment and very small nondominant right coronary artery that is not amendable to intervention 3. Elevated left ventricular end-diastolic pressure DISCUSSION AND RECOMMENDATION: Educated on compliance with medication, we will continue maximizing medical therapy Anesthesia Type: Conscious Sedation Estimated blood loss (mL): 25 ml Contrast Amount: 45 ml Total Radiation Dose: 613 mGy Post-Procedure Diagnosis Post-operative diagnosis: Non-ST MS Coronary artery disease Hypertension Hyperlipidemia CONNIE DIEZ MD Oct 13, 2022 10:55
[2022-10-13] MEDS ORDERED: NS IV 1000 ML 1,000 ML IV SCH (11:00)
[2022-10-13] MEDS: cefTRIAXone 1 GM PRE-MIX 50 ML IV SCH (15:26)
--- NOTE | 2022-10-13 16:06 | Progress Note ---
Subjective Subjective/Events-last exam Chest pains on and off. States that she feels about the same. Tolerating PO diet was NPO overnight Review of Systems General: Malaise Pulmonary: Dyspnea; No Cough Cardiovascular: Chest Pain; No: Palpitations, Edema Gastrointestinal: No: Nausea, Vomiting, Abdominal Pain, Diarrhea Neurological: Weakness, Incoordination Focused Exam Lactate Level 10/12/22 03:35: Lactic Acid Level 5.13*H 10/12/22 05:10: Lactic Acid Level 2.64*H 10/12/22 07:11: Lactic Acid Level 1.24 Time of Focused Exam: 04:40 Objective Exam Last Set of Vital Signs Vital Signs Date Time Temp Pulse Resp B/P (MAP) Pulse Ox O2 Delivery O2 Flow Rate FiO2 10/13/22 15:29 36.2 10/13/22 15:00 58 27 137/69 (97) 100 Room Air 10/13/22 12:00 2.00 Capillary Refill : Less Than 3 Seconds I&O Intake and Output 10/13/22 00:00 Intake Total 4262.5 ml Output Total 1525 ml Balance 2737.5 ml Intake Oral 300 ml IV Total 3962.5 ml Output Urine Total 1525 ml Daily Weight Change Yes, Greater than 33 lbs General: Alert, Oriented X3, No Acute Distress Lungs: Clear to Auscultation, Normal Air Movement Heart: Regular Rate, No Murmurs Abdomen: Normal Bowel Sounds, Soft, No Tenderness Extremities: No Edema, No Tenderness/Swelling Psych/Mental Status: Mental Status NL, Mood NL Results/Procedures Lab Laboratory Tests 10/12/22 16:53: Glucometer 81 10/12/22 20:31: Glucometer 119H 10/13/22 03:28: White Blood Count 4.8, Red Blood Count 3.99, Hemoglobin 10.6#L, Hematocrit 33L, Mean Corpuscular Volume 82, Mean Corpuscular Hemoglobin 27, Mean Corpuscular Hemoglobin Concent 33, Red Cell Distribution Width 13.9, Platelet Count 133, Mean Platelet Volume 11.4, Immature Granulocyte % (Auto) 0, Neutrophils (%) (Auto) 69, Lymphocytes (%) (Auto) 17, Monocytes (%) (Auto) 11, Eosinophils (%) (Auto) 2, Basophils (%) (Auto) 0, Neutrophils # (Auto) 3.3, Lymphocytes # (Auto) 0.8L, Monocytes # (Auto) 0.5, Eosinophils # (Auto) 0.1, Basophils # (Auto) 0.0, Immature Granulocyte # (Auto) 0.0, Sodium Level 141, Potassium Level 3.6, Chloride Level 114H, Carbon Dioxide Level 18L, Anion Gap 9, Blood Urea Nitrogen 13, Creatinine 0.73, Estimat Glomerular Filtration Rate 88, BUN/Creatinine Ratio 18, Glucose Level 131H, Calcium Level 8.3L, Corrected Calcium 9.3, Phosphorus L evel 2.5, Magnesium Level 1.7, Total Bilirubin 0.4, Aspartate Amino Transf (AST/SGOT) 134H, Alanine Aminotransferase (ALT/SGPT) 58H, Alkaline Phosphatase 65, Troponin I 40.142*H, Total Protein 5.6L, Albumin 2.7L, Triglycerides Level 97, Cholesterol Level 94, LDL Cholesterol Direct 50, VLDL Cholesterol 19, HDL Cholesterol 22L 10/13/22 05:59: Glucometer 120H 10/13/22 11:09: Glucometer 119H 10/13/22 15:26: Glucometer 162H Microbiology 10/12/22 MRSA Screen - Final, Complete MRSA not isolated 10/12/22 Urine Culture - Preliminary, Resulted Escherichia coli 10/12/22 Blood Culture - Preliminary, Resulted Gram Positive Cocci in Cluster Assessment/Plan Assessment/Plan (1) Severe sepsis Status: Acute Assessment & Plan: - Started on broad spectrum antibiotics, trending LA, will continue to monitor, HDS at this time, holding blood pressure meds at this time 10/13: narrow spectrum for antibiotics, d/c Vanc (2) Pneumonia Status: Acute Qualifiers: Qualified Codes: J18.9 - Pneumonia, unspecified organism (3) NSTEMI (non-ST elevated myocardial infarction) Status: Acute Assessment & Plan: - Cardiology consulted, appreciate recommendations, aggressive conservative management at this time with DAPT 10/13: To tin can laborer this AM, severe stenosis of LAD, cardiology managing (4) Insulin dependent diabetes mellitus with complications Status: Chronic Assessment & Plan: - A1c pending, SSI (5) HTN (hypertension) Status: Chronic Assessment & Plan: - Holding home BP meds at this time due to normotension and sepsis (6) HLD (hyperlipidemia) Status: Chronic (7) CAD (coronary artery disease) Status: Chronic Qualifiers: Qualified Codes: I25.110 - Atherosclerotic heart disease of [place] coronary artery with unstable angina pectoris (8) Tobacco abuse Status: Chronic Assessment & Plan: - Discussed the importance of cessation given severe PVD an CAD HUGO WOLFF MD Oct 13, 2022 16:06
[2022-10-14] MEDS: LACTATED RINGERS 1,000 ML IV SCH (04:15)
[2022-10-14 04:30] LABS: EOSINOPHILS # (AUTO) 0.1 10^3/uL (0.0-0.3); EOSINOPHILS % (AUTO) 2 % (0-10); HEMOGLOBIN 10.6 g/dL (11.5-16.0); MEAN CORPUSCULAR VOLUME 81 fL (80-99)
[2022-10-14 04:31] LABS: BASOPHILS % (AUTO) 0 % (0-10); HEMATOCRIT 32 % (35-52); LYMPHOCYTES # (AUTO) 0.6 10^3/uL (1.0-4.0); LYMPHOCYTES % (AUTO) 11 % (12-44); MEAN CORPUSCULAR HEMOGLOBIN 27 pg (25-34); MEAN CORPUSCULAR HGB CONC 33 g/dL (32-36); MEAN PLATELET VOLUME 11.6 fL (9.0-12.2); MONOCYTES # (AUTO) 0.5 10^3/uL (0.0-1.0); MONOCYTES % (AUTO) 10 % (0-12); NEUTROPHILS # (AUTO) 3.9 10^3/uL (1.8-7.8); NEUTROPHILS % (AUTO) 77 % (42-75); PLATELET COUNT 122 10^3/uL (130-400); WHITE BLOOD COUNT 5.1 10^3/uL (4.3-11.0)
[2022-10-14 04:38] LABS: ALBUMIN 2.9 GM/DL (3.2-4.5); POTASSIUM 3.7 MMOL/L (3.6-5.0)
[2022-10-14 04:39] LABS: CALCIUM 8.2 MG/DL (8.5-10.1)
[2022-10-14 04:40] LABS: TOTAL PROTEIN 5.9 GM/DL (6.4-8.2)
[2022-10-14 04:42] LABS: BILIRUBIN,TOTAL 0.3 MG/DL (0.1-1.0)
[2022-10-14 04:43] LABS: PHOSPHORUS 2.2 MG/DL (2.3-4.7)
[2022-10-14 04:44] LABS: CREATININE SERUM 0.64 MG/DL (0.60-1.30)
[2022-10-14] MEDS: KCL 20 MEQ TAB (K-DUR) PO SCH (06:00)
[2022-10-14] MEDS: POTASSIUM CL 10MEQ/50ML IVPB 50 ML IV SCH (06:00)
[2022-10-14] MEDS: MAGNESIUM 1 GM/100 ML IVPB 100 ML IV SCH (06:17)
[2022-10-14] MEDS: inSUlin ASPART (NovoLOG) 1 UNIT/0.01 ML (CHARGE PER UNIT) SQ SCH ×4 (06:18→20:17)
[2022-10-14] MEDS ORDERED: POTASSIUM PHOSPHATE INJ 15 MM in NS (IVPB) 250 ML IV ONE (08:00)
--- NOTE | 2022-10-14 08:01 | Cardiology Progress Note ---
Subjective Date Seen by Provider: Oct 14, 2022 Time Seen by Provider: 07:59 Subjective/Events-last exam Patient is laying down in bed, feeling better today. No new complaints Review of Systems General: No Chills, No Night Sweats, No Fatigue, No Malaise, No Appetite, No Other HEENT: No Head Aches, No Visual Changes, No Eye Pain, No Ear Pain, No Dysphasia, No Sinus Congestion, No Post Nasal Drip, No Sore Throat, No Other Pulmonary: Dyspnea; No Cough, No Pleuritic Chest Pain, No Other Cardiovascular: No: Chest Pain, Palpitations, Orthopnea, Paroxysmal Noc. Dyspnea, Edema, Lt Headedness, Other Focused Exam Lactate Level 10/12/22 03:35: Lactic Acid Level 5.13*H 10/12/22 05:10: Lactic Acid Level 2.64*H 10/12/22 07:11: Lactic Acid Level 1.24 Time of Focused Exam: 04:40 Objective-Cardiology Exam Last Set of Vital Signs Vital Signs 10/14/22 10/14/22 10/14/22 04:00 06:00 07:58 Temp 36.9 B/P (MAP) 165/84 (111) O2 Flow Rate 2.00 I&O Intake and Output 10/14/22 00:00 Intake Total 1170 ml Output Total 1250 ml Balance -80 ml Intake Oral 520 ml IV Total 650 ml Output Urine Total 1250 ml # Voids 1 General: Alert, Oriented X3, No Acute Distress HEENT: Atraumatic, PERRLA Neck: Supple, No JVD, No Thyromegaly Lungs: Clear to Auscultation, Normal Air Movement Heart: Regular Rate, Normal S1, Normal S2, No Murmurs Abdomen: Normal Bowel Sounds, Soft, No Tenderness Extremities: No Edema, No Tenderness/Swelling Skin: No Rashes, No Breakdown, No Significant Lesion Neuro: Normal Speech, Strength at 5/5 X4 Ext, Normal Tone, Sensation Intact Psych/Mental Status: Mental Status NL, Mood NL Results Lab Laboratory Tests 10/14/22 03:55 A/P-Cardiology Admission Diagnosis Chest pain Elevated troponin CAD UTI Pneumonia Assessment/Plan Chest pain, non-ST elevation myocardial infarction Status postcardiac catheterization and balloon angioplasty for in-stent restenosis of the LAD Non-ST elevation myocardial infarction, EKG showing minimal changes Patient has been having waxing and waning chest pain Cardiac catheterization done in July 2022 with severe disease in the small right coronary artery and moderate disease in the distal LAD that is inoperable. Patient has balloon angioplasty for in-stent restenosis in the proximal LAD. Patient is feeling better today. No further episodes of chest pain CAD - Card cath of 08/15/18: Coronary artery disease, multivessel. The most significant lesion was a long stenosis in the proximal left anterior descending artery (up to 95%) that was successfully stented with Sinai 2.75 x 33 mm stent and this stent slightly overlaps an old stent that is known to be a drug-eluting stent measuring 2.75 x 16 mm. The distal left anterior descending artery has moderate to moderately severe disease and is of a small caliber. The left circumflex artery is dominant and has mild disease. The right coronary artery is small and nondominant and has a long stenosis in its proximal and mid portion of up to 80%. Normal global left ventricular systolic function with ejection fraction of 65 to 70%. Normal left ventricular end diastolic pressure. No significant mitral regurgitation. No significant renal artery stenosis - Card cath of 08/09/2022: LMCA Ok. LAD 99% prox instent that was successfully treated with PTCA with reduction of stenosis to 0% and improvement of flow from LESLIE 1 to LESLIE 3. Multiple up to 50% in mid and distal LAD. LCX dominant with diffuse mild to mod disease. RCA small and nondominant with diffuse severe disease (not amenable to intervention). LVEDP 5 mmHg. LVEF 60% Status postcardiac catheterization on October 13, 2022, balloon angioplasty for in-stent restenosis in the LAD with excellent results. Has been maintained on Plavix and ASA Pneumonia with sepsis, management per medical services UTI, management per medical services. PAD, Mild peripheral arterial disease consisting of 30 to 40% stenosis in the right superficial femoral artery per peripheral angiogram of Aug 15, 2018 Hyperlipidemia, Reported intolerance to statin tx. I will evaluate lipid profile. DM II Chronic tobacco use (smoking) SLE, per patient report Hypertension, restart home blood pressure medication and continue to monitor. Chronic RBBB Noncompliance with medication, educated about compliance. CONNIE DIEZ MD Oct 14, 2022 08:01
[2022-10-14] MEDS ORDERED: ASPIRIN E.C. 81 MG (ECOTRIN) TAB PO SCH (09:00)
[2022-10-14] MEDS ORDERED: CLOPIDOGREL 75 MG (PLAVIX) TABLET PO SCH (09:00)
[2022-10-14] MEDS: ASPIRIN E.C. 81 MG (ECOTRIN) TAB PO SCH (09:30)
[2022-10-14] MEDS: PANTOPRAZOLE 40 MG (PROTONIX) TAB PO SCH (09:31)
[2022-10-14] MEDS: CLOPIDOGREL 75 MG (PLAVIX) TABLET PO SCH (09:31)
--- NOTE | 2022-10-14 10:14 | Tele-ICU Progress Note ---
Subjective Date Seen by a Provider: Oct 14, 2022 Time Seen by a Provider: 10:14 Subjective/Events-last exam (Tele-ICU Physician , Progress Note ) Service provided via interactive audio and video telecommunications E-CARE system to a patient admitted to ICU bed in [facility]. Patient is seen today due to persistent need of ICU care Available chart/ vitals / labs / Images reviewed Video assessment done using teleICU camera, rest of exam as per RN Discussed with RN Events overnight : Afebrile hemodynamically stable Respiratory - 4L I/O = Drips: ns Pressors- no Consultants: Hospital course: 10/12 72 y/o female with history of CAD, HTN, HLP, DM. Presented to ER with complaints of increased dyspnea, fever and cough x 2 days. 10/13-, balloon angioplasty for in-stent restenosis in the LAD with excellent results A/P NSTEMI ( recent PTCA to LAD 07/2022) - on plavix and ASA - recent ECHO with EF 60% - 10/13/2022, balloon angioplasty for in-stent restenosis in the LAD with exc ellent results Possible PNA - very minmal changes on CXR , but presented with fever and coug- started on Tx for HAP ( was in hospital 2 m ago ) ( NEG covid and flu ) - follow cx Hypoxia - 4 L o2 , - - STOP IVF , IS UTI with Ecoli - cont rocephin, sns pending Elve lactate - Sepsis ? vs cardiogenic hypotension - RESOLVED lactate normalized ( last EF 60 % - STOP IVF Anemia - suspect delutuonal , no bleeding DM - ISS SLE reported - not on immunomodifying meds PAD mild nocturnal confusion\\ - AAO x3 daytime Lines : , (Central Line Necessity Reviewed) [place]: OG: Nutrition: Analgesia: Anxiety/ delirium VTE Prophylaxis: scd , ? ambulate vs lovenox Stress Ulcer Prophylaxis: Plans in collaboration with bedside consultants and IM MDs. Discussed with RN to reach out if any questions or concerns A total of 20 minutes of critical care time was devoted to this patient today, required to treat and/or prevent further deterioration of critical care condi tion ( as above ) . I am remotely monitoring this patient from another state. I am unable to do the bedside exam, and history/physical and pertinent information is taken from other notes in the computer and bedside staff. . Sepsis Event Evaluation Height, Weight, BMI Height: 5'3.00" Weight: 188lbs. 3.2oz. 85.806189pi; 27.22 BMI Method:Stated Focused Exam Lactate Level 10/12/22 03:35: Lactic Acid Level 5.13*H 10/12/22 05:10: Lactic Acid Level 2.64*H 10/12/22 07:11: Lactic Acid Level 1.24 Time of Focused Exam: 04:40 Exam Exam Patient acknowledged, consented, and participated in this virtual visit which was conducted using real time audio/video Vital Signs Date Time Temp Pulse Resp B/P (MAP) Pulse Ox O2 Delivery O2 Flow Rate FiO2 10/14/22 09:42 Nasal Cannula 4.00 10/14/22 09:00 92 20 171/90 (113) 97 Room Air 10/14/22 08:00 84 34 168/94 (140) 96 Room Air 10/14/22 07:58 36.9 10/14/22 07:00 86 25 100 Room Air 10/14/22 07:00 89 10/14/22 07:00 Nasal Cannula 5.00 10/14/22 06:00 74 28 165/84 (111) 96 Room Air 10/14/22 05:00 73 30 169/89 (115) 96 Room Air 10/14/22 04:20 36.6 10/14/22 04:00 79 20 159/81 (107) 95 Room Air 10/14/22 04:00 96 Nasal Cannula 2.00 10/14/22 03:00 73 27 131/72 (91) 96 Room Air 10/14/22 02:00 62 27 168/104 (125) 94 Room Air 10/14/22 01:00 71 10/14/22 01:00 64 27 170/95 (120) 96 Room Air 10/14/22 00:48 36.4 10/14/22 00:00 75 31 173/92 (119) 98 Room Air 10/13/22 23:59 98 Room Air 2.00 10/13/22 23:00 66 21 147/115 (126) 98 Room Air 10/13/22 22:00 78 17 99 Room Air 10/13/22 21:00 66 32 158/81 (106) 98 Room Air 10/13/22 20:00 98 Nasal Cannula 2.00 10/13/22 20:00 62 18 141/79 (99) 97 Room Air 10/13/22 19:07 36.6 10/13/22 19:06 36.6 10/13/22 19:00 69 26 130/49 (76) 100 Room Air 10/13/22 19:00 73 10/13/22 18:00 62 28 133/72 (92) 100 Room Air 10/13/22 17:00 61 27 131/65 (94) 100 Room Air 10/13/22 16:00 73 33 125/83 (95) 100 Room Air 10/13/22 16:00 100 Nasal Cannula 2.00 10/13/22 15:29 36.2 10/13/22 15:00 58 27 137/69 (97) 100 Room Air 10/13/22 14:00 65 17 153/75 (123) 91 Room Air 10/13/22 13:00 52 25 113/66 (82) 99 Room Air 10/13/22 12:54 54 10/13/22 12:00 53 23 141/64 (91) 96 Room Air 10/13/22 12:00 99 Nasal Cannula 2.00 10/13/22 11:45 57 26 134/66 (92) 98 Room Air 10/13/22 11:35 36.2 10/13/22 11:30 60 27 137/67 (91) 98 Room Air 10/13/22 11:20 59 127/71 (86) 98 Room Air 10/13/22 11:15 58 126/67 (91) 98 Room Air 10/13/22 11:00 58 26 120/64 (88) 98 Room Air 10/13/22 10:45 65 28 121/57 (78) 96 Room Air I & O 10/14/22 07:00 Intake Total 1270 ml Output Total 700 ml Balance 570 ml Height & Weight Height: 5'3.00" Weight: 188lbs. 3.2oz. 85.144279em; 27.22 BMI Method:Stated General Appearance: No Apparent Distress, WD/WN, Mild Distress HEENT: PERRL/EOMI, Normal ENT Inspection Neck: Normal Inspection; No JVD Respiratory: Lungs Clear, Decreased Breath Sounds Cardiovascular: No Edema, No Murmur, Tachycardia Capillary Refill: Less Than 3 Seconds Gastrointestinal: normal bowel sounds, non tender, soft Extremity: Normal Inspection, No Pedal Edema Neurologic/Psychiatric: Alert, Oriented x3, No Motor/Sensory Deficits, Normal Mood/Affect, spinner continuous II-XII Norm as Tested Results Lab Laboratory Tests 10/13/22 03:28 10/14/22 03:55 Assessment/Plan Assessment/Plan 1 THOMAS DAI MD Oct 14, 2022 10:14
--- NOTE | 2022-10-14 11:32 | Physical Therapy Evaluation ---
PT Evaluation-General Medical Diagnosis Admission Date Oct 12, 2022 at 07:57 Medical Diagnosis: sepsis/pneumonia/NSTEMI Onset Date: Oct 12, 2022 Therapy Diagnosis Therapy Diagnosis: debility Height/Weight Height (Feet): 5 Height (Inches): 3.00 Weight (Pounds): 188 Weight (Ounces): 3.2 Precautions Precautions/Isolations: Fall Prevention, Standard Precautions Referral Physician: Anselmo Reason for Referral: Evaluation/Treatment Medical History Pertinent Medical History: CAD, DM, HTN, [place], PVD, Smoking Additional Medical History Lupus Current History EMS from local store due to possible [place] Reviewed History: Yes Social History Home: Apartment Current Living Status: Children Prior Prior Level of Function SCALE: Activities may be completed with or without assistive devices. 3-Lwwuggxixx-qispbdh completes the activity by him/herself with no assistance from a helper. 5-Set-up or Clean-up Assistance-helper sets up or cleans up; patient completes activity. [place] assists only prior to or following the activity. 4-Supervision or Touching Assistance-helper provides verbal cues and/or touching/steadying and/or contact guard assistance as patient completes activity. Assistance may be provided throughout the activity or intermittently. 3-Partial/Moderate Assistance-helper does LESS THAN HALF the effort. [place] lifts, holds or supports trunk or limbs, but provides less than half the effort. 2-Substantial/Maximal Assistance-helper does MORE THAN HALF the effort. [place] lifts or holds trunk or limbs and provides more than half the effort. 2-Dqtabrugc-tvroxi does ALL the effort. Patient does none of the effort to complete the activity. Or, the assistance of 2 or more helpers is required for the patient to complete the activity. If activity was not attempted, code reason: 7-Patient Refused. 9-Not Applicable-not attempted and the patient did not perform the activity before the current illness, exacerbation or injury. 10-Not Attempted due to Environmental Limitations-(lack of equipment, weather restraints, etc.). 88-Not Attempted due to Medical Conditions or Safety Concerns. Bed Mobility: 6 Transfers (B,C,W/C): 6 Gait: 6 Stairs: 6 Indoor Mobility (Ambulation): Independent Stairs: Independent Prior Devices Use: None PT Evaluation-Current Subjective Patient agrees to PT. Objective Patient Orientation: Normal For Age ROM/Strength ROM Lower Extremities bilateral LE WFL Strength Lower Extremities 4/5 grossly bilateral LE all planes Integumentary/Posture Bowel Incontinence: No Bladder Incontinence: No Posture WFL Neuromuscular (Tone, Coordination, Reflexes) grossly intact Sensory Vision: Functional Hearing: Functional Transfers Lying to Sitting/Side of Bed(Q: 4 Sit to Stand (QC): 4 Chair/Mnl-of-Lydxo Xfer(QC): 4 Gait Mode of Locomotion: Walk Anticipated Mode of Locomotion: Walk Walk 10 feet (QC): 4 Walk 50 ft with 2 Turns(QC): 4 Walk 150 ft (QC): 4 Distance: 250' Gait Assistive Device: FWW Comments/Gait Description FWW for initial assessment and first time OOB Balance Sitting Static: Normal Sitting Dynamic: Normal Standing Static: Normal Standing Dynamic: Normal Assessment/Needs Patient will be seen short term by skilled PT to address functional mobility to ensure safe return to home at maximum LOF. Rehab Potential: Fair PT Product Marketing Programs Manager Goals Product Marketing Programs Manager Goals PT Product Marketing Programs Manager Goals Time Frame: Oct 23, 2022 Roll Left & Right (QC): 6 Sit to Lying (QC): 6 Lying-Sitting on Side/Bed(QC): 6 Sit to Stand (QC): 6 Chair/Ena-nh-Lknzf Xfer(QC): 6 Toilet Transfer (QC): 6 Walk 10 feet (QC): 6 Walk 50ft with 2 Turns (QC): 6 Walk 150 ft (QC): 6 PT Plan Problem List Problem List: Activity Tolerance Treatment/Plan Treatment Plan: Continue Plan of Care Treatment Plan: Bed Mobility, Education, Functional Activity Tamara, Functional Strength, Gait, Safety, Therapeutic Exercise, Transfers Treatment Duration: Oct 23, 2022 Frequency: 6 times per week Estimated Hrs Per Day: .25 hour per day Patient and/or Family Agrees t: Yes Time Time In: 1100 Time Out: 1113 DATE: Oct 14, 2022 Total Billed Treatment Time: 13 Total Billed Treatment 1 visit EVMod 13 min KALYAN PEREZ PT Oct 14, 2022 11:32
--- NOTE | 2022-10-14 12:18 | Progress Note ---
Subjective Subjective/Events-last exam Patient is feeling better today. Denies any chest pain. Still having some shortness of breath but that is improving. Tolerating PO diet. Review of Systems Pulmonary: Dyspnea; No Cough Cardiovascular: No: Chest Pain, Palpitations, Edema Gastrointestinal: No: Nausea, Vomiting, Abdominal Pain, Diarrhea, Constipation Neurological: Weakness, Incoordination; No: Confusion Focused Exam Lactate Level 10/12/22 03:35: Lactic Acid Level 5.13*H 10/12/22 05:10: Lactic Acid Level 2.64*H 10/12/22 07:11: Lactic Acid Level 1.24 Time of Focused Exam: 04:40 Objective Exam Last Set of Vital Signs Vital Signs Date Time Temp Pulse Resp B/P (MAP) Pulse Ox O2 Delivery O2 Flow Rate FiO2 10/14/22 12:00 80 143/84 (103) 90 Nasal Cannula 4.00 10/14/22 09:00 20 10/14/22 07:58 36.9 Capillary Refill : Less Than 3 Seconds I&O Intake and Output 10/13/22 23:59 Intake Total 1170 ml Output Total 1250 ml Balance -80 ml Intake Oral 520 ml IV Total 650 ml Output Urine Total 1250 ml # Voids 1 General: Alert, Oriented X3, No Acute Distress Lungs: Clear to Auscultation, Normal Air Movement Heart: Regular Rate, No Murmurs Abdomen: Normal Bowel Sounds, Soft, No Tenderness, No Masses, Other Extremities: No Edema Neuro: Normal Speech Results/Procedures Lab Laboratory Tests 10/13/22 15:26: Glucometer 162H 10/13/22 20:09: Glucometer 126H 10/14/22 03:55: White Blood Count 5.1, Red Blood Count 3.96, Hemoglobin 10.6L, Hematocrit 32L, Mean Corpuscular Volume 81, Mean Corpuscular Hemoglobin 27, Mean Corpuscular Hemoglobin Concent 33, Red Cell Distribution Width 13.8, Platelet Count 122L, Mean Platelet Volume 11.6, Immature Granulocyte % (Auto) 0, Neutrophils (%) (Auto) 77H, Lymphocytes (%) (Auto) 11L, Monocytes (%) (Auto) 10, Eosinophils (%) (Auto) 2, Basophils (%) (Auto) 0, Neutrophils # (Auto) 3.9, Lymphocytes # (Auto) 0.6L, Monocytes # (Auto) 0.5, Eosinophils # (Auto) 0.1, Basophils # (Auto) 0.0, Immature Granulocyte # (Auto) 0.0, Percent Immature Platelet Fraction 5.4, Sodium Level 140, Potassium Level 3.7, Chloride Level 113H, Carbon Dioxide Level 19L, Anion Gap 8, Blood Urea Nitrogen 7, Creatinine 0.64, Estimat Glomerular Filtration Rate 95, BUN/Creatinine Ratio 11, Glucose Level 143H, Calcium Level 8.2L, Corrected Calcium 9.1, Phosphorus Level 2.2L, Magnesium Level 2.0, Total Bilirubin 0.3, Aspartate Amino Transf (AST/SGOT) 61H, Alanine Aminotransferase (ALT/SGPT) 40, Alkaline Phosphatase 64, Total Protein 5.9L, Albumin 2.9L 10/14/22 11:05: Glucometer 102 Microbiology 10/12/22 MRSA Screen - Final, Complete MRSA not isolated 10/12/22 Urine Culture - Final, Complete Escherichia coli 10/12/22 Blood Culture - Preliminary, Resulted No growth Assessment/Plan Assessment/Plan (1) Severe sepsis Status: Resolved Assessment & Plan: - Started on broad spectrum antibiotics, trending LA, will continue to monitor, HDS at this time, holding blood pressure meds at this time 10/13: narrow spectrum for antibiotics, d/c Vanc 10/14: Symptoms more consistent with Cardiogenic causes and less likely infection (2) Pneumonia Status: Acute Qualifiers: Qualified Codes: J18.9 - Pneumonia, unspecified organism (3) NSTEMI (non-ST elevated myocardial infarction) Status: Acute Assessment & Plan: - Cardiology consulted, appreciate recommendations, aggressive conservative management at this time with DAPT 10/13: To label remover this AM, severe stenosis of LAD, cardiology managing 16/02: Discussed the importance of DAPT, Will order PT and transfer patient to floor (4) Insulin dependent diabetes mellitus with complications Status: Chronic Assessment & Plan: - A1c pending, SSI 10/14: A1c 6.2, DM well controlled (5) HTN (hypertension) Status: Chronic Assessment & Plan: - Holding home BP meds at this time due to normotension and sepsis (6) HLD (hyperlipidemia) Status: Chronic (7) CAD (coronary artery disease) Status: Chronic Qualifiers: Qualified Codes: I25.110 - Atherosclerotic heart disease of [place] coronary artery with unstable angina pectoris (8) Tobacco abuse Status: Chronic Assessment & Plan: - Discussed the importance of cessation given severe PVD an CAD HUGO WOLFF MD Oct 14, 2022 12:18
[2022-10-14] MEDS: cefTRIAXone 1 GM PRE-MIX 50 ML IV SCH (15:04)
[2022-10-15 05:39] LABS: BASOPHILS % (AUTO) 0 % (0-10); EOSINOPHILS # (AUTO) 0.1 10^3/uL (0.0-0.3); EOSINOPHILS % (AUTO) 3 % (0-10); HEMATOCRIT 33 % (35-52); HEMOGLOBIN 11.1 g/dL (11.5-16.0); LYMPHOCYTES # (AUTO) 0.7 10^3/uL (1.0-4.0); LYMPHOCYTES % (AUTO) 16 % (12-44); MEAN CORPUSCULAR HEMOGLOBIN 27 pg (25-34); MEAN CORPUSCULAR HGB CONC 33 g/dL (32-36); MEAN CORPUSCULAR VOLUME 80 fL (80-99); MEAN PLATELET VOLUME 11.3 fL (9.0-12.2); MONOCYTES # (AUTO) 0.5 10^3/uL (0.0-1.0); MONOCYTES % (AUTO) 12 % (0-12); NEUTROPHILS % (AUTO) 70 % (42-75); PLATELET COUNT 151 10^3/uL (130-400); WHITE BLOOD COUNT 4.3 10^3/uL (4.3-11.0)
[2022-10-15] MEDS: inSUlin ASPART (NovoLOG) 1 UNIT/0.01 ML (CHARGE PER UNIT) SQ SCH ×2 (05:42→12:46)
[2022-10-15 05:55] LABS: ALBUMIN 2.9 GM/DL (3.2-4.5); BILIRUBIN,TOTAL 0.3 MG/DL (0.1-1.0); CALCIUM 8.6 MG/DL (8.5-10.1); CREATININE SERUM 0.63 MG/DL (0.60-1.30); POTASSIUM 3.7 MMOL/L (3.6-5.0); TOTAL PROTEIN 5.9 GM/DL (6.4-8.2)
[2022-10-15] MEDS: KCL 20 MEQ TAB (K-DUR) PO SCH (06:35)
[2022-10-15] MEDS: MAGNESIUM 1 GM/100 ML IVPB 100 ML IV SCH (06:35)
[2022-10-15] MEDS: POTASSIUM CL 10MEQ/50ML IVPB 50 ML IV SCH (06:36)
[2022-10-15] MEDS: PANTOPRAZOLE 40 MG (PROTONIX) TAB PO SCH (09:35)
[2022-10-15] MEDS: CLOPIDOGREL 75 MG (PLAVIX) TABLET PO SCH (09:35)
[2022-10-15] MEDS: ASPIRIN E.C. 81 MG (ECOTRIN) TAB PO SCH (09:35)
--- NOTE | 2022-10-15 10:06 | Physical Therapy Daily Note ---
PT Daily Note-Current Subjective Patient agrees to PT. No c/o at this time Pain Section J - Health Conditions 1. Rarely or not at all 2. Occasionally 3. Frequently 4. Almost constantly 8. Unable to answer Pain Effect on Sleep: 1 Pain Interference with Therapy: 1 Pain Interference w/Day-to-Day: 1 Mental Status Patient Orientation: Normal For Age Transfers SCALE: Activities may be completed with or without assistive devices. 4-Fqtcrqbrfq-kvqnerx completes the activity by him/herself with no assistance from a helper. 5-Set-up or Clean-up Assistance-helper sets up or cleans up; patient completes activity. [place] assists only prior to or following the activity. 4-Supervision or Touching Assistance-helper provides verbal cues and/or touching/steadying and/or contact guard assistance as patient completes activity. Assistance may be provided throughout the activity or intermittently. 3-Partial/Moderate Assistance-helper does LESS THAN HALF the effort. [place] lifts, holds or supports trunk or limbs, but provides less than half the effort. 2-Substantial/Maximal Assistance-helper does MORE THAN HALF the effort. [place] lifts or holds trunk or limbs and provides more than half the effort. 9-Rpcxxbhja-pwbahx does ALL the effort. Patient does none of the effort to complete the activity. Or, the assistance of 2 or more helpers is required for the patient to complete the activity. If activity was not attempted, code reason: 7-Patient Refused. 9-Not Applicable-not attempted and the patient did not perform the activity before the current illness, exacerbation or injury. 10-Not Attempted due to Environmental Limitations-(lack of equipment, weather restraints, etc.). 88-Not Attempted due to Medical Conditions or Safety Concerns. Sit to Stand (QC): 6 Gait Training Distance: 300' Walk 10 feet (QC): 6 Walk 50 ft with 2 Turns(QC): 6 Walk 150 ft (QC): 6 Gait Assistive Device: None safe and functional with no deviation Assessment Patient is currently at independent PLOF with all gross motor skills safely and no longer requires skilled PT intervention. PT to dismiss patient from services at this time. PT Prefabricator Goals Prefabricator Goals PT [facility] Goals Time Frame: Oct 23, 2022 Roll Left & Right (QC): 6 Sit to Lying (QC): 6 Lying-Sitting on Side/Bed(QC): 6 Sit to Stand (QC): 6 Chair/Mlr-tg-Xwgie Xfer(QC): 6 Toilet Transfer (QC): 6 Walk 10 feet (QC): 6 Walk 50ft with 2 Turns (QC): 6 Walk 150 ft (QC): 6 PT Plan Treatment/Plan Treatment Plan: Discontinue PT Treatment Plan: Bed Mobility, Education, Functional Activity Tamara, Functional Strength, Gait, Safety, Therapeutic Exercise, Transfers Treatment Duration: Oct 23, 2022 Frequency: 6 times per week Estimated Hrs Per Day: .25 hour per day Patient and/or Family Agrees t: Yes Time Time In: 847 Time Out: 857 DATE: Oct 15, 2022 Total Billed Treatment Time: 10 Total Billed Treatment 1 visit FA 10 min KALYAN PEREZ PT Oct 15, 2022 10:06
[2022-10-15] MEDS ORDERED: CLOP75TA28 PO (10:58)
[2022-10-15] MEDS ORDERED: NITR0.4T42 SL (10:58)
[2022-10-15] MEDS ORDERED: ASPI-1238 PO (10:58)
--- NOTE | 2022-10-15 10:58 | Discharge Summary ---
Discharge Summary Reconcile Patient Problems Problems Reviewed?: Yes Instructions for Patient Via [employer], Assessment/Instructions Sepsis UTI NSTEMI IDDM HTN HLD CAD Tobacco Abuse Physician to follow Patient: Chucho Discharge Diet for Home: Cardiac Diet Hospital Course Date of Admission: Oct 12, 2022 at 07:57 Admission Diagnosis : Family Physician/Provider: Ry Little MD Date of Discharge: 10/15/22 Discharge Diagnosis: Sepsis UTI NSTEMI IDDM HTN HLD CAD Tobacco abuse Hospital Course: 72 yo F that presented with shortness of breath and meeting sepsis criteria. Started on antibiotics to cover for PNA and was narrowed to cover her UTI. Shortness of breath was more related to NSTEMI and patient was taken to laboratory chief and had severe restenosis. On day of d/c patient is doing well. Denies chest pain. Labs and Pending Lab Test: Laboratory Tests 10/14/22 11:05: Glucometer 102 10/14/22 17:05: Glucometer 95 10/14/22 20:11: Glucometer 107 10/15/22 05:20: White Blood Count 4.3, Red Blood Count 4.15, Hemoglobin 11.1L, Hematocrit 33L, Mean Corpuscular Volume 80, Mean Corpuscular Hemoglobin 27, Mean Corpuscular Hemoglobin Concent 33, Red Cell Distribution Width 13.6, Platelet Count 151, Mean Platelet Volume 11.3, Immature Granulocyte % (Auto) 1, Neutrophils (%) (Auto) 70, Lymphocytes (%) (Auto) 16, Monocytes (%) (Auto) 12, Eosinophils (%) (Auto) 3, Basophils (%) (Auto) 0, Neutrophils # (Auto) 3.0, Lymphocytes # (Auto) 0.7L, Monocytes # (Auto) 0.5, Eosinophils # (Auto) 0.1, Basophils # (Auto) 0.0, Immature Granulocyte # (Auto) 0.0, Sodium Level 140, Potassium Level 3.7, Chloride Level 112H, Carbon Dioxide Level 21, Anion Gap 7, Blood Urea Nitrogen 7, Creatinine 0.63, Estimat Glomerular Filtration Rate 95, BUN/Creatinine Ratio 11, Glucose Level 106H, Calcium Level 8.6, Corrected Calcium 9.5, Phosphorus Level 3.0, Magnesium Level 2.0, Total Bilirubin 0.3, Aspartate Amino Transf (AST/SGOT) 34, Alanine Aminotransferase (ALT/SGPT) 26, Alkaline Phosphatase 66, Total Protein 5.9L, Albumin 2.9L 10/15/22 05:38: Glucometer 91 10/15/22 10:44: Glucometer 99 Microbiology 10/12/22 MRSA Screen - Final, Complete MRSA not isolated 10/12/22 Urine Culture - Final, Complete Escherichia coli 10/12/22 Blood Culture - Preliminary, Resulted No growth Home Meds Active Reported Meloxicam 15 Mg Tablet 15 Mg PO DAILY LAST FILLED 04-13-2022 #90/90 DAY SUPPLY Amlodipine Besylate 10 Mg Tablet 10 Mg PO DAILY Levemir Flextouch (Insulin Detemir) 100 Unit/Ml (3 Ml) Insuln.pen 20 Units SC BID PRN LAST FILLED 04-12-2022 #5PENS Metoprolol Tartrate 50 Mg Tablet 50 Mg PO BID LAST FILLED 04-12-2022 #180/90 DAY SUPPLY Patient Allergies: Coded Allergies: atorvastatin (Unverified Adverse Reaction, Unknown, 06/14/15) metformin (Unverified Adverse Reaction, Unknown, 06/14/15) Height (Feet): 5 Height (Inches): 3.00 Weight (Pounds): 188 Weight (Ounces): 3.2 New Medications: Aspirin (Aspirin EC) 81 Mg Tablet.dr 81 MG PO DAILY, #30 TAB Clopidogrel Bisulfate (Clopidogrel) 75 Mg Tablet 75 MG PO DAILY, #30 TAB Nitroglycerin (Nitroglycerin) 0.4 Mg Tab.subl 0.4 MG SL UD PRN for CHEST PAIN (ANGINA), #5 TAB Continued Medications: Amlodipine Besylate (Amlodipine Besylate) 10 Mg Tablet 10 MG PO DAILY, TAB Insulin Detemir (Levemir Flextouch) 100 Unit/Ml (3 Ml) Insuln.pen 20 UNITS SC BID PRN for HYPERGLYCEMIA, EA LAST FILLED 04-12-2022 #5PENS Metoprolol Tartrate (Metoprolol Tartrate) 50 Mg Tablet 50 MG PO BID, TAB LAST FILLED 04-12-2022 #180/90 DAY SUPPLY Discontinued Medications: Meloxicam (Meloxicam) 15 Mg Tablet 15 MG PO DAILY, TAB LAST FILLED 04-13-2022 #90/90 DAY SUPPLY Home Health Need/Face to Face Date of Face to Face: Oct 15, 2022 Clinical Findings: Muscle weakness, Shortness of breath, Unsteady gait I have seen Pt [id number]: Yes Discharged To: Home Diagnosis/Conditions: See Above Patient is Homebound due to: Kim fall risk due to instabilty Homebound Status Due to the above stated illness, injury or surgical procedure (medical condition or diagnosis) and associated clinical findings, the patient is homebound because of his/her inability to leave home except with aid of a supportive device and/or person AND leaving the home requires a considerable and taxing effort or is medically contraindicated. Pt req the following assistanc: [facility] Start Date: Oct 12, 2022 Therapy Orders Therapy Orders: Physical Therapy, PT to assess for OT Therapy Specific Orders: Increase strength/endurance Certify Stmt I certify that this patient is under my care and that I, a nurse practitioner or a physician; a title i instructional assistant working with me, had a face to face encounter that - meets the physician face to face encounter requirements with this patient as dated. Discharge Physical Exam General: Alert, Oriented X3, No Acute Distress Lungs: Clear to Auscultation, Normal Air Movement Heart: Regular Rate, No Murmurs Abdomen: Normal Bowel Sounds, Soft, No Tenderness, No Masses Extremities: No Edema, No Tenderness/Swelling Skin: No Rashes Neuro: Normal Speech, Cranial Nerves 3-12 NL Psych/Mental Status: Mental Status NL, Mood NL HUGO WOLFF MD Oct 15, 2022 10:56
--- NOTE | 2022-10-15 13:08 | Cardiology Progress Note ---
Subjective Date Seen by Provider: Oct 15, 2022 Time Seen by Provider: 13:08 Subjective/Events-last exam Patient was seen at bedside, sitting comfortably Review of Systems General: No Chills, No Night Sweats, No Fatigue, No Malaise, No Appetite, No Other HEENT: No Head Aches, No Visual Changes, No Eye Pain, No Ear Pain, No Dysphasia, No Sinus Congestion, No Post Nasal Drip, No Sore Throat, No Other Pulmonary: No Dyspnea, No Cough, No Pleuritic Chest Pain, No Other Cardiovascular: No: Chest Pain, Palpitations, Orthopnea, Paroxysmal Noc. Dyspnea, Edema, Lt Headedness, Other Focused Exam Time of Focused Exam: 04:40 Objective-Cardiology Exam Last Set of Vital Signs Vital Signs 10/15/22 10/15/22 10/15/22 03:59 07:00 08:12 Temp 36.8 Pulse 69 Resp 20 B/P (MAP) 145/66 (92) Pulse Ox 92 O2 Delivery Room Air O2 Flow Rate 0.00 I&O Intake and Output 10/15/22 00:00 Intake Total 1240 ml Balance 1240 ml Intake Oral 1240 ml # Voids 15 General: Alert, Oriented X3, No Acute Distress HEENT: Atraumatic, PERRLA Neck: Supple, No JVD, No Thyromegaly Lungs: Clear to Auscultation, Normal Air Movement Heart: Regular Rate, No Murmurs Abdomen: Normal Bowel Sounds, Soft, No Tenderness, No Masses Extremities: No Edema, No Tenderness/Swelling Skin: No Rashes Neuro: Normal Speech, Cranial Nerves 3-12 NL Psych/Mental Status: Mental Status NL, Mood NL Results Lab Laboratory Tests 10/15/22 05:20 A/P-Cardiology Admission Diagnosis Chest pain Elevated troponin CAD UTI Pneumonia Assessment/Plan Chest pain, non-ST elevation myocardial infarction Status postcardiac catheterization and balloon angioplasty for in-stent restenos is of the LAD Non-ST elevation myocardial infarction, EKG showing minimal changes Patient has been having waxing and waning chest pain Cardiac catheterization done in July 2022 with severe disease in the small right coronary artery and moderate disease in the distal LAD that is inoperable. Patient has balloon angioplasty for in-stent restenosis in the proximal LAD. Patient is feeling better today. No further episodes of chest pain CAD - Card cath of 08/15/18: Coronary artery disease, multivessel. The most significant lesion was a long stenosis in the proximal left anterior descending artery (up to 95%) that was successfully stented with Sinai 2.75 x 33 mm stent and this stent slightly overlaps an old stent that is known to be a drug-eluting stent measuring 2.75 x 16 mm. The distal left anterior descending artery has moderate to moderately severe disease and is of a small caliber. The left circumflex artery is dominant and has mild disease. The right coronary artery is small and nondominant and has a long stenosis in its proximal and mid portion of up to 80%. Normal global left ventricular systolic function with ejection fraction of 65 to 70%. Normal left ventricular end diastolic pressure. No significant mitral regurgitation. No significant renal artery stenosis - Card cath of 08/09/2022: LMCA Ok. LAD 99% prox instent that was successfully treated with PTCA with reduction of stenosis to 0% and improvement of flow from LESLIE 1 to LESLIE 3. Multiple up to 50% in mid and distal LAD. LCX dominant with diffuse mild to mod disease. RCA small and nondominant with diffuse severe disease (not amenable to intervention). LVEDP 5 mmHg. LVEF 60% Status postcardiac catheterization on October 13, 2022, balloon angioplasty for in-stent restenosis in the LAD with excellent results. Has been maintained on Plavix and ASA Pneumonia with sepsis, management per medical services UTI, management per medical services. PAD, Mild peripheral arterial disease consisting of 30 to 40% stenosis in the right superficial femoral artery per peripheral angiogram of Aug 15, 2018 Hyperlipidemia, Reported intolerance to statin tx. I will evaluate lipid profile. DM II Chronic tobacco use (smoking) SLE, per patient report Hypertension, restart home blood pressure medication and continue to monitor. Chronic RBBB Noncompliance with medication, educated about compliance. CONNIE DIEZ MD Oct 15, 2022 13:08
== END 2022-10-15 13:00 | disposition home health service (06) | DRG 853 ==
LOC: EDUNIT# 03:25 → ER 03:26 → ICU 07:57 → 4TH 10-14 14:37
PROVIDERS: ADMIT Family Medicine; ATTEND Family Medicine
PROC: 02703ZZ Dilation of Coronary Artery, One Artery, Percutaneous Approach (ICD-10-PCS; principal; 2022-10-12)
PROC: 4A023N7 Measurement of Cardiac Sampling and Pressure, Left Heart, Percutaneous Approach (ICD-10-PCS; 2022-10-12)
PROC: B2111ZZ Fluoroscopy of Multiple Coronary Arteries using Low Osmolar Contrast (ICD-10-PCS; 2022-10-12)
PROC: B2151ZZ Fluoroscopy of Left Heart using Low Osmolar Contrast (ICD-10-PCS; 2022-10-12)
DX: A41.9 Sepsis, unspecified organism (principal); I21.4 Non-ST elevation (NSTEMI) myocardial infarction; J18.9 Pneumonia, unspecified organism; N39.0 Urinary tract infection, site not specified; T82.855A Stenosis of coronary artery stent, initial encounter; R65.20 Severe sepsis without septic shock; I10 Essential (primary) hypertension; I25.10 Atherosclerotic heart disease of native coronary artery without angina pectoris; F17.210 Nicotine dependence, cigarettes, uncomplicated; E78.5 Hyperlipidemia, unspecified; E11.40 Type 2 diabetes mellitus with diabetic neuropathy, unspecified; K21.9 Gastro-esophageal reflux disease without esophagitis; M19.91 Primary osteoarthritis, unspecified site; F32.A Depression, unspecified; M32.9 Systemic lupus erythematosus, unspecified; I45.10 Unspecified right bundle-branch block; I25.2 Old myocardial infarction; Z79.4 Long term (current) use of insulin; Z79.84 Long term (current) use of oral hypoglycemic drugs; Z95.5 Presence of coronary angioplasty implant and graft; Z88.8 Allergy status to other drugs, medicaments and biological substances; Z79.82 Long term (current) use of aspirin; Z83.3 Family history of diabetes mellitus; Z82.49 Family history of ischemic heart disease and other diseases of the circulatory system; R09.02 Hypoxemia; B96.20 Unspecified Escherichia coli [E. coli] as the cause of diseases classified elsewhere; D64.9 Anemia, unspecified; E11.51 Type 2 diabetes mellitus with diabetic peripheral angiopathy without gangrene; Z20.822 Contact with and (suspected) exposure to COVID-19; Z91.14 Patient's other noncompliance with medication regimen
CPT/HCPCS: 36415; 51702; 71045; 80053; 80061; 81000; 82947; 83036; 83605; 83735; 83874; 83880; 84100; 84484; 85007; 85025; 85027; 85610; 85730; 86141; 87040; 87077; 87081; 87088; 87186; 87636; 90662; 93005; 93041; 93458

== ENCOUNTER 2023-01-09 07:39 | Observation (INO) | payer MEDICAID ==
[~2023-01-09] VITALS: Ht 160 cm; Wt 72.2 kg
[~2023-01-09 07:39] MED LIST changes: -ENAL10TA16 PO; -INSU100I29 SC; +INSU100I30 SC; +NITR0.4T42 SL
[2023-01-09] MEDS: NITROGLYCERIN 0.4 MG SL TABS BTL 25'S SL PRN ×2 (07:55→08:05)
[2023-01-09 07:57] LABS: BASOPHILS % (AUTO) 0 % (0-10); EOSINOPHILS # (AUTO) 0.1 10^3/uL (0.0-0.3); EOSINOPHILS % (AUTO) 2 % (0-10); HEMATOCRIT 46 % (35-52); HEMOGLOBIN 14.8 g/dL (11.5-16.0); LYMPHOCYTES # (AUTO) 0.5 10^3/uL (1.0-4.0); LYMPHOCYTES % (AUTO) 14 % (12-44); MEAN CORPUSCULAR HEMOGLOBIN 26 pg (25-34); MEAN CORPUSCULAR HGB CONC 32 g/dL (32-36); MEAN CORPUSCULAR VOLUME 79 fL (80-99); MEAN PLATELET VOLUME 10.6 fL (9.0-12.2); MONOCYTES # (AUTO) 0.5 10^3/uL (0.0-1.0); MONOCYTES % (AUTO) 13 % (0-12); NEUTROPHILS # (AUTO) 2.7 10^3/uL (1.8-7.8); NEUTROPHILS % (AUTO) 71 % (42-75); PLATELET COUNT 211 10^3/uL (130-400); WHITE BLOOD COUNT 3.8 10^3/uL (4.3-11.0)
--- NOTE | 2023-01-09 07:59 | ED Chest Pain ---
General Chief Complaint: Chest Pain Stated Complaint: UPPER ABD PAIN Nursing Triage Note: PT TO RM 5 PER W/C PT CO OF C/P SINCE YESTERDAY 04/07. DENIES N/V OR SOB AT THIS X. PT HAS HX OF HEART STENTS. PT STATES TOOK NITRO SL AT HOME YESTERDAY AND DID HELP. Source: patient Exam Limitations: no limitations History of Present Illness Date Seen by Provider: January 09, 2023 Time Seen by Provider: 07:39 Initial Comments Here with report of chest pain to the left side just below the breast that started about 5 PM yesterday. She did try nitroglycerin yesterday and that did help. She states the pain went away and then returned this morning. She woke up at 5:30 AM with the pain that was just noticeable but worsened. She has taken a baby aspirin this morning as well as her Plavix. She has not tried nitroglycerin. She denies nausea, vomiting, sweating or weakness. She has known stents in in July of last year she had heart cath per records. R ecords review showed they did do ballooning for in-stent stenosis of the LAD. This did improve flow and she apparently did better afterwards. She was advised to quit smoking and patient states that she has mostly but still smokes a little bit. She reports taking her meds as prescribed otherwise. She states that they wanted her on some other medicines which appears to be a statin that she is not taking. She apparently has had problems with this in the past. She follows with Dr. Tee and Dr. YOON. Timing/Duration: 12-24 hours Severity/Quality: moderate, aching Location: central (Left-sided under the breast) Radiation: no radiation Activities at Onset: none Prior CP/Workup: cardiac cath, echocardiography, heart attack, stress test Modifying Factors: worse with exercise; improves with nitroglycerin, improves with rest ASA po MANAGER GYN: Yes NTG SL MANAGER GYN: No Associated Symptoms: No abdominal pain, No back pain, No diaphoresis, No nausea/vomiting, No shortness of breath; weakness Allergies and Home Medications Allergies Coded Allergies: atorvastatin (Unverified Adverse Reaction, Unknown, 06/14/15) metformin (Unverified Adverse Reaction, Unknown, 06/14/15) Patient Home Medication List Home Medication List Reviewed: Yes Amlodipine Besylate (Amlodipine Besylate) 10 Mg Tablet, 10 MG PO DAILY, (Reported) Entered as Reported by: PEPITO FRANZ on 08/15/18 1221 Aspirin (Aspirin EC) 81 Mg Tablet.dr, 81 MG PO DAILY Prescribed by: HUGO WOLFF on 10/15/22 1058 Clopidogrel Bisulfate (Clopidogrel) 75 Mg Tablet, 75 MG PO DAILY Prescribed by: HUGO WOLFF on 10/15/22 1058 Insulin Detemir (Levemir Flextouch) 100 Unit/Ml (3 Ml) Insuln.pen, 20 UNITS SC BID PRN for HYPERGLYCEMIA, (Reported) Entered as Reported by: CHRISS GA on 06/28/18 1737 Metoprolol Tartrate (Metoprolol Tartrate) 50 Mg Tablet, 50 MG PO BID, (Reported) Entered as Reported by: CHRISS GA on 06/28/18 1734 Nitroglycerin (Nitroglycerin) 0.4 Mg Tab.subl, 0.4 MG SL UD PRN for CHEST PAIN (ANGINA) Prescribed by: HUGO WOLFF on 10/15/22 1058 Review of Systems Review of Systems Constitutional: see HPI; No chills, No fever EENTM: No Symptoms Reported Respiratory: Denies Cough, Denies Shortness of Air Cardiovascular: Chest Pain; Denies Edema Gastrointestinal: Denies Nausea, Denies Vomiting Genitourinary: No Symptoms Reported Musculoskeletal: No muscle pain; muscle weakness Skin: no symptoms reported Psychiatric/Neurological: Anxiety Past Ohmzjlr-Bllgym-Sjxktx Hx Patient Social History Tobacco Use?: Yes Tobacco type used: Cigarettes Smoking Status: Current Everyday Smoker Substance use?: No Alcohol Use?: No Pt feels they are or have been: No Immunizations Up To Date Tetanus Booster (TDap): More than 5yrs First/Initial COVID19 Vaccinat: no Second COVID19 Vaccination Jordan: no Third COVID19 Vaccination Date: no Seasonal Allergies Seasonal Allergies: No Past Medical History Surgery/Hospitalization HX: APPY, CARDIAC CATH, STENTS, LUPUS Surgeries: Yes (CARDIAC CATH--STENT X 2; EXCISION OF LESION LEFT NOSTRIL WITH FS & GRAFT) Appendectomy, Cardiac, Section, Coronary Stent, Gallbladder, Vascular Surgery Respiratory: Yes ("BREATHING PROBLEMS" ) Pneumonia, Chronic Bronchitis Currently Using CPAP: No Currently Using BIPAP: No Cardiac: Yes (CARDIAC CATHS WITH STENTS X 2 TO LAD) Coronary Artery Disease, Heart Attack, Hypertension, Peripheral Vascular Neurological: Yes Neuropathy Reproductive Disorders: No Female Reproductive Disorders: Ovarian Cyst [employer] History: Menopausal Genitourinary: No Gastrointestinal: Yes Gastroesophageal Reflux, Chronic Constipation, Hemorrhoids, Chronic Diarrhea, Polyps, Gall Bladder Disease Musculoskeletal: Yes (LUPUS; CHRONIC NECK AND BACK PAIN AND KNEE PAIN ) Arthritis, Back Injury, Chronic Back Pain, Fractures Endocrine: Yes Diabetes, Insulin dep, Lupus HEENT: Yes Tinnitis Cancer: No Skin Psychosocial: Yes Depression Integumentary: No Blood Disorders: No Family Medical History Reviewed Nursing Family Hx Diabetes mellitus 19 MOTHER FH: lung cancer 19 FATHER Hypertension 19 MOTHER Heart Disease, Cancer, CAD Under 55 Years Old, Diabetes, Hypertension PT WITH HISTORY OF NON-COMPLIANCE IN ALL ASPECTS OF CARE SOCIAL HISTORY: -SMOKES 1 PPD -DENIES ETOH USE -DENIES DRUG USE PAST SURGICAL HISTORY: -CARDIAC CATH 10/[address] BRAY: ANGIOPLASTY + STENT X 1 TO LAD -CARDIAC CATH 07/[address] TEE MULTIVESSEL DISEASE ANGIOOPLASTY + STENT X 1 TO LAD EF 65-70% MILD PERIPHERAL ARTERY DISEASE 30-40% STENOSIS TO RIGHT S.F.A. NO INTERVENTION NO SIGNIFICANT RENAL ARTERY DISEASE Physical Exam Vital Signs Vital Signs - First Documented 01/09/23 07:40 Pulse 74 Resp 18 B/P (MAP) 171/92 (118) Pulse Ox 97 O2 Delivery Room Air Capillary Refill : Less Than 3 Seconds Height, Weight, BMI Height: 5'3.00" Weight: 188lbs. 3.2oz. 85.730269vy; 23.00 BMI Method:Stated General Appearance: WD/WN, Mild Distress HEENT: PERRL/EOMI, Pharynx Normal Neck: Non Tender, Supple Respiratory: Lungs Clear, Normal Breath Sounds Cardiovascular: Regular Rate, Rhythm, No Murmur Gastrointestinal: Non Tender, Soft Extremity: Normal Range of Motion, Non Tender Neurologic/Psychiatric: Alert, Oriented x3 Skin: Normal Color, Warm/Dry Progress/Results/Core Measures Results/Orders Lab Results Laboratory Tests Test 01/09/23 07:54 01/09/23 08:21 Range/Units White Blood Count 3.8 L 4.3-11.0 10^3/uL Red Blood Count 5.79 H 3.80-5.11 10^6/uL Hemoglobin 14.8 11.5-16.0 g/dL Hematocrit 46 35-52 % Mean Corpuscular Volume 79 L 80-99 fL Mean Corpuscular Hemoglobin 26 25-34 pg Mean Corpuscular Hemoglobin Concent 32 32-36 g/dL Red Cell Distribution Width 13.7 10.0-14.5 % Platelet Count 211 130-400 10^3/uL Mean Platelet Volume 10.6 9.0-12.2 fL Immature Granulocyte % (Auto) 0 % Neutrophils (%) (Auto) 71 42-75 % Lymphocytes (%) (Auto) 14 12-44 % Monocytes (%) (Auto) 13 H 0-12 % Eosinophils (%) (Auto) 2 0-10 % Basophils (%) (Auto) 0 0-10 % Neutrophils # (Auto) 2.7 1.8-7.8 10^3/uL Lymphocytes # (Auto) 0.5 L 1.0-4.0 10^3/uL Monocytes # (Auto) 0.5 0.0-1.0 10^3/uL Eosinophils # (Auto) 0.1 0.0-0.3 10^3/uL Basophils # (Auto) 0.0 0.0-0.1 10^3/uL Immature Granulocyte # (Auto) 0.0 0.0-0.1 10^3/uL Prothrombin Time 12.8 12.2-14.7 SEC INR Comment 0.9 0.8-1.4 Activated Partial Thromboplast Time 35 24-35 SEC Sodium Level 141 135-145 MMOL/L Potassium Level 4.1 3.6-5.0 MMOL/L Chloride Level 108 H 98-107 MMOL/L Carbon Dioxide Level 21 21-32 MMOL/L Anion Gap 12 5-14 MMOL/L Blood Urea Nitrogen 13 7-18 MG/DL Creatinine 0.81 0.60-1.30 MG/DL Estimat Glomerular Filtration Rate 78 BUN/Creatinine Ratio 16 Glucose Level 138 H 70-105 MG/DL Calcium Level 9.5 8.5-10.1 MG/DL Corrected Calcium 9.5 8.5-10.1 MG/DL Magnesium Level 2.0 1.6-2.4 MG/DL Total Bilirubin 0.3 0.1-1.0 MG/DL Aspartate Amino Transf (AST/SGOT) 20 5-34 U/L Alanine Aminotransferase (ALT/SGPT) 17 0-55 U/L Alkaline Phosphatase 82 40-136 U/L Myoglobin 32.0 10.0-92.0 NG/ML Troponin I 0.041 H <0.028 NG/ML Total Protein 7.8 6.4-8.2 GM/DL Albumin 4.0 3.2-4.5 GM/DL Lipase 24 8-78 U/L My Orders Orders - LIDIA HERNANDEZ MD Cbc With Automated Diff (01/09/23 07:48) Magnesium (01/09/23 07:48) Chest 1 View, Ap/Pa Only (01/09/23 07:48) Ekg Tracing (01/09/23 07:48) Comprehensive Metabolic Panel (01/09/23 07:48) Myoglobin Serum (01/09/23 07:48) Protime With Inr (01/09/23 07:48) Partial Thromboplastin Time (01/09/23 07:48) O2 (01/09/23 07:48) Monitor-Rhythm Ecg Trace Only (01/09/23 07:48) Lipid Panel (01/10/23 06:00) Ed Iv/Invasive Line Start (01/09/23 07:48) Troponin I Pranay (01/09/23 07:48) Nitroglycerin 0.4 Mg Btl 25's (Nitrostat (01/09/23 08:00) Aspirin Chewable Tablet (Baby Aspirin Ch (01/09/23 08:00) Lipase (01/09/23 08:19) Heparin Injection (Heparin Injection) (01/09/23 09:00) Ticagrelor Tablet (Brilinta Tablet) (01/09/23 09:00) Code/Resuscitation (01/09/23 08:59) Ed Admission (Communication) (01/09/23 08:59) Medications Given in ED Current Medications Medications Dose Ordered Sig/Arnold Route Start Time Stop Time Status Last Admin Dose Admin Aspirin 324 mg ONCE ONCE PO 01/09/23 08:00 01/09/23 08:01 DC 01/09/23 07:55 324 MG Nitroglycerin 0.4 mg UD PRN SL 01/09/23 08:00 01/09/23 08:05 0.4 MG Vital Signs/I&O 01/09/23 07:40 Pulse 74 Resp 18 B/P (MAP) 171/92 (118) Pulse Ox 97 O2 Delivery Room Air 2 Blood Pressure Mean: 118 Progress Progress Note : Progress Note Seen and evaluated. IV, labs including CBC, CMP, troponin, myoglobin, lipase and coags ordered. EKG and chest x-ray ordered. ASA 324 mg p.o. and nitroglycerin sublingual ordered. Monitor patient. Differential diagnosis includes cardiac event including STEMI versus non-STEMI, reflux disease, pancreatitis Records reviewed and show heart cath in July 2022. Summary results below and reviewed. 0850: Labs reviewed. White count is slightly low but hemoglobin is normal. Coags are normal. Chemistries grossly normal with slightly elevated glucose but also slightly elevated troponin indicating non-ST elevation MS. Lipase is negative. I did discuss the case with Dr. Dumont, on-call for cardiology. We did discuss that to previous heart house and the fact that she states this is how she felt on both occasions. He is requesting n.p.o. status and also request heparin 5000 units IV and Brilinta 180 mg p.o. and he will likely take to the Case Therapist later today but he will see her this morning. 0855: I did discuss the case with Dr. Fuller[facility]. She accepts the patient for admission, observation status and will put in queued orders. I did discuss CODE STATUS with the patient and she requests full code. 08/14/[address] Tee summary: CONCLUSION: 1. Coronary artery disease consisting of 99% in-stent restenosis of the proximal portion of the left anterior descending. 2. Successful balloon angioplasty reduced the stenosis to 0% and improved the flow from LESLIE 1 to LESLIE 3. The mid and distal left anterior descending artery has multiple stenoses of 50%. Left circumflex artery is dominant and has bqoj-cf-phvuvysm diffuse disease. Right coronary artery is very small caliber and is not dominant and has severe diffuse disease. 3. Normal left ventricular end-diastolic pressure. 4. Normal global left ventricular systolic function with ejection fraction approximately 60%. 5. We have advised immediate and complete cessation of tobacco use. She states she will try. RECOMMENDATIONS: We have advised statin therapy. She refuses because of nonspecific, but severe intolerance. We have advised dual antiplatelet therapy. She agrees. We have advised beta vargas therapy. She agrees. 10/13/[address] Brya: CONCLUSION: 1. Severe stenosis/subtotal occlusion in the proximal LAD, successful balloon angioplasty with excellent results with 0% residual stenosis 2. Moderate disease at multiple segment in the distal LAD and circumflex artery, severe stenosis at multiple segment and very small nondominant right coronary artery that is not amendable to intervention 3. Elevated left ventricular end-diastolic pressure Initial ECG Impression Date: January 09, 2023 Initial ECG Impression Time: 07:51 Initial ECG Rate: 71 Initial ECG Rhythm: Normal Sinus Comment Sinus rhythm with left axis deviation and interventricular conduction delay noted. No evidence of ST elevation MS. Interpreted by me. Diagnostic Imaging Diagonstic Imaging: Xray Plain Films/CT/US/NM/MRI: chest Comments [facility], [place] NAME: ANJU CABRERA [facility] REC#: [id number] PT STATUS: REG ER : 1950 PHYSICIAN: LIDIA HERNANDEZ MD ADMIT DATE: 01/09/23/ER Draft Date of Exam:01/09/23 CHEST 1 VIEW, AP/PA ONLY EXAMINATION: Chest 1 view HISTORY: Chest pain COMPARISON: 10/12/2022 FINDINGS: The lungs are clear without edema or pneumonia. No pleural effusion or pneumothorax. Heart size is normal. IMPRESSION: 1. Clear lungs. Dictated on workstation # [id number] Dict: 01/09/23 0842 Trans: 01/09/23 0842 KENNEDY [id number] Interpreted by: HUONG KANG MD Electronically signed by: Reviewed: Reviewed by Me Departure Communication (Admissions) Time/Spoke to Admitting Phy: 08:53 Time/Spoke to Consulting Phy: 08:50 Impression Primary Impression: NSTEMI (non-ST elevated myocardial infarction) Disposition: 09 ADMITTED INPATIENT Condition: Stable Admissions Decision to Admit Reason: Admit from ER (General) Decision to Admit/Date: January 09, 2023 Time/Decision to Admit Time: 08:50 Departure-Patient Inst. Referrals: [facility] (PCP/Family) Primary Care Physician LIDIA HERNANDEZ MD January 09, 2023 07:58
[2023-01-09] MEDS ORDERED: ASPIRIN 81 MG CHEW (CHILDREN'S ASA) PO ONE (08:00)
[2023-01-09 08:16] LABS: POTASSIUM 4.1 MMOL/L (3.6-5.0)
[2023-01-09 08:17] LABS: CALCIUM 9.5 MG/DL (8.5-10.1); INR 0.9 (0.8-1.4); PROTHROMBIN TIME PATIENT 12.8 SEC (12.2-14.7)
[2023-01-09 08:18] LABS: TOTAL PROTEIN 7.8 GM/DL (6.4-8.2)
[2023-01-09 08:20] LABS: BILIRUBIN,TOTAL 0.3 MG/DL (0.1-1.0)
[2023-01-09 08:22] LABS: CREATININE SERUM 0.81 MG/DL (0.60-1.30)
--- NOTE | 2023-01-09 08:43 | Diagnostic Imaging Report ---
EXAMINATION: Chest 1 view HISTORY: Chest pain COMPARISON: 10/12/2022 FINDINGS: The lungs are clear without edema or pneumonia. No pleural effusion or pneumothorax. Heart size is normal. IMPRESSION: 1. Clear lungs. Dictated by: Dictated on workstation # [id number]
[2023-01-09] MEDS ORDERED: TICAGRELOR 90 MG TABLET (BRILINTA) PO ONE (09:00)
--- NOTE | 2023-01-09 09:03 | History & Physical-Hospitalist ---
History of Present Illness HPI/Chief Complaint CC: Angina HPI: This is a 73yoWF clinic patient of [facility] who has a h/o CAD with stents who presented to the ER with chest pain so Cardiology recommended admit observation and cath. Source: patient Exam Limitations: no limitations Date Seen 01/09/23 Time Seen by a Provider: 11:00 Attending Physician [place] PCP Admitting Physician: Attending Physician: Referring Physician Date of Admission Home Medications & Allergies Home Medications Reviewed patient Home Medication Reconciliation performed by pharmacy medication reconciliations pharmacy technician inpatient and/or nursing. Patients Allergies have been reviewed. Allergies Allergies Coded Allergies atorvastatin (Unverified Adverse Reaction, Unknown, 06/14/15) metformin (Unverified Adverse Reaction, Unknown, 06/14/15) Past Mgxooir-Wcdxsr-Eelvcv Hx Patient Social History Marrital Status: single Employed/Student: retired Tobacco Use?: Yes Tobacco type used: Cigarettes Smoking Status: Current Everyday Smoker Substance use?: No Alcohol Use?: No Pt feels they are or have been: No Immunizations Up To Date Date of Influenza Vaccine: May 31, 2013 First/Initial COVID19 Vaccinat: no Second COVID19 Vaccination Jordan: no Tetanus Booster (TDap): Unknown Hepatitis A: No Hepatitis B: No Date of Pneumonia Vaccine: Oct 29, 2012 Seasonal Allergies Seasonal Allergies: No Current Status Advance Directives: No Communicates: Verbally Primary Language: Gambian Preferred Spoken Language: Gambian Is interpretation needed?: No Implanted or Applied Medical D: Stents Past Medical History Surgeries: Appendectomy, Cardiac, Section, Coronary Stent, Gallbladder, Vascular Surgery Pneumonia, Chronic Bronchitis Currently Using CPAP: No Currently Using BIPAP: No Coronary Artery Disease, Heart Attack, Hypertension, Peripheral Vascular Neuropathy 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 History: Menopausal Gastroesophageal Reflux, Chronic Constipation, Hemorrhoids, Chronic Diarrhea, Polyps, Gall Bladder Disease Arthritis, Back Injury, Chronic Back Pain, Fractures Diabetes, Insulin dep, Lupus Tinnitis Skin Depression Blood Disorders: No CAD PAD IDDM HTN HLD Tobacco use SLE Family Medical History Reviewed Nursing Family Hx Diabetes mellitus 19 MOTHER FH: lung cancer 19 FATHER Hypertension 19 MOTHER Heart Disease, Cancer, CAD Under 55 Years Old, Diabetes, Hypertension PT WITH HISTORY OF NON-COMPLIANCE IN ALL ASPECTS OF CARE SOCIAL HISTORY: -SMOKES 1 PPD -DENIES ETOH USE -DENIES DRUG USE PAST SURGICAL HISTORY: -CARDIAC CATH 10/[address] DIEZ: ANGIOPLASTY + STENT X 1 TO LAD -CARDIAC CATH 07/[address] ADKINS MULTIVESSEL DISEASE ANGIOOPLASTY + STENT X 1 TO LAD EF 65-70% MILD PERIPHERAL ARTERY DISEASE 30-40% STENOSIS TO RIGHT S.F.A. NO INTERVENTION NO SIGNIFICANT RENAL ARTERY DISEASE Review of Systems Constitutional: see HPI, malaise, weakness Cardiovascular: chest pain Physical Exam Physical Exam Vital Signs Vital Signs - First Documented 01/09/23 01/09/23 07:40 15:40 Temp 36.0 Pulse 74 Resp 18 B/P (MAP) 171/92 (118) Pulse Ox 97 O2 Delivery Room Air Capillary Refill : Less Than 3 Seconds Height, Weight, BMI Height: 5'3.00" Weight: 188lbs. 3.2oz. 85.254523ue; 23.00 BMI Method:Stated General Appearance: No Apparent Distress, Chronically ill Eyes: Right Eye Normal Inspection, Right Eye PERRL HEENT: PERRL/EOMI, Normal ENT Inspection, Pharynx Normal, Moist Mucous Membranes Neck: Full Range of Motion, Normal Inspection, Non Tender Respiratory: Chest Non Tender, Lungs Clear, Normal Breath Sounds, No Accessory Muscle Use, No Respiratory Distress Cardiovascular: Regular Rate, Rhythm, No Edema, No Gallop, No JVD, No Murmur, Normal Peripheral Pulses Gastrointestinal: Normal Bowel Sounds, No Organomegaly, No Pulsatile Mass, Non Tender, Soft Back: Normal Inspection, No CVA Tenderness, No Vertebral Tenderness Extremity: Normal Capillary Refill, Normal Inspection, Normal Range of Motion, Non Tender, No Calf Tenderness, No Pedal Edema Neurologic/Psychiatric: Alert, Oriented x3, No Motor/Sensory Deficits, Normal Mood/Affect Skin: Normal Color, Warm/Dry Lymphatic: No Adenopathy Results Results/Procedures Labs Laboratory Tests 01/09/23 07:54 01/10/23 05:59 Patient resulted labs reviewed. Assessment/Plan Admission Diagnosis Assessment: Angina CAD Coronary stents in the past Smoker HTN HLP DM Plan: Trend troponin Monitor closely Admission Status: Observation Clinical Quality Measures AMI/AHF: ASA po Prior to arrival: Yes KACY DAVENPORT DO January 09, 2023 09:03
[2023-01-09] MEDS ORDERED: BISACODYL 10 MG SUPP (DULCOLAX) PR PRN (09:45)
[2023-01-09] MEDS ORDERED: morphine INJ 4 MG/ML 1 ML (VIAL/SYRINGE) IV PRN (09:45)
[2023-01-09] MEDS ORDERED: ALPRAZolam 0.25 MG (XANAX) TAB PO PRN (09:45)
[2023-01-09] MEDS ORDERED: diphenhydrAMINE 25 MG TAB (BENADRYL) PO PRN (09:45)
[2023-01-09] MEDS ORDERED: ONDANSETRON 4 MG (ZOFRAN) ORAL DISSOLVE TAB PO PRN (09:45)
[2023-01-09] MEDS ORDERED: NITROGLYCERIN 0.4 MG SL TABS BTL 25'S SL PRN (09:45)
[2023-01-09] MEDS ORDERED: CALCIUM CARBONATE 500 MG (TUMS) TAB.CHEW PO PRN (09:45)
[2023-01-09] MEDS ORDERED: MILK OF MAGNESIA 400 MG/5 ML 30 ML UDC PO PRN (09:45)
[2023-01-09] MEDS ORDERED: ACETAMINOPHEN 325 MG TABLET PO PRN (09:45)
[2023-01-09] MEDS ORDERED: LACTULOSE SYRUP 10GM/15ML (ENULOSE) 30ML UDC PO PRN (09:45)
[2023-01-09] MEDS ORDERED: MELATONIN 3 MG TABLET PO PRN (09:45)
[2023-01-09] MEDS ORDERED: ONDANSETRON 4 MG/2 ML (SDV) Z0FRAN IV PRN (09:45)
[2023-01-09] MEDS ORDERED: PATIENT MAY USE OWN MEDS, ALL PO SCH (09:45)
[2023-01-09] MEDS ORDERED: diphenhydrAMINE 50 MG/ML INJ (BENADRYL) IVP PRN (09:45)
[2023-01-09] MEDS ORDERED: polyethylene glycoL POWDER 17 GM (MIRALAX) PACK PO PRN (09:45)
[2023-01-09] MEDS ORDERED: hydrALAZINE (APESOLINE) 20 MG/ML VIAL IV PRN (09:45)
[2023-01-09] MEDS ORDERED: ANTACID SUSP 30 ML UDC (MYLANTA) PO PRN (09:45)
[2023-01-09 09:59] LABS: TRIGLYCERIDES 120 MG/DL (<150); VLDL CHOLESTEROL 24 MG/DL (5-40)
[2023-01-09 10:04] LABS: CHOLESTEROL 164 MG/DL (< 200); HDL CHOLESTEROL 34 MG/DL (40-60)
[2023-01-09] MEDS: NS IV 1000 ML 1,000 ML IV SCH (10:33)
[2023-01-09] MEDS: inSUlin ASPART (NovoLOG) 1 UNIT/0.01 ML (CHARGE PER UNIT) SC SCH ×3 (11:34→21:26)
[2023-01-09 14:11] VITALS: BP 126/86
[2023-01-09] MEDS ORDERED: RT-ALBUTEROL/IPRATROPIUM 3 ML (DUONEB) VIAL INH PRN (14:30)
--- NOTE | 2023-01-09 15:33 | Consultation-Cardiology ---
HPI-Cardiology Cardiology Consultation: Date of Consultation 01/09/23 Date of Admission Attending Physician [facility] Admitting Physician Admitting Physician: Marian Fuller DO Attending Physician: Marian Fuller DO Consulting Physician Yumiko ALEXANDER MD HPI: Time Seen by a Provider: 14:30 Chief Complaint: Chest pain This is a 73-year-old lady with history of diabetes and active smoking, previous history of PCI and balloon angioplasty of an LAD stent in September 2022 for a non-STEMI. She presents with similar chest pain. First troponin was borderline elevated. Currently chest pain-free. Continues to smoke 6 cigarettes a day. According to the patient she was compliant with her medications. Review of Systems-Cardiology Review of Systems Constitutional: As described under HPI Eyes: no symptoms reported Ears/Nose/Throat: no symptoms reported Respiratory: no symptoms reported Cardiovascular: chest pain Gastrointestinal: no symptoms reported Genitourinary: no symptoms reported : No Musculoskeletal: no symptoms reported Skin: no symptoms reported Psychiatric/Neurological: no symptoms reported Hematologic: no symptoms reported THS-[id number]-Uaiapb Hx Patient Social History Smoking Status: Current Everyday Smoker Former smoker/When Quit: Oct 27, 2012 2nd Hand Smoke Exposure: Yes Have you traveled recently?: No Alcohol Use?: No Pt feels they are or have been: No Tobacco type used: Cigarettes Immunizations Up To Date Tetanus Booster (TDap): More than 5yrs Date of Pneumonia Vaccine: Oct 29, 2012 Date of Influenza Vaccine: May 31, 2013 Past Medical History PMH As described under Assessment. Family Medical History Family History: Diabetes mellitus 19 MOTHER FH: lung cancer 19 FATHER Hypertension 19 MOTHER Allergies and Home Medications Allergies Coded Allergies: atorvastatin (Unverified Adverse Reaction, Unknown, 06/14/15) metformin (Unverified Adverse Reaction, Unknown, 06/14/15) Patient Home Medication List Home Medication List Reviewed: Yes Amlodipine Besylate (Amlodipine Besylate) 10 Mg Tablet, 10 MG PO DAILY, (Reported) Entered as Reported by: PEPITO FRANZ on 08/15/18 1221 Aspirin (Aspirin EC) 81 Mg Tablet.dr, 81 MG PO DAILY Prescribed by: HUGO WOLFF on 10/15/22 1058 Clopidogrel Bisulfate (Clopidogrel) 75 Mg Tablet, 75 MG PO DAILY Prescribed by: HUGO WOLFF on 10/15/22 1058 Insulin Detemir (Levemir Flextouch) 100 Unit/Ml (3 Ml) Insuln.pen, 20 UNITS SC BID PRN for HYPERGLYCEMIA, (Reported) Entered as Reported by: CHRISS GA on 06/28/18 1737 Metoprolol Tartrate (Metoprolol Tartrate) 50 Mg Tablet, 50 MG PO BID, (Reported) Entered as Reported by: CHRISS GA on 06/28/18 1734 Nitroglycerin (Nitroglycerin) 0.4 Mg Tab.subl, 0.4 MG SL UD PRN for CHEST PAIN (ANGINA) Prescribed by: HUGO WOLFF on 10/15/22 1058 Exam Vital Signs Vital Signs Date Time Temp Pulse Resp B/P (MAP) Pulse Ox O2 Delivery O2 Flow Rate FiO2 01/09/23 14:11 57 96 01/09/23 09:47 Room Air 01/09/23 09:11 18 126/86 Physical Exam Normal cardiovascular examination. Normal chest examination Labs Laboratory Tests Test 01/09/23 07:50 01/09/23 07:54 01/09/23 08:21 01/09/23 10:29 Range/Units Triglycerides Level 120 <150 MG/DL Cholesterol Level 164 < 200 MG/DL LDL Cholesterol Direct 105 1-129 MG/DL VLDL Cholesterol 24 5-40 MG/DL HDL Cholesterol 34 L 40-60 MG/DL White Blood Count 3.8 L 4.3-11.0 10^3/uL Red Blood Count 5.79 H 3.80-5.11 10^6/uL Hemoglobin 14.8 11.5-16.0 g/dL Hematocrit 46 35-52 % Mean Corpuscular Volume 79 L 80-99 fL Mean Corpuscular Hemoglobin 26 25-34 pg Mean Corpuscular Hemoglobin Concent 32 32-36 g/dL Red Cell Distribution Width 13.7 10.0-14.5 % Platelet Count 211 130-400 10^3/uL Mean Platelet Volume 10.6 9.0-12.2 fL Immature Granulocyte % (Auto) 0 % Neutrophils (%) (Auto) 71 42-75 % Lymphocytes (%) (Auto) 14 12-44 % Monocytes (%) (Auto) 13 H 0-12 % Eosinophils (%) (Auto) 2 0-10 % Basophils (%) (Auto) 0 0-10 % Neutrophils # (Auto) 2.7 1.8-7.8 10^3/uL Lymphocytes # (Auto) 0.5 L 1.0-4.0 10^3/uL Monocytes # (Auto) 0.5 0.0-1.0 10^3/uL Eosinophils # (Auto) 0.1 0.0-0.3 10^3/uL Basophils # (Auto) 0.0 0.0-0.1 10^3/uL Immature Granulocyte # (Auto) 0.0 0.0-0.1 10^3/uL Prothrombin Time 12.8 12.2-14.7 SEC INR Comment 0.9 0.8-1.4 Activated Partial Thromboplast Time 35 24-35 SEC Sodium Level 141 135-145 MMOL/L Potassium Level 4.1 3.6-5.0 MMOL/L Chloride Level 108 H 98-107 MMOL/L Carbon Dioxide Level 21 21-32 MMOL/L Anion Gap 12 5-14 MMOL/L Blood Urea Nitrogen 13 7-18 MG/DL Creatinine 0.81 0.60-1.30 MG/DL Estimat Glomerular Filtration Rate 78 BUN/Creatinine Ratio 16 Glucose Level 138 H 70-105 MG/DL Calcium Level 9.5 8.5-10.1 MG/DL Corrected Calcium 9.5 8.5-10.1 MG/DL Magnesium Level 2.0 1.6-2.4 MG/DL Total Bilirubin 0.3 0.1-1.0 MG/DL Aspartate Amino Transf (AST/SGOT) 20 5-34 U/L Alanine Aminotransferase (ALT/SGPT) 17 0-55 U/L Alkaline Phosphatase 82 40-136 U/L Myoglobin 32.0 10.0-92.0 NG/ML Troponin I 0.041 H <0.028 NG/ML Total Protein 7.8 6.4-8.2 GM/DL Albumin 4.0 3.2-4.5 GM/DL Lipase 24 8-78 U/L Glucometer 115 H 70-110 MG/DL Test 01/09/23 12:00 Range/Units Troponin I < 0.028 <0.028 NG/ML ECG Impression ECG Initial ECG Rhythm: Normal Sinus Initial ECG Intervals: Normal Initial ECG Impression: Normal Diagnosis/Problems Diagnosis/Problems (1) NSTEMI (non-ST elevated myocardial infarction) Status: Acute A/P-Cardiology Assessment/Admission Diagnosis Non-STEMI, Diabetes, Active smoking Plan Non-STEMI: First troponins was borderline abnormal. Second troponin is negative. EKG does not show any acute ST-T wave abnormalities. Informed consent taken for coronary angiography and possible intervention tomorrow morn ing. 1% risk of complication was discussed including a small risk of . Patient accepted all risk and would like to proceed with the procedure. I will also request an echocardiogram tomorrow. Continue dual antiplatelet therapy with aspirin and Brilinta. Lovenox today. Hold Lovenox dose in the morning. N.p.o. after midnight. Diabetes: We will defer to the primary team. Active smoking: Decreasing her cigarettes but still smokes 6 cigarettes a day. Yumiko ALEXANDER MD January 09, 2023 15:33
[2023-01-09 15:40] VITALS: BP 148/76
[2023-01-09] MEDS: ENOXAPARIN 60 MG/0.6 ML (LOVENOX) SYR SC SCH (17:00)
[2023-01-09 19:55] VITALS: BP 163/70
[2023-01-09] MEDS: TICAGRELOR 90 MG TABLET (BRILINTA) PO SCH (21:26)
[2023-01-09] MEDS: DOCUSATE SODIUM 100 MG (COLACE) CAP PO SCH (21:29)
[2023-01-09] MEDS: SENNOSIDES 8.6 MG (SENOKOT) TAB PO SCH (21:29)
[2023-01-10] VITALS (14 sets, daily range): BP systolic 116–162; BP diastolic 62–97
[2023-01-10] MEDS: NS IV 1000 ML 1,000 ML IV SCH ×2 (00:59→16:41)
[2023-01-10] MEDS: ENOXAPARIN 60 MG/0.6 ML (LOVENOX) SYR SC SCH (00:59)
[2023-01-10 06:07] LABS: BASOPHILS % (AUTO) 1 % (0-10); EOSINOPHILS # (AUTO) 0.1 10^3/uL (0.0-0.3); EOSINOPHILS % (AUTO) 2 % (0-10); HEMATOCRIT 40 % (35-52); HEMOGLOBIN 12.9 g/dL (11.5-16.0); LYMPHOCYTES # (AUTO) 0.5 10^3/uL (1.0-4.0); LYMPHOCYTES % (AUTO) 12 % (12-44); MEAN CORPUSCULAR HEMOGLOBIN 26 pg (25-34); MEAN CORPUSCULAR HGB CONC 32 g/dL (32-36); MEAN CORPUSCULAR VOLUME 79 fL (80-99); MEAN PLATELET VOLUME 10.9 fL (9.0-12.2); MONOCYTES # (AUTO) 0.6 10^3/uL (0.0-1.0); MONOCYTES % (AUTO) 13 % (0-12); NEUTROPHILS # (AUTO) 3.2 10^3/uL (1.8-7.8); NEUTROPHILS % (AUTO) 73 % (42-75); PLATELET COUNT 180 10^3/uL (130-400); WHITE BLOOD COUNT 4.3 10^3/uL (4.3-11.0)
[2023-01-10 06:24] LABS: ALBUMIN 3.4 GM/DL (3.2-4.5)
[2023-01-10 06:25] LABS: POTASSIUM 3.9 MMOL/L (3.6-5.0)
[2023-01-10 06:26] LABS: CALCIUM 8.9 MG/DL (8.5-10.1)
[2023-01-10 06:27] LABS: TOTAL PROTEIN 6.6 GM/DL (6.4-8.2)
[2023-01-10 06:29] LABS: BILIRUBIN,TOTAL 0.4 MG/DL (0.1-1.0)
[2023-01-10 06:31] LABS: CREATININE SERUM 0.79 MG/DL (0.60-1.30)
[2023-01-10] MEDS: inSUlin ASPART (NovoLOG) 1 UNIT/0.01 ML (CHARGE PER UNIT) SC SCH ×4 (06:38→21:29)
[2023-01-10] MEDS ORDERED: HEParin (CATH LAB) 2,000 ML IV ONE (08:06)
[2023-01-10] MEDS ORDERED: LIDOCAINE 1% INJ 20 ML VIAL ONE (08:06)
[2023-01-10] MEDS ORDERED: NS IV 1000 ML 1,000 ML ONE (08:06)
[2023-01-10] MEDS: DOCUSATE SODIUM 100 MG (COLACE) CAP PO SCH ×2 (09:27→21:29)
[2023-01-10] MEDS: SENNOSIDES 8.6 MG (SENOKOT) TAB PO SCH ×2 (09:27→21:29)
[2023-01-10] MEDS: TICAGRELOR 90 MG TABLET (BRILINTA) PO SCH ×2 (09:27→20:34)
[2023-01-10] MEDS: ASPIRIN E.C. 81 MG (ECOTRIN) TAB PO SCH (09:27)
[2023-01-10] MEDS ORDERED: HEParin 1000 UNIT/ML (10ML VIAL) FOR BOLUS ONE (09:33)
[2023-01-10] MEDS ORDERED: MIDAZOLAM 5 MG/5 ML (VERSED) VIAL ONE (09:33)
[2023-01-10] MEDS ORDERED: fentaNYL INJ 100 MCG/2 ML AMP ONE (09:33)
[2023-01-10] MEDS ORDERED: VERAPAMIL 5 MG/2 ML (CALAN) VIAL IV ONE (09:33)
[2023-01-10] MEDS ORDERED: NITRO DRIP 25000 MCG/D5W 250 ML IV ONE (09:34)
--- NOTE | 2023-01-10 11:11 | Coronary Angiography & PCI ---
Coronary Angiography & PCI DATE OF PROCEDURE: 01/10/23 INDICATION: Non-STEMI PREOPERATIVE DIAGNOSIS: Non-STEMI POSTOPERATIVE DIAGNOSIS: Non-STEMI, s/p balloon angioplasty to in-stent restenosis of the mid LAD HISTORY: This is a 73-year-old lady with history of active smoking, diabetes and previous PCI. She presents with prolonged episode of chest pain. Therefore, the patient was scheduled for coronary angiography and possible angioplasty. Informed consent was taken PROCEDURES PERFORMED: 1.Coronary angiography. 2.Left heart catheterization. 3.PTCA to in-stent restenosis of the mid LAD stent. COMPLICATIONS: None. SPECIMENS: None. ESTIMATED BLOOD LOSS: 10 mL ANESTHESIA: Conscious sedation ANTICOAGULATION: IV heparin CONTRAST: 63 cc of Omnipaque FLUOROSCOPY: 9 minutes and 24 seconds FLOUROSCOPY DOSE: 625 mgy PROCEDURE DETAILS: The patient is a 73 female and was brought to the laboratory veterinarian after informed consent was taken. All the risks and complications were explained in detail; this included the risk of bleeding, vascular damage, stroke, WI and even . The patient was draped and prepped in the usual sterile fashion. Access was gained in the right radial artery with a 6 [place] sheath. Coronary angiography and left heart catheterization was performed with the [place] catheter. FINDINGS: 1.Left main: Patent 2.LAD: Moderate ISR in the proximal LAD with 70% stenosis. Severe ISR in the mid LAD stent with 80% stenosis. Diffuse moderate to severe disease distally. 3.Left circumflex artery: First OM has moderate to severe disease. A small second OM has moderate to severe ostial disease. 4.RCA: Small vessel, diffusely diseased. 5.Left heart catheterization: Normal LV function. No gradient across the aortic valve. LVEDP 16 mmHg. No wall motion abnormalities. Aortic pressure 136/64. LV pressure 127/8/10. RECOMMENDATIONS: Balloon angioplasty to the mid LAD in-stent restenosis is recommended. INTERVENTION DETAILS: JL 3.5 guide catheter, 8000 units of IV heparin, BMW guidewire. Patient is on uninterrupted dual antiplatelet therapy with aspirin and Brilinta. ACT over 250 seconds. The lesion was crossed with a BMW wire and the tip was placed in the distal LAD. High-pressure balloon angioplasty was done to the mid LAD ISR with an NC balloon 3.0 x 15 mm at 20 agnieszka for 40 seconds. Followed by another inflation in the proximal LAD at 18 agnieszka for 25 seconds. Post angiographic result showed 20% residual stenosis with LESLIE-3 flow. Initial LESLIE flow was LESLIE II. Radial artery was closed with a wrist band. 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 CONCLUSIONS: 1. Severe mid LAD in-stent restenosis treated successfully with balloon angioplasty. 2. Moderate to severe diffuse distal LAD stenosis, left circumflex artery stenosis. Small RCA with diffuse disease. 3. Aggressive medical therapy. Smoking cessation strongly recommended. Diabetes control. 4. I have recommended that the patient follows regularly with Dr. Bray as an outpatient. Ghulam Dumont MD, FACP, FACC, [facility] Interventional Cardiology Yumiko DUMONT MD January 10, 2023 11:11
[2023-01-10] MEDS ORDERED: NITR0.4T39 SL (14:01)
[2023-01-10] MEDS ORDERED: ASPI-1238 PO (14:01)
[2023-01-10] MEDS ORDERED: INSU100I48 SC (14:01)
[2023-01-10] MEDS ORDERED: HYDR200T46 PO (14:01)
[2023-01-10] MEDS ORDERED: OMEG-218 PO (14:01)
[2023-01-10] MEDS ORDERED: CLOP75TA28 PO (14:01)
--- NOTE | 2023-01-10 18:08 | Progress Note - Hospitalist ---
Subjective HPI/CC On Admission Date Seen by Provider: January 10, 2023 Time Seen by Provider: 11:00 CC: Angina HPI: This is a 73yoWF clinic patient of [facility] who has a h/o CAD with stents who presented to the ER with chest pain so Cardiology recommended admit observation and cath. Subjective/Events-last exam No major issues Awaiting cath today No pain Review of Systems General: Fatigue, Malaise Objective Exam Vital Signs Vital Signs Date Time Temp Pulse Resp B/P (MAP) Pulse Ox O2 Delivery O2 Flow Rate FiO2 01/11/23 04:00 36.9 70 20 159/76 (103) 96 Room Air Capillary Refill : Less Than 3 Seconds General Appearance: No Apparent Distress, WD/WN, Chronically ill Respiratory: Lungs Clear, Normal Breath Sounds Cardiovascular: Regular Rate, Rhythm Neurologic/Psychiatric: Alert, Oriented x3, Depressed Affect Results/Procedures Lab Laboratory Tests 01/10/23 05:59 Patient resulted labs reviewed. Assessment/Plan Assessment and Plan Assess & Plan/Chief Complaint Assessment: Angina CAD Coronary stents in the past Smoker HTN HLP DM Plan: Cath Monitor closely Clinical Quality Measures AMI/AHF: ASA po Prior to arrival: Yes KACY DAVENPORT DO January 10, 2023 18:08
[2023-01-11] VITALS: BP 144/64
[2023-01-11] MEDS: NS IV 1000 ML 1,000 ML IV SCH (00:55)
[2023-01-11 04:00] VITALS: BP 159/76
[2023-01-11 04:59] LABS: BASOPHILS % (AUTO) 0 % (0-10); EOSINOPHILS # (AUTO) 0.1 10^3/uL (0.0-0.3); EOSINOPHILS % (AUTO) 2 % (0-10); HEMATOCRIT 38 % (35-52); HEMOGLOBIN 12.4 g/dL (11.5-16.0); LYMPHOCYTES # (AUTO) 0.7 10^3/uL (1.0-4.0); LYMPHOCYTES % (AUTO) 15 % (12-44); MEAN CORPUSCULAR HEMOGLOBIN 26 pg (25-34); MEAN CORPUSCULAR HGB CONC 32 g/dL (32-36); MEAN CORPUSCULAR VOLUME 80 fL (80-99); MEAN PLATELET VOLUME 11.6 fL (9.0-12.2); MONOCYTES # (AUTO) 0.6 10^3/uL (0.0-1.0); MONOCYTES % (AUTO) 12 % (0-12); NEUTROPHILS # (AUTO) 3.2 10^3/uL (1.8-7.8); NEUTROPHILS % (AUTO) 70 % (42-75); PLATELET COUNT 171 10^3/uL (130-400); WHITE BLOOD COUNT 4.5 10^3/uL (4.3-11.0)
[2023-01-11 05:41] LABS: ALBUMIN 3.3 GM/DL (3.2-4.5); POTASSIUM 3.9 MMOL/L (3.6-5.0)
[2023-01-11 05:44] LABS: TOTAL PROTEIN 6.4 GM/DL (6.4-8.2)
[2023-01-11 05:45] LABS: BILIRUBIN,TOTAL 0.3 MG/DL (0.1-1.0)
[2023-01-11 05:47] LABS: CREATININE SERUM 0.67 MG/DL (0.60-1.30)
[2023-01-11] MEDS: inSUlin ASPART (NovoLOG) 1 UNIT/0.01 ML (CHARGE PER UNIT) SC SCH ×2 (05:47→11:10)
[2023-01-11 08:00] VITALS: BP 132/60
[2023-01-11] MEDS: DOCUSATE SODIUM 100 MG (COLACE) CAP PO SCH (08:25)
[2023-01-11] MEDS: SENNOSIDES 8.6 MG (SENOKOT) TAB PO SCH (08:25)
[2023-01-11] MEDS: TICAGRELOR 90 MG TABLET (BRILINTA) PO SCH (08:25)
[2023-01-11] MEDS: ASPIRIN E.C. 81 MG (ECOTRIN) TAB PO SCH (08:25)
[2023-01-11] MEDS ORDERED: ATOR10TA PO (08:55)
[2023-01-11] MEDS ORDERED: PANT40SU PO (08:55)
--- NOTE | 2023-01-11 08:58 | Cardiology Progress Note ---
Subjective Date Seen by Provider: January 11, 2023 Time Seen by Provider: 08:56 Subjective/Events-last exam Patient was seen at bedside laying down comfortably, feeling better. No further episodes of chest pain Review of Systems General: No Chills, No Night Sweats, No Fatigue, No Malaise, No Appetite, No Other HEENT: No Head Aches, No Visual Changes, No Eye Pain, No Ear Pain, No Dysphasia, No Sinus Congestion, No Post Nasal Drip, No Sore Throat, No Other Pulmonary: No Dyspnea, No Cough, No Pleuritic Chest Pain, No Other Cardiovascular: No: Chest Pain, Palpitations, Orthopnea, Paroxysmal Noc. Dyspnea, Edema, Lt Headedness, Other Objective-Cardiology Exam Last Set of Vital Signs Vital Signs 01/11/23 01/11/23 08:00 08:12 Temp 36.5 Pulse 63 Resp 16 B/P (MAP) 132/60 (84) Pulse Ox 98 O2 Delivery Nasal Cannula O2 Flow Rate 2.00 I&O Intake and Output 01/11/23 00:00 Intake Total 400 ml Balance 400 ml Intake Oral 400 ml # Voids 6 General: Alert, Oriented X3, Cooperative HEENT: Atraumatic, PERRLA Neck: Supple, No JVD, No Thyromegaly Lungs: Clear to Auscultation, Normal Air Movement Heart: Regular Rate, Normal S1, Normal S2, No Murmurs Abdomen: Normal Bowel Sounds, Soft, No Tenderness, No Hepatosplenomegaly, No Masses Extremities: No Clubbing, No Cyanosis, No Edema, Normal Pulses, No Tenderness/Swelling Skin: No Rashes, No Breakdown, No Significant Lesion Neuro: Normal Gait, Normal Speech, Strength at 5/5 X4 Ext, Normal Tone, Sensation Intact Psych/Mental Status: Mental Status NL, Mood NL Results Lab Laboratory Tests 01/11/23 04:45 A/P-Cardiology Admission Diagnosis Non-ST elevation myocardial infarction Coronary artery disease Hypertension Hyperlipidemia Assessment/Plan Chest pain, non-ST elevation myocardial infarction Status postcardiac catheterization and balloon angioplasty for in-stent restenosis of the LAD Non-ST elevation myocardial infarction, EKG showing minimal changes Patient has been having waxing and waning chest pain Cardiac catheterization done in July 2022 with severe disease in the small right coronary artery and moderate disease in the distal LAD that is inoperable. Patient has balloon angioplasty for in-stent restenosis in the proximal LAD. Cardiac catheterization was done again on January 10, 2023 with balloon angioplasty for in-stent restenosis in the LAD. Has distal small vessel disease CAD - Card cath of 08/15/18: Coronary artery disease, multivessel. The most significant lesion was a long stenosis in the proximal left anterior descending artery (up to 95%) that was successfully stented with [place] 2.75 x 33 mm stent and this stent slightly overlaps an old stent that is known to be a drug-eluting stent measuring 2.75 x 16 mm. The distal left anterior descending artery has moderate to moderately severe disease and is of a small caliber. The left circumflex artery is dominant and has mild disease. The right coronary artery is small and nondominant and has a long stenosis in its proximal and mid portion of up to 80%. Normal global left ventricular systolic function with ejection fraction of 65 to 70%. Normal left ventricular end diastolic pressure. No significant mitral regurgitation. No significant renal artery stenosis - Card cath of 08/09/2022: LMCA Ok. LAD 99% prox instent that was successfully treated with PTCA with reduction of stenosis to 0% and improvement of flow from LESLIE 1 to LESLIE 3. Multiple up to 50% in mid and distal LAD. LCX dominant with diffuse mild to mod disease. RCA small and nondominant with diffuse severe disease (not amenable to intervention). LVEDP 5 mmHg. LVEF 60% Catheterization on October 13, 2022, balloon angioplasty for in-stent restenosis in the LAD with excellent results. Cardiac catheterization was done on January 10, 2023 with balloon angioplasty for in-stent restenosis, has distal small vessel disease done by Dr. Dumont Has been maintained on Plavix and ASA Will consider shockwaves in the future if she has restenosis at a tertiary care center PAD, Mild peripheral arterial disease consisting of 30 to 40% stenosis in the right superficial femoral artery per peripheral angiogram of Aug 15, 2018 Hyperlipidemia, Reported intolerance to statin tx. We will try Lipitor 10 mg again DM II Chronic tobacco use (smoking), educated on smoking cessation SLE, per patient report Hypertension, restart home blood pressure medication and continue to monitor. Chronic RBBB Noncompliance with medication, educated about compliance. CONNIE DIEZ MD January 11, 2023 08:58
--- NOTE | 2023-01-11 08:59 | Discharge Inst-Post CATH ---
Discharge Inst-CATH/EP Problems Reviewed?: Yes Post Cardiac Cath/EP D/C Inst Follow Up/Plan Appointment with Dr. Bray's office in 2 weeks <b>CARDIAC CATH/EP PROCEDURE DISCHARGE INSTRUCTIONS</b> ACTIVITY * Go Home directly and rest. * Limit activity of the leg (or wrist if it was used) for 7 days including aerobics, swimming, jogging, bicycling, etc. * Restrict stair-climbing for 7 days if possible, if not, climb up with your non-cath leg, then bring together on the same step. * Avoid lifting, pushing, pulling or excessive movement of the affected extremity for 7 days. * Customary sexual activity may be resumed after 2 days-use caution not to use a position that strains or causes pain to the affected extremity. * No driving for 24 hours. * NO SMOKING. * Avoid straining for bowel movements for 7 days. * Gentle walking on level ground is allowed. * Returning to work will depend on the type of procedure and the results. Your doctor will discuss this with you. CALL YOUR DOCTOR FOR ANY OF THE FOLLOWING: *If bleeding from the puncture site occurs- Apply gentle pressure to site with clean cloth and call your doctor or EMS. * If a knot or lump forms under the skin, increases in size, or causes pain. * If bruising appears to be worsening or moving further down your leg instead of disappearing. * Temperature above 101 F. CARE OF YOUR GROIN INCISION; * Bruising or purple discoloration of the skin near the puncture site is common. * You may shower only, no bathtub bathing for 5 days. Be careful to avoid slipping as your leg may feel stiff. * If a closure device was used on your femoral artery, please see the attached guide regarding care of the device and your leg. * Leave dressing on FOR 24 hours. CARE OF YOUR WRIST INCISION; * Bruising or purple discoloration of the skin near the puncture site is common. * You may shower. * DO NOT submerge wrist. * Leave dressing on FOR 24 hours. CONNIE BRAY MD January 11, 2023 08:59
--- NOTE | 2023-01-11 09:13 | Discharge Summary ---
Discharge Summary Hospital Course Was the Problem List Reviewed?: Yes Problems/Dx: (1) NSTEMI (non-ST elevated myocardial infarction) Status: Acute Hospital Course Date of Admission: January 09, 2023 at 09:26 Admission Diagnosis : [facility] Phys[facility] Date of Discharge: 01/11/23 Discharge Diagnosis: [ ] Hospital Course: Uneventful course after admitted for unstable angina and underwent cath with intervention without complications. Statin and PPI added and sent to pharmacy. Smoking cessation counseled. Labs and Pending Lab Test: Laboratory Tests 01/10/23 11:44: Glucometer 92 01/10/23 16:35: Glucometer 124H 01/10/23 20:55: Glucometer 126H 01/11/23 04:45: White Blood Count 4.5, Red Blood Count 4.81, Hemoglobin 12.4, Hematocrit 38, Mean Corpuscular Volume 80, Mean Corpuscular Hemoglobin 26, Mean Corpuscular Hemoglobin Concent 32, Red Cell Distribution Width 13.8, Platelet Count 171, Mean Platelet Volume 11.6, Immature Granulocyte % (Auto) 0, Neutrophils (%) (Auto) 70, Lymphocytes (%) (Auto) 15, Monocytes (%) (Auto) 12, Eosinophils (%) (Auto) 2, Basophils (%) (Auto) 0, Neutrophils # (Auto) 3.2, Lymphocytes # (Auto) 0.7L, Monocytes # (Auto) 0.6, Eosinophils # (Auto) 0.1, Basophils # (Auto) 0.0, Immature Granulocyte # (Auto) 0.0, Sodium Level 138, Potassium Level 3.9, Chloride Level 115H, Carbon Dioxide Level 14L, Anion Gap 9, Blood Urea Nitrogen 10, Creatinine 0.67, Estimat Glomerular Filtration Rate 93, BUN/Creatinine Ratio 15, Glucose Level 97, Calcium Level 9.0, Corrected Calcium 9.6, Total Bilirubin 0.3, Aspartate Amino Transf (AST/SGOT) 24, Alanine Aminotransferase (ALT/SGPT) 15, Alkaline Phosphatase 64, Total Protein 6.4, Albumin 3.3 Home Meds Active Lipitor (Atorvastatin Calcium) 10 Mg Tablet 10 Mg PO DAILY Protonix (Pantoprazole Sodium) 40 Mg Granpkt.dr 40 Mg PO DAILY Reported Aspirin EC (Aspirin) 81 Mg Tablet.dr 81 Mg PO HS Nitroglycerin 0.4 Mg Tab.subl 0.4 Mg SL UD PRN Insulin Lispro Kwikpen U-100 (Insulin Lispro) 100 Unit/Ml Insuln.pen Units SC AC PRN USING SLIDING SCALE Hydroxychloroquine Sulfate 200 Mg Tablet 200 Mg PO BID PRN [place]-3 Acid Ethyl Esters 1 Gram Capsule 1 Gm PO BID Clopidogrel (Clopidogrel Bisulfate) 75 Mg Tablet 75 Mg PO DAILY Amlodipine Besylate 10 Mg Tablet 10 Mg PO HS Assessment/Pt Instructions PCP 1 week Discharge Planning: <30 minutes discharge planning Discharge Physical Examination Vital Signs Vital Signs Date Time Temp Pulse Resp B/P (MAP) Pulse Ox O2 Delivery O2 Flow Rate FiO2 01/11/23 08:12 98 Nasal Cannula 2.00 01/11/23 08:00 36.5 63 16 132/60 (84) General Appearance: No Apparent Distress, WD/WN, Chronically ill Allergies: Coded Allergies: atorvastatin (Unverified Adverse Reaction, Unknown, 06/14/15) metformin (Unverified Adverse Reaction, Unknown, 06/14/15) Discharge Summary Date of Admission January 09, 2023 at 09:26 Date of Discharge Discharge Date: January 11, 2023 Admission Diagnosis Assessment: Angina CAD Coronary stents in the past Smoker HTN HLP DM Plan: Trend troponin Monitor closely Discharge Diagnosis Assessment: Angina CAD Coronary stents in the past Smoker HTN HLP DM Plan: Cath Monitor closely (1) NSTEMI (non-ST elevated myocardial infarction) Status: Acute Clinical Quality Measures AMI/AHF: ASA po Prior to arrival: Yes KACY DAVENPORT DO January 11, 2023 09:13
[2023-01-11 12:23] VITALS: BP 132/60
== END 2023-01-11 11:55 | disposition home or self-care (01) ==
LOC: EDUNIT# 07:39 → ER 07:42 → CSD 09:26
PROVIDERS: ADMIT Internal Medicine; ATTEND Internal Medicine
DX: T82.855A Stenosis of coronary artery stent, initial encounter (principal); I25.110 Atherosclerotic heart disease of native coronary artery with unstable angina pectoris; I21.4 Non-ST elevation (NSTEMI) myocardial infarction; I10 Essential (primary) hypertension; E78.5 Hyperlipidemia, unspecified; E11.51 Type 2 diabetes mellitus with diabetic peripheral angiopathy without gangrene; M32.9 Systemic lupus erythematosus, unspecified; F17.210 Nicotine dependence, cigarettes, uncomplicated; Z79.899 Other long term (current) drug therapy; Z91.199 Patient's noncompliance with other medical treatment and regimen due to unspecified reason; Z95.5 Presence of coronary angioplasty implant and graft; Z79.4 Long term (current) use of insulin
CPT/HCPCS: 71045; 80053 ×3; 80061; 82947 ×3; 83690; 83735; 83874; 84484; 85025 ×3; 85610; 85730; 92920; 93005 ×2; 93041; 93458; 94640; 94760; 96372 ×2; 99284; C1725; C1769 ×2; C1887; C1894; C8929; G0378; 36415; 93306